=== PATIENT | female | born 1980 | race Caucasian/White ===

== ENCOUNTER 2021-08-11 19:48 | Emergency (ER) | payer BC, SELFPAY ==
--- NOTE | 2021-08-11 19:54 | ED.HA ---
HPI - Headache General Chief Complaint: Headache Stated Complaint: migrane Time Seen by Provider: 08/11/21 19:54 Source: patient and RN notes reviewed Mode of arrival: ambulatory Limitations: no limitations History of Present Illness HPI Narrative: 41-year-old female presents to the [facility] with complaints of a migraine. Patient reports a history of migraines. Has tried taking her sumatriptan and states it was not working. Was prescribed Fioricet as held up at the pharmacy. Denies any nausea or vomiting. Walks with a normal gait. States it feels like a normal migraine however she has slight pressure behind both ears. No numbness or tingling in extremities. No change in vision or blurry vision. No chest pain. No abdominal pain. Denies fevers MD elicited complaint: migraine Related Data Home Medications Medication Instructions Recorded Confirmed bupropion HCl 150 mg PO QAM 08/11/21 08/11/21 levothyroxine [Synthroid] 175 mcg PO DAILY 08/11/21 08/11/21 methylprednisolone 4 mg PO DAILY 08/11/21 08/11/21 ondansetron [Zofran ODT] 4 mg PO PRN PRN 08/11/21 08/11/21 plecanatide [Trulance] 3 mg PO DAILY 08/11/21 08/11/21 sumatriptan succinate 6 mg SUBCUT PRN PRN 08/11/21 08/11/21 Allergies Allergy/AdvReac Type Severity Reaction Status Date / Time morphine AdvReac Mild Hives Verified 08/11/21 20:05 Review of Systems Review of Systems: All systems reviewed & are unremarkable except as noted in HPI and below Constitutional: Constitutional: Reports no additional constitutional complaints, Denies chills and Denies fever(s) Eyes: Eyes: Reports no additional eye complaints ENT: Reports as per HPI Comments: Bilateral ear pressure Cardiovascular: Cardiovascular: Reports no additional cardiovascular complaints Respiratory: Respiratory: Reports no additional respiratory complaints Gastrointestinal: Gastrointestinal: Reports no additional gastrointestinal complaints Genitourinary: Genitourinary: Reports no additional female genitourinary complaints Musculoskeletal: Musculoskeletal: Reports no additional musculoskeletal complaints Integumentary/Breasts: Skin/Breast: Reports system reviewed and no additional complaints, except as docu Neurologic: Reports as per HPI and Reports headache(s) Psychiatric: Psychiatric: Reports no additional psychiatric complaints Allergic/Immunologic: Allergic/Immunologic: Reports no additional allergic/immunologic complaints PMFSH Past Medical History Medical History (Updated 08/11/21 @ 20:15 by Martita Hebert) Anxiety and depression Migraines Surgical History Surgical History (Updated 08/11/21 @ 20:11 by Martita Hebert) History of laparoscopic cholecystectomy Social History Social History (Updated 08/11/21 @ 20:11 by Martita Hebert) Living arrangements: with family Gender identity (if verbalized by the patient): Female Comments At the time of my signature, I reviewed and agree with the nursing past medical, surgical, social, and family history. There is no relevant family history pertinent to the patient complaint. Exam Const: General: healthy appearing, no acute distress and alert Nutritional Appearance: well nourished Orientation/consciousness: patient oriented x3 Limitations: no limitations HENMT: Head: normal to inspection Ears: external ears normal, EAC's normal and TM abnormal bulging bilateral, wth effusion and with fluid behind the TM bilateral; not bullous, not dull, not erythematous and with no loss of landmarks General nose exam: Normal external nose present Face and sinus: normal facial exam Throat: posterior oropharynx normal, tonsils normal and uvula midline Eyes: Conjunctivae: conjunctivae normal Pupils: Equal, round and reactive pupils present Neck: Neck: normal visual inspection, no lymphadenopathy and no meningeal signs Chest: Chest palpation & inspection: normal inspection of the chest Resp: Effort & Inspection: normal respiratory effor
[2021-08-11 20:02] VITALS: BP 118/84; PULSE 93; RESP 18; TEMP 37.2; O2SAT 98
[2021-08-11] MEDS: KETOROLAC (*BKC) 60 MG/2 ML VIAL IM (20:09)
[2021-08-11 20:14] VITALS: BP 118/84; PULSE 93; RESP 18; TEMP 37.2; O2SAT 98
== END 2021-08-11 20:26 | disposition home or self-care (01) ==
PROVIDERS: Emergency Provider Nurse Practitioner
DX: G43.909 Migraine, unspecified, not intractable, without status migrainosus (principal); H65.03 Acute serous otitis media, bilateral; F41.9 Anxiety disorder, unspecified; F32.A Depression, unspecified
CPT/HCPCS: 96372; 99203; G0463; J1885

== ENCOUNTER 2021-08-13 07:44 | Emergency (ER) | payer BC, SELFPAY ==
--- NOTE | ~2021-08-13 | XR_ITS ---
EXAMINATION: XR lumbar spine min 4V DATE: 08/13/2021 08:43 INDICATION: Nontraumatic low back pain TECHNIQUE: 5 views of the lumbar spine including anteroposterior, lateral, bilateral oblique and cone d-down lateral lumbosacral views were obtained. COMPARISON: None. FINDINGS: Alignment is normal. Vertebral body heights are normal. No pars intra-articular is defects or fractur es identified. Mild right-sided predominant disc height loss at L4-L5. Remaining disc heights are nor mal. Sacral arches are intact. Mild bilateral sacroiliac osteoarthritis. IUD in expected position in the central pelvis. Cholecystectomy clips in right upper quadrant. IMPRESSION: 1. Mild right-sided predominant disc height loss at L4-L5. 2. IUD in expected position. Reviewed, dictated and finalized at location A. CALLER
[2021-08-13 07:46] VITALS: BP 110/85; PULSE 87; RESP 18; O2SAT 97
[2021-08-13 08:39] LABS: Add Urine Microscopic? YES; Appearance Urine Cloudy (Clear); Bilirubin Urine Negative (Negative); Blood Urine 2+ (Negative); Color Urine Yellow (Yellow); Glucose Urine UA Negative (Negative); Ketones Urine Negative (Negative); Leukocyte Esterase Ur Negative LEU/UL (Negative); Mucus Urine Rare /lpf; Nitrate Urine Negative (Negative); Protein Urine Negative (Negative); Specific Grav Ur 1.016 (1.001-1.035); Squamous Epithelial Cell Urine Few /hpf (Few); Urobilinogen Urine Negative mg/dL (<2.0); WBC Urine 0-3 /hpf
[2021-08-13] MEDS: KETOROLAC 30 MG/ML VIAL (*BKC) IV PUSH (09:01)
[2021-08-13] MEDS: ONDANSETRON INJ 4 MG/2 ML VIAL IV PUSH (09:01)
[2021-08-13] MEDS: HYDROmorphone HCL INJ (*CRX) 1 MG/ML SYR IV PUSH (10:13)
--- NOTE | 2021-08-13 10:54 | ED.BACK ---
HPI - Back Pain/Injury General Chief Complaint: Back Pain/Injury Stated Complaint: back pain Time Seen by Provider: 08/13/21 07:46 Source: patient Mode of arrival: ambulatory Limitations: no limitations History of Present Illness HPI Narrative: 41-year-old with history of hypothyroidism here with complaints of left lower back pain radiating into her left upper part of the thigh. Patient states that she has been having this pain for quite some time. She has been seeing chiropractor she denies any trauma. No history of bladder or bowel incontinence. Denies any fever or chills. She states that she is presently taking Medrol Dosepak. MD elicited complaint: back pain Pertinent past history: prior back pain Onset (ago): week(s) Timing: constant Severity: severe Pain scale (0-10): 8 Similar Symptoms Previously: Yes Quality: aching Location: lumbar spine Radiation: left upper leg Exacerbating factors: movement and sitting upright Relieving factors: walking Associated symptoms: denies other symptoms Related Data Allergies Allergy/AdvReac Type Severity Reaction Status Date / Time morphine Allergy Unknown Verified 01/10/18 09:04 Review of Systems Review of Systems: All systems reviewed & are unremarkable except as noted in HPI and below Constitutional: Constitutional: Reports no additional constitutional complaints Eyes: Eyes: Reports no additional eye complaints ENT: Reports system reviewed and no additional complaints, except as documented Cardiovascular: Cardiovascular: Reports no additional cardiovascular complaints Respiratory: Respiratory: Reports no additional respiratory complaints Gastrointestinal: Gastrointestinal: Reports no additional gastrointestinal complaints Genitourinary: Genitourinary: Reports no additional female genitourinary complaints Musculoskeletal: Musculoskeletal: Reports as per HPI Integumentary/Breasts: Skin/Breast: Reports system reviewed and no additional complaints, except as docu Neurologic: Reports system reviewed and no additional complaints, except as documented PMFSH Social History Social History (Updated 08/13/21 @ 11:11 by Mynor Maier MD) Smoking status: Never smoker Substance use: never Living arrangements: with family Exam Narrative: GENERAL: Well-appearing, well-nourished, and in no acute distress. HEAD: Normocephalic, atraumatic. EYES: PERRLA and EOMI. NECK: Supple. CHEST: Clear to auscultation. No respiratory distress. HEART: Regular rate and rhythm. No murmur heard. Normal peripheral pulses. ABDOMEN: Soft, nontender, nondistended, normal active bowel sounds. EXTREMITIES: Normal range of motion. No edema. Back pain in the L4-L5 area. SLR negative SKIN: Warm, dry, no rash. NEURO: No focal deficits. Alert and oriented x3. PSYCH: Normal mood and affect. Course Course Emergency Course: Patient had minimal relief with the Decadron and Toradol. I have given 1 mg of Dilaudid did obtain x-ray of the lumbar spine which shows L4-L5 narrowing. Her pain is much improved with IV Dilaudid Vital Signs Vital signs: Vital Signs Pulse Rate 87 08/13/21 07:46 Respiratory Rate 18 08/13/21 07:46 Blood Pressure 110/85 08/13/21 07:46 Pulse Oximetry 97 08/13/21 07:46 Pulse Rate 87 08/13/21 07:46 Respiratory Rate 18 08/13/21 07:46 Blood Pressure 110/85 08/13/21 07:46 Pulse Oximetry 97 08/13/21 07:46 MDM - Back Pain/Injury Differential Diagnosis Differential diagnosis: Likely lumbar radiculopathy, sciatica and discitis Lab Data Labs: Lab Results 08/13/21 Range/Units 08:26 Urine Color Yellow (Yellow) Urine Appearance Cloudy H (Clear) Urine pH 6.0 (5.0-9.0) Ur Specific Rufe 1.016 (1.001-1.035) Urine Protein Negative (Negative) mg/dL Urine Glucose (UA) Negative (Negative) mg/dL Urine Ketones Negative (Negative) mg/dL Ur Blood (Man) 2+ H (Negative) Urine Nitrate Negative (Negative) Urine Eduardo
== END 2021-08-13 11:26 | disposition home or self-care (01) ==
PROVIDERS: Emergency Provider Family Medicine
DX: M54.16 Radiculopathy, lumbar region (principal); Z97.5 Presence of (intrauterine) contraceptive device
CPT/HCPCS: 72110; 81001; 81025; 96374; 96375; 99284; J1100; J1170; J1885; J2405

== ENCOUNTER 2023-08-17 22:14 | Emergency (ER) | payer SELFPAY ==
--- NOTE | 2023-08-17 22:23 | PC.NURSE ---
patient states she was not going to wait and was going to a different hospital
== END 2023-08-17 22:22 | disposition left against medical advice (07) ==
DX: Z53.21 Procedure and treatment not carried out due to patient leaving prior to being seen by health care provider (principal)
CPT/HCPCS: 99199

== ENCOUNTER 2024-06-04 17:44 | Emergency (ER) | payer OTHER, SELFPAY ==
--- NOTE | ~2024-06-04 | CT_ITS ---
EXAMINATION: CT abdomen pelvis w con DATE: 06/04/2024 21:32 INDICATION: Right flank pain. TECHNIQUE: Computed tomography (CT) of the abdomen and pelvis was performed with 100 mL Omnipaque 350 intravenous contrast. Automated exposure control and iterative reconstruction technique were employe d. The dose-length product was 366.62 mGy-cm. COMPARISON: None. FINDINGS: The visualized portions of the lung bases demonstrate mild atelectasis. No pleural effusion . The heart size is normal. No pericardial effusion. There is a 7 mm cyst in the liver. There are shauna nges of cholecystectomy. The spleen, pancreas, adrenal glands, and kidneys are normal. There is an in trauterine device in expected position. There are no dilated loops of bowel. The appendix is normal. There are no pathologically enlarged lymph nodes. There is no free intraperitoneal fluid. There is a 2.5 cm dominant follicle in right ovary. There is a 2.4 cm dominant follicle in left ovary. There is mild lumbar spondylosis. IMPRESSION: 1. No specific etiology for the patient's symptoms. Reviewed, dictated and finalized at location A.
[2024-06-04 17:59] VITALS: BP 130/99; PULSE 96; RESP 18; TEMP 36.6; O2SAT 100
--- NOTE | 2024-06-04 20:11 | ED.GENADULT ---
HPI - General Adult General Chief complaint: Unspecified Stated complaint: sick for 10 days/rib pain Time Seen by Provider: 06/04/24 19:17 Source: patient Mode of arrival: ambulatory Limitations: no limitations History of Present Illness HPI narrative: Is a 44-year-old female who presents to the ED for chief complaint of feeling ill for the past 10 days. States she started with cough congestion, body aches and fevers. States she was tested for strep a week ago but was negative, however they started Augmentin anyway. She is finishing up this prescription now. States over the last several days she has started to developed urinary frequency and dysuria. She states that she has a pain in her right side towards her right flank. States that she is no longer coughing. Denies fevers, chills, nausea, vomiting, diarrhea, chest pain, shortness of breath. Related Data Home Medications Medication Instructions Recorded Confirmed bupropion HCl 150 mg 24 hr tablet, 150 mg PO QAM 08/11/21 08/11/21 extended release levothyroxine 175 mcg tablet 175 mcg PO DAILY 08/11/21 08/11/21 (Synthroid) methylprednisolone 4 mg tablets in 4 mg PO DAILY 08/11/21 08/11/21 a dose pack ondansetron 4 mg disintegrating 4 mg PO PRN PRN Migraine Headache 08/11/21 08/11/21 tablet plecanatide 3 mg tablet (Trulance) 3 mg PO DAILY 08/11/21 08/11/21 sumatriptan succinate 6 mg/0.5 mL 6 mg subcut PRN PRN Migraine 08/11/21 08/11/21 subcutaneous pen injector Headache Allergies Allergy/AdvReac Type Severity Reaction Status Date / Time morphine Allergy Unknown Vomiting Verified 08/17/23 22:14 Review of Systems Review of Systems: All systems as dictated in [facility] Past Medical History Medical History (Updated 06/05/24 @ 00:00 by Chavez Lindo) Anxiety and depression Migraines Surgical History Surgical History (Updated 08/17/21 @ 09:21 by Lilia Bloom) History of laparoscopic cholecystectomy Social History Social History (System 08/17/21 @ 09:21 by Lilia Bloom) Smoking status: Never smoker Substance use: never Living arrangements: with family Gender identity (if verbalized by the patient): Female Exam Narrative: GENERAL: Well-appearing, well-nourished, and in no acute distress. HEAD: Normocephalic, atraumatic. EYES: PERRLA and EOMI. ENT: Nares clear, no rhinorrhea or epistaxis. Mucous membranes moist. Oropharynx without tonsillar hypertrophy exudate or other lesions. NECK: Supple. No adenopathy or masses. CHEST: No respiratory distress. Clear to auscultation. No wheezes rales or rhonchi HEART: Regular rate and rhythm. No murmur heard. Normal peripheral pulses. ABDOMEN: Right flank tenderness present. Soft, otherwise nontender, nondistended, normal active bowel sounds. MSK: Normal range of motion. No edema. SKIN: Warm, dry, no rash. NEURO: Alert and oriented x4. No focal deficits. PSYCH: Normal mood and affect. Course Vital Signs Vital signs: Vital Signs Temperature 97.9 F 06/04/24 17:59 Pulse Rate 96 06/04/24 17:59 Respiratory Rate 18 06/04/24 17:59 Blood Pressure 130/99 H 06/04/24 17:59 Pulse Oximetry 100 06/04/24 17:59 Oxygen Delivery Room Air 06/04/24 17:59 Temperature 98.4 F 06/04/24 22:19 Pulse Rate 92 06/04/24 22:19 Respiratory Rate 17 06/04/24 22:19 Blood Pressure 122/81 06/04/24 22:19 Pulse Oximetry 100 06/04/24 22:19 Oxygen Delivery Room Air 06/04/24 17:59 Medical Decision Making [facility] Narrative Medical decision making narrative: this is a 4-year-old female who presents to the ED with chief complaint of fatigue and right-sided abdominal pain. Vitals are normal. Exam does show some right flank tenderness present. Lab work is overall unremarkable. Urinalysis questionable for UTI with trace leuks and blood. CT abdomen is negative for any acute findings. Will treat for possible UTI with ciprofloxacin. Encourage
[2024-06-04] MEDS: ONDANSETRON INJ 4 MG/2 ML VIAL IV PUSH (20:16)
[2024-06-04] MEDS: KETOROLAC 30 MG/ML VIAL (*BKC) IV PUSH (20:16)
[2024-06-04] MEDS: SODIUM CHLORIDE 0.9% IV 1,000 ML 999 ML IV CONT (20:16)
[2024-06-04 20:26] LABS: Basophils Percent Auto 0.5 % (0.2-1.2); Eosinophils Absolute Auto 0.1 K/mm3 (0-0.3); Eosinophils Percent Auto 0.8 % (0-4.4); Hematocrit 41.1 % (37.0-47.0); Hemoglobin 13.9 g/dL (12.0-15.0); Immature Granulocyte Absolute 0.02 K/mm3 (0.00-0.031); Immature Granulocyte Percent A 0.2 % (0-0.5); Lymphocytes Absolute Auto 3.45 K/mm3 (0.9-3.2); Lymphocytes Percent Auto 39.6 % (18.3-44.2); Mean Corpuscular HGB Conc 33.8 g/dl (32-36); Mean Corpuscular Hemoglobin 29.6 pg (26-34); Mean Corpuscular Volume 87.4 fl (80-100); Mean Platelet Volume 9.4 fl (7.4-10.4); Monocytes Absolute Auto 0.9 K/mm3 (0.1-0.6); Monocytes Percent Auto 9.7 % (2.6-8.5); Neutrophils Absolute Auto 4.3 K/mm3 (1.3-6.7); Neutrophils Percent Auto 49.2 % (45.5-73.1); Platelet Count Result 321 k/mm3 (150-375); Red Cell Distribution Width 13.2 % (11.5-14.5); White Blood Count 8.7 K/mm3 (4.5-10.0)
[2024-06-04 20:30] LABS: Add Urine Microscopic? YES; Appearance Urine Clear (Clear); Bacteria Urine None Seen /hpf; Bilirubin Urine Negative (Negative); Blood Urine 2+ (Negative); Color Urine Yellow (Yellow); Glucose Urine UA Negative (Negative); Ketones Urine Negative (Negative); Leukocyte Esterase Ur Trace LEU/UL (Negative); Nitrate Urine Negative (Negative); Non Pathogenic Casts 0-2; Protein Urine Negative (Negative); RBC Urine 21-50 /hpf (0-2); Specific Grav Ur 1.022 (1.001-1.035); Squamous Epithelial Cell Urine Occasional /hpf (Few); WBC Urine 0-5 /hpf (0-3); pH Urine 6.5 (5.0-9.0)
[2024-06-04 20:47] LABS: Alanine Aminotransferase 32 U/L (6-35); Albumin Level 4.2 g/dL (3.5-5.1); Alkaline Phosphatase 35 U/L (38-126); Anion Gap 9 mmol/L (4-12); Aspartate Amino Transferase 35 U/L (14-36); Bilirubin,Total 1.7 mg/dL (0.2-1.3); Blood Urea Nitrogen 12 mg/dL (7-17); Calcium 9.1 mg/dL (8.4-10.2); Carbon Dioxide 24 mmol/L (22-30); Chloride 104 mmol/L (98-107); Estimated CRCL calculation 82 ml/min; Estimated Glomerular Filt Rate > 60; Glucose 87 mg/dL (65-110); Lipase 64 U/L (23-300); Potassium 4.3 mmol/L (3.4-5.0); Sodium 137 mmol/L (137-145)
[2024-06-04 21:17] LABS: BEDSIDEPREGUCG Negative
[2024-06-04 22:18] VITALS: RESP 16; O2SAT 99
[2024-06-04 22:19] VITALS: BP 122/81; PULSE 92; RESP 17; TEMP 36.9; O2SAT 100
== END 2024-06-04 22:23 | disposition home or self-care (01) ==
PROVIDERS: Emergency Provider Physician Assistant; PCP Family Medicine
DX: N39.0 Urinary tract infection, site not specified (principal); F41.9 Anxiety disorder, unspecified; F32.A Depression, unspecified; Z90.49 Acquired absence of other specified parts of digestive tract; Z79.899 Other long term (current) drug therapy
CPT/HCPCS: 36415; 74177; 80053; 81001; 81025; 83690; 85025; 96361; 96374; 96375; 99284; J1885; J2405; J7030; Q9967

== ENCOUNTER 2024-08-29 14:52 | Emergency (ER) | payer OTHER, SELFPAY ==
[2024-08-29 14:55] VITALS: BP 123/93; PULSE 90; RESP 18; TEMP 36.2; O2SAT 100
--- NOTE | 2024-08-29 15:48 | ED.GENADULT ---
HPI - General Adult General Chief complaint: Unspecified Stated complaint: puppy has giardia Time Seen by Provider: 08/29/24 15:41 Source: patient Mode of arrival: ambulatory Limitations: no limitations History of Present Illness HPI narrative: 44 years old white female came to the ED by private car complaining of diarrhea, abdominal bloating for the last 4 days up to 5 times a day. Associated with some nausea She denies any abdominal pain, fever, chills, or, vomiting. Patient is telling me that her dog tested positive for Giardia few days ago. Patient is telling me that she have no trouble of drinking fluid Related Data Home Medications Medication Instructions Recorded Confirmed bupropion HCl 150 mg 24 hr tablet, 150 mg PO QAM 08/11/21 08/11/21 extended release levothyroxine 175 mcg tablet 175 mcg PO DAILY 08/11/21 08/11/21 (Synthroid) methylprednisolone 4 mg tablets in 4 mg PO DAILY 08/11/21 08/11/21 a dose pack ondansetron 4 mg disintegrating 4 mg PO PRN PRN Migraine Headache 08/11/21 08/11/21 tablet plecanatide 3 mg tablet (Trulance) 3 mg PO DAILY 08/11/21 08/11/21 sumatriptan succinate 6 mg/0.5 mL 6 mg subcut PRN PRN Migraine 08/11/21 08/11/21 subcutaneous pen injector Headache Allergies Allergy/AdvReac Type Severity Reaction Status Date / Time morphine Allergy Unknown Vomiting Verified 08/29/24 14:59 meloxicam Allergy Swelling Verified 08/29/24 15:00 diclofenac AdvReac Unknown Verified 08/29/24 15:00 methotrexate AdvReac Unknown Verified 08/29/24 15:00 nitrofurantoin AdvReac Unknown Verified 08/29/24 15:00 Review of Systems Review of Systems: All systems reviewed & are unremarkable except as noted in HPI and below PMFSH Past Medical History Medical History Anxiety and depression Migraines Surgical History Surgical History History of laparoscopic cholecystectomy Social History Social History Smoking status: Never smoker Substance use: never Living arrangements: with family Gender identity (if verbalized by the patient): Female Exam Narrative: General appearance: Well-developed, well-nourished Skin: Normal color Chest and respiratory: Airway patent, no respiratory distress, no accessory muscle use Heart: Regular rate/rhythm Abdomen: Soft, nontender, no organomegaly, hyperactive bowel sounds Neurologic: Alert and oriented ?3, Course Vital Signs Vital signs: Vital Signs Temperature 36.2 C L 08/29/24 14:55 Pulse Rate 90 08/29/24 14:55 Respiratory Rate 18 08/29/24 14:55 Blood Pressure 123/93 H 08/29/24 14:55 Pulse Oximetry 100 08/29/24 14:55 Oxygen Delivery Room Air 08/29/24 14:55 Temperature 36.2 C L 08/29/24 14:55 Pulse Rate 90 08/29/24 14:55 Respiratory Rate 18 08/29/24 14:55 Blood Pressure 123/93 H 08/29/24 14:55 Pulse Oximetry 100 08/29/24 14:55 Oxygen Delivery Room Air 08/29/24 14:55 Medical Decision Making [facility] Narrative Medical decision making narrative: Patient presents with diarrhea and abdominal bloating, status post get RDS exposure Vital signs are stable Physical examination showed slightly distended abdomen, hyperactive bowel sounds, no localized tenderness Differential diagnosis include Giardiasis, nonspecific diarrhea, dehydration, electrolyte imbalance Blood workup today includes CBC and CMP showed no acute abnormality Stool test for giardia is send out Diagnosis unspecified diarrhea Discharged on metronidazole 250 t.i.d. 5 days for possible giardiasis Differential Diagnosis Differential Diagnosis: As above Vital Signs Vital Signs: Vital Signs Temperature 36.2 C L 08/29/24 14:55 Pulse Rate 90 08/29/24 14:55 Respiratory Rate 18 08/29/24 14:55 Blood Pressure 123/93 H 08/29/24 14:55 Pulse Oximetry 100 08/29/24 14:55 Oxygen Delivery Room Air 08/29/24 14:55 Temperature 36.2 C L 08/29/24 14:55 Pulse Rate 90 08/29/24 14:55 Respiratory Rate 18 08/29/24 14:55 Blood Pressure 123/93 H 08/29/24 14:55 Pulse Oximetry 100 08/29/24 14:55 Oxygen Delivery Room Air 08/29/24 14:55 Lab Data 08/29/24 16:07 08/29/24 16:07 Labs: Lab Results 08/29/24 Range/Units 16:07 WBC 9.9 (4.5-10.0) K/mm3 RBC 5.10 (4.2-5.4) M/mm3 Hgb 14.9 (12.0-15.0) g/dL Hct 43.9 (37.0-47.0) % MCV 86.1 (80-100) fl MCH 29.2 (26-34) pg MCHC 33.9 (32-36) g/dl RDW 12.6 (11.5-14.5) % Plt Count 338 (150-375) k/mm3 MPV 9.5 (7.4-10.4) fl Immature Gran % (Auto) 0.3 (0-0.5) % Neut % (Auto) 50.6 (45.5-73.1) % Lymph % (Auto) 41.1 (18.3-44.2) % [place] % (Auto) 6.6 (2.6-8.5) % Eos % (Auto) 0.8 (0-4.4) % Baso % (Auto) 0.6 (0.2-1.2) % Lymph # (Auto) 4.06 H (0.9-3.2) K/mm3 [place] # (Auto) 0.7 H (0.1-0.6) K/mm3 Eos # (Auto) 0.1 (0-0.3) K/mm3 Baso # (Auto) 0.1 (0.0-0.1) K/mm3 Abs Immat Gran (auto) 0.03 (0.00-0.031) K/mm3 Absolute Neuts (auto) 5.0 (1.3-6.7) K/mm3 Absolute Nucleated RBC 0.000 (0.0-0.012) K/mm3 Nucleated RBC % 0.0 (0.0-0.2) % Sodium 137 (137-145) mmol/L Potassium 3.9 (3.4-5.0) mmol/L Chloride 104 (98-107) mmol/L Carbon Dioxide 29 (22-30) mmol/L Anion Gap 4 (4-12) mmol/L BUN 9 (7-17) mg/dL Creatinine 0.80 (0.7-1.0) mg/dL Estim Creat Clear Calc 70 ml/min Estimated GFR > 60 (59 - ) Glucose 71 (65-110) mg/dL Calcium 9.0 (8.4-10.2) mg/dL Total Bilirubin 1.2 (0.2-1.3) mg/dL AST 31 (14-36) U/L ALT 24 (6-35) U/L Alkaline Phosphatase 39 (38-126) U/L Total Protein 8.0 (6.3-8.2) g/dL Albumin 4.5 (3.5-5.1) g/dL Critical Care Time Critical Care Time Critical Care Time: No Discharge Plan Discharge Clinical Impression: Diarrhea Patient Disposition: Home, Self-Care Condition: Stable Instructions: Antibiotic Form, Acute Diarrhea (ED) Additional Instructions: Return if symptoms are worsening , call your family physician for appointment, take Tylenol as as needed for aches and pain, continue home medications. Encourage fluid intake Prescriptions: New metronidazole 250 mg tablet 250 mg PO Q8H Qty: 15 0RF No Action levothyroxine [Synthroid] 175 mcg Tablet 175 mcg PO DAILY methylprednisolone 4 mg tablets,dose pack 4 mg PO DAILY ondansetron [Zofran ODT] 4 mg Tablet,Disintegrating 4 mg PO PRN PRN (Reason: Migraine Headache) sumatriptan succinate 6 mg/0.5 mL pen injector 6 mg SUBCUT PRN PRN (Reason: Migraine Headache) bupropion HCl 150 mg Tablet Extended Release 24 Hr 150 mg PO QAM Trulance 3 mg tablet 3 mg PO DAILY cyclobenzaprine 5 mg tablet 5 mg PO TID PRN (Reason: muscle spasm) Qty: 20 0RF gabapentin 100 mg capsule 100 mg PO TID Qty: 90 0RF hydrocodone-acetaminophen 5-325 mg tablet 1 tablet PO Q6H Qty: 20 0RF ciprofloxacin HCl [Cipro] 500 mg tablet 500 mg PO Q12H Qty: 10 0RF Follow-up/Referrals: Rene,Derrick Johnson MD [Primary Care Provider] -
[2024-08-29 16:17] LABS: Basophils Absolute Auto 0.1 K/mm3 (0.0-0.1); Basophils Percent Auto 0.6 % (0.2-1.2); Eosinophils Absolute Auto 0.1 K/mm3 (0-0.3); Eosinophils Percent Auto 0.8 % (0-4.4); Hematocrit 43.9 % (37.0-47.0); Hemoglobin 14.9 g/dL (12.0-15.0); Immature Granulocyte Absolute 0.03 K/mm3 (0.00-0.031); Immature Granulocyte Percent A 0.3 % (0-0.5); Lymphocytes Absolute Auto 4.06 K/mm3 (0.9-3.2); Lymphocytes Percent Auto 41.1 % (18.3-44.2); Mean Corpuscular HGB Conc 33.9 g/dl (32-36); Mean Corpuscular Hemoglobin 29.2 pg (26-34); Mean Corpuscular Volume 86.1 fl (80-100); Mean Platelet Volume 9.5 fl (7.4-10.4); Monocytes Absolute Auto 0.7 K/mm3 (0.1-0.6); Monocytes Percent Auto 6.6 % (2.6-8.5); Neutrophils Percent Auto 50.6 % (45.5-73.1); Platelet Count Result 338 k/mm3 (150-375); Red Cell Distribution Width 12.6 % (11.5-14.5); White Blood Count 9.9 K/mm3 (4.5-10.0)
[2024-08-29 16:29] LABS: Alanine Aminotransferase 24 U/L (6-35); Albumin Level 4.5 g/dL (3.5-5.1); Alkaline Phosphatase 39 U/L (38-126); Anion Gap 4 mmol/L (4-12); Aspartate Amino Transferase 31 U/L (14-36); Bilirubin,Total 1.2 mg/dL (0.2-1.3); Blood Urea Nitrogen 9 mg/dL (7-17); Carbon Dioxide 29 mmol/L (22-30); Chloride 104 mmol/L (98-107); Estimated CRCL calculation 70 ml/min; Estimated Glomerular Filt Rate > 60; Glucose 71 mg/dL (65-110); Potassium 3.9 mmol/L (3.4-5.0); Sodium 137 mmol/L (137-145)
[2024-08-29 18:28] VITALS: BP 123/61; PULSE 89; RESP 15; TEMP 36.2; O2SAT 99
== END 2024-08-29 18:29 | disposition home or self-care (01) ==
PROVIDERS: Emergency Provider Emergency Medicine; PCP Family Medicine
DX: R19.7 Diarrhea, unspecified (principal); F41.9 Anxiety disorder, unspecified; F32.A Depression, unspecified; Z90.49 Acquired absence of other specified parts of digestive tract; Z79.899 Other long term (current) drug therapy
CPT/HCPCS: 36415; 80053; 85025; 87269; 87272; 99283

== ENCOUNTER 2025-01-09 05:28 | Emergency (ER) | payer OTHER, SELFPAY ==
--- NOTE | ~2025-01-09 | XR_ITS ---
EXAMINATION: XR chest 2V DATE: 01/09/2025 07:48 INDICATION: Right-sided chest pain TECHNIQUE: PA and lateral views of the chest were obtained. COMPARISON: Chest radiograph dated 06/21/2015 FINDINGS: The lungs remain clear with no focal airspace opacities, pulmonary edema, pleural effusion or pneumot horax. The cardiomediastinal silhouette is normal. Visualized bones and soft tissues are unremarkable . Cholecystectomy clips in the right upper quadrant. IMPRESSION: 1. No acute cardiopulmonary disease. Reviewed, dictated and finalized at location A.
[2025-01-09 05:29] VITALS: BP 124/73; PULSE 110; RESP 18; TEMP 36.1; O2SAT 100
--- OUTSIDE RECORDS SUMMARY | 2025-01-09 05:30 | XMS_ITS | Data Portability ---
Author Organization [place] [facility] [employer], Main Office Address [address] [place] [address] Care Team Providers Care Radiology Teacher Name Role Phone MIKI FAIR Primary Care Provider Assessment No assessment recorded. Plan of Treatment Reminders Order Date Submit Date Provider Last Modified By Organization Details Last Modified Time Details Appointments None recorded. Lab vitamin D, 25-hydroxy, total, serum 2022 023 [facility] ([facility]) Registration/ Lab, [address] [place], [address], 3 15:01:09 T3, free, serum or plasma 2022 023 [email or web address] [facility] ([facility]) Registration/ Lab, [address] [place], [address], 3 18:20:26 TSH + free T4, serum 2022 023 [facility] ([facility] Registration/ Lab, [address] [place], [address], 3 18:20:26 CMP, serum or plasma 2022 023 [facility]ESS [facility] ([facility]) Registration/ Lab, [address] [place], [address], 3 15:12:40 Referral neurologist referral - has multiple MS symptoms may need LP for confirmatio n or further workup 2022 023 [email or web address] [id number] Mandy Lozano MD, [address], [address], [place], [address], 3 18:23:41 Procedures None recorded. Surgeries None recorded. Imaging None recorded. Medication Orders Vitamin D3 50 mcg (2,000 unit) capsule 2022 023 [facility] [id number] [facility], [address], [place], [address], 3 20:22:17 Tirosint 100 mcg capsule 2022 023 [facility], [address], [place], [address], 3 17:26:01 Patient TargetsNo targets recorded. Patient InstructionsNo instructions recorded. Reason for Referral Neurologist Referral for Sen jo-ann neuropathy has multiple MS symptoms may need LP for confirmation or further workup Referring Physician: Sissy Madrid, Endocrinology, Encounter Date: 12/19/2022 Results Created Date Observation Date Name Description Value Unit Range Abnormal Flag Note LastModifiedBy Organization Detail LastModifiedTime 12/04/1912/11/2021 HERED .HEMO CHROM ATOSI S, DNA hereditary hemochromato sis commen t NO MUTAT ION IDENT IFIED . Inter preta tion: This patie nt's sampl e was madison zed for the hered itary hemoc hroma tosis (HH) mutat ions C282Y , H63D, S65C. No mutat ion was ident ified . The mutat ions madison zed by [facility] are most commo n in the [place] popul ation , and up to 90% of affec [facility]li [facility] will have a posit prasanna test resul t. Becau se this panel does not ident lauren rare HH mutat ions or HH mutat ions found in other ethni c group s, there are a small numbe r of peopl e who may have a negat prasanna test but may actua lly be affec kimberli. The diagn osis of HH shoul d inclu de clini irving findi ngs and other test resul ts such as trans frandy n-iro n satur ation and/o r serum frandy tin studi es and/o r liver biops y. If this patie nt has a histo ry of HH, in many cases a speci fic alison er risk can be deter mined based on this negat prasanna resul t. Metho dolog y: DNA Madison sis of the HFE gene was perfo rmed by PCR ampli ficat ion follo wed by restr ictio n enzym e diges tion madison ses. . Refer ence: Cleo walker JS and Rocky robert AP. (2000 ). Sienna Test 4:97- 101. Cogsw maude TIWARI et al. (1999 ). AM J Prev Med 16:13 4-140 . Bomrubén Agudelo (2002 ). Juan Alberto t 360(9 199): 1673- 81. Latonia Skye n et al. (2002 ). Blood Cells , Molec ules. and Disea ses. 29(3) :418- 432. [facility] handy Olson et al. (2003 ). Sienna Med. 5(1): 1-8. Cogsw maude TIWARI et al. (2003 ). Sienna Med. 5(4): 304-1 0. . This test was devel oped and its perfo rmanc e jennie cteri stics deter mined by [facility]. It has not been clear ed or appro riki by the Food and Drug Admin istra tion. . Sienna ic couns elash are avail able for [facility] provi ders to discu ss resul ts at [phone]. . Fito hendricks, PhD, FACMG Lori jamil, PhD, FACMG Bradford platt PhD, FACMG Yoan moeller PhD, FACMG W. Gorge Beard, PhD, FACMG Noah mendez, PhD, FACMG Perfo rmed at: [facility] - [facility] RTP [address] [facility] , [place] [address] Lab Direc tor: Gustabo Donovan Formerly [facility] , Phone : [phone] Not Available [facility] ([facility]) [address] [place], [address], 12/11/2021 13:09:15 12/04/19 22 12/06/2021 FLOR/A NTINU CLEAR ANTIB ODIES ,IFA antinuclear antibodies, ifa negati ve Negat prasanna <1:80 Borde rline 1:80 Posit prasanna >1:80 ICAP nomen clatu re: AC-0 For more infor arcelia n about Hep-2 cell patte rns use ANApa ttern s.org , the offic ial websi te for the Inter natio nal Conse nsus on Antin uclea r Antib delvis (FLOR) Patte rns ([facility] ). Perfo rmed at: [facility] [address] [place] [address] Lab Direc tor: Roderick de leon PhD, Phone : [phone] Not Available [facility] (Lab) [address] [place], [address], 12/06/2021 21:07:28 12/04/19 22 12/06/2021 MITOC HONDR IAL (M2) ANTIB DELVIS mitochondria l (M2) antibody <20.0 units 0.0-20 .0 Negat prasanna 0.0 - 20.0 Equiv ocal 20.1 - 24.9 Posit prasanna >24.9 . Mitoc hondr ial (M2) Antib odies are found in 90-96 % of patie nts with prima ry bilia ry cirrh osis. Perfo rmed at: [facility] [address] [place] [address] Lab Direc tor: Roderick de leon PhD, Phone : [phone] Not Available [facility] (Lab) [address] [place], [address], 12/06/2021 15:11:16 12/04/19 22 12/04/2021 HEPAT ITIS ACUTE PANEL S/C 0.08 0.00-1 .10 Not Available [facility] (Lab) [address] [place], [address], 12/04/2021 19:52:22 12/04/19 22 12/04/2021 HEPAT ITIS ACUTE PANEL hepatitis A IgM antibody non-re active non-re active For sampl es repor kimberli as Borde rline React prasanna for HAV IgM, it is recom aquilino d a new speci men be obtai bradley in 2 weeks and retes kimberli. Not Available [facility] (Lab) [address] [place], [address], 12/04/2021 19:52:22 12/04/19 22 12/04/2021 HEPAT ITIS ACUTE PANEL S/C 0.03 0.00-0 .79 Not Available [facility] (Lab) [address] [place], [address], 12/04/2021 19:52:22 12/04/19 22 12/04/2021 HEPAT ITIS ACUTE PANEL hepatitis B core IgM antibody non-re active non-re active Not Available [facility] (Lab) [address] [place], [address], 12/04/2021 19:52:22 12/04/19 22 12/04/2021 HEPAT ITIS ACUTE PANEL hepatitis B surface antigen non-re active non-re active Not Available [facility] (Lab) [address] [place], [address], 12/04/2021 19:52:22 12/04/19 22 12/04/2021 HEPAT ITIS ACUTE PANEL S/C 0.19 0.00-0 .99 Not Available [facility] (Lab) [address] [place], [address], 12/04/2021 19:52:22 12/04/19 22 12/04/2021 HEPAT ITIS ACUTE PANEL hepatitis C antibody non-re active non-re active Not Available [facility] (Lab) [address] [place], [address], 12/04/2021 19:52:22 12/04/19 22 12/04/2021 HEPAT ITIS ACUTE PANEL S/C 0.00 0.00-0 .99 Not Available [facility] (Lab) [address] [place], [address], 12/04/2021 19:52:22 12/04/19 22 12/04/2021 T4 FREE free T4 1.49 NG/dL 0.78-2 .19 Not Available [facility] (Lab) [address] [place], [address], 12/04/2021 19:39:50 12/04/19 22 12/04/2021 T3 FREE free T3 4.2 pg/mL 2.77-5 .27 Not Available [facility] (Lab) [address] [place], [address], 12/04/2021 19:39:49 12/04/19 22 12/04/2021 IRON/ TIBC PANEL iron 80 mcg/d L 42-175 Not Available [facility] (Lab) [address] [place], [address], 12/04/2021 19:39:44 12/04/19 22 12/04/2021 IRON/ TIBC PANEL total iron binding capacity 341 mcg/d L 265-47 5 Not Available [facility] (Lab) [address] [place], [address], 12/04/2021 19:39:44 12/04/19 22 12/04/2021 IRON/ TIBC PANEL % transferrin saturation 23 % 20-55 Not Available [facility] (Lab) [address] [place], [address], 12/04/2021 19:39:44 12/04/19 22 12/04/2021 IRON/ TIBC PANEL unsaturated iron bind capacity 261 mcg/d L 126-38 2 Not Available [facility] (Lab) [address] [place], [address], 12/04/2021 19:39:44 12/04/19 22 12/04/2021 FRANDY TIN ferritin 62 NG/mL 6.24-1 37 Not Available [facility] (Lab) [address] [place], [address], 12/04/2021 19:39:30 12/04/19 22 12/04/2021 TSH thyroid-stim ulating hormone 1.300 uIU/m L 0.465- 4.680 Not Available [facility] (Lab) [address] [facility], [place], [address], 12/04/2021 19:36:31 12/04/19 22 12/04/2021 COMPR EHENS PRASANNA METAB OLIC PANEL GFR >60 Refer ence Range : Madison ge GFR Healt hy Adult : >60 mL/mi n/1.7 3 m2 Chron ic Kidne y Disea se: 15-60 mL/mi n/1.7 3 m2 Kidne y Failu re: <15/m L/min /1.73 m2 www.n iddk. nih.g ov The MDRD study equat ion has not been valid ated in child yaima <18 years of age; pregn ant women ; the elder ly >85 years of age; or in some racia l or ethni c subgr oups, such as [facility] nics. Outsi de the valid ated renée eters , estim ated GFR is less accur ate, requi ring clini irving judgm ent on a case- by-ca se basis . Clini irving inter preta tion for other races and ages must be made by the clini iona. The MDRD study equat ion has not been valid ated for the evalu ation of serum creat inine relat ed to nutri carlos l statu s or medic ation usage . For perso ns <18 years of age, a pedia tric GFR calcu lator is avail able on the F websi te: https ://em w.michael morales.o rg/pr ofess ional s/kdo qi/gf r_cal culat or Not Available [facility] (Lab) [address] [place], [address], 12/04/2021 19:26:28 12/04/19 22 12/04/2021 COMPR EHENS PRASANNA METAB OLIC PANEL sodium 136 mmol/ L 137-14 5 low Not Available [facility] (Lab) [address] [facility] [place], [address], 12/04/2021 19:26:28 12/04/19 22 12/04/2021 COMPR EHENS PRASANNA METAB OLIC PANEL potassium 4.3 mmol/ L 3.5-5. 1 Not Available [facility] (Lab) [address] [place], [address], 12/04/2021 19:26:28 12/04/19 22 12/04/2021 COMPR EHENS PRASANNA METAB OLIC PANEL chloride 103 mmol/ L 98-107 Not Available [facility] (Lab) [address] [place], [address], 12/04/2021 19:26:28 12/04/19 22 12/04/2021 COMPR EHENS PRASANNA METAB OLIC PANEL carbon dioxide 32 mmol/ L 22-30 high Not Available [facility] (Lab) [address] [place], [address], 12/04/2021 19:26:28 12/04/19 22 12/04/2021 COMPR EHENS PRASANNA METAB OLIC PANEL agap 5.3 mmol/ L 14-22 low Not Available [facility] (Lab) [address] [place], [address], 12/04/2021 19:26:28 12/04/19 22 12/04/2021 COMPR EHENS PRASANNA METAB OLIC PANEL glucose 96 mg/dL 70-99 Not Available [facility] (Lab) [address] [place], [address], 12/04/2021 19:26:28 02/28/20 22 12/04/2021 COMPR EHENS PRASANNA METAB OLIC PANEL BUN 14 mg/dL 8-19 Not Available [facility] (Lab) [address] [place], [address], 12/04/2021 19:26:28 12/04/19 22 12/04/2021 COMPR EHENS PRASANNA METAB OLIC PANEL creatinine 0.93 mg/dL 0.66-1 .25 Not Available [facility] (Lab) [address] [place], [address], 12/04/2021 19:26:28 12/04/19 22 12/04/2021 COMPR EHENS PRASANNA METAB OLIC PANEL alkaline phosphatase 41 U/L 38-126 Not Available [facility] (Lab) [address] [facility] [place], [address], 12/04/2021 19:26:28 12/04/19 22 12/04/2021 COMPR EHENS PRASANNA METAB OLIC PANEL alanine aminotransfe rase 21 U/L 0-35 Not Available [facility] (Lab) [address] [place], [address], 12/04/2021 19:26:28 12/04/19 22 12/04/2021 COMPR EHENS PRASANNA METAB OLIC PANEL aspartate aminotransfe rase 27 U/L 15-37 Not Available [facility] (Lab) [address] [place], [address], 12/04/2021 19:26:28 12/04/19 22 12/04/2021 COMPR EHENS PRASANNA METAB OLIC PANEL bilirubin, total 0.80 mg/dL 0.20-1 .30 Not Available [facility] (Lab) [address] [place], [address], 12/04/2021 19:26:28 12/04/19 22 12/04/2021 COMPR EHENS PRASANNA METAB OLIC PANEL calcium 9.4 mg/dL 8.4-10 .2 Not Available [facility] (Lab) [address] [place], [address], 12/04/2021 19:26:28 12/04/19 22 12/04/2021 COMPR EHENS PRASANNA METAB OLIC PANEL total protein 7.2 g/dL 6.3-8. 2 Not Available [facility] (Lab) [address] [place], [address], 12/04/2021 19:26:28 12/04/19 22 12/04/2021 COMPR EHENS PRASANNA METAB OLIC PANEL albumin 4.4 g/dL 3.4-5. 0 Not Available [facility] (Lab) [address] [place], [address], 12/04/2021 19:26:28 12/04/19 22 12/04/2021 COMPR EHENS PRASANNA METAB OLIC PANEL globulin 2.8 g/dL 2.6-4. 2 Not Available [facility] (Lab) [address] [place], [address], 12/04/2021 19:26:28 12/04/19 22 12/04/2021 COMPR EHENS PRASANNA METAB OLIC PANEL A/G ratio 1.6 ratio 1.0-2. 0 Not Available [facility] (Lab) [address] [place], [address], 12/04/2021 19:26:28 12/04/19 22 12/04/2021 VITAM IN D 25-HY DROXY [id number] 46.8 NG/mL 30-100 Vitam in D Statu s: Defic ient: <20 ng/mL Insuf ficie nt: 20-29 ng/mL Suffi cient : 30-10 0 ng/mL Not Available [facility] (Lab) [address] [place], [address], 12/04/2021 19:26:07 08/14/20 21 08/14/2021 US, thyro id No observ ation record ed. [id number] [facility] [address], [place], [address], 12/05/2022 23:32:24 08/14/20 21 US, head + neck, soft tissu e [facility] [address] [facility] [address], [place] [address] Patien t Name: KILEY STANFORD Access ion #: [id number] Sex: F : 1979 4 Locati on: RA2 Attend ing Physic stacie: SISSY MADRID Orderi ng Physic stacie: SISSY MADRID Exam Date: 1:21 PM Exam Name: US NECK/H EAD SOFT TISSUE Admitt ing Diagno sis(es ): RADIOL OGY REPORT - FINAL EXAM: US NECK/H EAD SOFT TISSUE HISTOR Y: nontox ic goiter COMPAR JOSE: None. TECHNI QUE: Ultras ound evalua tion of the thyroi d gland was perfor med. FINDIN GS: Right thyroi d lobe: The right lobe of the thyroi d gland measur es 3.1 x 0.9 x 0.8 cm. The thyroi d parenc hyma is homoge neous withou t solid nodule s or cystic lesion s. No abnorm al color Dopple r blood flow or suspic ious calcif icatio ns. Left thyroi d lobe: The left lobe of the thyroi d gland measur es 2.7 x 0.9 x 0.7 cm. The thyroi d parenc hyma is homoge neous withou t solid nodule s or cystic Page 1 of 2 [facility] Pati t Name: KILEY STANFORD Access ion #: [id number] Sex: F : 1979 4 Exam Date: 021 1:21 PM Exam Name: US NECK/H EAD SOFT TISSUE Admitt ing Diagno sis(es ): lesion s. No abnorm al color Dopple r blood flow or suspic ious calcif icatio ns. Isthmu s: The thyroi d isthmu s measur es 0.21 mm in width. The thyroi d parenc hyma is homoge neous withou t solid nodule s or cystic lesion s. No abnorm al color Dopple r blood flow or suspic ious calcif icatio ns. IMPRES DAMARIS: Unrema rkable examin ation. No recomm endati ons for follow up. Create d and electr onical ly signed by: Yousif odom MD Signed Date: 2:18 PM (CT) Dictat ed by: Yousif odom MD DD: 2:18 PM (CT) DT: 2:18 PM (CT) Page 2 of 2 [id number] [facility] (Imaging) [address] [place], [address], 12/05/2022 23:32:24 12/12/19 22 US, abdom en, limit ed [facility] [address] [place] [address] Patien t Name: KILEY STANFORD [address] Access ion #: [id number] Sex: F : 1979 8 Locati on: RA2 Attend ing Physic stacie: SISSY MADRID Orderi Physic stacie: SISSY MADRID Exam Date: 12/12/19 8:33 AM Exam Name: US ABD/LT D/ORG/ UQ/GB Admitt ing Diagno sis(es ): RADIOL OGY REPORT - FINAL EXAM: US ABD/LT D/ORG/ UQ/GB HISTOR Y: elevat ed liver enzyme s 41-yea r-old female with elevat ed LFTs. COMPAR JOSE: None availa ble. TECHNI QUE: Right upper quadra nt ultras ound was perfor med. FINDIN GS: The gallbl adder is surgic ally absent . No intrah epatic biliar y ductal dilata tion or liver mass. There is hepato petal portal venous color Dopple r flow. The common duct measur es 3.5 mm in diamet er. The partia lly visual ized pancre as is unrema rkable . The intrah epatic portio n of the IVC is patent . No upper abdomi nal aortic ectasi a. The right kidney measur es 9.0 cm in length and is normal in appear ance. Page 1 of 2 [facility] Patien t Name: KILEY TSANFORD Access ion #: [id number] Sex: F : 1979 8 Exam Date: 12/12/19 8:33 AM Exam Name: US ABD/LT D/ORG/ UQ/GB Admitt ing Diagno sis(es ): IMPRES DAMARIS: 1. Postop erativ e change s of cholec ystect mario. 2. Otherw ise unrema rkable right upper quadra nt ultras ound. Create d and electr onical ly signed by: Zen santacruz MD Signed Date: 12/12/19 11:44 AM (CT) Dictat ed by: Zen santacruz MD (CT) (CT) Page 2 of 2 [id number] [facility] (Imaging) [address] [place], [address], 12/05/2022 23:32:24 12/12/19 22 12/11/2021 US, liver No observ ation record ed. [id number] [facility] [address] [place], [address], 12/05/2022 23:32:24 12/29/19 23 08/14/2021 US, thyro id No observ ation record ed. [email or web address] Not Available 2022 12:41:56 12/29/19 US, thyro id No observ ation record ed. [email or web address] Not Available 2022 12:41:56 Result Notes None recorded. Problems Name Problem SNOMED Code Status Onset Date Resolution Date Notes Provider Name and Address Organization Details Recorded Time Vitamin D deficiency 55414655 Active 2021 Not Available [facility] 3 23:30:35 Hypothyroidis m 74453852 Active 2021 Not Available [facility] 3 23:30:35 Liver enzymes level above reference range 269921836 Active 2021 Not Available [facility] 3 23:30:35 Weight gain 7591513 Active 2021 Not Available [facility] 3 23:30:35 Sensory neuropathy 90749551 Active 2022 Sissy Madrid MD [address], [address] , [facility] [employer] 3 18:12:41 Problem Notes None recorded. Procedures Surgical History Date Name Laterality Status Provider Name and Address Organization Details Recorded Time Gallbladder Surgery completed Not Available [facility] 12/05/2022 23:29:04 Imaging Results Imaging Date Name Status LastModified by Organiz ation Details LastModified Time 08/14/2021 US, thyroid completed [id number] [facility] [address] [place], [address], 12/05/2022 23:32:24 08/14/2021 US, head + neck, soft tissue completed [id number] [facility] (Imaging) [address] [place], [address], 12/05/2022 23:32:24 12/11/2021 US, abdomen, limited completed [id number] [facility] (Imaging) [address] [place], [address], 12/05/2022 23:32:24 12/11/2021 US, liver completed [id number] [facility] [address] [place], [address], 12/05/2022 23:32:24 08/14/2021 US, thyroid completed [email or web address] Information n ot available 12/28/2022 12:41:56 12/28/2022 US, thyroid completed [email or web address] Information n ot available 12/28/2022 12:41:56 Procedure Notes None recorded. Medical Equipment None Reported. Allergies Allergen ID Allergen Name Allergen Category Reaction Reaction Severity Criticality Documentation Date Start Date Code Code System Note Provider Name and Address Organization Details Recorded Time 99242 morphine medicatio n Not available Not available Not available 12/05/2022 7052 RxNorm Not Available [facility] 23:32:08 Medications Name Sig Start Date Stop Date Status Note LastModified by Organization Details LastModified Time Prescriptio n - Prior Authorizati on Request active Not Available Not Available N ot Available ciprofloxac in 750 mg tablet active Not Available Not Available Not Available azithromyci n 250 mg tablet 12/19 completed Not Available Not Available Not Available ibuprofen 800 mg tablet TAKE 1 TABLET BY MOUTH EVERY 8 HOURS NEEDED FOR MODERATE TO SEVERE PAIN active Not Available Not Available No t Available fluconazole 150 mg tablet 12/19 completed Not Available Not Available Not Available hydrocodone 5 mg-acetamin ophen 325 mg tablet TAKE 1 TABLET BY MOUTH EVERY 6 HOURS NEEDED FOR MODERATE TO SEVERE PAIN 12/19 completed Not Available Not Available Not Available meloxicam 15 mg tablet TAKE 1 TABLET BY MOUTH DAILY active Not Available Not Available No t Available sucralfate 1 gram tablet 12/19 completed Not Available Not Available Not Available ondansetron HCl 4 mg tablet TAKE 1 TABLET BY MOUTH EVERY 8 HOURS NEEDED FOR NAUSEA active Not Available Not Available No t Available prednisone 20 mg tablet TAKE 1 TABLET BY MOUTH TWICE DAILY FOR 5 DAYS 12/19 completed Not Available Not Available Not Available phentermine 15 mg capsule TAKE 1 CAPSULE BY MOUTH EVERY DAY IN THE MORNING 12/19 completed Not Available Not Available Not Available meclizine 12.5 mg tablet TAKE 1 TABLET BY MOUTH EVERY 8 HOURS NEEDED FOR DIZZINESS 12/19 completed Not Available Not Available Not Available metronidazo le 500 mg tablet active Not Available Not Available Not Available phentermine 37.5 mg tablet active Not Available Not Available Not Available omeprazole 40 mg capsule,del ayed release TAKE 1 CAPSULE BY MOUTH EVERY DAY active Not Available Not Available No t Available tramadol 50 mg tablet TAKE 1 TABLET WITH TYLENOL BY MOUTH THREE TIMES DAILY FOR PAIN CONTROL active Not Available Not Available No t Available amoxicillin 500 mg tablet TAKE 1 TABLET BY MOUTH TWICE DAILY FOR 10 DAYS 07/10 completed Not Available Not Available Not Available ketorolac 10 mg tablet TAKE 1 TABLET BY MOUTH EVERY 6 HOURS NEEDED FOR MODERATE TO SEVERE PAIN 12/19 completed Not Available Not Available Not Available bupropion HCl 100 mg tablet TAKE 1 TABLET BY MOUTH TWICE DAILY active Not Available Not Available No t Available levothyroxi ne 88 mcg tablet TAKE 1 TABLET BY MOUTH DAILY 12/04 completed Not Available Not Available Not Available alprazolam 0.5 mg tablet TAKE 1 TABLET BY MOUTH 30-45MINS BEFORE MRI active Not Available Not Available No t Available amitriptyli ne 25 mg tablet TAKE 1 TABLET BY MOUTH EVERY NIGHT 12/19 completed Not Available Not Available Not Available methocarbam ol 750 mg tablet TAKE 1 TABLET BY MOUTH THREE TIMES DAILY NEEDED FOR MUSCLE SPASMS active Not Available Not Available No t Available methotrexat e sodium 2.5 mg tablet TAKE 15MG (6 TABLETS) BY MOUTH ONE DAY WEEKLY active Not Available Not Available No t Available meclizine 25 mg tablet TAKE 1 TABLET BY MOUTH THREE TIMES DAILY NEEDED FOR DIZZINESS active Not Available Not Available No t Available benzonatate 100 mg capsule TAKE 1 CAPSULE BY MOUTH THREE TIMES DAILY FOR UP TO 10 DAYS NEEDED FOR COUGH 12/19 completed Not Available Not Available Not Available butalbital 50 mg-acetamin ophen 325 mg-caffeine 40 mg-codeine 30 mg cap TAKE 1 CAPSULE BY MOUTH EVERY 4 HOURS NEEDED FOR PAIN active Not Available Not Available No t Available divalproex 125 mg tablet,gen yed release TAKE 1 TABLET BY MOUTH EVERY NIGHT 12/19 completed Not Available Not Available Not Available diclofenac sodium 75 mg tablet,gen yed release TAKE 1 TABLET BY MOUTH TWICE A DAY active Not Available Not Available No t Available folic acid 1 mg tablet TAKE 1 TABLET BY MOUTH EVERY DAY active Not Available Not Available No t Available codeine 10 mg-guaifene sin 100 mg/5 mL oral liquid TAKE 10ML BY MOUTH EVERY 6 HOURS NEEDED FOR COUGH 12/04 completed Not Available Not Available Not Available gabapentin 100 mg capsule TAKE ONE CAPSULE BY MOUTH THREE TIMES DAILY 12/19 completed Not Available Not Available Not Available methylpredn isolone 4 mg tablets in a dose pack FOLLOW PACKAGE DIRECTION S active Not Available Not Available No t Available albuterol sulfate HFA 90 mcg/actuati on aerosol inhaler INHALE 2 PUFFS BY MOUTH EVERY 4 HOURS NEEDED FOR WHEEZING active Not Available Not Available No t Available hydroxyzine HCl 10 mg tablet TAKE 2 AND 1/2 TABLETS BY MOUTH DAILY NEEDED FOR MIGRAINES 12/19 completed Not Available Not Available Not Available fluticasone propionate 50 mcg/actuati on nasal spray,suspe nsion SHAKE LIQUID AND USE 1 TO 2 SPRAYS IN EACH NOSTRIL DAILY DIRECTED 12/19 completed Not Available Not Available Not Available naproxen 500 mg tablet TAKE 1 TABLET BY MOUTH DAILY NEEDED FOR HEADACHE 12/19 completed Not Available Not Available Not Available sumatriptan 6 mg/0.5 mL subcutaneou s pen injector 12/19 completed Not Available Not Available Not Available cyclobenzap rine 5 mg tablet TAKE 1 TABLET BY MOUTH THREE TIMES DAILY 12/19 completed Not Available Not Available Not Available FeroSul 325 mg (65 mg iron) tablet TAKE 1 TABLET BY MOUTH EVERY DAY IN THE MORNING 12/04 completed Not Available Not Available Not Available cholecalcif gabby (vitamin D3) 50 mcg (2,000 unit) capsule TAKE 2 CAPSULES EVERY DAY BY ORAL ROUTE IN THE MORNING FOR 90 DAYS. active Not Available Not Available No t Available Tirosint 100 mcg capsule TAKE ONE Capsule BY MOUTH EVERY MORNING active Not Available Not Available No t Available Tirosint 88 mcg capsule TAKE 1 CAPSULE BY MOUTH EVERY DAY IN THE MORNING 12/19 completed Not Available Not Available Not Available Linzess 72 mcg capsule TAKE 1 CAPSULE BY MOUTH EVERY MORNING BEFORE BREAKFAST active Not Available Not Available No t Available Trulance 3 mg tablet TAKE 1 TABLET BY MOUTH DAILY active Not Available Not Available No t Available Emgality Pen 120 mg/mL subcutaneou s pen injector ADMINISTE R 1 ML UNDER THE SKIN 1 TIME FOR 1 DOSE 12/19 completed Not Available Not Available Not Available Ubrelvy 100 mg tablet TK 1 T PO AT ONSET OF HEADACHE. MAY REPEAT DOSE ONCE IN 2 HOURS IF STILL HAVING HEADACHE. MAX OF 2 TS IN 24 HOURS 12/04 completed Not Available Not Available Not Available Qulipta 60 mg tablet TAKE 1 TABLET BY MOUTH DAILY active Not Available Not Available No t Available Qulipta 30 mg tablet TAKE 1 TABLET BY MOUTH DAILY 12/19 completed Not Available Not Available Not Available Vitals Date Recorded Body mass index (BMI) Body height Oxygen saturation Oxygen saturation in Arterial blood by Pulse oximetry Heart rate Respiratory rate Body temperature Body weight Systolic blood pressure Diastolic blood pressure Provider Name and Address Organization Details Last Updated DateTime 1 28.2 kg/m2 157.48 cm 98 % 98 % 77 /min 16 /min 98.3 [degF] 99838.2 2 g 110 mm[Hg] 72 mm[Hg] Not Available [facility] 3 23:29:44 Date Recorded Body mass index (BMI) Body height Oxygen saturation Oxygen saturation in Arterial blood by Pulse oximetry Heart rate Body temperature Body weight Systolic blood pressure Diastolic blood pressure Provider Name and Address Organization Details Last Updated DateTime 2 28 kg/m2 157.48 cm 98 % 98 % 83 /min 97.8 [degF] 72033.6 3 g 105 mm[Hg] 65 mm[Hg] Not Available [facility] 3 23:29:44 Date Recorded Body mass index (BMI) Body height Body weight Provider Name and Address Organization Details Last Updated DateTime 06/04/2022 26.3 kg/m2 157.48 cm 70427.3 g Not Available [facility] 12/05/2022 23:29:44 Date Recorded Body height Body mass index (BMI) Body weight Body temperature Heart rate Systolic blood pressure Diastolic blood pressure Provider Name and Address Organization Details Last Updated DateTime 3 157.48 cm 26.7 kg/m2 83087.4 9 g 97.6 [degF] 104 /min 110 mm[Hg] 80 mm[Hg] Carmel Joseph C[facility] [place] [facility] [place] [facility] 3 17:53:02 Social History Question Answer Notes LastModified by Organizat ion Details LastModified Time Tobacco Smoking Status Never Smoker Not Available [facility] 12/05/2022 23:28:33 What Is Your Level Of Alcohol Consumption? Occasional [id number] Information not available 12/05/2022 What Is Your Level Of Caffeine Consumption? Moderate [id number] Information not available 12/05/2022 In The 14 Days Before Symptom Onset, Have You Had Close Contact With A Laboratory-confir med COVID-19 While That Case Was Ill? No [id number] Information not available 12/05/2022 In The 14 Days Before Symptom Onset, Have You Had Close Contact With A Person Who Is Under Investigation For COVID-19 While That Person Was Ill? No [id number] Information not available 12/05/2022 What Type Of Diet Are You Following? REGULAR [id number] Information not available 12/05/2022 What Is The Highest Grade Or Level Of School You Have Completed Or The Highest Degree You Have Received? 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 [id number] Information not available 12/05/2022 Do You Use Any Illicit Or Recreational Drugs? No [id number] Information not available 12/05/2022 Have You Recently Traveled Abroad? No [id number] Information not available 12/05/2022 Sex: Female Functional Status None recorded. Mental Status None recorded. Family History Relationship Description Onset Age of this Age Resolved Age Notes LastModified by Organization Details LastModified Time Father Rheumatoid arthritis [id number] Not available 12/05/2022 23:29:06 Father Hypercholest erolemia [id number] [id number] Not available 12/05/2022 23:29:06 Father Disorder of eye [id number].[id number] Not available 12/05/2022 23:29:06 Sister Rheumatoid arthritis [id number] Not available 12/05/2022 23:29:06 Brother Diabetes mellitus [id number] [id number] Not available 12/05/2022 23:29:06 Brother Disorder of eye [id number].873 [id number] Not available 12/05/2022 23:29:06 Paternal Grandmother Diabetes mellitus [id number] Not available 12/05/2022 23:29:06 Maternal Grandmother Glaucoma [id number].995 [id number] Not available 12/05/2022 23:29:06 Medical History Condition Response EYE PROBLEMS HYPOTHYROIDISM Y HAVE YOU BEEN HOSPITALIZED OR SEEN IN [facility] ER IN THE PAST YEAR ? Y HEADACHES/MIGRAINES Y GERD/NAUSEA Y Gynecological HistoryNo gynecological history recorded. Obstetrics History GPAL:G 0 P 0 0 0 0 Past Encounters Encounter ID Performer Location Encounter Start Date Encounter Closed Date Diagnosis/Indication Diagnosis SNOMED-CT Code Diagnosis ICD10 Code Diagnosis Note [id number] [facility] [address] [place] [address] 07/10/2021 00:00:00 07/10/2021 10:09:30 [id number] [facility] [address] [place] [address] 12/04/2021 00:00:00 12/04/2021 15:19:53 [id number] [facility] [address] [place] [address] 06/04/2022 00:00:00 06/04/2022 17:10:37 [id number] Sissy Madrid MD [facility] [address] [place] [address] 12/19/2022 17:33:38 12/19/2022 18:23:41 Hypothyroidism 87289052 E03.9 TSH and FT4 in range- continue tirosint 100 mcg daily. She was reminded to take her tirosint on empty stomach with glass of water and wait one hour to eat or have her coffee in morning and up to 4 hours if ever taking any heartburn or reflux medication s to help optimize absorption . Discussed paleo like diet with restrictio n of GMOs to help with energy and to optimize absorption of vitamins and minerals and reduce inflammati on. Sensory neuropathy 47454 005 G62.9 Refer to MS specialist to screen for multiple sclerosis as this does run in her family. She has temperatur e changes and shooting pains down her leg and face in addition to visual changes/in termittent loss. She might need lumbar puncture for protein quantifica tion and high sensitivit y. Vitamin D deficiency 347 57523 E55.9 Continue on vitamin D 3 4000 IU daily for bone and immune health.Spe nt up to 26 minutes preparing to see the patient (eg, review of tests), obtaining and/or reviewing separately obtained history, performing a medically appropriat e examinatio n and evaluation , counseling and educating the patient, ordering medication s, tests, along with documentin g clinical informatio n in the electronic health record, independen tly interpreti ng results and communicat ing results to the patient. RTC in 6 months. Patient was provided a handwritte n lab order which contains our fax number. If she chooses to go outside of the [facility] system to obtain labwork she was advised to provide our fax number and my informatio n to the lab she will be obtaining labwork from in order to have her labs properly forwarded over for me to review so there is no loss of follow up due to use of outside network. She was also advised to contact our clinic informing us that she has completed her labwork so we are aware we will need to reach out to the appropriat e laboratory to request her results be forwarded to us so I might have the ability to review and make further medical decision making in her case. She voiced understand ing. Health Concerns Section Related Observation LastModified by Organization Detai ls LastModified Time None Recorded Concern Status LastModified by Organization Details LastModified Time None Recorded Advance Directives Directive None Recorded Payers Encounter Date Sequence Insurance Name Policy Number Policy [employer] Covered Member ID Eubanks Member ID Guarantor Name 12/19/2022 1 [employer] (EPO) [id number] Sunni Dill [id number] Sunni Dill Notes Date Note Type Note Provider Name and Address Organization Details Recorded Time 12/19/2022 text/html 42 yo female com es in for follow up in management of hypothyroidism, vit D def. Concern for potential RA and sensory changes . last seen in May at that time we continued tirosint 100 mcg daily.. Thyroid levels in ideal range. She is going for an MRI to [facility]- her neurologist thinks she may have rheumatoid arthritis- she was found to have inflammation, MPV and plts She is planning to go to change release manager for potential of RA. Her labs were not supporting the dx of RA. She struggles with pain in her hands/fingers and struggles to write as she is right handed. She had a scare of MS- they are repeating imaging soon. She is has bone spurs on C6 to C7 on her spine from radiologist. Her primary feels something is off. She has a very strong family hx of RA. She started having occipital neuralgia in September-she has had more sporadic pain in her lower legs. Her mother had a lot happen before this winter. She has a spot in the back of her head that if she twists her heads - the room will start spinning. She is noticing more shooting pain down her jaw line. She ended up getting steroid injections x 2 that led to improvement. She ended up having to stop the tirosint- she needs to get back on the tirosint. labs from 11/19/22:glucose 96 mg/dLCr normalLFT normalTPO 16 IU/mlFT3 of 4.2 pg/ml Sissy Madrid MD [address] [facility], [facility] [address], [place], [address], [facility] [facility] 12/19/2022 20:28:09 OBGyn Episode No OBEpisode recorded.
--- OUTSIDE RECORDS SUMMARY | 2025-01-09 05:30 | XMS_ITS | Encounter Summary ---
Author Organization [facility] Address [address] [facility] [place] [address] Phone Care Team Providers Care Salesperson Used Cars Name Role Phone Derrick López MD Primary Care Provider [phone] Bernice Andres MD Unavailable Lilia Baxter APRN, [facility] Unavailable [phone] Kamron Guillory MD Unavailable Josephine Mansfield MD Unavailable Jaylon Villeda MD Unavailable Reason for Visit * Reason Onset Date Comments Medication Refill 01/02/2022 Encounter Details Date Type Department Care Team (Late st Contact Info) Description 01/02/2022 Refill [facility] - [facility] [address] [place] [address] Derrick López MD [address] [address] Medication Refill Social History Tobacco Use Types Packs/Day Years Used Date Smoking Tobacco: Never Smokeless Tobacco: Never Alcohol Use Standard Drinks/Week Comments Yes 0 (1 standard drink = 0.6 oz pur e alcohol) occasional PHQ-2 Answer Date Recorded Total Score - Questions 1-9 0 07/07 Education Answer Date Recorded What is the highest level of school you have completed or the highest degree you have received? Bachelor's degree (e.g., BA, AB, BS) 06/21/2021 Sexually Active Control Partners Comments Yes Comments No Sex and Gender Information Value Date Recorded Sex Assigned at Female 05/21/2023 10:06 AM CDT Legal Sex Female 11:30 PM CDT Gender Identity Female 05/21/2023 10:06 AM CDT Sexual Orientation Not on file COVID-19 Exposure Response Date Recorded In the last 10 days, have yo u been in contact with someone who was confirmed or suspected to have Coronavirus/COVID-19? No / Unsure 12/29/2021 1:06 PM CDT documented as of this encounter Miscellaneous Notes * Telephone Encounter - Gabriela Amezcua RN - 01/03/2022 10:21 AM CDT Medication failed the protocol, provider to review and approve the medication order if appropriate. Requested Prescriptions Pending Prescriptions Disp Refills ondansetron (ZOFRAN) 4 MG Tablet 15 Tablet 1 Sig: Take 1 Tablet by mouth every 8 hours as needed for Nausea - 1st line. Not Delegated - 5-HT3 Antagonists Protocol Failed - 01/02/2022 1:48 PM Failed - This refill cannot be delegated Passed - Visit with relevant provider in past 12 months or upcoming 90 days Recent Visits Date Type Provider Dept 10/27/21 Telemedicine Lazarus Bowden APRN, [facility] 08/16/21 Office Visit Lazarus Bowden APRN, [facility] 06/21/21 Office Visit Lazarus Bowden APRN, [facility] 05/23/21 Office Visit Lazarus Bowden APRN, [facility] Showing recent visits within past 365 days and meeting all other requirements Future Appointments No visits were found meeting these conditions. Showing future appointments within next 90 days and meeting all other requirements * Telephone Encounter - Kaycee Hernandez - 01/02/2022 1:47 PM CDT Received a faxed Rx request from pharmacy. Reordered refill medication(s) requested and pended for nurse and physician/JO-ANN review. Refill encounter routed to nurse [employer] for processing. documented in this encounter Plan of Treatment Upcoming Encounters Date Type Department Care Team (Late st Contact Info) Description 02/17/2025 4:00 PM CDT Telemedicine [facility] - Family Medicine - [place] [address] [place] [address] Derrick López MD #[address] [address] 05/24/2025 12:30 PM CDT Telemedicine [facility] - Neurology - [place] [address] [place] [address] Lilia Baxter APRN, PROFESSOR OF GEOLOGY [address] [place] [address] documented as of this encounter Visit Diagnoses Not on filedocumented in this encounter Additional Health Concerns Infection Onset Date Last Indicated Resolved Time COVID - 19 04/25/2022 04/26/2022 05/05/2022 12:1 6 AM CDT COVID - 19 11/22/2023 11/22/2023 11/25/2023 9:26 AM HARDWOOD FINISHER COVID - 19 11/27/2023 11/27/2023 11/27/2023 5:02 PM HARDWOOD FINISHER Respiratory Rule-Out 11/27/2023 11/27/202311/27/2 024 5:01 PM HARDWOOD FINISHER COVID - 19 02/02/2024 02/02/2024 02/02/2024 3:51 PM CDT COVID - 19 05/26/2024 05/26/2024 05/26/2024 4:26 PM CDT COVID - 19 05/28/2024 05/28/2024 05/28/2024 1:37 PM CDT COVID - 19 06/04/2024 06/04/2024 06/04/2024 11:3 2 AM CDT Respiratory Rule-Out 09/15/2024 09/15/2024 024 1:59 PM HARDWOOD FINISHER Respiratory Rule-Out 11/16/2024 11/16/2024 025 4:04 PM HARDWOOD FINISHER COVID - 19 11/16/2024 11/16/2024 11/16/2024 4:02 PM HARDWOOD FINISHER Assessment Noted Time PHQ-9 Depression Total Score: 0 07/20/20 20 3:35 PM CDT documented as of this encounter Care Teams Salesperson Used Cars Relationship Specialty Start Date End Date Derrick López MD [address] [facility] [address] [place] [address] PCP - General Family Medicine 03/24/18 Bernice Andres MD [address] [address] Consulting Physician Obstetrics & Gynecology 03/24/18 Lilia Baxter APRN, PROFESSOR OF GEOLOGY [address] [place] [address] Nurse Practitioner Advanced Practice Nurse 12/29/21 Kamron Guillory MD [address]2 [facility] [address] [place] [address] Consulting Physician Colon and Rectal Surgery 01/29/23 Josephine Mansfield MD [address] [address] [address] Consulting Physician Endocrinology 07/05/23 Jaylon Villeda MD [address] [place] [address] Consulting Physician Neurology 12/07/22 documented as of this encounter
--- OUTSIDE RECORDS SUMMARY | 2025-01-09 05:30 | XMS_ITS | Encounter Summary ---
Author Organization [facility] Address [address] [facility] [place] [address] Phone Care Team Providers Care Allergist/Pediatric Pulmonologist Name Role Phone Derrick López MD Primary Care Provider [phone] Bernice Andres MD Unavailable Lilia Baxter APRN, RAIL SIGNAL MECHANIC Unavailable [phone] Kamron Guillory MD Unavailable Josephine Mansfield MD Unavailable Jaylon Villeda MD Unavailable [phone] Reason for Visit * Reason Comments Medication Refill Encounter Details Date Type Department Care Team (Late st Contact Info) Description 10/12/2021 Refill [facility] - Neurology [facility] [address] [place] [id number] Lilia Baxter APRN, RAIL SIGNAL MECHANIC [address] [place] [address] Medication Refill Social History Tobacco Use Types [...] Exposure Response Date Recorded In the last month, have you been in contact with someone who was confirmed or suspected to have Coronavirus / COVID-19? No / Unsure 10/05/2021 10:57 AM POWDER WORKER documented as of this encounter Plan of Treatment Upcoming Encounters Date Type Department Care Team (Late st Contact Info) Description 02/17/2025 4:00 PM CDT Telemedicine [facility] - Family Medicine [facility] [address] [place] [address] Derrick López MD #[address] [address] 05/24/2025 12:30 PM CDT Telemedicine [facility] - Neurology [facility] [address] [place] [address] Lilia Baxter APRN, RAIL SIGNAL MECHANIC [address] [place] [address] documented as of this encounter Visit Diagnoses Diagnosis Intractable chronic migraine without aura and with status migrainosus Chronic migraine without aura, with intractable migraine, so stated, with status migrainosus documented in this encounter Additional Health Concerns Infection Onset Date Last Indicated Resolved Time COVID - 19 10/24/2021 10/27/2021 11/16/2021 12:1 6 AM POWDER WORKER COVID - 19 Confirmed 10/27/2021 10/27/2021 022 12:16 AM POWDER WORKER COVID - 19 04/25/2022 04/26/2022 05/05/2022 12:1 6 AM CDT COVID - 19 11/22/2023 11/22/2023 11/25/2023 9:26 AM POWDER WORKER COVID - 19 11/27/2023 11/27/2023 11/27/2023 5:02 PM POWDER WORKER Respiratory Rule-Out 11/27/2023 11/27/2023 024 5:01 PM POWDER WORKER COVID - 19 02/02/2024 02/02/2024 02/02/2024 3:51 PM CDT COVID - 19 05/26/2024 05/26/2024 05/26/2024 4:26 PM CDT COVID - 19 05/28/2024 05/28/2024 05/28/2024 1:37 PM CDT COVID - 19 06/04/2024 06/04/2024 06/04/2024 11:3 2 AM CDT Respiratory Rule-Out 09/15/2024 09/15/2024 024 1:59 PM POWDER WORKER Respiratory Rule-Out 11/16/2024 11/16/2024 025 4:04 PM POWDER WORKER COVID - 19 11/16/2024 11/16/2024 11/16/2024 4:02 PM POWDER WORKER Assessment Noted Time PHQ-9 Depression Total Score: 0 07/20/20 3:35 PM CDT documented as of this encounter Care Teams Allergist/Pediatric Pulmonologist Relationship Specialty Start Date End Date Derrick López MD #[address] [address] PCP - General Family Medicine 03/24/18 Bernice Andres MD [address] [address] Consulting Physician Obstetrics & Gynecology 03/24/18 Lilia Baxter APRN, RAIL SIGNAL MECHANIC [address] [place] [address] Nurse Practitioner Advanced Practice Nurse 12/29/21 Kamron Guillory MD #[address] [address] Consulting Physician Colon and Rectal Surgery 01/29/23 Josephine Mansfield MD #[address] [address] Consulting Physician Endocrinology 07/05/23 Jaylon Villeda MD #2 [place] [address] Consulting Physician Neurology 12/07/22 documented as of this encounter
--- OUTSIDE RECORDS SUMMARY | 2025-01-09 05:30 | XMS_ITS | Encounter Summary ---
Author Organization [facility] Address [address] [facility] [place] [address] Phone Care Team Providers Care Neurological Surgeon Name Role Phone Derrick López MD Primary Care Provider [phone] Bernice Andres MD Unavailable Lilia Baxter APRN, DIRECTOR MOTION PICTURE Unavailable [phone] Kamron Guillory MD Unavailable Josephine Mansfield MD Unavailable Jaylon Villeda MD Unavailable [phone] Reason for Visit * Reason Comments Medication Refill Encounter Details Date Type Department Care Team (Late st Contact Info) Description 07/15/2022 Refill [facility] [address]2 [place] [address] Derrick López MD #[address] [address] Medication Refill Social History Tobacco Use Types Packs/Day Years Used Date Smoking Tobacco: Never Smokeless Tobacco: Never Alcohol Use Standard Drinks/Week Comments Yes 0 (1 standard drink = 0.6 oz pur e alcohol) occasional PHQ-2 Answer Date Recorded Total Score - Questions 1-9 0 05/08 Education Answer Date Recorded What is the [...] AM CDT Sexual Orientation Not on file documented as of this encounter Miscellaneous Notes * Telephone Encounter - Gabriela Amezcua RN - 07/16/2022 1:18 PM CDT Medication failed the protocol, provider to review and approve the medication order if appropriate. Requested Prescriptions Pending Prescriptions Disp Refills ondansetron (ZOFRAN) 4 MG Tablet [Pharmacy Med Name: ONDANSETRON 4MG TABLETS] 15 Tablet 1 Sig: TAKE 1 TABLET BY MOUTH EVERY 8 HOURS NEEDED FOR NAUSEA Not Delegated - 5-HT3 Antagonists Protocol Failed - 07/15/2022 11:20 AM Failed - This refill cannot be delegated Passed - Visit with relevant provider in past 12 months or upcoming 90 days Recent Visits Date Type Provider Dept 06/01/22 Office Visit Neena Rose PAC [facility] [place] 04/25/22 Telemedicine Derrick López MD [facility] [place] 10/27/21 Telemedicine Lazarus Bowden APRN, CNP [facility] [place] 08/16/21 Office Visit Lazarus Bowden APRN, ADE [facility] [place] Showing recent visits within past 365 days and meeting all other requirements Future Appointments No visits were found meeting these conditions. Showing future appointments within next 90 days and meeting all other requirements documented in this encounter Plan of Treatment Upcoming Encounters Date Type Department Care Team (Late st Contact Info) Description 02/17/2025 4:00 PM CDT Telemedicine [facility] - Family Medicine - [place] [address] [place] [address] Derrick López MD #[address] [address] 05/24/2025 12:30 PM CDT [facility] [place] [address]2 [place] [id number] Lilia Baxter APRN, DIRECTOR MOTION PICTURE [address]2 [place] [address] documented as of this encounter Visit Diagnoses Not on filedocumented in this encounter Additional Health Concerns Infection Onset Date Last Indicated Resolved Time COVID - 19 11/22/2023 11/22/2023 11/25/2023 9:26 AM GLUE JOINTER FEEDER COVID - 19 11/27/2023 11/27/2023 11/27/2023 5:02 PM GLUE JOINTER FEEDER Respiratory Rule-Out 11/27/2023 11/27/2023 024 5:01 PM GLUE JOINTER FEEDER COVID - 19 02/02/2024 02/02/2024 02/02/2024 3:51 PM CDT COVID - 19 05/26/2024 05/26/2024 05/26/2024 4:26 PM CDT COVID - 19 05/28/2024 05/28/2024 05/28/2024 1:37 PM CDT COVID - 19 06/04/2024 06/04/2024 06/04/2024 11:3 2 AM CDT Respiratory Rule-Out 09/15/2024 09/15/2024 024 1:59 PM GLUE JOINTER FEEDER Respiratory Rule-Out 11/16/2024 11/16/2024 025 4:04 PM GLUE JOINTER FEEDER COVID - 19 11/16/2024 11/16/2024 11/16/2024 4:02 PM GLUE JOINTER FEEDER Assessment Noted Time PHQ-9 Depression Total Score: 0 07/20/20 20 3:35 PM CDT documented as of this encounter Care Teams Neurological Surgeon Relationship Specialty Start Date End Date Derrick López MD #[address] [facility] [address] [place] [address] PCP - General Family Medicine 03/24/18 Bernice Andres MD [address] [facility] [address] [place] [address] Consulting Physician Obstetrics & Gynecology 03/24/18 Lilia Baxter APRN, [facility] #2 [place] [address] Nurse Practitioner Advanced Practice Nurse 12/29/21 Kamron Guillory MD #[address] [facility] [address] [place] [address] Consulting Physician Colon and Rectal Surgery 01/29/23 Josephine Mansfield MD #[address] [facility] [address] [place] [address] Consulting Physician Endocrinology 07/05/23 Jaylon Villeda MD #2 [place] [address] Consulting Physician Neurology 12/07/22 documented as of this encounter
--- OUTSIDE RECORDS SUMMARY | 2025-01-09 05:30 | XMS_ITS | Encounter Summary ---
Author Organization [facility] Address [address] [facility] [place] [address] Phone Care Team Providers Care Driver Recruiter Name Role Phone Derrick López MD Primary Care Provider [phone] Bernice Andres MD Unavailable Lilia Baxter APRN, MATTE CUTTER Unavailable [phone] Kamron Guillory MD Unavailable Josephine Mansfield MD Unavailable Jaylon Villeda MD Unavailable Reason for Visit * Reason Comments Medication Refill Encounter Details Date Type Department Care Team (Late st Contact Info) Description 07/15/2020 Refill [facility] #2 [place] [address] Derrick López MD #[address] [address] Medication Refill Social History Tobacco Use Types Packs/Day Years Used Date Smoking Tobacco: Never Smokeless Tobacco: Never Alcohol Use Standard Drinks/Week Comments Yes 0 (1 standard drink = 0.6 oz pur e alcohol) occasional PHQ-2 Answer Date Recorded PHQ-2 Score 0 06/10/2019 Comments No Sex and Gender Information Value [...] have Coronavirus / COVID-19? No / Unsure 07/16/2020 9:01 AM CDT documented as of this encounter Miscellaneous Notes * Telephone Encounter - Mandy Whatley RN - 07/16/2020 12:51 PM CDT Requested Prescriptions Pending Prescriptions Disp Refills tvdbxxbcow-fcjtpthawdyhb-sfzvldyv-codeine (FIORICET WITH CODEINE) [id number] MG Capsule [PharmacyMed Name: BUTAL/ACETA/CAFF/COD 00-877-67-30MG] 30 Cap Sig: TAKE ONE CAPSULE BY MOUTH EVERY 4 HOURS NEEDED FOR PAIN Not Delegated - Analgesics: Opioid Agonist Combinations Failed - 07/15/2020 10:17 AM Failed - Valid encounter within last 6 months Past Office Visits Recent Outpatient Visits 1 year ago Vitamin D insufficiency [facility] - Family [facility] - Derrick Lujan MD 1 year ago Pharyngitis, unspecified etiology [facility] - Derrick Lujan MD 1 year ago Sore throat [facility] - Lazarus Cui APN, RAILROAD FIRER 1 year ago Strain of neck muscle, initial encounter [facility] - Derrick Lujan MD 2 years ago Muscle contraction headache [facility] - Romina Torres PAC Upcoming Appointments TOSSER - Recent and Past Visits Recent Visits Date Type Provider Dept 06/12/19 Office Visit Derrick López MD [facility] [place] 05/21/19 Office Visit [facility] 05/18/19 Office Visit Lazarus Bowden APN, RAILROAD FIRER [facility] Showing recent visits within past 460 days with a meds authorizing provider and meeting all other requirements Future Appointments No visits were found meeting these conditions. Showing future appointments within next 90 days with a meds authorizing provider and meeting all other requirements Failed - This refill cannot be delegated documented in this encounter Plan of Treatment Upcoming Encounters Date Type Department Care Team (Late st Contact Info) Description 02/17/2025 4:00 PM CDT Telemedicine [facility] - Family Medicine - [place] [address] [place] [address] Derrick López MD #[address] [address] 05/24/2025 12:30 PM CDT Telemedicine [facility] - Neurology - [facility] [address] [place] [address] Lilia Baxter APRN, MATTE CUTTER [address]2 [place] [address] documented as of this encounter Visit Diagnoses Not on filedocumented in this encounter Additional Health Concerns Infection Onset Date Last Indicated Resolved Time COVID - 19 08/02/2021 08/02/2021 08/22/2021 12:1 6 AM COUNTER HAND COVID - 19 10/24/2021 10/27/2021 11/16/2021 12:1 6 AM COUNTER HAND COVID - 19 Confirmed 10/27/2021 10/27/2021 022 12:16 AM COUNTER HAND COVID - 19 04/25/2022 04/26/2022 05/05/2022 12:1 6 AM CDT COVID - 19 11/22/2023 11/22/2023 11/25/2023 9:26 AM COUNTER HAND COVID - 19 11/27/2023 11/27/2023 11/27/2023 5:02 PM COUNTER HAND Respiratory Rule-Out 11/27/2023 11/27/2023 024 5:01 PM COUNTER HAND COVID - 19 02/02/2024 02/02/2024 02/02/2024 3:51 PM CDT COVID - 19 05/26/2024 05/26/2024 05/26/2024 4:26 PM CDT COVID - 19 05/28/2024 05/28/2024 05/28/2024 1:37 PM CDT COVID - 19 06/04/2024 06/04/2024 06/04/2024 11:3 2 AM CDT Respiratory Rule-Out 09/15/2024 09/15/2024 024 1:59 PM COUNTER HAND Respiratory Rule-Out 11/16/2024 11/16/2024 025 4:04 PM COUNTER HAND COVID - 19 11/16/2024 11/16/2024 11/16/2024 4:02 PM COUNTER HAND Assessment Noted Time PHQ-9 Depression Total Score: 0 06/12/20 19 10:00 AM CDT documented as of this encounter Care Teams Driver Recruiter Relationship Specialty Start Date End Date Derrick López MD #[address] [address] PCP - General Family Medicine 03/24/18 Bernice Andres MD [address] [facility] [address] [place] [address] Consulting Physician Obstetrics & Gynecology 03/24/18 Lilia Baxter APRN, MATTE CUTTER #2 [place] [address] Nurse Practitioner Advanced Practice Nurse 12/29/21 Kamron Guillory MD #[address] [address] Consulting Physician Colon and Rectal Surgery 01/29/23 Josephine Mansfield MD #[address] [address] Consulting Physician Endocrinology 07/05/23 Jaylon Villeda MD #2 [place] [address] Consulting Physician Neurology 12/07/22 documented as of this encounter
--- OUTSIDE RECORDS SUMMARY | 2025-01-09 05:30 | XMS_ITS | Encounter Summary ---
Author Organization [facility] Address [address] [facility] [place] [address] Phone Care Team Providers Care Correctional Officer Chief Name Role Phone Derrick López MD Primary Care Provider [phone] Bernice Andres MD Unavailable [phone] Lilia Baxter APRN, [facility] Unavailable [phone] Kamron Guillory MD Unavailable Josephine Mansfield MD Unavailable Jaylon Villeda MD Unavailable [phone] Reason for Visit * Reason Comments Medication Refill Encounter Details Date Type Department Care Team (Late st Contact Info) Description 08/11/2021 Refill [facility] - Family Medicine [facility] #2 [place] [address] Lazarus Bowden, J2EE SOFTWARE ENGINEER, ART HISTORY PROFESSOR #[address] [address] Medication Refill Social History Tobacco Use Types [...] or suspected to have Coronavirus / COVID-19? Yes 08/02/2021 12:48 PM CDT documented as of this encounter Plan of Treatment Upcoming Encounters Date Type Department Care Team (Late st Contact Info) Description 02/17/2025 4:00 PM CDT Telemedicine [facility] - Family Medicine [facility] #2 [place] [address] Derrick López MD #[address] [address] 05/24/2025 12:30 PM CDT Telemedicine [facility] - Neurology [facility] #2 [place] [address] Lilia Baxter APRN, PHOTO MASK INSPECTOR #2 [place] [address] documented as of this encounter Visit Diagnoses Diagnosis Intractable chronic migraine without aura and with status migrainosus Chronic migraine without aura, with intractable migraine, so stated, with status migrainosus documented in this encounter Additional Health Concerns Infection Onset Date Last Indicated Resolved Time COVID - 19 08/02/2021 08/02/2021 08/22/2021 12:1 6 AM CASTING TESTER COVID - 19 10/24/2021 10/27/2021 11/16/2021 12:1 6 AM CASTING TESTER COVID - 19 Confirmed 10/27/2021 10/27/2021 022 12:16 AM CASTING TESTER COVID - 19 04/25/2022 04/26/2022 05/05/2022 12:1 6 AM CDT COVID - 19 11/22/2023 11/22/2023 11/25/2023 9:26 AM CASTING TESTER COVID - 19 11/27/2023 11/27/2023 11/27/2023 5:02 PM CASTING TESTER Respiratory Rule-Out 11/27/2023 11/27/2023 024 5:01 PM CASTING TESTER COVID - 19 02/02/2024 02/02/2024 02/02/2024 3:51 PM CDT COVID - 19 05/26/2024 05/26/2024 05/26/2024 4:2 6 PM CDT COVID - 19 05/28/2024 05/28/2024 05/28/2024 1:37 PM CDT COVID - 19 06/04/2024 06/04/2024 06/04/2024 11:3 2 AM CDT Respiratory Rule-Out 09/15/2024 09/15/2024 024 1:59 PM CASTING TESTER Respiratory Rule-Out 11/16/2024 11/16/2024 025 4:04 PM CASTING TESTER COVID - 19 11/16/2024 11/16/2024 11/16/2024 4:02 PM CASTING TESTER Assessment Noted Time PHQ-9 Depression Total Score: 0 07/20/20 20 3:35 PM CDT documented as of this encounter Care Teams Correctional Officer Chief Relationship Specialty Start Date End Date Derrick López MD #[address] [address] PCP - General Family Medicine 03/24/18 Bernice Andres MD [address] [facility] [address] [place] [address] Consulting Physician Obstetrics & Gynecology 03/24/18 Lilia Baxter APRN, PHOTO MASK INSPECTOR #2 [place] [address] Nurse Practitioner Advanced Practice Nurse 12/29/21 Kamron Guillory MD #[address] [address] Consulting Physician Colon and Rectal Surgery 01/29/23 Josephine Mansfield MD #[address] [address] Consulting Physician Endocrinology 07/05/23 Jaylon Villeda MD #2 [place] [address] Consulting Physician Neurology 12/07/22 documented as of this encounter
--- OUTSIDE RECORDS SUMMARY | 2025-01-09 05:30 | XMS_ITS | Encounter Summary ---
Author Organization [facility] Address [address] [facility] [place] [address] Phone Care Team Providers Care Fairing Man Name Role Phone Derrick López MD Primary Care Provider [phone] Bernice Andres MD Unavailable [phone] Lilia Baxter APRN, SHOE SALESPERSON Unavailable [phone] Kamron Guillory MD Unavailable Josephine Mansfield MD Unavailable Jaylon Villeda MD Unavailable [phone] Reason for Visit * Reason Comments Medication Refill Encounter Details Date Type Department Care Team (Late st Contact Info) Description 10/01/2020 Refill [facility] #2 [place] [address] Derrick López MD #[address] [address] Medication Refill Social History Tobacco Use Types Packs/Day Years Used Date Smoking Tobacco: Never Smokeless Tobacco: Never Alcohol Use Standard Drinks/Week Comments Yes 0 (1 standard drink = 0.6 oz pur e alcohol) occasional PHQ-2 Answer Date Recorded Total Score - Questions 1-9 0 07/07 Comments No Sex and Gender Information Value [...] have Coronavirus / COVID-19? No / Unsure 09/22/2020 12:52 PM FIELD AIDE documented as of this encounter Miscellaneous Notes * Telephone Encounter - Gabriela Amezcua RN - 10/03/2020 11:11 AM CST Medication failed the protocol, provider to review and approve the medication order if appropriate. Requested Prescriptions Pending Prescriptions Disp Refills levothyroxine (SYNTHROID) 88 MCG Tablet [Pharmacy Med Name: LEVOTHYROXINE 0.088MG (88MCG) TAB] 90 Tab 1 Sig: TAKE 1 TABLET BY MOUTH DAILY Endocrinology: Hypothyroid Agents Failed - 10/01/2020 3:00 PM Failed - TSH in normal range and within 360 days TSH Date Value Ref Range Status 01/06/2019 1.440 0.270 - 4.200 mIU/L Final Passed - Valid encounter within last 12 months Past Office Visits Recent Outpatient Visits 2 months ago Intractable chronic migraine without aura and with status migrainosus [facility] - Lazarus Cui APN, MAGNET VALVE ASSEMBLER 1 year ago Vitamin D insufficiency [facility] - Derrick Lujan MD 1 year ago Pharyngitis, unspecified etiology [facility] - Derrick Lujan MD 1 year ago Sore throat [facility] - Lazarus Cui APN, MAGNET VALVE ASSEMBLER 1 year ago Strain of neck muscle, initial [facility] [place] Derrick López MD Upcoming Appointments Future Appointments In 11 months Lilia Baxter APN, SHOE SALESPERSON [facility], [facility] CABLE SPOOLER - Recent and Past Visits Recent Visits Date Type Provider Dept 07/20/20 Office Visit Lazarus Bowden APN, MAGNET VALVE ASSEMBLER [facility] Showing recent visits within past 460 days with a meds authorizing provider and meeting all other requirements Future Appointments No visits were found meeting these conditions. Showing future appointments within next 90 days with a meds authorizing provider and meeting all other requirements D AIDE documented in this encounter Plan of Treatment Upcoming Encounters Date Type Department Care Team (Late st Contact Info) Description 02/17/2025 4:00 PM CDT Telemedicine [facility] #2 [place] [address] Derrick López MD #[address] [address] 05/24/2025 12:30 PM CDT Telemedicine [facility] #2 [place] [address] Lilia Baxter APRN, SHOE SALESPERSON #2 [place] [address] documented as of this encounter Visit Diagnoses Not on filedocumented in this encounter Additional Health Concerns Infection Onset Date Last Indicated Resolved Time COVID - 19 08/02/2021 08/02/2021 08/22/2021 12:1 6 AM FIELD AIDE COVID - 19 10/24/2021 10/27/2021 11/16/2021 12:1 6 AM FIELD AIDE COVID - 19 Confirmed 10/27/2021 10/27/2021 022 12:16 AM FIELD AIDE COVID - 19 04/25/2022 04/26/2022 05/05/2022 12:1 6 AM CDT COVID - 19 11/22/2023 11/22/2023 11/25/2023 9:26 AM FIELD AIDE COVID - 19 11/27/2023 11/27/2023 11/27/2023 5:02 PM FIELD AIDE Respiratory Rule-Out 11/27/2023 11/27/2023 024 5:01 PM FIELD AIDE COVID - 19 02/02/2024 02/02/2024 02/02/2024 3:51 PM CDT COVID - 19 05/26/2024 05/26/2024 05/26/2024 4:26 PM CDT COVID - 19 05/28/2024 05/28/2024 05/28/2024 1:37 PM CDT COVID - 19 06/04/2024 06/04/2024 06/04/2024 11:3 2 AM CDT Respiratory Rule-Out 09/15/2024 09/15/2024 024 1:59 PM FIELD AIDE Respiratory Rule-Out 11/16/2024 11/16/2024 025 4:04 PM FIELD AIDE COVID - 19 11/16/2024 11/16/2024 11/16/2024 4:02 PM FIELD AIDE Assessment Noted Time PHQ-9 Depression Total Score: 0 07/20/20 3:35 PM CDT documented as of this encounter Care Teams Fairing Man Relationship Specialty Start Date End Date Derrick López MD #[address] [address] PCP - General Family Medicine 03/24/18 Bernice Andres MD [address] [facility] [address] [place] [address] Consulting Physician Obstetrics & Gynecology 03/24/18 Lilia Baxter APRN, SHOE SALESPERSON #2 [place] [address] Nurse Practitioner Advanced Practice Nurse 3/25/22 Kamron Guillory MD #[address] [address] Consulting Physician Colon and Rectal Surgery 01/29/23 Josephine Mansfield MD #[address] [address] Consulting Physician Endocrinology 07/05/23 Jaylon Villeda MD #2 [place] [address] Consulting Physician Neurology 12/07/22 documented as of this encounter
--- OUTSIDE RECORDS SUMMARY | 2025-01-09 05:30 | XMS_ITS | Patient Health Record ---
Author Organization [facility] Address [address] [place] [address] Care Team Providers Care Insole Coverer Name Role Phone Harjit Tammie Primary Care Provider Abbey Pugh Unavailable [phone] Migration, Provider Unavailable Unavailable Reason For Referral No Information Medications Medication SIG (Take, Route, Frequency, Duration) Notes Start Date End Date Status Meclizine HCl 12.5 MG 1 tab(s) orally 3 times a day 02/03/2024 Active Trulance 3 MG 1 tab(s) orally once a day 02/03/2024 Active buPROPion HCl 100 MG 1 tab(s) orally 2 times a day for 30 day(s) 02/03/2024 Active LORazepam 0.5 MG 1 tab(s) orally every 8 hours 02/03/2024 Active sulfaSALAzine 500 MG TAKE 2 TABLETS BY MOUTH TWICE A DAY for 30 Days Unknown INDOMETHACIN SR 75 MG 1 CAP(S) ORALLY ONCE A DAY *Please review for potential replacement for e-prescription and drug interaction check* 02/03/2024 Active Qulipta 60 MG 1 tab(s) orally once a day 02/03/2024 Active Phentermine HCl 30 MG 1 cap(s) orally once a day (in the morning) for 90 days 07/09/2024 Active traMADol HCl 50 MG 1 tab(s) orally every 6 hours 02/03/2024 Active Ondansetron HCl 4 MG 1 tab(s) orally every 8 hours 02/03/2024 Not-Taking Phentermine HCl 30 MG 1 cap(s) orally once a day (in the morning) for 90 days 04/03/2024 Active Liothyronine Sodium 5 MCG 1 tab(s) orally once a day for 30 day(s) 02/03/2024 Unknown Synthroid 88 MCG 1 tab(s) orally once a day for 90 days 04/03/2024 Active ACETAMINOPHEN/BUTALB ITAL/CAFFEINE/CODEIN E 325 MG-50 MG-40 MG-30 MG TAKE 1 CAPSULE BY MOUTH EVERY 4 HOURS NEEDED FOR PAIN for 2 DAYS *Please review for potential replacement for e-prescription and drug interaction check* Active Problems Problem Type SNOMED Code ICD Code Onset Dates Problem Status W/U Status Risk Notes Problem Vitamin D deficiency (95523336) Vitamin D deficiency, unspecified (E55.9) Active confirmed Problem Hypothyroidism (27846400) Hypothyroidism, unspecified (E03.9) Active confirmed Problem Rheumatoid arthritis (09924834) Rheumatoid arthritis, unspecified (M06.9) Active confirmed Vital Signs Heart Rate 82 /min 04/03/2024 Blood pressure diastolic 80 mm Hg 04/03/2024 Height 62 in 07/09/2024 Blood pressure systolic 132 mm Hg 04/03/2024 Weight 155 lbs 07/09/2024 BMI 28.35 kg/m2 07/09/2024 Encounters Encounter Location Date Provider Diagnosis [facility] - Tammieloulou Lombardi [address] [place] [address] 04/03/2024 Tammie Lombardi Hypothyroidism, unspecified E03.9 ; Vitamin D deficiency, unspecified E55.9 ; Other fatigue R53.83 and Overweight E66.[address] [address] 08/22/2024 Provider Migration [facility] - Tammieloulou Lombardi [address] [place] [address] 02/03/2024 Tammie Lombardi Hypothyroidism, unspecified E03.9 ; Dysphonia R49.0 ; Other fatigue R53.83 and Abnormal weight gain R63.5 [facility] Tammieloulou Lombardi [address] [place] [address] 07/03/2024 aTmmie [facility] - Tammieloulou Lombardi [address] [place] [address] 07/09/2024 Tammie Lombardi [employer] [employer] [facility] [address] [place] [address] 07/09/2024 Tammie Lombardi [employer] [employer] [address] [place] [address] 07/22/2024 Tammie Lombardi [facility] - Tammie Lombardi [address] [place] [address] 07/09/2024 Abbey Pugh Hypothyroidism, unspecified E03.9 ; Overweight E66.3 and Rheumatoid arthritis, unspecified M06.9 Assessments Encounter Date Diagnosis (ICD Code) Assessment Notes Treatment Notes Treatment Clinical Notes Section Notes 04/03/2024 Vitamin D deficiency, unspecified (ICD-10 - E55.9) Continue on vitamin D3 5000 IU daily for bone and immune health. 04/03/2024 Hypothyroidism, unspecified (ICD-10 - E03.9) TSH and FT4 in range-continue synthroid 88 mcg daily - refill sent. She is aware to take with water only and wait one hour to have food, meds etc. 02/03/2024 Hypothyroidism, unspecified (ICD-10 - E03.9) Provided samples of 88 mcg of synthroid to increase her dosing by 10%-she has continued weight gain, fatigue and trouble focusing. She was educated on half life of liothyronine and aware she can take around noon to help with afternoon lulls. Send for repeat thyroid panel as she is due for labwork to assess her control. 02/03/2024 Dysphonia (ICD-10 - R49.0) This may be secondary to her known RA- spoke with her team / Dr. Magda JIMENES in regards to new changes in her status since last visit on 01/22- she has had increased voice loss and vocal swelling diagnosed as spasmodic dysphonia- has been on steroid therapy and has minimal improvement - will send for thyroid u/s to assure there is no evidence of thyroid swelling or nodular development-she is aware she may need to see ENT. 07/09/2024 Hypothyroidism, unspecified (ICD-10 - E03.9) -Pt to complete labs next week as she has not had labs since increasing her levothyroxine 88mcg. -She is not taking liothyronine at this time. She wasn't sure if she was to discontinue after her last visit with MD Lombardi. -Pt to f/u in 3.5wks w/ Dr. Lombardi to determine if 88mcg is appropriate dosing for her. 07/09/2024 Overweight (ICD-10 - E66.3) -Will refill 30mg phentermine capsules for pt to her pharmacy on file. -Discussed with pt that she can come into the office for compounded tirzepatide which may help with BG control while she is on steroids and help with the weight loss goal she has before her wedding in a month. 04/03/2024 Other fatigue (ICD-10 - R53.83) Recommended orthoimmune as this has the ideal vitamin D content so she is aware she can take this supplement over vitamin D alone along with quercetin and NAC as she has struggled with RA and concerns for autoimmune hepatitis. She was given AIP diet as well to eliminate foods that can increase inflammatory markers. 02/03/2024 Other fatigue (ICD-10 - R53.83) Send for full vitamin/hormone and CBC/CMP. 07/09/2024 Rheumatoid arthritis, unspecified (ICD-10 - M06.9) -Provided information on MD [facility] in [facility] if pt is seeking new Microbiological Lab Technician. 04/03/2024 Overweight (ICD-10 - E66.3) discussed dietary measures in regards to weight loss- importance to restrict calories to 1200 per day if sedentary vs 0075-7044 calories depending on caloric expenditure. She was provided information on [email or web address] as this program manages metabolic syndrome and products include insulin sensitizers along with thyroid support/supplemen tation to help tailor weight loss in individuals who struggle with underlying autoimmune thyroid conditions and hyperglycemia (fasting glucose of 97 mg/dL). Spent up to 20 minutes discussing alternative weight loss options along with addition of phentermine 30 mg daily-patient aware of palpitations, anxiety, hypertension and dry mouth which can be common in stimulant therapy. She is aware to contact clinic if any concerns and aware she can discontinue if any concerns upon starting therapy. 02/03/2024 Abnormal weight gain (ICD-10 - R63.5) Trial on phentermine 30 mg daily as she had previous success on mid dose management- she has no history of hypertension or palpitations. She is aware this medication can cause hypertension, palpitations and dry mouth and to reach out with concerns. She was encouraged to restrict her caloric intake to 1400 calories per day and try to participate in up to 150 minutes of moderate level activity/exercise weekly to maintain. 02/03/2024 Other Spent 45 minute s preparing to see the patient (ex review of tests/chart), obtaining and / or reviewing separately obtained history, performing a medically appropriate examination and/or evaluation, counseling and educating the patient/family/ca regiver, ordering medications, tests, or procedures, referring and communicating with other health manager medicare marketing, documenting clinical information in the electronic or other health record, independently interpreting results and communicating results to the patient/family/ca regiver and care coordinating patient plan. Patient alert and oriented x 4 and aware of discussion noted above and in agreeance to plan in management of hypothyroidism, dysphonia, fatigue and weight management. 04/03/2024 Other Spent 25 minute s preparing to see the patient (ex review of tests/chart), obtaining and / or reviewing separately obtained history, performing a medically appropriate examination and/or evaluation, counseling and educating the patient/family/ca regiver, ordering medications, tests, or procedures, referring and communicating with other health manager medicare marketing, documenting clinical information in the electronic or other health record, independently interpreting results and communicating results to the patient/family/ca regiver and care coordinating patient plan. Patient alert and oriented x 4 and aware of discussion noted above and in agreeance to plan in management of hypothyroidism, fatigue, and weight management. 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
--- OUTSIDE RECORDS SUMMARY | 2025-01-09 05:30 | XMS_ITS | Encounter Summary ---
Author Organization [facility] Address [address] [facility] [place] [address] Phone Care Team Providers Care Tourist Camp Attendant Name Role Phone Derrick López MD Primary Care Provider [phone] Bernice Andres MD Unavailable Lilia Baxter APRN, BOX INSPECTOR Unavailable [phone] Kamron Guillory MD Unavailable Josephine Mansfield MD Unavailable Jaylon Villeda MD Unavailable [phone] Reason for Visit * Reason Comments Medication Refill Encounter Details Date Type Department Care Team (Late st Contact Info) Description 04/25/2022 Refill [facility] - Neurology [facility] [address] [place] [id number] Lilia Baxter APRN, BOX INSPECTOR [address] [place] [address] Medication Refill Social History Tobacco Use Types [...] on file documented as of this encounter Plan of Treatment Upcoming Encounters Date Type Department Care Team (Late st Contact Info) Description 02/17/2025 4:00 PM CDT Telemedicine [facility] - Family Medicine - [place] [address] [place] [address] Derrick López MD #[address] [address] 05/24/2025 12:30 PM CDT Telemedicine [facility] - Neurology [facility] [address] [place] [address] Lilia Baxter APRN, BOX INSPECTOR [address] [place] [address] documented as of this encounter Visit Diagnoses Diagnosis Chronic migraine w/o aura 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, not intractable Chronic migraine without aura, without mention of intractable migraine without mention of status migrainosus documented in this encounter Additional Health Concerns Infection Onset Date Last Indicated Resolved Time COVID - 19 04/25/2022 04/26/2022 05/05/2022 12:1 6 AM CDT COVID - 19 11/22/2023 11/22/202311/2511/25/2023 9:26 AM DIRECTOR OF MARKETING AND PROMOTIONS COVID - 19 11/27/2023 11/27/2023 11/27/2023 5:02 PM DIRECTOR OF MARKETING AND PROMOTIONS Respiratory Rule-Out 11/27/2023 11/27/2023 024 5:01 PM DIRECTOR OF MARKETING AND PROMOTIONS COVID - 19 02/02/2024 02/02/2024 02/02/2024 3:51 PM CDT COVID - 19 05/26/2024 05/26/2024 05/26/2024 4:26 PM CDT COVID - 19 05/28/2024 05/28/2024 05/28/2024 1:37 PM CDT COVID - 19 06/04/2024 06/04/2024 06/04/2024 11:3 2 AM CDT Respiratory Rule-Out 09/15/2024 09/15/2024 024 1:59 PM DIRECTOR OF MARKETING AND PROMOTIONS Respiratory Rule-Out 11/16/2024 11/16/2024 025 4:04 PM DIRECTOR OF MARKETING AND PROMOTIONS COVID - 19 11/16/2024 11/16/2024 11/16/2024 4:02 PM DIRECTOR OF MARKETING AND PROMOTIONS Assessment Noted Time PHQ-9 Depression Total Score: 0 07/20/20 3:35 PM CDT documented as of this encounter Care Teams Tourist Camp Attendant Relationship Specialty Start Date End Date Derrick Lóepz MD #[address] [address] PCP - General Family Medicine 03/24/18 Bernice Andres MD [address] [facility] [address] [place] [address] Consulting Physician Obstetrics & Gynecology 03/24/18 Lilia Baxter APRN, BOX INSPECTOR [address] [place] [address] Nurse Practitioner Advanced Practice Nurse 12/29/21 Kamron Guillory MD #[address] [address] Consulting Physician Colon and Rectal Surgery 01/29/23 Josephine Mansfield MD #[address] [address] Consulting Physician Endocrinology 07/05/23 Jaylon Villeda MD #2 [place] [address] Consulting Physician Neurology 12/07/22 documented as of this encounter
--- OUTSIDE RECORDS SUMMARY | 2025-01-09 05:30 | XMS_ITS | Encounter Summary ---
Author Organization [facility] Address [address] [facility] [place] [address] Phone Care Team Providers Care Auctioneer Art Name Role Phone Derrick López MD Primary Care Provider [phone] Bernice Andres MD Unavailable Lilia Baxter APRN, DRILL PRESS TENDER Unavailable [phone] Kamron Guillory MD Unavailable Josephine Mansfield MD Unavailable Jaylon Villeda MD Unavailable Reason for Visit * Reason Comments Medication Refill Encounter Details Date Type Department Care Team (Late st Contact Info) Description 02/22/2020 Refill [facility] - Family [facility] #2 [place] [address] Derrick López MD #[address] [address] Medication Refill Social History Tobacco Use Types [...] encounter Miscellaneous Notes * Telephone Encounter - Sofie Meredith RN - 02/22/2020 11:50 AM CDT Requested Prescriptions Pending Prescriptions Disp Refills wkooczeajh-ymgjfprooyyac-zfjjonaj-codeine (FIORICET WITH CODEINE) [id number] MG Capsule [PharmacyMed Name: BUTAL/ACETA/CAFF/COD [id number]] 30 Cap 0 Sig: TAKE 1 CAPSULE BY MOUTH EVERY 4 HOURS NEEDED FOR PAIN Not Delegated - Analgesics: Opioid Agonist Combinations Failed - 02/22/2020 11:43 AM Failed - Valid encounter within last 6 months Past Office Visits Recent Outpatient Visits 8 months ago Vitamin D insufficiency [facility] Derrick López MD 9 months ago Pharyngitis, unspecified etiology [facility] Derrick López MD 9 months ago Sore throat [facility] Lazarus Bowden APN, LABORER [employer] 1 year ago Strain of neck muscle, initial encounter [facility] Derrick López MD 1 year ago Muscle contraction headache syndrome [facility] - Rom[facility] Torres [facility] Upcoming Appointments Failed - This refill cannot be delegated documented in this encounter Plan of Treatment Upcoming Encounters Date Type Department Care Team (Late st Contact Info) Description 02/17/2025 4:00 PM CDT Telemedicine [facility] - Family [facility] - [place] #[address] [place] [address] Derrick López MD [address] [address] 05/24/2025 12:30 PM CDT [facility] [place] #2 [facility] [place] [address] Lilia Baxter, SUPERVISOR METAL PLACING, DRILL PRESS TENDER [address] [place] [address] documented as of this encounter Visit Diagnoses Not on filedocumented in this encounter Additional Health Concerns Infection Onset Date Last Indicated Resolved Time COVID - 19 08/02/2021 08/02/2021 08/22/2021 12:1 6 AM HUMAN DEVELOPMENT PROFESSOR COVID - 19 10/24/2021 10/27/2021 11/16/2021 12:1 6 AM HUMAN DEVELOPMENT PROFESSOR COVID - 19 Confirmed 10/27/2021 10/27/2021 022 12:16 AM HUMAN DEVELOPMENT PROFESSOR COVID - 19 04/25/2022 04/26/2022 05/05/2022 12:1 6 AM CDT COVID - 19 11/22/2023 11/22/2023 11/25/2023 9:26 AM HUMAN DEVELOPMENT PROFESSOR COVID - 19 11/27/2023 11/27/2023 11/27/2023 5:02 PM HUMAN DEVELOPMENT PROFESSOR Respiratory Rule-Out 11/27/2023 11/27/2023 024 5:01 PM HUMAN DEVELOPMENT PROFESSOR COVID - 19 02/02/2024 02/02/2024 02/02/2024 3:51 PM CDT COVID - 19 05/26/2024 05/26/2024 05/26/2024 4:26 PM CDT COVID - 19 05/28/2024 05/28/2024 05/28/2024 1:37 PM CDT COVID - 19 06/04/2024 06/04/2024 06/04/2024 11:3 2 AM CDT Respiratory Rule-Out 09/15/2024 09/15/2024 024 1:59 PM HUMAN DEVELOPMENT PROFESSOR Respiratory Rule-Out 11/16/2024 11/16/2024 025 4:04 PM HUMAN DEVELOPMENT PROFESSOR COVID - 19 11/16/2024 11/16/2024 11/16/2024 4:02 PM HUMAN DEVELOPMENT PROFESSOR Assessment Noted Time PHQ-9 Depression Total Score: 0 06/12/20 19 10:00 AM CDT documented as of this encounter Care Teams Auctioneer Art Relationship Specialty Start Date End Date Derrick López MD #2 [facility] [address] [place] [address] PCP - General Family Medicine 03/24/18 Bernice Andres MD [address] [facility] [address] [place] [address] Consulting Physician Obstetrics & Gynecology 03/24/18 Lilia Baxter, SUPERVISOR METAL PLACING, DRILL PRESS TENDER [address]2 [place] [address] Nurse Practitioner Advanced Practice Nurse 12/29/21 Kamron Guillory MD #2 [facility] [address] [place] [address] Consulting Physician Colon and Rectal Surgery 01/29/23 Josephine Mansfield MD #[address] [id number] Consulting Physician Endocrinology 07/05/23 Jaylon Villeda MD #2 [place] [address] Consulting Physician Neurology 12/07/22 documented as of this encounter
--- OUTSIDE RECORDS SUMMARY | 2025-01-09 05:30 | XMS_ITS | Encounter Summary ---
Author Organization [facility] Address [address] [place] [address] Phone Care Team Providers Care Residential Advisor Name Role Phone Derrick López MD Primary Care Provider [phone] Bernice Andres MD Unavailable Lilia Baxter APRN, FAMILY COUNSELOR Unavailable [phone] Kamron Guillory MD Unavailable Josephine Mansfield MD Unavailable Jaylon Villeda MD Unavailable Reason for Visit * Reason Comments Medication Refill Encounter Details Date Type Department Care Team (Late st Contact Info) Description 08/11/2021 Refill [facility] [address] [place] [address] Derrick López MD #[address] [address] Medication Refill Social History Tobacco Use Types [...] encounter Miscellaneous Notes * Telephone Encounter - Latonia Zimmerman RN - 08/11/2021 8:17 AM CDT Medication failed the protocol, provider to review and approve the medication order if appropriate. Requested Prescriptions Pending Prescriptions Disp Refills SUMAtriptan (IMITREX) 6 MG/0.5ML Solution Auto-injector [Pharmacy Med Name: SUMATRIPTAN 6MG/0.5ML PF INJ2X0.5ML] 3 mL Sig: INJECT 0.5 ML UNDER THE SKIN SOON AFTER ONSET OF MIGRAINE HEADACHE; MAY REPEAT DOSE AT LEAST 1HOUR LATER IF HEADACHE PERSISTS Not Delegated - Serotonin Agonists (Injectable) Protocol Failed - 08/11/2021 7:28 AM Failed - This refill cannot be delegated; check utilization no more than 9 doses per month Passed - Visit with relevant provider in past 24 months or upcoming 90 days Recent Visits Date Type Provider Dept 06/21/21 Office Visit Lazarus Bowden APRN, ADE [facility] 05/23/21 Office Visit Lazarus Bowden APRN, [facility] 12/15/20 Office Visit Lazarus Bowden APRN, ADE [facility] 07/20/20 Office Visit Lazarus Bowden APRN, ADE [facility] Showing recent visits within past 730 days and meeting all other requirements Future Appointments No visits were found meeting these conditions. Showing future appointments within next 90 days and meeting all other requirements Passed - No documented Systolic BP > 200 within past 3 months Passed - Number of active Serotonergic medications less than 3 documented in this encounter Plan of Treatment Upcoming Encounters Date Type Department Care Team (Late st Contact Info) Description 02/17/2025 4:00 PM CDT Telemedicine [facility] - Family Medicine - [place] #2 [place] [address] Derrick López MD #[address] [address] 05/24/2025 12:30 PM CDT Telemedicine [facility] - Neurology - [place] #2 [place] [address] Lilia Baxter APRN, FAMILY COUNSELOR #2 [place] [address] documented as of this encounter Visit Diagnoses Diagnosis Intractable chronic migraine without aura and with status migrainosus Chronic migraine without aura, with intractable migraine, so stated, with status migrainosus documented in this encounter Additional Health Concerns Infection Onset Date Last Indicated Resolved Time COVID - 19 08/02/2021 08/02/2021 08/22/2021 12:1 6 AM REEL CUTTER COVID - 19 10/24/2021 10/27/2021 11/16/2021 12:1 6 AM REEL CUTTER COVID - 19 Confirmed 10/27/2021 10/27/2021 022 12:16 AM REEL CUTTER COVID - 19 04/25/2022 04/26/2022 05/05/2022 12:1 6 AM CDT COVID - 19 11/22/2023 11/22/2023 11/25/2023 9:26 AM REEL CUTTER COVID - 19 11/27/2023 11/27/2023 11/27/2023 5:02 PM REEL CUTTER Respiratory Rule-Out 11/27/2023 11/27/2023 024 5:01 PM REEL CUTTER COVID - 19 02/02/2024 02/02/2024 02/02/2024 3:51 PM CDT COVID - 19 05/26/2024 05/26/2024 05/26/2024 4:26 PM CDT COVID - 19 05/28/2024 05/28/2024 05/28/2024 1:37 PM CDT COVID - 19 06/04/2024 06/04/2024 06/04/2024 11:3 2 AM CDT Respiratory Rule-Out 09/15/2024 09/15/2024 024 1:59 PM REEL CUTTER Respiratory Rule-Out 11/16/2024 11/16/2024 025 4:04 PM REEL CUTTER COVID - 19 11/16/2024 11/16/2024 11/16/2024 4:02 PM REEL CUTTER Assessment Noted Time PHQ-9 Depression Total Score: 0 07/20/20 3:35 PM CDT documented as of this encounter Care Teams Residential Advisor Relationship Specialty Start Date End Date Derrick López MD #[address] [address] PCP - General Family Medicine 03/24/18 Bernice Andres MD [address] [address] Consulting Physician Obstetrics & Gynecology 03/24/18 Lilia Baxter, SPREADER, FAMILY COUNSELOR #[address] [place] [address] Nurse Practitioner Advanced Practice Nurse 12/29/21 Kamron Guillory MD [address] [address] Consulting Physician Colon and Rectal Surgery 01/29/23 [facility] MD [facility] [address] [address] Consulting Physician Endocrinology 07/05/23 Jaylon Villeda MD #2 [place] [address] Consulting Physician Neurology 12/07/22 documented as of this encounter
--- OUTSIDE RECORDS SUMMARY | 2025-01-09 05:30 | XMS_ITS | Encounter Summary ---
Author Organization [facility] Address [address] [facility] [place] [address] Phone Care Team Providers Care Battery Wrecker Operator Name Role Phone Derrick López MD Primary Care Provider [phone] Bernice Andres MD Unavailable Lilia Baxter APRN, ANESTHESIOLOGISTS' ASSISTANT Unavailable [phone] Kamron Guillory MD Unavailable Josephine Mansfield MD Unavailable Jaylon Villeda MD Unavailable Reason for Visit * Reason Comments Medication Refill Encounter Details Date Type Department Care Team (Late st Contact Info) Description 10/05/2021 Refill [facility]2 [place] [id number] Lilia Baxter APRN, ANESTHESIOLOGISTS' ASSISTANT #2 [place] [address] Medication Refill Social History Tobacco Use Types [...] COVID-19? No / Unsure 10/05/2021 10:57 AM TREE DEADENER documented as of this encounter Miscellaneous Notes * Telephone Encounter - Debbie Ramirez RN - 10/05/2021 12:52 PM CST Medication failed the protocol, provider to review and approve the medication order if appropriate. Requested Prescriptions Pending Prescriptions Disp Refills divalproex (DEPAKOTE) 125 MG Tablet Delayed Response [Pharmacy Med Name: DIVALPROEX DELAYED [id number]] 90 Tablet Sig: TAKE 1 TABLET BY MOUTH EVERY NIGHT Not Delegated - Anticonvulsants Excluding Benzodiazepines Protocol Failed - 10/05/2021 12:25 PM Failed - This refill cannot be delegated Passed - Visit with relevant provider in past 12 months or upcoming 90 days Recent Visits Date Type Provider Dept 08/16/21 Office Visit Lazarus Bowden APRN, [facility] [place] 06/21/21 Office Visit Lazarus Bowden APRN, [facility] [place] 05/23/21 Office Visit Lazarus Bowden APRN, [facility] [place] 12/15/20 Office Visit Lazarus Bowden APRN, [facility] [place] Showing recent visits within past 365 days and meeting all other requirements Today's Visits Date Type Provider Dept 10/05/21 Appointment Nurse, [place] [facility] 10/05/21 Office Visit Lilia Baxter APRN, ANESTHESIOLOGISTS' ASSISTANT [facility] Showing today's visits and meeting all other requirements Future Appointments No visits were found meeting these conditions. Showing future appointments within next 90 days and meeting all other requirements DEADENER documented in this encounter Plan of Treatment Upcoming Encounters Date Type Department Care Team (Late st Contact Info) Description 02/17/2025 4:00 PM CDT Telemedicine [facility] - Family Medicine - [place] #2 [place] [address] Derrick López MD #[address] [address] 05/24/2025 12:30 PM CDT Telemedicine [facility] - Neurology - [place] #2 [place] [address] Lilia Baxter APRN, ANESTHESIOLOGISTS' ASSISTANT #2 [place] [address] documented as of this encounter Visit Diagnoses Diagnosis Intractable chronic migraine without aura and with status migrainosus Chronic migraine without aura, with intractable migraine, so stated, with status migrainosus documented in this encounter Additional Health Concerns Infection Onset Date Last Indicated Resolved Time COVID - 19 10/24/2021 10/27/2021 11/16/2021 12:1 6 AM TREE DEADENER COVID - 19 Confirmed 10/27/2021 10/27/2021 022 12:16 AM TREE DEADENER COVID - 19 04/25/2022 04/26/2022 05/05/2022 12:1 6 AM CDT COVID - 19 11/22/2023 11/22/2023 11/25/2023 9:26 AM TREE DEADENER COVID - 19 11/27/2023 11/27/2023 11/27/2023 5:02 PM TREE DEADENER Respiratory Rule-Out 11/27/2023 11/27/2023 024 5:01 PM TREE DEADENER COVID - 19 02/02/2024 02/02/2024 02/02/2024 3:51 PM CDT COVID - 19 05/26/2024 05/26/2024 05/26/2024 4:26 PM CDT COVID - 19 05/28/2024 05/28/2024 05/28/2024 1:37 PM CDT COVID - 19 06/04/2024 06/04/2024 06/04/2024 11:3 2 AM CDT Respiratory Rule-Out 09/15/2024 09/15/2024 024 1:59 PM TREE DEADENER Respiratory Rule-Out 11/16/2024 11/16/2024 025 4:04 PM TREE DEADENER COVID - 19 11/16/2024 11/16/2024 11/16/2024 4:02 PM TREE DEADENER Assessment Noted Time PHQ-9 Depression Total Score: 0 07/20/20 3:35 PM CDT documented as of this encounter Care Teams Battery Wrecker Operator Relationship Specialty Start Date End Date Derrick López MD #2 [facility] [address] [place] [address] PCP - General Family Medicine 03/24/18 Bernice Andres MD [address] [facility] [address] [place] [address] Consulting Physician Obstetrics & Gynecology 03/24/18 Lilia Baxter, UNDERWRITING ANALYST, ANESTHESIOLOGISTS' ASSISTANT #2 [place] [address] Nurse Practitioner Advanced Practice Nurse 12/29/21 Kamron Guillory MD #[address] [facility] [address] [address] [address] Consulting Physician Colon and Rectal Surgery 01/29/23 Josephine Mansfield MD #[address] [address] Consulting Physician Endocrinology 07/05/23 Jaylon Villeda MD #2 [place] [address] Consulting Physician Neurology 12/07/22 documented as of this encounter
--- OUTSIDE RECORDS SUMMARY | 2025-01-09 05:30 | XMS_ITS | Encounter Summary ---
Author Organization [facility] Address [address] [facility] [place] [address] Phone Care Team Providers Care Agency Sales Development Associate Name Role Phone Derrick López MD Primary Care Provider [phone] Bernice Andres MD Unavailable [phone] Lilia Baxter APRN, DIRECTOR COUNSELING BUREAU Unavailable [phone] Kamron Guillory MD Unavailable Josephine Mansfield MD Unavailable Jalyon Villeda MD Unavailable [phone] Reason for Visit * Reason Comments Medication Refill Encounter Details Date Type Department Care Team (Late st Contact Info) Description 03/13/2022 Refill [facility] - [facility] #2 [place] [address] Derrick López MD #[address] [address] Medication Refill Social History Tobacco Use Types [...] Telephone Encounter - Gabriela Amezcua RN - 03/14/2022 11:26 AM CDT Medication failed the protocol, provider to review and approve the medication order if appropriate. Requested Prescriptions Pending Prescriptions Disp Refills ondansetron (ZOFRAN) 4 MG Tablet [Pharmacy Med Name: ONDANSETRON 4MG TABLETS] 15 Tablet 1 Sig: TAKE 1 TABLET BY MOUTH EVERY 8 HOURS NEEDED FOR NAUSEA Not Delegated - 5-HT3 Antagonists Protocol Failed - 03/13/2022 10:15 PM Failed - This refill cannot be delegated Passed - Visit with relevant provider in past 12 months or upcoming 90 days Recent Visits Date Type Provider Dept 10/27/21 Telemedicine Lazarus Bowden APRN, CNP [facility] [place] 08/16/21 Office Visit Lazarus Bowden APRN, CNP [facility] [place] 06/21/21 Office Visit Lazarus Bowden APRN, CNP [facility] [place] 05/23/21 Office Visit Lazarus Bowden APRN, ADE [...] Info) Description 02/17/2025 4:00 PM CDT Telemedicine [facility] Medical [facility] - Family Medicine - [place] #2 [place] [address] Derrick López MD #[address] [address] 05/24/2025 12:30 PM CDT Telemedicine [facility] - Neurology - [place] #2 [place] [phone] Lilia Baxter APRN, DIRECTOR COUNSELING BUREAU #2 [place] [address] documented as of this encounter Visit Diagnoses Not on filedocumented in this encounter Additional Health Concerns Infection Onset Date Last Indicated Resolved Time COVID - 19 04/25/2022 04/26/2022 05/05/2022 12:1 6 AM CDT COVID - 19 11/22/2023 11/22/2023 11/25/2023 9:26 AM HOG HANDLER COVID - 19 11/27/2023 11/27/2023 11/27/2023 5:02 PM HOG HANDLER Respiratory Rule-Out 11/27/2023 11/27/2023 024 5:01 PM HOG HANDLER COVID - 19 02/02/2024 02/02/2024 02/02/2024 3:51 PM CDT COVID - 19 05/26/2024 05/26/2024 05/26/2024 4:26 PM CDT COVID - 19 05/28/2024 05/28/2024 05/28/2024 1:37 PM CDT COVID - 19 06/04/2024 06/04/2024 06/04/2024 11:3 2 AM CDT Respiratory Rule-Out 09/15/2024 09/15/2024 024 1:59 PM HOG HANDLER Respiratory Rule-Out 11/16/2024 11/16/2024 025 4:04 PM HOG HANDLER COVID - 19 11/16/2024 11/16/2024 11/16/2024 4:02 PM HOG HANDLER Assessment Noted Time PHQ-9 Depression Total Score: 0 07/20/20 20 3:35 PM CDT documented as of this encounter Care Teams Agency Sales Development Associate Relationship Specialty Start Date End Date Derrick López MD #2 [facility] [address] [place] [address] PCP - General Family Medicine 03/24/18 Bernice Andres MD [address] [facility] [address] [place] [address] Consulting Physician Obstetrics & Gynecology 03/24/18 Lilia Baxter IMAGING SCIENCE PROFESSOR, [facility] #2 [place] [address] Nurse Practitioner Advanced Practice Nurse 12/29/21 Kamron Guillory MD #[address] [address] Consulting Physician Colon and Rectal Surgery 01/29/23 Josephine Mansfield MD #[address] [phone] Consulting Physician Endocrinology 07/05/23 Jaylon Villeda MD #2 [place] [address] Consulting Physician Neurology 12/07/22 documented as of this encounter
--- OUTSIDE RECORDS SUMMARY | 2025-01-09 05:31 | XMS_ITS | Clinical Summary ---
Author Organization [facility] Address [address] [place] [address] Care Team Providers Care Inspector And Hand Packager Name Role Phone Unavailable Primary Care Provider Unavailabl e Social History Tobacco Use Types Packs/Day Years Used Date Smoking Tobacco: Never Assessed Comments Unknown Sex and Gender Information Value Date Recorded Sex Assigned at Not on file Legal Sex Female 9:[address] Gender Identity Not on file Sexual Orientation Not on file Plan of Treatment Health Maintenance Due Date Last Done Comments Cervical Cancer Screening Pa p Smear (Age 30 to 64) Every 3 Years 1980 Annual Physical 1983 Hepatitis C 1998 DTaP, Tdap and Td Vaccines ( 1 - Tdap) 1999 Hepatitis B Vaccines (1 of 3 - 19+ 3-dose series) 1999 Cervical Cancer Screening Pa p with HPV Testing (Age 30 to 64) Every 5 Years 2010 Cervical Cancer Screening with HPV 2010 Mammogram Screening 2020 COVID-19 Vaccine ( - 2023-2 5 season) 2024 HPV Vaccines Aged Out No longer eligi ble based on patient's age to complete this topic Meningococcal B Vaccine Aged Out No l onger eligible based on patient's age to complete this topic Meningococcal Vaccine Aged Out No grace neema eligible based on patient's age to complete this topic Pneumococcal Vaccine: Pediat rics (0 to 5 Years) and At-Risk Patients (6 to 64 Years) Aged Out No longer eligible b ased on patient's age to complete this topic RSV Immunizations Under 20 Months Aged Out No longer eligible based on patient's age to complete this topic
--- OUTSIDE RECORDS SUMMARY | 2025-01-09 05:31 | XMS_ITS | Encounter Summary ---
Author Organization [facility] Address [address] [facility] [place] [address] Phone Care Team Providers Care Sales Account Director Name Role Phone Derrick López MD Primary Care Provider [phone] Bernice Andres MD Unavailable Lilia Baxter APRN, AWARD CLERK Unavailable [phone] Kamron Guillory MD Unavailable Josephine Mansfield MD Unavailable Jaylon Villeda MD Unavailable Reason for Visit * Reason Comments Medication Refill Encounter Details Date Type Department Care Team (Late st Contact Info) Description 04/26/2023 Refill [facility] - Neurology [facility] #2 [place] [phone] Lilia Baxter APRN, AWARD CLERK #[address] [place] [address] Medication Refill Social History Tobacco Use Types [...] encounter Miscellaneous Notes * Telephone Encounter - Suzie Robbins RN - 04/29/2023 9:23 AM CDT Medication failed the protocol, provider to review and approve the medication order if appropriate. Requested Prescriptions Pending Prescriptions Disp Refills uqwvlgxegl-jnlorvqjzzuep-hnwasysj-codeine (FIORICET WITH CODEINE) [id number] MG Capsule [PharmacyMed Name: BUT/ACETA/CAFF/COD CAP [id number]] 15 Capsule Sig: TAKE 1 CAPSULE BY MOUTH EVERY 4 HOURS NEEDED FOR PAIN Not Delegated - Butalbital Protocol Failed - 04/26/2023 9:21 PM Failed - This refill cannot be delegated; check utilization Passed - Visit with relevant provider in past 24 months or upcoming 90 days Recent Visits Date Type Provider Dept 02/22/23 Telemedicine Lilia Baxter APRN, AWARD CLERK [facility] 01/29/23 Office Visit Derrick López MD [facility] [place] 01/01/23 Telemedicine Derrick López MD [facility] 12/28/22 Telemedicine Lilia Baxter APRN, AWARD CLERK [facility] 12/13/22 Office Visit Derrick López MD [facility] 12/07/22 Office Visit Jaylon Villeda MD [facility] 10/31/22 Telemedicine Lilia Baxter APRN, RAINE [facility] 07/20/22 Office Visit Lilia Baxter APRN, RAINE [facility] 06/08/22 Office Visit Lilia Baxter APRN, RAINE [facility] 06/01/22 Office Visit Neena Rose, [facility] Showing recent visits within past 730 days and meeting all other requirements Future Appointments Date Type Provider Dept 05/07/23 Appointment Derrick L[facility]pez MD [facility] 05/31/23 Appointment Lilia Baxter APRN, RAINE [facility] Showing future appointments within next 90 days and meeting all other requirements Passed - No documented Systolic BP > 200 within past 3 months Passed - Number of active Serotonergic medications less than 3 Not Delegated - Opioid Combinations Protocol Failed - 04/26/2023 9:21 PM Failed - This refill cannot be delegated Passed - Visit with relevant provider in past 12 months or upcoming 90 days Recent Visits Date Type Provider Dept 02/22/23 Telemedicine Lilia Baxter APRN, RAINE [facility] 01/29/23 Office Visit Derrick López MD [facility] [place] 01/01/23 Telemedicine Derrick López MD [facility] [place] 12/28/22 Telemedicine Lilia Baxter APRN, RAINE [facility] 12/13/22 Office Visit Derrick López MD [facility] 12/07/22 Office Visit Jaylon Villeda MD [facility] 10/31/22 Telemedicine Lilia Baxter APRN, RAINE [facility] 07/20/22 Office Visit Lilia Baxter APRN, [facility] Neurology [facility] 06/08/22 Office Visit Lilia Baxter APRN, [facility] 06/01/22 Office Visit Neena Rose [facility] Showing recent visits within past 365 days and meeting all other requirements Future Appointments Date Type Provider Dept 05/07/23 Appointment Derrick López MD [facility] 05/31/23 Appointment Lilia Baxter APRN, [facility] Neurology [facility] Showing future appointments within next 90 days and meeting all other requirements documented in this encounter Plan of Treatment Upcoming Encounters Date Type Department Care Team (Late st Contact Info) Description 02/17/2025 4:00 PM CDT Telemedicine [facility] Family Medicine [facility] #2 [place] [address] Derrick López MD #[address] [address] 05/24/2025 12:30 PM CDT Telemedicine [facility] Neurology 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 COVID - 19 11/27/2023 11/27/2023 11/27/2023 5:02 PM MARINE ENGINEERING PROFESSOR Respiratory Rule-Out 11/27/2023 11/27/2023 024 5:01 PM MARINE ENGINEERING PROFESSOR COVID - 19 02/02/2024 02/02/2024 02/02/2024 3:51 PM CDT COVID - 19 05/26/2024 05/26/2024 05/26/2024 4:26 PM CDT COVID - 19 05/28/2024 05/28/2024 05/28/2024 1:37 PM CDT COVID - 19 06/04/2024 06/04/2024 06/04/2024 11:3 2 AM CDT Respiratory Rule-Out 09/15/2024 09/15/2024 024 1:59 PM MARINE ENGINEERING PROFESSOR Respiratory Rule-Out 11/16/2024 11/16/2024 025 4:04 PM MARINE ENGINEERING PROFESSOR COVID - 19 11/16/2024 11/16/2024 11/16/2024 4:02 PM MARINE ENGINEERING PROFESSOR Assessment Noted Time PHQ-9 Depression Total Score: 0 07/20/20 3:35 PM CDT documented as of this encounter Care Teams Sales Account Director Relationship Specialty Start Date End Date Derrick López MD #2 [facility] [address] [place] [address] PCP - General Family Medicine 03/24/18 Bernice Andres MD 9450 [facility] [address] [place] [address] Consulting Physician Obstetrics & Gynecology 03/24/18 Lilia Baxter, CLERICAL MANAGER, AWARD CLERK #2 [place] [address] Nurse Practitioner Advanced Practice Nurse 12/29/21 Kamron Guillory MD #2 [facility] [address] [place] [address] Consulting Physician Colon and Rectal Surgery 01/29/23 Josephine Mansfield MD #[address] [address] Consulting Physician Endocrinology 07/05/23 Jaylon Villeda MD #2 [place] [address] Consulting Physician Neurology 12/07/22 documented as of this encounter
--- OUTSIDE RECORDS SUMMARY | 2025-01-09 05:31 | XMS_ITS | Encounter Summary ---
Author Organization [facility] Address [address] [facility] [place] [address] Phone Care Team Providers Care Mold Checker Name Role Phone Derrick López MD Primary Care Provider [phone] Bernice Andres MD Unavailable Lilia Baxter APRN, [facility] Unavailable [phone] Kamron Guillory MD Unavailable Josephine Mansfield MD Unavailable Jaylon Villeda MD Unavailable [phone] Reason for Visit * Reason Comments Medication Refill Encounter Details Date Type Department Care Team (Late st Contact Info) Description 04/26/2023 Refill [facility] - Family Medicine [facility] #2 [place] [address] Lazarus Bowden, ANALYTICAL STRATEGIST, EDUCATION AND TRAINING MANAGER #[address] [address] Medication Refill Social History Tobacco Use Types [...] Telephone Encounter - Gabriela Amezcua RN - 04/29/2023 8:07 AM CDT Says historical provider but was last prescribed by Lazarus. Per nursing clinical judgement, provider to review and approve the medication(s) order(s) if appropriate. Requested Prescriptions Pending Prescriptions Disp Refills buPROPion (WELLBUTRIN) 100 MG Tablet [Pharmacy Med Name: BUPROPION 100MG TABLETS] 60 Tablet 1 Sig: TAKE 1 TABLET BY MOUTH TWICE DAILY Bupropion (6 Month Refill Only) Protocol Passed - 04/26/2023 9:18 PM Passed - No test in the past 12 months or most recent test was negative Passed - No active on record Passed - Visit with relevant provider in past 6 months or upcoming 90 days Recent Visits Date Type Provider Dept 01/29/23 Office Visit Derrick López MD [facility] 01/01/23 Telemedicine Derrick López MD [facility] 12/13/22 Office Visit Derrick López MD [facility] Showing recent visits within past 182 days and meeting all other requirements Future Appointments Date Type Provider Dept 05/07/23 Appointment Derrick López MD [facility] Showing future appointments within next 90 days and meeting all other requirements Passed - Has an encounter in the past 6 months with a depression or anxiety visit diagnosis Passed - Patient has established therapy with Bupropion for at least 6 months documented in this encounter Plan of Treatment Upcoming Encounters Date Type Department Care Team (Late st Contact Info) Description 02/17/2025 4:00 PM CDT Telemedicine [facility] - Family Medicine - [place] #2 [place] [address] Derrick López MD #[address] [address] 05/24/2025 12:30 PM CDT Telemedicine [facility] - Neurology - [place] #2 [place] [address] Lilia Baxter APRN, TOWER HOIST OPERATOR #2 [place] [address] documented as of this encounter Visit Diagnoses Not on filedocumented in this encounter Additional Health Concerns Infection Onset Date Last Indicated Resolved Time COVID - 19 11/22/2023 11/22/2023 11/25/2023 9:26 AM 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 COVID - 19 11/27/2023 11/27/2023 11/27/2023 5:02 PM 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 Respiratory Rule-Out 11/27/2023 11/27/2023 024 5:01 PM 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 COVID - 19 02/02/2024 02/02/2024 02/02/2024 3:51 PM CDT COVID - 19 05/26/2024 05/26/2024 05/26/2024 4:26 PM CDT COVID - 19 05/28/2024 05/28/2024 05/28/2024 1:37 PM CDT COVID - 19 06/04/2024 06/04/2024 06/04/2024 11:3 2 AM CDT Respiratory Rule-Out 09/15/2024 09/15/2024 024 1:59 PM 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 Respiratory Rule-Out 11/16/2024 11/16/2024 025 4:04 PM 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 COVID - 19 11/16/2024 11/16/2024 11/16/2024 4:02 PM 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 Assessment Noted Time PHQ-9 Depression Total Score: 0 07/20/20 20 3:35 PM CDT documented as of this encounter Care Teams Mold Checker Relationship Specialty Start Date End Date Derrick López MD #2 [facility] [address] [place] [address] PCP - General Family Medicine 03/24/18 Bernice Andres MD 9450 [facility] [address] [place] [address] Consulting Physician Obstetrics & Gynecology 03/24/18 Lilia Baxter, ANALYTICAL STRATEGIST, TOWER HOIST OPERATOR #2 [place] [address] Nurse Practitioner Advanced Practice Nurse 12/29/21 Kamron Guillory MD #[address] [address] Consulting Physician Colon and Rectal Surgery 01/29/23 Josephine Mansfield MD #[address] [phone] Consulting Physician Endocrinology 07/05/23 Jaylon Villeda MD #2 [place] [address] Consulting Physician Neurology 12/07/22 documented as of this encounter
--- OUTSIDE RECORDS SUMMARY | 2025-01-09 05:31 | XMS_ITS ---
Author Organization [facility] Address [address] [place] [address] Care Team Providers Care Primary School Principal Name Role Phone Tammie Lombardi Primary Care Provider REASON FOR VISIT Thyroid Lab F/u HM Encounters Encounter Location Date Provider Diagnosis [facility], [facility] - Tammie Lombradi [address] [place] [address] 07/30/2024 Tammie Lombardi Plan Of Treatment No Information Progress Notes * Kevin DILLOB:1979 (44 yo F)Acc No.[id number]:07/30/2024 Progress Notes Patient: Sunni WANG Provider: Ricardo Lombardi MD :1980 A ge:44 Y S ex:Female Date:07/30/2024 Address:[address] [place], [place] [id number] Subjective: * Chief Complaints: * 1 . Thyroid Lab F/u HM. * HPI: I nterval Hx: 44 yo female calls in today to initiate telehealth visit to discuss progress and management of hypothyroidism Verbal consent provided by patient to proceed with this visit. This visit was performed in office via provider and patient located in primary care office with real time audio with video. no labs to review. * Medical History: Objective: * Vitals: Assessment: Plan: * Treatment: * Billing Information: * Visit Code: * Procedure Codes: * Electronic signature of Juarez Lombardi MD on 01/09/2025 at 05:31 AM CDT Sign off status: Pending * Provider: Ricardo Lombardi MD Date: Generated for Tres griggs/Bairon/Jillianitting on: 0 01/09/2025 05:31 AM CDT History and Physical Notes * HPI (History of Present Illness) Category Sub-Category Detail Notes Category Not es Interval Hx 44 yo female calls in today to initiate telehealth visit to discuss progress and management of hypothyroidism Verbal consent provided by patient to proceed with this visit. This visit was performed in office via provider and patient located in primary care office with real time audio with video. no labs to review
--- OUTSIDE RECORDS SUMMARY | 2025-01-09 05:31 | XMS_ITS | Clinical Summary ---
Author Organization [facility] Address [address] [place] [address] Care Team Providers Care Talent Buyer Name Role Phone Gregorio Mckeon DO Primary Care Provider [phone] Allergies Active Allergy Reactions Criticality Noted Date Comments Celecoxib Muscle pain Medium 11/06/2023 Diclofenac Other (See comments) Low 11/06/2023 Pain, swelling Meloxicam Swelling Medium 01/29/2023 Methotrexate Other (See comments) Low 11/06/2023 High liver enzymes Morphine Rash Medium Nitrofurantoin Other (See comments) Medium 08/21/2023 Elevated liver enzymes Drug induced liver injury Medications cholecalciferol (VITAMIN D-3) 5,000 unit capsule Take by mouth daily Active buPROPion (WELLBUTRIN) 100 mg tablet Take 1 tablet (100 mg total) by mouth 2 (two) times a day 1 Active ondansetron (ZOFRAN) 4 mg tablet Take by mouth every 8 (eight) hours as needed 1 Active Trulance 3 mg tablet Take 1 tablet (3 mg total) by mouth daily 1 Active albuterol HFA (PROVENTIL HFA,VENTOLIN HFA,PROAIR HFA) 90 mcg/actuation inhaler albuterol sulfate HFA 90 mcg/actuation aerosol inhaler INHALE 2 PUFFS BY MOUTH EVERY 4 HOURS NEEDED FOR WHEEZING Active atogepant (Qulipta) 60 mg tablet Take 1 tablet by mouth daily 2 Active butalbital-aceta minophen-caffein e-codeine (FIORICET WITH CODEINE) 56-401-43-30 mg per capsule TAKE 1 CAPSULE BY MOUTH EVERY 4 HOURS NEEDED FOR PAIN 2 Active meclizine (ANTIVERT) 12.5 mg tablet Take 1 tablet (12.5 mg total) by mouth every 8 (eight) hours as needed 2 Active phentermine (ADIPEX-P) 37.5 mg tablet daily Active sucralfate (CARAFATE) 1 gram tablet sucralfate 1 gram tablet Active meloxicam (MOBIC) 15 mg tablet Take 1 tablet (15 mg total) by mouth daily 3 Active ALPRAZolam (XANAX) 0.5 mg tablet TAKE 1 TABLET BY MOUTH 30 TO 45 MINUTES PRIOR TO MRI 3 Active ciprofloxacin (CIPRO) 750 mg tablet 3 Active folic acid (FOLVITE) 1 mg tablet Take 1 tablet (1 mg total) by mouth daily 3 Active omeprazole (PriLOSEC) 40 mg capsule Take 1 capsule (40 mg total) by mouth daily Active traMADoL (ULTRAM) 50 mg tablet Take 1 tablet (50 mg total) by mouth every 6 (six) hours as needed 3 Active predniSONE (DELTASONE) 5 mg tablet Take 1 tablet (5 mg) by mouth 2 (two) times a day 3 Active tenapanor 50 mg tabletIndication s:Irritable bowel syndrome with constipation Take 50 mg by mouth 2 (two) times a day 60 tablet 2 3 Active Additional Information Patient not taking.Reported on 11/06/2023 triamcinolone (KENALOG) 0.1 % ointment APPLY THIN COAT TO AFFECTED AREA TWICE A DAY 3 Active liothyronine (CYTOMEL) 5 mcg tablet Take 0.5 tablets (2.5 mcg total) by mouth 2 (two) times a day Active adalimumab (HUMIRA, CF, SYRINGE) 40 mg/0.4 mL syringe kitIndications:P soriatic Arthritis Inject 0.4 mL (40 mg total) under the skin every 14 (fourteen) days 2 each 5 4 Active Active Problems Problem Noted Date Diagnosed Date Encounter for IUD insertion 01/08/2023 Left ovarian cyst 01/07/2023 Anxiety 01/02/2023 Arthralgia of both hands 12/20/2022 Thrombocytosis 12/13/2022 Bone marrow disease 12/13/2022 Abnormal MRI, neck 12/13/2022 Occipital neuralgia 11/12/2022 Generalized abdominal pain 04/13/[address] 11/24/2018 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 Intractable cluster headache syndrome 06/24/2018 Vitamin D deficiency 04/09/2018 Fatigue 03/24/2018 Congenital hypothyroidism without goiter 018 Hair loss 08/09/2017 Irritable bowel syndrome 11/12/2014 Overview (01/11/2017): IBS Hypothyroidism 12/30/2013 Overview (10/29/2022): Hypothyroidism Resolved Problems Problem Noted Date Diagnosed Date Resolved Date Weight gain 06/04/2022 01/09/2023 LLQ pain 09/04/2021 01/09/2023 History of ovarian cyst 09/04/2021 04/0 02/2023 Microscopic hematuria 01/05/20192022 Elevated liver enzymes 03/24/201801/09 Overweight (BMI 25.0-29.9) 03/24/2018 0 01/09/2023 Pharyngitis 06/05/2017 01/09/2023 Immunizations Immunization Administration Dates Next Due Influenza, Quadrivalent, Spl it, Preservative Free, Intramuscular 06/24/2018,08/26/2016 Influenza, Split 08/14/2013 Influenza, Trivalent, IM (MDV) 10/31/2017,2013,10/07/2011 Influenza, Trivalent, Preser vative Free, Intramuscular 08/14/2013 Influenza, Unspecified 10/31/2017,08/13/2014,10/2011 Pfizer SARS-CoV-2 Monovalent Vaccination (12+ Yrs) PURPLE 12/28/2020,12/08/2020 Tetanus Toxoid, Unspecified 10/07/1997 Surgical History Surgery Date Site/Laterality Comments OTHER SURGICAL HISTORY Hypothyroidism, primary: Drug therapy OTHER SURGICAL HISTORY Cholelithiasis: Cholecystectomy OTHER SURGICAL HISTORY 2009 : spontaneous OTHER SURGICAL HISTORY 2010 : spontaneous OTHER SURGICAL HISTORY 2013 : OTHER SURGICAL HISTORY 2007 : OTHER SURGICAL HISTORY Endometriosis: laparoscopy-diagnostic Medical History Medical History Date Comments Hx Other Medical Hypothyroidism, primary Cholelithiasis 2004 Cholelithiasis Hx Other Medical 2009 ; Outc ome: Unknown sex Hx Other Medical 2010 ; Outc ome: Unknown sex Hx Other Medical 2013 ; Outc ome: Female Hx Other Medical 2007 ; Outc ome: Male Endometritis Endometriosis Bloating Hypothyroidism Anxiety Depression Occipital neuralgia Family History Medical History Relation Name Comments Diabetes Maternal Grandfather Diabete s mellitus; Multiple sclerosis Maternal Grandfather M ultiple sclerosis; Rheum arthritis Sister Rheumatoid a rthritis; Relation Name Status Comments Maternal Grandfather Sister Social History Tobacco Use Types Packs/Day Years Used Date Smoking Tobacco: Never Tobacco Cessation:Counseling Given: Not Answered Alcohol Use Standard Drinks/Week Comments Yes 0 (1 standard drink = 0.6 oz pur e alcohol) Comments No Sex and Gender Information Value Date Recorded Sex Assigned at Not on file Legal Sex Female 1:33 AM SUSTAIN ENGINEER Gender Identity Not on file Sexual Orientation Not on file 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 Not on file Not on file Not on file Obstetrics History Para Term AB IAB SAB Ectopic Multiple Livin g Live Births 4 2 2 2 Date Outcome GA Total Labor Labor/2nd/3rd Weight Sex Type Anes PTL Madeline A1 A5 Name Clin 008 CS-Uns pec 010 SAB 011 SAB 014 CS-Uns pec Last Filed Vital Signs Vital Sign Reading Time Taken Comments Blood Pressure 117/79 11/06/2023 8:14 AM SUSTAIN ENGINEER Pulse 80 11/06/2023 8:14 AM SUSTAIN ENGINEER Temperature 36.7 C (98.1 F) 11/06/2023 8:14 AM SUSTAIN ENGINEER Respiratory Rate - - Oxygen Saturation 96% 04/10/2023 10:25 AM CDT Inhaled Oxygen Concentration - - Weight 70.3 kg (155 lb) 11/06/2023 8:14 AM SUSTAIN ENGINEER Height 157.5 cm (5' 2 ) 11/06/2023 8:14 AM SUSTAIN ENGINEER Body Mass Index 28.35 11/06/2023 8:14 AM SUSTAIN ENGINEER Plan of Treatment Health Maintenance Due Date Last Done Comments Depression Screening 1980 DTaP/Tdap/Td Vaccine (1 - Tdap) 1991 Varicella Vaccines (1 of 2 - 13+ 2-dose series) 1993 Cervical Cancer Screening 10/29/20232022, 08/22/2021, 11/11/2014 Regular Well Visit/Exam 18-64 10/29/2023 10/29/2022, 08/22/2021, 12/24/2018 Breast Cancer Screening-Mammogram 03/07/2024 03/07/2023, 03/09/2016 Covid-19 Vaccine ( season) 2024 12/28/2020, 12/28/2020, 12/08/2020, Additional history exists Influenza Vaccine (Season Ended) 2025 06/24/2018, 10/31/2017, 10/31/2017, Additional history exists Hepatitis B Screening Completed 11/06/2023 Hepatitis C Screening Completed 11/06/2023 HPV Vaccines Aged Out No longer eligi ble based on patient's age to complete this topic Pneumococcal vaccine <65 Aged Out No longer eligible based on patient's age to complete this topic Procedures Procedure Name Priority Date/Time Associated Diagnosis Comments HEPATITIS C ANTIBODY Routine 11/06/2023 9:27 AM SUSTAIN ENGINEER Chronic joint pain PAP AND HIGH RISK HPV, REFLEX TO GENOTYPING Routine 10/29/2022 2:21 PM SUSTAIN ENGINEER Well woman exam with routine gynecological exam SCREENING MAMMOGRAM 2D BILATERAL Routine 03/09/2016 12:00 AM CDT from Last 3 Months or Most Recently Relevant to Health Maintenance Results * Hepatitis C antibody Blood (11/06/2023 9:27 AM SUSTAIN ENGINEER) Hep C Ab Nonreactive Nonreactive [facility] Comment:Antibodies to HCV no t detected. Does NOT exclude the possibility of recent exposure to HCV. Current interpretive data was last revised on 22 Blood 11/06/2023 9:27 AM SUSTAIN ENGINEER 11/06/2023 11:39 AM SUSTAIN ENGINEER us Sasha Russo MD LAB MICROBIOLOGY - GENERAL O RDERABLES Final Result [facility] [place] [address] * Pap and High Risk HPV, reflex to Genotyping (10/29/2022 2:21 PM SUSTAIN ENGINEER) Thin prep (Pap test) 10/29/2022 2:21 PM SUSTAIN ENGINEER 11/02/2022 10:31 AM SUSTAIN ENGINEER Narrative PATHOLOGY [facility] - 11/05/2022 4:37 PM SUSTAIN ENGINEER EPIC results best viewed via link to PDF [address] [address] Tele: Jeimy De Dios MD - Records Administrator CYTOLOGY REPORT Note to Patients: This report may contain a detailed description of human tissue sent by a health care provider to the laboratory for pathologic evaluation. The content of this report is essential for diagnosis and may provide important critical findings. This information may be unfamiliar to patients to review without a medical professional present. It is advised that the patient review this report in the presence of a health care provider who can answer questions and explain the details. Patient Name: SUNNI DILL Address: [address] [place] [address] Gender: F : 1980 (Age: 42) Service: Location: [facility] : [id number] [facility] #: [id number] Patient Type: [facility] SPECIMEN Taken: 10/29/2022 Reported: 11/05/2022 Physician(s): LETHA Alvarado FINAL DIAGNOSIS: Specimen Type: - ThinPrep Pap and HPV w/ reflex Genotyping Statement of Specimen Adequacy: Source: Cervical/Endocervical - Satisfactory for interpretation - Endocervical/Transformation zone component absent or insufficient - Case screened using computer assisted imaging technology General Categorization: - Negative for intraepithelial lesion or malignancy Interpretation: - Fungal organisms morphologically consistent with Darline species - Specimen sent for HPV testing per physician order. xbb/11/05/2022 16:37CAL Mccord (ASCP) Report Reviewed and Electronically Signed By CAL Mccord (ASCP)Clerical Data Follow A; G0145 ADDENDA: Addendum Comment Ancillary Testing: HPV High Risk Group (16, 18, 31, 33, 35, 39, 45, 51, 52, 56, 58, 59, 66 and 68) - Not Detected Reference Range: Not Detected This test was performed using the CASE 4800 CAL Lou (ASCP) Date Ordered: 11/05/2022 Status: Signed Out Date Complete: 11/08/2022 By: CAL Lou (ASCP) Date Reported: 11/08/2022 CLINICAL DIAGNOSIS AND HISTORY Last Menstrual Period: 10/02/22 Menstrual History: Regular Cycles Contraceptive History: No REPORT IMAGES AND/OR SCANNED DOCUMENTS ONLY VIEWABLE IN PDF FORMAT The Pap test is a screening test used to aid in the detection of cervical cancer and its precursors. It should not be the sole means by which malignant and premalignant lesions are diagnosed. Both false negative and false positive results may occur. It also has poor sensitivity for the detection of endometrial lesions and should not be used to evaluate suspected endometrial abnormalities. For these reasons it is most important to obtain Pap tests at regular intervals, as recommended by your physician or nurse practitioner. Michelle Trinh NP LAB CYTOLOGY ORDERABLES [facility] al Result PATHOLOGY [facility] Laboratory Receiving [address] [place] [address] * Screening Mammogram 2D Bilateral (03/09/2016 12:00 AM CDT) Anatomical Region Laterality Modality Breast Bilateral Mammography 03/09/2016 10:5 4 AM CDT Narrative 03/20/2016 10:27 AM CDT - MAMMOGRAPHY, SCREENING RH BILATERAL FIRST EVER DIGITAL SCREENING MAMMOGRAM WITH CAD: 03/09/2016 CLINICAL: Baseline examination. No prior exams were available for comparison. The tissue of both breasts is heterogeneously dense. This may lower the sensitivity of mammography. Current study was also evaluated with a Computer Aided Detection (CAD) system. No significant masses, calcifications, or other findings are seen in either breast. IMPRESSION: NEGATIVE There is no mammographic evidence of malignancy. A 2 year screening mammogram is recommended. The patient will be contacted by letter. Donnie Duke M.D. gsh/penrad:03/19/2016 07:32:38 letter sent: Normal Exam Mammogram BI-RADS: 1 Negative Radiologist: DONNIE DUKE MD Attending: TORO ESTES M.D. Requesting: TORO ESTES M.D. Requesting Requesting ID: [id number] Attending Attending ID: [id number] Completed Time: 03/09/2016 10:54 AM Dictated Time: N/A Transcribed Time: 03/20/2016 10:27 AM Signed by: DONNIE DUKE MD on 03/20/2016 10:27 AM Report To 1 ID: Report To 1 Name: , Report To 1 FAX: Report To 2 ID: Report To 2 Name: , Report To 2 FAX: Report To 3 ID: Report To 3 Name: , Report To 3 FAX: NextGen Order #: Procedure Note Provider, MD Clarisa - 01/30/2017 - MAMMOGRAPHY, SCREENING RH BILATERAL FIRST EVER DIGITAL SCREENING MAMMOGRAM WITH CAD: 03/09/2016 CLINICAL: Baseline examination. No prior exams were available for comparison. The tissue of both breasts is heterogeneously dense. This may lower the sensitivity of mammography. Current study was also evaluated with a Computer Aided Detection (CAD) system. No significant masses, calcifications, or other findings are seen in either breast. IMPRESSION: NEGATIVE There is no mammographic evidence of malignancy. A 2 year screening mammogram is recommended. The patient will be contacted by letter. Donnie Duke M.D. gsh/penrad:03/19/2016 07:32:38 letter sent: Normal Exam Mammogram BI-RADS: 1 Negative Radiologist: DONNIE DUKE MD Attending: TORO ESTES M.D. Requesting: TORO ESTES M.D. Requesting Requesting ID: [id number] Attending Attending ID: [id number] Completed Time: 03/09/2016 10:54 AM Dictated Time: N/A Transcribed Time: 03/20/2016 10:27 AM Signed by: DONNIE DUKE MD on 03/20/2016 10:27 AM Report To 1 ID: Report To 1 Name: , Report To 1 FAX: Report To 2 ID: Report To 2 Name: , Report To 2 FAX: Report To 3 ID: Report To 3 Name: , Report To 3 FAX: NextGen Order #: Historical Provider MD REECE MAMMO PROCEDURES Sandra l Result from Last 3 Months or Most Recently Relevant to Health Maintenance [place] [address] [facility] CLAIMS [facility] CLAIMS [employer] Care Teams Talent Buyer Relationship Specialty Start Date End Date Gregorio Mckeon DO [address] [address] PCP - General 01/04/17
--- OUTSIDE RECORDS SUMMARY | 2025-01-09 05:31 | XMS_ITS | Encounter Summary ---
Author Organization [facility] Address [address] [facility] [place] [address] Phone Care Team Providers Care Applications Engineer Manufacturing Name Role Phone Derrick López MD Primary Care Provider [phone] Bernice Andres MD Unavailable Lilia Baxter APRN, VIRTUAL ASSISTANT FOR ADVERTISERS Unavailable [phone] Kamron Guillory MD Unavailable Josephine Mansfield MD Unavailable Jaylon Villeda MD Unavailable Reason for Visit * Reason Comments Medication Refill Encounter Details Date Type Department Care Team (Late st Contact Info) Description 12/27/2023 Refill [facility] [address] [place] [address] Derrick López MD [address] [address] Medication Refill Social History Tobacco Use Types Packs/Day Years Used Date Smoking Tobacco: Never Smokeless Tobacco: Never Alcohol Use Standard Drinks/Week Comments Yes 0 (1 standard drink = 0.6 oz pur e alcohol) Occasionally PHQ-2 Answer Date Recorded Total Score - Questions 1-9 0 05/07 Education Answer Date Recorded What is the highest level of school you have completed or the highest degree you have received? Bachelor's degree (e.g., BA, AB, BS) 06/21/2021 Sexually Active Control [employer] Comments Yes I.U.D. Comments No Sex and Gender Information Value Date Recorded Sex Assigned at Female 05/21/2023 10:06 AM CDT Legal Sex Female 11:30 PM CDT Gender Identity Female 05/21/2023 10:06 AM CDT Sexual Orientation Not on file documented as of this encounter Miscellaneous Notes * Telephone Encounter - Gabriela Amezcua RN - 12/30/2023 7:37 AM CDT According to PDMP, medication has not been filled in the last 4 months. * Telephone Encounter - Derrick López MD - 12/28/2023 1:58 PM CDT Let her know I don't normally prescribe this medication due to possible cardiac side effects. Why is she wanting a refill on this? * Telephone Encounter - Gabriela Amezcua RN - 12/27/2023 12:24 PM CDT PDMP 08/31/23 Medication failed the protocol, provider to review and approve the medication order if appropriate. Requested Prescriptions Pending Prescriptions Disp Refills Phentermine HCl 37.5 MG Tablet [Pharmacy Med Name: PHENTERMINE 37.5 MG TABLET] 30 Tablet 0 Sig: TAKE 1 TABLET BY MOUTH EVERY DAY BEFORE BREAKFAST Not Delegated - Anorexiants Non-amphetamine Protocol Failed - 12/27/2023 10:26 AM Failed - This refill cannot be delegated Passed - Visit with relevant provider in past 12 months or upcoming 90 days Recent Visits Date Type Provider Dept 10/22/23 Telemedicine Derrick López MD [facility] 08/27/23 Telemedicine Derrick López MD [facility] 08/14/23 Office Visit Derrick López MD [facility] 08/12/23 Telemedicine Derrick López MD [facility] 06/25/23 Telemedicine Derrick López MD [facility] 06/07/23 Telemedicine Derrick López MD [facility] 05/22/23 Office Visit Derrick López MD [facility] 05/14/23 Telemedicine Derrick López MD [facility] 01/29/23 Office Visit Derrick López MD [facility] 01/01/23 Telemedicine Derrick López MD [facility] Showing recent visits within past 365 days and meeting all other requirements Future Appointments No visits were found meeting these conditions. Showing future appointments within next 90 days and meeting all other requirements documented in this encounter Plan of Treatment Upcoming Encounters Date Type Department Care Team (Late st Contact Info) Description 02/17/2025 4:00 PM CDT Telemedicine [facility] - Family Medicine - [place] [address] [place] [address] Derrick López MD [address] [address] 05/24/2025 12:30 PM CDT Telemedicine [facility] - Neurology - [place] [address] [place] [address] Lilia Baxter APRN, VIRTUAL ASSISTANT FOR [employer]VERTISERS [address] [place] [address] documented as of this encounter Visit Diagnoses Not on filedocumented in this encounter Additional Health Concerns Infection Onset Date Last Indicated Resolved Time COVID - 19 02/02/2024 02/02/2024 02/02/2024 3:5 1 PM CDT COVID - 19 05/26/2024 05/26/2024 05/26/2024 4:26 PM CDT COVID - 19 05/28/2024 05/28/2024 05/28/2024 1:37 PM CDT COVID - 19 06/04/2024 06/04/2024 06/04/2024 11:3 2 AM CDT Respiratory Rule-Out 09/15/2024 09/15/2024 024 1:59 PM SAP DATA ARCHITECT Respiratory Rule-Out 11/16/2024 11/16/2024 025 4:04 PM SAP DATA ARCHITECT COVID - 19 11/16/2024 11/16/2024 11/16/2024 4:02 PM SAP DATA ARCHITECT Assessment Noted Time PHQ-9 Depression Total Score: 0 05/22/20 23 11:18 AM CDT documented as of this encounter Care Teams Applications Engineer Manufacturing Relationship Specialty Start Date End Date Derrick López MD #[address] [facility] [address] [place] [address] PCP - General Family Medicine 03/24/18 Bernice Andres MD [address] [facility] [address] [place] [address] Consulting Physician Obstetrics & Gynecology 03/24/18 Lilia Baxter APRN, VIRTUAL ASSISTANT FOR [employer] [address] [place] [address] Nurse Practitioner Advanced Practice Nurse 12/29/21 Kamron Guillory MD #[address] [address] Consulting Physician Colon and Rectal Surgery 01/29/23 Josephine Mansfield MD #[address] [id number] Consulting Physician Endocrinology 07/05/23 Jaylon Villeda MD [address] [place] [address] Consulting Physician Neurology 12/07/22 documented as of this encounter
--- OUTSIDE RECORDS SUMMARY | 2025-01-09 05:31 | XMS_ITS | Encounter Summary ---
Author Organization [facility] Address [address] [facility] [place] [address] Phone Care Team Providers Care Heel Layer Name Role Phone Derrick López MD Primary Care Provider [phone] Bernice Andres MD Unavailable Lilia Baxter APRN, TUNNEL MINER Unavailable [phone] Kamron Guillory MD Unavailable Josephine Mansfield MD Unavailable Jaylon Villeda MD Unavailable Reason for Visit * Reason Comments Medication Refill Encounter Details Date Type Department Care Team (Late st Contact Info) Description 05/20/2022 Refill [facility] - Neurology [facility] #2 [place] [phone] Lilia Baxter APRN, TUNNEL MINER [address]2 [place] [address] Medication Refill Social History Tobacco Use Types [...] suspected to have Coronavirus/COVID-19? No / Unsure 05/21/2022 1:50 PM CDT documented as of this encounter Miscellaneous Notes * Telephone Encounter - Suzie Robbins RN - 05/21/2022 8:22 AM CDT . documented in this encounter Plan of Treatment Upcoming Encounters Date Type Department Care Team (Late st Contact Info) Description 02/17/2025 4:00 PM CDT Telemedicine [facility] Medical [facility] - Family Medicine [facility] #2 [place] [address] Derrick López MD #[address] [address] 05/24/2025 12:30 PM CDT Telemedicine [facility] - Neurology [facility] #2 [place] [phone] Lilia Baxter APRN, TUNNEL MINER [address]2 [place] [address] documented as of this encounter Visit Diagnoses Diagnosis Chronic migraine w/o aura 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, not intractable Chronic migraine without aura, without mention of intractable migraine without mention of status migrainosus documented in this encounter Additional Health Concerns Infection Onset Date Last Indicated Resolved Time COVID - 19 11/22/2023 11/22/2023 11/25/2023 9:26 AM MACHINE SLAT BASKET MAKER COVID - 19 11/27/2023 11/27/2023 11/27/2023 5:02 PM MACHINE SLAT BASKET MAKER Respiratory Rule-Out 11/27/2023 11/27/2023 024 5:01 PM MACHINE SLAT BASKET MAKER COVID - 19 02/02/2024 02/02/2024 02/02/2024 3:51 PM CDT COVID - 19 05/26/2024 05/26/2024 05/26/2024 4:26 PM CDT COVID - 19 05/28/2024 05/28/2024 05/28/2024 1:37 PM CDT COVID - 19 06/04/2024 06/04/2024 06/04/2024 11:3 2 AM CDT Respiratory Rule-Out 09/15/2024 09/15/2024 024 1:59 PM MACHINE SLAT BASKET MAKER Respiratory Rule-Out 11/16/2024 11/16/2024 025 4:04 PM MACHINE SLAT BASKET MAKER COVID - 19 11/16/2024 11/16/2024 11/16/2024 4:02 PM MACHINE SLAT BASKET MAKER Assessment Noted Time PHQ-9 Depression Total Score: 0 07/20/20 20 3:35 PM CDT documented as of this encounter Care Teams Heel Layer Relationship Specialty Start Date End Date Derrick López MD [address] [address] PCP - General Family Medicine 03/24/18 Bernice Andres MD [address] [address] Consulting Physician Obstetrics & Gynecology 03/24/18 Lilia Baxter APRN, TUNNEL MINER [address]2 [place] [address] Nurse Practitioner Advanced Practice Nurse 12/29/21 Kamron Guillory MD #[address] [address] Consulting Physician Colon and Rectal Surgery 01/29/23 Josephine Mansfield MD #[address] [address] Consulting Physician Endocrinology 07/05/23 Jaylon Villeda MD #2 [place] [address] Consulting Physician Neurology 12/07/22 documented as of this encounter
--- OUTSIDE RECORDS SUMMARY | 2025-01-09 05:31 | XMS_ITS | Referral Summary ---
Author Organization [facility] Address [address] [place] [address] Care Team Providers Care Fabrication Manager Name Role Phone Gregorio Mckeon DO Primary Care Provider [phone] Allergies Active Allergy Reactions Criticality Noted Date [...] Active butalbital-aceta minophen-caffein e-codeine (FIORICET WITH CODEINE) 29-694-38-30 mg per capsule TAKE 1 CAPSULE BY [...] Yrs) PURPLE 12/28/2020,12/08/2020 Tetanus Toxoid, Unspecified 10/07/1997 Social History Tobacco Use Types Packs/Day Years Used Date Smoking Tobacco: Never Tobacco Cessation:Counseling Given: Not Answered Alcohol Use Standard Drinks/Week Comments Yes 0 (1 standard drink = 0.6 oz pur e alcohol) Comments No Sex and Gender Information Value Date Recorded Sex Assigned at Not on file Legal Sex Female 1:33 AM ACADEMIC SERVICES COORDINATOR Gender Identity Not on file Sexual Orientation Not on file 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 Not on file Not on file Not on file Last Filed Vital Signs Vital Sign Reading Time Taken Comments Blood Pressure 117/79 11/06/2023 8:14 AM ACADEMIC SERVICES COORDINATOR Pulse 80 11/06/2023 8:14 AM ACADEMIC SERVICES COORDINATOR Temperature 36.7 C (98.1 F) 11/06/2023 8:14 AM ACADEMIC SERVICES COORDINATOR Respiratory Rate - - Oxygen Saturation 96% 04/10/2023 10:25 AM CDT Inhaled Oxygen Concentration - - Weight 70.3 kg (155 lb) 11/06/2023 8:14 AM ACADEMIC SERVICES COORDINATOR Height 157.5 cm (5' 2 ) 11/06/2023 8:14 AM ACADEMIC SERVICES COORDINATOR Body Mass Index 28.35 11/06/2023 8:14 AM ACADEMIC SERVICES COORDINATOR Plan of Treatment Not on file Procedures Procedure Name Priority Date/Time Associated Diagnosis Comments HEPATITIS C ANTIBODY Routine 11/06/2023 9:27 AM ACADEMIC SERVICES COORDINATOR Chronic joint pain PAP AND HIGH RISK HPV, REFLEX TO GENOTYPING Routine 10/29/2022 2:21 PM ACADEMIC SERVICES COORDINATOR Well woman exam with routine gynecological exam SCREENING MAMMOGRAM 2D BILATERAL Routine 03/09/2016 12:00 AM CDT from Last 3 Months or Most Recently Relevant to Health Maintenance Results * Hepatitis C antibody Blood (11/06/2023 9:27 AM ACADEMIC SERVICES COORDINATOR) Hep C Ab Nonreactive Nonreactive [facility] Comment:Antibodies to HCV no t detected. Does NOT exclude the possibility of recent exposure to HCV. Current interpretive data was last revised on 22 Blood 11/06/2023 9:27 AM ACADEMIC SERVICES COORDINATOR 11/06/2023 11:39 AM ACADEMIC SERVICES COORDINATOR us Sasha Russo MD LAB MICROBIOLOGY - GENERAL O RDERABLES Final Result [facility] Department [place] [address] * Pap and High Risk HPV, reflex to Genotyping (10/29/2022 2:21 PM ACADEMIC SERVICES COORDINATOR) Thin prep (Pap test) 10/29/2022 2:21 PM ACADEMIC SERVICES COORDINATOR 11/02/2022 10:31 AM ACADEMIC SERVICES COORDINATOR Narrative PATHOLOGY [facility] - 11/05/2022 4:37 PM ACADEMIC SERVICES COORDINATOR EPIC results best viewed via link to PDF [address] [address] Tele: Jeimy De Dios MD - Specimen Collector CYTOLOGY REPORT Note to Patients: This report [...] the details. Patient Name: SUNNI DILL Address: [address] [place] [address] Gender: F : 1980 (Age: 42) Service: Location: [facility] #: [id number] Patient Type: [facility] SPECIMEN Taken: 10/29/2022 Reported: 11/05/2022 Physician(s): LETHA [...] Report Reviewed and Electronically Signed By CAL MccordASCP)Clerical Data Follow A; [id number] ADDENDA: Addendum Comment [...] practitioner. Michelle Trinh NP LAB CYTOLOGY ORDERABLES [facility] al Result PATHOLOGY [facility] Laboratory Receiving [address] [place] [address] * Screening Mammogram 2D Bilateral (03/09/2016 12:00 [...] be contacted by letter. Donnie Duke M.D. [facility]:03/19/2016 07:32:38 letter sent: Normal Exam Mammogram BI-RADS: 1 Negative Radiologist: DONNIE DUKE MD Attending: TORO ESTES M.D. Requesting: TORO ESTES M.D. Requesting Requesting ID: [id number] Attending Attending ID: [id number] Completed Time: 03/09/2016 10:54 AM Dictated Time: [...] be contacted by letter. Donnie Duke M.D. [facility]:03/19/2016 07:32:38 letter sent: Normal Exam Mammogram BI-RADS: 1 Negative Radiologist: DONNIE DUKE MD Attending: TORO ESTES M.D. Requesting: TORO ESTES M.D. Requesting Requesting ID: [id number] Attending Attending ID: [id number] Completed Time: 03/09/2016 10:54 AM Dictated Time: [...] Report To 3 FAX: NextGen Order #: us Historical Provider MD REECE MAMMO PROCEDURES Sandra l Result from Last 3 Months or Most Recently Relevant to Health Maintenance Insurance [facility] CLAIMS [facility] CLAIMS [employer] Care Teams Fabrication Manager Relationship Specialty Start Date End Date Gregorio Mckoen DO [facility] [address] [address] PCP - General 01/04/17
--- OUTSIDE RECORDS SUMMARY | 2025-01-09 05:31 | XMS_ITS | Encounter Summary ---
Author Organization [facility] Address [address] [facility] [address] Phone Care Team Providers Care Investigative Research Specialist Name Role Phone Derrick López MD Primary Care Provider [phone] Bernice Andres MD Unavailable Lilia Baxter APRN, EQUITY SALES ASSISTANT Unavailable [phone] Kamron Guillory MD Unavailable Josephine Mansfield MD Unavailable Jaylon Villeda MD Unavailable [phone] Reason for Visit * Reason Comments Medication Refill Encounter Details Date Type Department Care Team (Late st Contact Info) Description 08/30/2023 Refill [facility] - Family [facility] [address] [place] [address] Derrick López MD #[address] [address] Medication Refill Social History Tobacco Use Types [...] suspected to have Coronavirus/COVID-19? No / Unsure 08/14/2023 1:55 PM BOLT LOADER documented as of this encounter Miscellaneous Notes * Telephone Encounter - Sharon Morataya RN - 08/30/2023 1:17 PM BOLT LOADER PDMP 07/04 for 30 days. Medication failed the protocol, provider to review and approve the medication order if appropriate. Requested Prescriptions Pending Prescriptions Disp Refills Phentermine HCl 37.5 MG Tablet [Pharmacy Med Name: PHENTERMINE 37.5 MG TABLET] 30 Tablet 0 Sig: Take 1 Tablet by mouth every morning (before breakfast). Not Delegated - Anorexiants Non-amphetamine Protocol Failed - 08/30/2023 10:35 AM Failed - This refill cannot be delegated Passed - Visit with relevant provider in past 12 months or upcoming 90 days Recent Visits Date Type Provider Dept 08/27/23 Telemedicine Derrick López MD [facility] 08/14/23 Office Visit Derrick López MD [facility] 08/12/23 Telemedicine Derrick López MD [facility] 06/25/23 Telemedicine Derrick López MD [facility] 06/07/23 Telemedicine Derrick López MD [facility] 05/22/23 Office Visit Derrick López MD [facility] 05/14/23 Telemedicine Derrick López MD [facility] 01/29/23 Office Visit Derrick López MD [facility] 01/01/23 Telemedicine Derrick López MD [facility] 12/13/22 Office Visit Derrick López MD [facility] Showing recent visits within past 365 days and meeting all other requirements Future Appointments No visits were found meeting these conditions. Showing future appointments within next 90 days and meeting all other requirements LOADER documented in this encounter Plan of Treatment Upcoming Encounters Date Type Department Care Team (Late st Contact Info) Description 02/17/2025 4:00 PM CDT Telemedicine [facility] - Family Medicine - [place] #2 [place] [address] Derrick López MD #[address] [address] 05/24/2025 12:30 PM CDT Telemedicine [facility] - Neurology - [place] #2 [place] [address] Lilia Batxer APRN, EQUITY SALES ASSISTANT #2 [place] [address] documented as of this encounter Visit Diagnoses Diagnosis Fatigue, unspecified type documented in this encounter Additional Health Concerns Infection Onset Date Last Indicated Resolved Time COVID - 19 11/22/2023 11/22/2023 11/25/2023 9:26 AM BOLT LOADER COVID - 19 11/27/2023 11/27/2023 11/27/2023 5:02 PM BOLT LOADER Respiratory Rule-Out 11/27/2023 11/27/2023 024 5:01 PM BOLT LOADER COVID - 19 02/02/2024 02/02/2024 02/02/2024 3:51 PM CDT COVID - 19 05/26/2024 05/26/2024 05/26/2024 4:26 PM CDT COVID - 19 05/28/2024 05/28/2024 05/28/2024 1:37 PM CDT COVID - 19 06/04/2024 06/04/2024 06/04/2024 11:3 2 AM CDT Respiratory Rule-Out 09/15/2024 09/15/2024 024 1:59 PM BOLT LOADER Respiratory Rule-Out 11/16/2024 11/16/2024 025 4:04 PM BOLT LOADER COVID - 19 11/16/2024 11/16/2024 11/16/2024 4:02 PM BOLT LOADER Assessment Noted Time PHQ-9 Depression Total Score: 0 05/22/20 11:18 AM CDT documented as of this encounter Care Teams Investigative Research Specialist Relationship Specialty Start Date End Date Derrick López MD #2 [facility] [address] [place] [address] PCP - General Family Medicine 03/24/18 Bernice Andres MD [address] [facility] [address] [place] [address] Consulting Physician Obstetrics & Gynecology 03/24/18 Lilia Baxter APRN, EQUITY SALES ASSISTANT #2 [place] [address] Nurse Practitioner Advanced Practice Nurse 12/29/21 Kamron Guillory MD #2 [facility] [address] [place] [address] Consulting Physician Colon and Rectal Surgery 01/29/23 Josephine Mansfield MD #[address] [address] Consulting Physician Endocrinology 07/05/23 Jaylon Villeda MD #2 [place] [address] Consulting Physician Neurology 12/07/22 documented as of this encounter
--- OUTSIDE RECORDS SUMMARY | 2025-01-09 05:31 | XMS_ITS | Encounter Summary ---
Author Organization [facility] Address [address] [place] [address] Phone Care Team Providers Care Fire Services Plumber Name Role Phone Derrick López MD Primary Care Provider [phone] Bernice Andres MD Unavailable [phone] Lilia Baxter APRN, REINFORCING ROD LAYER Unavailable [phone] Kamron Guillory MD Unavailable Josephine Mansfield MD Unavailable Jaylon Villeda MD Unavailable Reason for Visit * Reason Onset Date Comments Medication Management 12/04/2022 Encounter Details Date Type Department Care Team (Late st Contact Info) Description 12/04/2022 Telephone [facility] #2 [place] [address] Derrick López MD #[address] [address] Medication Management Social History Tobacco Use Types Packs/Day Years [...] suspected to have Coronavirus/COVID-19? No / Unsure 12/07/2022 3:02 PM IMPROVEMENT ANALYST documented as of this encounter Miscellaneous Notes * Telephone Encounter - Kerri Caraballo RMA - 12/06/2022 2:58 PM IMPROVEMENT ANALYST LVM to grain picker OVEMENT ANALYST * Telephone Encounter - Derrick López MD - 12/05/2022 11:04 PM IMPROVEMENT ANALYST Let her know I have called in a Xanax before her MRI. Thanks! OVEMENT ANALYST * Telephone Encounter - Julia Gabriel - 12/04/2022 9:44 AM CST Patient called in stating she is scheduled for an MRI on 12/11/2022 and is needing some type of anxiety medication called into [facility] in [place]. OVEMENT ANALYST documented in this encounter Plan of Treatment Upcoming Encounters Date Type Department Care Team (Late st Contact Info) Description 02/17/2025 4:00 PM CDT Telemedicine [facility] Medical [facility] - Family Medicine - [place] #2 [facility] [place] [address] Derrick López MD #[address] [address] 05/24/2025 12:30 PM CDT [facility] [place] #2 [facility] [place] [address] Lilia Baxter APRN, REINFORCING ROD LAYER #2 [place] [address] documented as of this encounter Visit Diagnoses Diagnosis Anxiety- Primary Anxiety state, unspecified documented in this encounter Additional Health Concerns Infection Onset Date Last Indicated Resolved Time COVID - 19 11/22/2023 11/22/2023 11/25/2023 9:26 AM IMPROVEMENT ANALYST COVID - 19 11/27/2023 11/27/2023 11/27/2023 5:02 PM IMPROVEMENT ANALYST Respiratory Rule-Out 11/27/2023 11/27/2023 024 5:01 PM IMPROVEMENT ANALYST COVID - 19 02/02/2024 02/02/2024 02/02/2024 3:51 PM CDT COVID - 19 05/26/2024 05/26/2024 05/26/2024 4:26 PM CDT COVID - 19 05/28/2024 05/28/2024 05/28/2024 1:37 PM CDT COVID - 19 06/04/2024 06/04/2024 06/04/2024 11:3 2 AM CDT Respiratory Rule-Out 09/15/2024 09/15/2024 024 1:59 PM IMPROVEMENT ANALYST Respiratory Rule-Out 11/16/2024 11/16/2024 025 4:04 PM IMPROVEMENT ANALYST COVID - 19 11/16/2024 11/16/2024 11/16/2024 4:02 PM IMPROVEMENT ANALYST Assessment Noted Time PHQ-9 Depression Total Score: 0 07/20/20 20 3:35 PM CDT documented as of this encounter Care Teams Fire Services Plumber Relationship Specialty Start Date End Date Derrick López MD #2 [facility] [address] [place] [address] PCP - General Family Medicine 03/24/18 Bernice Andres MD [address] [facility] [address] [place] [address] Consulting Physician Obstetrics & Gynecology 03/24/18 Lilia Baxter APRN, [facility] #2 [place] [address] Nurse Practitioner Advanced Practice Nurse 12/29/21 Kamron Guillory MD #2 [facility] [address] [place] [address] Consulting Physician Colon and Rectal Surgery 01/29/23 Josephine Mansfield MD #2 [facility] [address] [place] [address] Consulting Physician Endocrinology 07/05/23 Jaylon Villeda MD #2 [place] [address] Consulting Physician Neurology 12/07/22 documented as of this encounter
--- OUTSIDE RECORDS SUMMARY | 2025-01-09 05:31 | XMS_ITS | Encounter Summary ---
Author Organization [facility] Address [address] [facility] [place] [address] Phone Care Team Providers Care Milk And Cream Grader Name Role Phone Derrick López MD Primary Care Provider [phone] Bernice Andres MD Unavailable Lilia Baxter APRN, [facility] Unavailable [phone] Kamron Guillory MD Unavailable Josephine Mansfield MD Unavailable Jaylon Villeda MD Unavailable Reason for Visit * Reason Onset Date Comments Medication Refill 01/24/2021 Encounter Details Date Type Department Care Team (Late st Contact Info) Description 01/24/2021 Refill [facility] - Family [facility] #2 [place] [address] Derrick López MD #[address] [address] Medication Refill Social History Tobacco Use Types [...] encounter Miscellaneous Notes * Telephone Encounter - Kelly Rios RN - 01/25/2021 11:33 AM CDT [place] last fill date 11/22/20 Medication failed the protocol, provider to review and approve the medication order if appropriate. Requested Prescriptions Pending Prescriptions Disp Refills tqoftfrppl-mhvvfzwuvynqf-iexxrqfv-codeine (FIORICET WITH CODEINE) [id number] MG Capsule 30 Capsule Sig: TAKE ONE CAPSULE BY MOUTH EVERY 4 HOURS NEEDED FOR PAIN [facility] Not Delegated - Analgesics: Opioid Agonist Combinations Failed - 01/25/2021 11:33 AM Failed - This refill cannot be delegated Passed - Valid encounter within last 6 months Past Office Visits Recent Outpatient Visits 1 month ago [facility] - Lazarus Cui APN, ADE 6 months ago Intractable chronic migraine without aura and with status migrainosus [facility] - Lazarus Cui APN, PRODUCTION CONTROL SUPERVISOR 1 year ago Vitamin D insufficiency [facility] - Derrick Lujan MD 1 year ago Pharyngitis, unspecified etiology [facility] - Derrick Lujan MD 1 year ago Sore throat [facility] - Lazarus Cui APN, PRODUCTION CONTROL SUPERVISOR Upcoming Appointments Future Appointments In 8 months Lilia Baxter APN, STATISTICAL CONSULTANT [facility] KARATE TEACHER - Recent and Past Visits Recent Visits Date Type Provider Dept 12/15/20 Office Visit Lazarus Bowden APN, ADE [facility] 07/20/20 [facility] Visit [facility] Showing recent visits within past 460 days with a meds authorizing provider and meeting all other requirements Future Appointments No visits were found meeting these conditions. Showing future appointments within next 90 days with a meds authorizing provider and meeting all other requirements * Telephone Encounter - Kaycee Hernandez - 01/24/2021 3:05 PM CDT Received a faxed Rx request from pharmacy. Reordered refill medication(s) requested and pended for nurse and physician/JO-ANN review. Refill encounter routed to nurse [facility] for processing. documented in this encounter Plan of Treatment Upcoming Encounters Date Type Department Care Team (Late st Contact Info) Description 02/17/2025 4:[address] [facility] - Family Medicine - [place] #2 [place] [address] Derrick López MD #[address] [address] 05/24/2025 12:30 PM CDT Telemedicine [facility] - Neurology - [place] #2 [place] [address] Lilia Baxter APRN, STATISTICAL CONSULTANT #2 [place] [address] documented as of this encounter Visit Diagnoses Diagnosis Migraine with aura and with status migrainosus, not intractable Migraine with aura, with intractable migraine, so stated, with status migrainosus Intractable cluster headache syndrome, unspecified chronicity pattern documented in this encounter Additional Health Concerns Infection Onset Date Last Indicated Resolved Time COVID - 19 08/02/2021 08/02/2021 08/22/2021 12:1 6 AM GRAPE CRUSHER COVID - 19 10/24/2021 10/27/2021 11/16/2021 12:1 6 AM GRAPE CRUSHER COVID - 19 Confirmed 10/27/2021 10/27/2021 022 12:16 AM GRAPE CRUSHER COVID - 19 04/25/2022 04/26/2022 05/05/2022 12:1 6 AM CDT COVID - 19 11/22/2023 11/22/2023 11/25/2023 9:26 AM GRAPE CRUSHER COVID - 19 11/27/2023 11/27/2023 11/27/2023 5:02 PM GRAPE CRUSHER Respiratory Rule-Out 11/27/2023 11/27/2023 024 5:01 PM GRAPE CRUSHER COVID - 19 02/02/2024 02/02/2024 02/02/2024 3:51 PM CDT COVID - 19 05/26/2024 05/26/2024 05/26/2024 4:26 PM CDT COVID - 19 05/28/2024 05/28/2024 05/28/2024 1:37 PM CDT COVID - 19 06/04/2024 06/04/2024 06/04/2024 11:3 2 AM CDT Respiratory Rule-Out 09/15/2024 09/15/2024 024 1:59 PM GRAPE CRUSHER Respiratory Rule-Out 11/16/2024 11/16/2024 025 4:04 PM GRAPE CRUSHER COVID - 19 11/16/2024 11/16/2024 11/16/2024 4:02 PM GRAPE CRUSHER Assessment Noted Time PHQ-9 Depression Total Score: 0 07/20/20 20 3:35 PM CDT documented as of this encounter Care Teams Milk And Cream Grader Relationship Specialty Start Date End Date Derrick López MD #[address] [address] PCP - General Family Medicine 03/24/18 Bernice Andres MD [address] [facility] [address] [place] [address] Consulting Physician Obstetrics & Gynecology 03/24/18 Lilia Baxter APRN, STATISTICAL CONSULTANT #2 [place] [address] Nurse Practitioner Advanced Practice Nurse 12/29/21 Kamron Guillory MD #[address] [address] Consulting Physician Colon and Rectal Surgery 01/29/23 Josephine Mansfield MD #[address] [address] Consulting Physician Endocrinology 07/05/23 Jaylon Villeda MD #2 [place] [address] Consulting Physician Neurology 12/07/22 documented as of this encounter
--- OUTSIDE RECORDS SUMMARY | 2025-01-09 05:31 | XMS_ITS | Clinical Summary ---
Author Organization [facility] Address [address] [facility] [place] [address] Care Team Providers Care Milk Receiver Name Role Phone Derrick López MD Primary Care Provider [phone] Source Comments [facility] Affiliates and Associated Physician Practices is amultiple site organization consisting of ambulatory clinics and hospital sitesin [place], [place], [place] and [place]. This disclosure is being madepursuant to the Care Everywhere program and may not contain all information available regarding this patient. Last updated 18.[facility] Allergies Active Allergy Reactions Criticality Noted Date Comments Celecoxib Myalgias,Palpitations High 08/14/2023 Pain, blurred vision, nausea, dizziness Diclofenac Epolamine Other Low 11/06/2023 Pain, swelling Meloxicam Other,Swelling Medium 01/29/2023 Methotrexate Other Low 11/06/2023 High liver enzymes Morphine 05/30/2017 Nitrofurantoin Other Medium 08/21/2023 Drug induced liver injury Medications * Be aware that medications may not be up to date on this document. Alwaysverify current medications with the patient. Medication Sig Dispensed Refills Start Date End Date Status BUPROPION HBR ER PO Take 100 mg by mouth once daily Active Atogepant (Qulipta) 60 MG TABS Take 1 (one) tablet by mouth once daily 07/20/2022 Active orym-axvv-lbchfaoa al-codeine (Fioricet With Codeine) 81-032-17-30 MG capsule TAKE 1 CAPSULE BY MOUTH EVERY 4 HOURS NEEDED FOR PAIN 07/29/2022 Active levothyroxine (Synthroid) 75 MCG tablet Take 1 (one) tablet by mouth once daily 08/01/2023 Active traMADol (Ultram) 50 MG tablet Take 1 (one) tablet by mouth every 6 hours as needed 12 tablet 08/21/2023 Active liothyronine (Cytomel) 5 MCG tablet 11/08/2023 Active meclizine (Antivert) 25 MG tablet Take 1 (one) tablet by mouth 3 times daily as needed For dizziness. 10/31/2022 Active ondansetron (Zofran) 4 MG tablet TAKE 1 TABLET BY MOUTH EVERY 8 HOURS NEEDED FOR NAUSEA FIRST LINE 10/29/2023 Active levonorgestrel (Mirena) 20 MCG/DAY IUD 1 (one) device by Intrauterine route as directed Active naproxen (Naprosyn) 500 MG tablet Take 1 (one) tablet by mouth 2 times daily 10/29/2023 Active plecanatide (Trulance) 3 MG tablet Take 1 (one) tablet by mouth once daily Active triamcinolone acetonide (Kenalog) 0.1 % ointment APPLY THIN COAT TO AFFECTED AREA TWICE A DAY 01/31/2024 Active LORazepam (Ativan) 0.5 MG tablet TAKE 1 TABLET BY MOUTH EVERY 8 HOURS FOR UP TO 7 DAYS NEEDED FOR ANXIETY 02/03/2024 Active phentermine (Adipex-P) 37.5 MG capsule Take 1 (one) capsule by mouth daily before breakfast Active tiZANidine (Zanaflex) 2 MG tablet Take 1 (one) tablet by mouth every 8 hours as needed for Muscle Spasms 20 tablet 3 02/26/2024 Active Other Insert 1 suppository into the vagina every 12 hours as needed Valium/Baclofen 5/4 mg; place one suppository in the vagina as needed for pain, up to every 12 hours 5 Each 10/28/2024 Active nystatin-triamcino lone (Mycolog) 142520-0.1 UNIT/GM-% creamIndications:V ulvovaginitis due to yeast Apply to affected area 2 times daily as needed 30 g 11/27/2024 Active Active Problems Problem Noted Date Diagnosed Date Elevated liver function tests 08/16/2023 Overview (12/12/2023): 12/09/23 Fibroscan CAP 222, LSM 4.4 kPa Abnormal mammogram 08/14/2023 11/20/2023 Myalgia 08/12/2023 11/20/2023 Chronic pain disorder 01/29/2023 11/20/2023 Colitis 01/07/2023 11/20/2023 Cyst of left ovary 01/07/2023 11/20/2023 Anxiety 01/02/2023 11/20/2023 Nausea 01/02/2023 11/20/2023 Arthralgia of both hands 12/20/2022 024 Rheumatoid arthritis 09/06/2022 11/20/2023 Occipital neuralgia 10/20/2021 11/20/2023 Lower abdominal pain 04/13/2021 11/20/2023 Microscopic hematuria 01/05/2019 11/20/2023 Migraine with aura and with status migrainosus, not intractable 11/05/2018 11/20/2023 Congenital hypothyroidism without goiter 018 11/20/2023 Hypothyroidism 05/30/2017 Irritable bowel syndrome with constipation 10/2011/20/2023 Overview (11/20/2023): IBS Resolved Problems Problem Noted Date Diagnosed Date Resolved Date Abdominal pain, epigastric 08/18/2023 0 11/20/2023 Transaminitis 08/18/2023 11/20/2023 Encounters Date Type Department Care Team Description 11/27/2024 2:20 PM CARPET YARN WINDER OPERATOR Office Visit [facility] - CRATE REPAIRER [address] [place] [address] Sherlyn Villalobos MD Vulvovaginitis due to yeast (Primary Dx); Asymptomatic microscopic hematuria 11/27/2024 Travel 11/26/2024 Telephone [facility] - [facility]ATE REPAIRER [address] [place] [address] Rishi Tanner MD Question 10/28/2024 1:30 PM CARPET YARN WINDER OPERATOR Office Visit [facility] - CRATE REPAIRER [address] [facility] [address] [place] [address] Ema Sevilla MD Spastic pelvic floor syndrome (Primary Dx); Chronic pelvic pain in female; Adenomyosis 10/28/2024 Travel from Last 3 Months Family History Medical History Relation Name Comments Diabetes; unknown type Brother High Cholesterol Father Cancer - Breast Paternal Aunt CAD (Coronary Artery Disease) Paternal Grandfather Diabetes; unknown type Paternal Grandmother Cancer - Prostate Paternal Uncle Other - Hepatic/Liver Sister Relation Name Status Comments Brother Father Paternal Aunt Alive Paternal Grandfather Paternal Grandmother Paternal Uncle Alive Sister Social History Tobacco Use Types Packs/Day Years Used Date Smoking Tobacco: Never Smokeless Tobacco: Never Tobacco Cessation:Counseling Given: Not Answered Alcohol Use Standard Drinks/Week Comments Yes 1 (1 standard drink = 0.6 oz pur e alcohol) 2-3 glasses wine per week PHQ-2 Answer Date Recorded Patient Health Questionnaire-2 Score 0 11/27/2024 Sex and Gender Information Value Date Recorded Sex Assigned at Not on file Gender Identity Not on file Sexual Orientation Not on file Last Filed Vital Signs Vital Sign Reading Time Taken Comments Blood Pressure 120/76 11/27/2024 2:46 PM CARPET YARN WINDER OPERATOR Pulse 94 02/04/2024 10:43 AM CDT Temperature 36.8 C (98.2 F) 02/04/2024 10:43 AM CDT Respiratory Rate 16 02/05/2024 10:51 AM CDT Oxygen Saturation 100% 02/05/2024 10:51 AM CDT Inhaled Oxygen Concentration - - Weight 69.9 kg (154 lb) 11/27/2024 2:46 PM CARPET YARN WINDER OPERATOR Height 157.5 cm (5' 2 ) 11/27/2024 2:46 PM CARPET YARN WINDER OPERATOR Body Mass Index 28.17 11/27/2024 2:46 PM CARPET YARN WINDER OPERATOR Plan of Treatment Health Maintenance Due Date Last Done Comments LIPID TESTING 1980 HIV SCREENING 1995 DTAP/TDAP/TD VACCINES (1 - Tdap) 1999 HEPATITIS B VACCINE (1 of 3 - 19+ 3-dose series) 1999 COVID-19 VACCINE ( - season) 2024 10/14/2021, 12/28/2020, 12/08/2020 MAMMOGRAM 03/07/2025 03/07/2023, 06/0 10/2022, 03/09/2016 SCREENING FOR DIABETES 01/31/2027 , 08/21/2023, 08/20/2023, Additional history exists PAP with HPV 11/20/2028 11/20/2023 ZOSTER VACCINE (1 of 2) 2030 HEPATITIS C SCREENING Completed 11/06/2023 , 11/06/2023, 08/18/2023, Additional history exists INFLUENZA VACCINE Completed 07/27/2024, , 06/24/2018, Additional history exists DEPRESSION SCREENING Completed 10/28/2024, 11/20/19 HIB VACCINE Aged Out No longer eligi ble based on patient's age to complete this topic HPV VACCINE Aged Out No longer eligi ble based on patient's age to complete this topic MENINGOCOCCAL (Group B) VACCINE SHARED DECISION-MAKING Aged Out No longer eligible based on patient's age to complete this topic MENINGOCOCCAL GROUPS A/C/Y/W VACCINE Aged Out No longer eligible based on patient's age to complete this topic PNEUMOCOCCAL VACCINE Aged Out No long er eligible based on patient's age to complete this topic Goals Goal Patient Goal Type Associated Problems Recent Progress Patient-Stated? Author Medication Management General On track( 024 10:43 AM CDT) Alka Mae RN Note: Expected end date: ongoing Interventions: Take all medications as prescribed Let your doctor know right away about any changes in your medications Make sure to request a refill of your medication at least one week prior to your last dose Procedures Procedure Name Priority Date/Time Associated Diagnosis Comments CULTURE URINE Routine 11/27/2024 2:54 PM CARPET YARN WINDER OPERATOR Asymptomatic microscopic hematuria COMPREHENSIVE METABOLIC PANEL STAT 02/01/2024 5:00 PM CDT HPV DETECTION HIGH RISK NURIA Routine 11/20/2023 12:08 PM CARPET YARN WINDER OPERATOR Well woman exam with routine gynecological exam HEPATITIS SCREEN ACUTE STAT 08/18/2023 6:42 AM CARPET YARN WINDER OPERATOR from Last 3 Months or Most Recently Relevant to Health Maintenance Results * CULTURE URINE (11/27/2024 2:54 PM CARPET YARN WINDER OPERATOR) [facility] Comment: CULTURE, URINE, ROUTINE Micro Number: [id number] Test Status: Final Specimen Source: Urine, clean catch Specimen Quality: Adequate Result: No Growth Test Performed at: [facility] [address] MALINDA PENALOZA MD Urine URINE SPECIMEN OBTAINED BY CLEAN CATCH PROCEDURE / Unknown 11/27/2024 2:54 PM CARPET YARN WINDER OPERATOR 11/28/2024 2:20 AM CARPET YARN WINDER OPERATOR Sherlyn Villalobos MD LAB - MICROBIOLOGY O [facility] [address] [address] * (ABNORMAL) COMPREHENSIVE METABOLIC PANEL (02/01/2024 5:00 PM CDT) [facility] BUN 15 7 - 26 mg/dL 02/01/2024 6:24 PM [facility] Creatinine 0.90 0.56 - 0.96 mg/dL 02/01/2024 6:24 PM [facility] Sodium 143 136 - 145 mmol/L 02/01/2024 6:24 PM [facility] Potassium 3.7 3.5 - 4.5 mmol/L 02/01/2024 6:24 PM [facility] Chloride 110(H) 98 - 107 mmol/L 02/01/2024 6:24 PM [facility] CO2 22 22 - 29 mmol/L 02/01/2024 6:24 PM [facility] Glucose 95 70 - 115 mg/dL 02/01/2024 6:24 PM [facility] Calcium 9.3 8.4 - 10.2 mg/dL 02/01/2024 6:24 PM [facility] Protein Total 7.5 6.0 - 8.3 g/dL 02/01/2024 6:24 PM CDT [facility] Albumin 4.2 3.4 - 5.0 g/dL 02/01/2024 6:24 PM [facility] Bilirubin Total 0.9 0.2 - 1.2 mg/dL 02/01/2024 6:24 PM [facility] Alkaline Phosphatase 51 40 - 150 U/L 02/01/2024 6:24 PM [facility] ALT 25 5 - 55 U/L 02/01/2024 6:24 PM [facility] AST 23 5 - 34 U/L 02/01/2024 6:24 PM [facility] Anion Gap 11 6 - 16 02/01/2024 6:24 PM [facility] BUN/Creatinine Ratio 17 7 - 23 02/01/2024 6:24 PM [facility] Osmolality Calculated 297(H) 275 - 295 mOsm/kg 02/01/2024 6:24 PM [facility] Albumin/Globulin Ratio 1.3 1.1 - 2.3 02/01/2024 6:24 PM [facility] eGFR by CKD-EPI 81(L) >=90 mL/min/1.7 3 m2 02/01/2024 6:24 PM [facility] Blood BLOOD SPECIMEN / Unknown Venipuncture / Unknown 02/01/2024 5:00 PM CDT 02/01/2024 5:42 PM CDT Eric Rojas MD LAB - CHEMISTRY LUDIVINA MONTELONGO [facility] Organization Address City/State/[facility] Co de Phone Number [facility] [address] [place] [phone], [facility] [phone] * HPV DETECTION HIGH RISK NURIA (11/20/2023 12:08 PM CARPET YARN WINDER OPERATOR) High Risk Human Papilloma Result Not detected Not detected 11/25/2023 11:05 AM CARPET YARN WINDER OPERATOR [facility] High Risk Human Papilloma Interp 11/25/2023 11:05 AM CARPET YARN WINDER OPERATOR [facility] Comment:High Risk Human Hasmukh lloma Virus was Not Detected. Pathology/Cytolo gy MISCELLANEOUS SAMPLES / Unknown 11/20/2023 12:08 PM CARPET YARN WINDER OPERATOR 11/21/2023 1:28 PM CARPET YARN WINDER OPERATOR Narrative [facility] - 11/25/2023 11:05 AM CARPET YARN WINDER OPERATOR Nucleic acid isolated from the specimen was analyzed with a nucleic acid amplification test (FDA approved Gen-Probe HPV Assay) to detect high risk human papilloma virus (Types: 16, 18, 31, 33, 35, 39, 45, 51, 52, 56, 58, 59, 66, and 68). The reference range is Not Detected . Comment: These test results should not be used as the sole basis for clinical assessment and treatment of patients. These results should always be correlated with other available data (cytology, histology, and clinical information). Rishi Tanner MD LAB - MICROBIOLOGY O MIKAEL Performing Organization Address City/[facility]/ZIP Co de Phone Number [facility] [address] [phone] * HEPATITIS SCREEN ACUTE (08/18/2023 6:42 AM CARPET YARN WINDER OPERATOR) Hepatitis A Virus Antibody IgM Non-react brandy Non-reac tive 08/18/2023 8:44 AM CARPET YARN WINDER OPERATOR [facility] Hepatitis B Virus Surface Antigen Non-react brandy Non-reac tive 08/18/2023 8:44 AM CARPET YARN WINDER OPERATOR [facility] Hepatitis B Core Virus Antibody IgM Non-react brandy Non-reac tive 08/18/2023 8:44 AM CARPET YARN WINDER OPERATOR [facility] Hepatitis C Antibody Non-react brandy Non-reac tive 08/18/2023 8:44 AM [facility] Comment:Hepatitis C Antibody screen indicates no serologic evidence of past or current infection with Hepatitis C Virus. Patients with unexplained liver disease who are immunocompromised or suspected of having acute Hepatitis C infection may benefit from Nucleic Acid Test (KEVIN) for Hepatitis C Viral RNA to confirm Hepatitis C status. Blood BLOOD SPECIMEN / Unknown Venipuncture / Unknown 08/18/2023 6:42 AM CARPET YARN WINDER OPERATOR 08/18/2023 7:00 AM CARPET YARN WINDER OPERATOR Gasper Frances MD LAB - CHEMISTRY LUDIVINA MONTELONGO Performing Organization Address City/[facility]/ZIP Co de Phone Number [facility] [address] [place] [address] [phone] from Last 3 Months or Most Recently Relevant to Health Maintenance Advance Directives * Full Code (Latest Code Status on File) Date Activated Date Inactivated Comments 08/18/2023 8:54 AM 08/21/2023 5:02 PM Care Teams Milk Receiver Relationship Specialty Start Date End Date Derrick López MD [address] [place] [address] PCP - General Family Medicine 08/18/23
--- OUTSIDE RECORDS SUMMARY | 2025-01-09 05:31 | XMS_ITS | Encounter Summary ---
Author Organization [facility] Address [address] [facility] [place] [address] Phone Care Team Providers Care State Pilot Name Role Phone Derrick López MD Primary Care Provider [phone] Bernice Andres MD Unavailable Lilia Baxter APRN, LAMP SHADE SEWER Unavailable [phone] Kamron Guilloyr MD Unavailable Josephine Mansfield MD Unavailable Jaylon Villeda MD Unavailable Reason for Visit * Reason Comments Medication Refill Encounter Details Date Type Department Care Team (Late st Contact Info) Description 05/15/2022 Refill [facility] [address] [place] [address] Derrick López MD [address] [address] Medication Refill Social History Tobacco Use Types [...] suspected to have Coronavirus/COVID-19? No / Unsure 05/14/2022 3:16 PM CDT documented as of this encounter Miscellaneous Notes * Telephone Encounter - Gabriela Amezcua RN - 05/16/2022 8:46 AM CDT Medication failed the protocol, provider to review and approve the medication order if appropriate. Requested Prescriptions Pending Prescriptions Disp Refills ondansetron (ZOFRAN) 4 MG Tablet [Pharmacy Med Name: ONDANSETRON 4MG TABLETS] 15 Tablet 1 Sig: TAKE 1 TABLET BY MOUTH EVERY 8 HOURS NEEDED FOR NAUSEA Not Delegated - 5-HT3 Antagonists Protocol Failed - 05/15/2022 8:13 AM Failed - This refill cannot be delegated Passed - Visit with relevant provider in past 12 months or upcoming 90 days Recent Visits Date Type Provider Dept 04/25/22 Telemedicine Derrick López MD [facility] [place] 10/27/21 Telemedicine Lazarus Bowden APRN, ADE [facility] [place] 08/16/21 Office Visit Lazarus Bowden APRN, ADE [place] 06/21/21 Office Visit Lazarus Bowden APRN, LAST REMODELER REPAIRER [facility] 05/23/21 Office Visit Lazarus Bowden, PUNCH MACHINE OPERATOR, LAST REMODELER REPAIRER [facility] Showing recent visits within past 365 days [...] [facility] - [place] [address] [place] [address] Derrick López MD [address] [address] 05/24/2025 12:30 PM CDT Telemedicine [facility] Neurology - [place] [address] [place] [address] Lilia Baxter APRN, LAMP SHADE SEWER [address] [place] [address] documented as of this encounter Visit Diagnoses Not on filedocumented in this encounter Additional Health Concerns Infection Onset Date Last Indicated Resolved Time COVID - 19 11/22/2023 11/22/2023 11/25/2023 9:26 AM ICEBOX WORKER COVID - 19 11/27/2023 11/27/2023 11/27/2023 5:02 PM ICEBOX WORKER Respiratory Rule-Out 11/27/2023 11/27/2023 024 5:01 PM ICEBOX WORKER COVID - 19 02/02/2024 02/02/2024 02/02/2024 3:51 PM CDT COVID - 19 05/26/2024 05/26/2024 05/26/2024 4:26 PM CDT COVID - 19 05/28/2024 05/28/2024 05/28/2024 1:37 PM CDT COVID - 19 06/04/2024 06/04/202406/0406/04/2024 11:3 2 AM CDT Respiratory Rule-Out 09/15/2024 09/15/2024 024 1:59 PM ICEBOX WORKER Respiratory Rule-Out 11/16/2024 11/16/2024 025 4:04 PM ICEBOX WORKER COVID - 19 11/16/2024 11/16/2024 11/16/2024 4:02 PM ICEBOX WORKER Assessment Noted Time PHQ-9 Depression Total Score: 0 07/20/20 20 3:35 PM CDT documented as of this encounter Care Teams State Pilot Relationship Specialty Start Date End Date Derrick López MD [address] [facility] [address] [place] [address] PCP - General Family Medicine 03/24/18 Bernice Andres MD [address] [facility] [address] [place] [address] Consulting Physician Obstetrics & Gynecology 03/24/18 Lilia Baxter, PUNCH MACHINE OPERATOR, LAMP SHADE SEWER [address] [place] [address] Nurse Practitioner Advanced Practice Nurse 12/29/21 Kamron Guillory MD [address] [address] Consulting Physician Colon and Rectal Surgery 01/29/23 Josephine Mansfield MD #[address] [id number] Consulting Physician Endocrinology 07/05/23 Jaylon Villeda MD [address] [place] [address] Consulting Physician Neurology 12/07/22 documented as of this encounter
--- OUTSIDE RECORDS SUMMARY | 2025-01-09 05:31 | XMS_ITS | Encounter Summary ---
Author Organization [facility] Address [address] [facility] [address] Phone Care Team Providers Care Chilling Hood Operator Name Role Phone Derrick López MD Primary Care Provider [phone] Bernice Andres MD Unavailable [phone] Lilia Baxter APRN, [facility] Unavailable [phone] Kamron Guillory MD Unavailable Josephine Mansfield MD Unavailable Jaylon Villeda MD Unavailable Reason for Visit * Reason Comments Medication Refill Encounter Details Date Type Department Care Team (Late st Contact Info) Description 10/12/2021 Refill [facility] #2 [place] [address] Lazarus Bowden, DATA SECURITY COORDINATOR, CERAMICS MACHINE OPERATOR #[address] [address] Medication Refill Social History Tobacco Use Types [...] COVID-19? No / Unsure 10/05/2021 10:57 AM PIPE FITTER FIRE SPRINKLER SYSTEMS documented as of this encounter Miscellaneous Notes * Telephone Encounter - Lazarus Bowden APRN, CNP - 10/13/2021 9:38 AM CST OK, I will refuse then. Thanks [employer]TER [employer] * Telephone Encounter - Suzie Robbins RN - 10/13/2021 9:26 AM CST I believe our RMA pended it to Dr Villeda yesterday [employer] * Telephone Encounter - Lazarus Bowden APRN, CNP - 10/13/2021 8:41 AM CST Last time I talked to her she was wanting Dr. Villeda to see if he would take over this Rx. Can wecheck and see if he is in the office today and willing to fill before I send it? [employer] * Telephone Encounter - Gabriela Amezcua RN - 10/13/2021 8:41 AM CST PDMP 10/02/21 - 5 days supply Medication failed the protocol, provider to review and approve the medication order if appropriate. Requested Prescriptions Pending Prescriptions Disp Refills uutfeptgpl-lrykighzkylvb-grbqntnk-codeine (FIORICET WITH CODEINE) 46-584-77-30 MG Capsule [PharmacyMed Name: BUTAL/ACETA/CAFF/COD 15-398-52-30MG] 30 Capsule 0 Sig: TAKE 1 CAPSULE BY MOUTH EVERY 4 HOURS NEEDED FOR PAIN Not Delegated - Butalbital Protocol Failed - 10/13/2021 8:40 AM Failed - This refill cannot be delegated; check utilization Passed - Visit with relevant provider in past 24 months or upcoming 90 days Recent Visits Date Type Provider Dept 08/16/21 Office Visit Lazarus Bowden APRN, [facility] [place] 06/21/21 Office Visit Lazarus Bowden APRN, [facility] [place] 05/23/21 Office Visit Lazarus Bowden APRN, [facility] [place] 12/15/20 Office Visit Lazarus Bowden APRN, [facility] [place] 07/20/20 Office Visit Lazarus Bowden APRN, [facility] [place] Showing recent visits within past 730 days and meeting all other requirements Future Appointments No visits were found meeting these conditions. Showing future appointments within next 90 days and meeting all other requirements Passed - No documented Systolic BP > 200 within past 3 months Passed - Number of active Serotonergic medications less than 3 Not Delegated - Opioid Combinations Protocol Failed - 10/13/2021 8:40 AM Failed - This refill cannot be delegated Passed - Visit with relevant provider in past 12 months or upcoming 90 days Recent Visits Date Type Provider Dept 08/16/21 Office Visit Lazarus Bowden APRN, [facility] 06/21/21 Office Visit Lazarus Bowden APRN, [facility] [place] 05/23/21 Office Visit [facility]azar[facility] Bowden APRN, [facility] 12/15/20 Office Visit Lazarus Bowden APRN, ADE [facility] Showing recent visits within past 365 days and meeting all other requirements Future Appointments No visits were found meeting these conditions. Showing future appointments within next 90 days and meeting all other requirements [employer] documented in this encounter Plan of Treatment Upcoming Encounters Date Type Department Care Team (Late st Contact Info) Description 02/17/2025 4:00 PM CDT Telemedicine [facility] Family Medicine - [place] #2 [place] [address] Derrick López MD #[address] [address] 05/24/2025 12:[address] [facility] Neurology - [place] #2 [facility] [address] Lilia Baxter APRN, CRM COORDINATOR #2 [place] [address] documented as of this encounter Visit Diagnoses Diagnosis Intractable episodic cluster headache Episodic cluster headache documented in this encounter Additional Health Concerns Infection Onset Date Last Indicated Resolved Time COVID - 19 10/24/2021 10/27/2021 11/16/2021 12:1 6 AM PIPE [employer]TER [employer] COVID - 19 Confirmed 10/27/2021 10/27/2021 022 12:16 AM PIPE [employer] COVID - 19 04/25/2022 04/26/2022 05/05/2022 12:1 6 AM CDT COVID - 19 11/22/2023 11/22/2023 11/25/2023 9:26 AM PIPE [employer]TER [employer] COVID - 19 11/27/2023 11/27/2023 11/27/2023 5:02 PM PIPE [employer]TER [employer] Respiratory Rule-Out 11/27/2023 11/27/2023 024 5:01 PM PIPE [employer]TER [employer] COVID - 19 02/02/2024 02/02/2024 02/02/2024 3:51 PM CDT COVID - 19 05/26/2024 05/26/2024 05/26/2024 4:26 PM CDT COVID - 19 05/28/2024 05/28/2024 05/28/2024 1:37 PM CDT COVID - 19 06/04/2024 06/04/2024 06/04/2024 11:3 2 AM CDT Respiratory Rule-Out 09/15/2024 09/15/2024 024 1:59 PM PIPE [employer] Respiratory Rule-Out 11/16/2024 11/16/2024 025 4:04 PM PIPE [employer]TER [employer] COVID - 19 11/16/2024 11/16/2024 11/16/2024 4:02 PM PIPE [employer] Assessment Noted Time PHQ-9 Depression Total Score: 0 07/20/20 3:35 PM CDT documented as of this encounter Care Teams Chilling Hood Operator Relationship Specialty Start Date End Date Derrick López MD #2 [facility] [address] [place] [address] PCP - General Family Medicine 03/24/18 Bernice Andres MD [address] [address] Consulting Physician Obstetrics & Gynecology 03/24/18 Lilia Baxter APRN, CRM COORDINATOR #2 [place] [address] Nurse Practitioner Advanced Practice Nurse 12/29/21 Kamron Guillory MD #[address] [address] Consulting Physician Colon and Rectal Surgery 01/29/23 Josephine Mansfield MD #[address] [place] [address] Consulting Physician Endocrinology 07/05/23 Jaylon Villeda MD #[address] [place] [address] Consulting Physician Neurology 12/07/22 documented as of this encounter
--- OUTSIDE RECORDS SUMMARY | 2025-01-09 05:31 | XMS_ITS | Encounter Summary ---
Author Organization [facility] Address [address] [facility] [place] [address] Phone Care Team Providers Care Ornamental Machine Operator Name Role Phone Derrick López MD Primary Care Provider [phone] Bernice Andres MD Unavailable Lilia Baxter APRN, SOCIAL DIRECTOR Unavailable [phone] Kamron Guillory MD Unavailable Josephine Mansfield MD Unavailable Jaylon Villeda MD Unavailable [phone] Reason for Visit * Reason Comments Medication Refill Encounter Details Date Type Department Care Team (Late st Contact Info) Description 11/12/2021 Refill [facility] - Neurology [facility] #2 [place] [address] Jaylon Villeda MD #2 [place] [address] Medication Refill Social History Tobacco Use Types [...] suspected to have Coronavirus / COVID-19? Yes 10/27/2021 9:43 AM FLEET MAINTENANCE MANAGER documented as of this encounter Plan of Treatment Upcoming Encounters Date Type Department Care Team (Late st Contact Info) Description 02/17/2025 4:00 PM CDT Telemedicine [facility] - Family Medicine [facility] #2 [place] [address] Derrick López MD #[address] [address] 05/24/2025 12:30 PM CDT Telemedicine [facility] - Neurology [facility] #2 [place] [address] Lilia Baxter APRN, SOCIAL DIRECTOR #2 [place] [address] documented as of this encounter Visit Diagnoses Diagnosis Migraine with aura and with status migrainosus, not intractable Migraine with aura, with intractable migraine, so stated, with status migrainosus documented in this encounter Additional Health Concerns Infection Onset Date Last Indicated Resolved Time COVID - 19 10/24/2021 10/27/2021 11/16/2021 12:1 6 AM FLEET MAINTENANCE MANAGER COVID - 19 Confirmed 10/27/2021 10/27/2021 022 12:16 AM FLEET MAINTENANCE MANAGER COVID - 19 04/25/2022 04/26/2022 05/05/2022 12:1 6 AM CDT COVID - 19 11/22/2023 11/22/2023 11/25/2023 9:26 AM FLEET MAINTENANCE MANAGER COVID - 19 11/27/2023 11/27/2023 11/27/2023 5:02 PM FLEET MAINTENANCE MANAGER Respiratory Rule-Out 11/27/2023 11/27/2023 024 5:01 PM FLEET MAINTENANCE MANAGER COVID - 19 02/02/2024 02/02/2024 02/02/2024 3:51 PM CDT COVID - 19 05/26/2024 05/26/2024 05/26/2024 4:26 PM CDT COVID - 19 05/28/2024 05/28/2024 05/28/2024 1:37 PM CDT COVID - 19 06/04/2024 06/04/2024 06/04/2024 11:3 2 AM CDT Respiratory Rule-Out 09/15/2024 09/15/2024 024 1:59 PM FLEET MAINTENANCE MANAGER Respiratory Rule-Out 11/16/2024 11/16/2024 025 4:04 PM FLEET MAINTENANCE MANAGER COVID - 19 11/16/2024 11/16/2024 11/16/2024 4:02 PM FLEET MAINTENANCE MANAGER Assessment Noted Time PHQ-9 Depression Total Score: 0 07/20/20 20 3:35 PM CDT documented as of this encounter Care Teams Ornamental Machine Operator Relationship Specialty Start Date End Date Derrick López MD #2 [place] [id number] PCP - General Family Medicine 03/24/18 Bernice Andres MD [address] [address] Consulting Physician Obstetrics & Gynecology 03/24/18 Lilia Baxter APRN, SOCIAL DIRECTOR #2 [place] [address] Nurse Practitioner Advanced Practice Nurse 12/29/21 Kamron Guillory MD #[address] [address] Consulting Physician Colon and Rectal Surgery 01/29/23 Josephine Mansfield MD #[address] [address] Consulting Physician Endocrinology 07/05/23 Jaylon Villeda MD #2 [place] [address] Consulting Physician Neurology 12/07/22 documented as of this encounter
--- OUTSIDE RECORDS SUMMARY | 2025-01-09 05:31 | XMS_ITS ---
Author Organization [facility] Address [address] [address] Care Team Providers Care Lab Head Name Role Phone Harjit Tammie Primary Care Provider [phone] Migration, Provider Unavailable Unavailable REASON FOR VISIT [facility] Conversion Encounter Medications Medication SIG (Take, Route, Frequency, Duration) Notes Start Date End Date Status Meclizine HCl 12.5 MG 1 tab(s) orally 3 times a day 02/03/2024 Active Trulance 3 MG 1 tab(s) orally once a day 02/03/2024 Active buPROPion HCl 100 MG 1 tab(s) orally 2 times a day for 30 day(s) 02/03/2024 Active Synthroid 88 MCG 1 tab(s) orally once a day for 90 days 04/03/2024 Active ACETAMINOPHEN/BUTALB ITAL/CAFFEINE/CODEIN E 325 MG-50 MG-40 MG-30 MG TAKE 1 CAPSULE BY MOUTH EVERY 4 HOURS NEEDED FOR PAIN for 2 DAYS *Please review for potential replacement for e-prescription and drug interaction check* Active LORazepam 0.5 MG 1 tab(s) orally every 8 hours 02/03/2024 Active sulfaSALAzine 500 MG TAKE 2 TABLETS BY MOUTH TWICE A DAY for 30 Days Unknown INDOMETHACIN SR 75 MG 1 CAP(S) ORALLY ONCE A DAY *Please review for potential replacement for e-prescription and drug interaction check* 02/03/2024 Active Qulipta 60 MG 1 tab(s) orally once a day 02/03/2024 Active traMADol HCl 50 MG 1 tab(s) orally every 6 hours 02/03/2024 Active Phentermine HCl 30 MG 1 cap(s) orally once a day (in the morning) for 90 days 07/09/2024 Active Ondansetron HCl 4 MG 1 tab(s) orally every 8 hours 02/03/2024 Not-Taking Phentermine HCl 30 MG 1 cap(s) orally once a day (in the morning) for 90 days 04/03/2024 Active Liothyronine Sodium 5 MCG 1 tab(s) orally once a day for 30 day(s) 02/03/2024 Unknown Encounters Encounter Location Date Provider Diagnosis [facility] [address] 08/22/2024 Provider Migration Plan Of Treatment Medication Medication Name Sig Start Date Stop Date Notes Phentermine HCl 30 MG 1 cap(s) orally on ce a day (in the morning) for 90 days 07/09/2024 Progress Notes * Kevin DILLOB:1979 (44 yo F)Acc No.[id number]:08/22/2024 Patient: Sunni WANG Provider: Barb norris Migration :1980 A ge:44 Y S ex:Female Date:08/22/2024 Address:[address] [place] [address] Pcp:Tammie Lombardi Subjective: * Chief Complaints: * 1 . Multum To [facility] Conversion Encounter. * Medical History: * Medications: T aking traMADol HCl 50 MG Tablet 1 tab(s) orally every 6 hours , Taking Qulipta(Atogepant) 60 MG Tablet 1 tab(s) orally once a day , Taking INDOMETHACIN SR 75 MG CAPSULE, EXTENDED RELEASE 1 CAP(S) ORALLY ONCE A DAY , Notes to Pharmacist: *Please review for potential replacement for e-prescription and drug interaction check*, Taking LORazepam 0.5 MG Tablet 1 tab(s) orally every 8 hours , Taking buPROPion HCl 100 MG Tablet 1 tab(s) orally 2 times a day , Taking Trulance(Plecanatide) 3 MG Tablet 1 tab(s) orally once a day , Taking Meclizine HCl 12.5 MG Tablet 1 tab(s) orally 3 times a day , Taking ACETAMINOPHEN/BUTALBITAL/CAFFEINE/CODEINE 325 MG-50 MG-40 MG-30 MG CAPSULE TAKE 1 CAPSULE BY MOUTH EVERY 4 HOURS NEEDED FOR PAIN , Notes to Pharmacist: *Please review for potential replacement for e-prescription and drug interaction check*, Taking Synthroid(Levothyroxine Sodium) 88 MCG Tablet 1 tab(s) orally once a day , Taking Phentermine HCl 30 MG Capsule 1 cap(s) orally once a day (in the morning) , Not-Taking/PRN Ondansetron HCl 4 MG Tablet 1 tab(s) orally every 8 hours , Unknown Liothyronine Sodium 5 MCG Tablet 1 tab(s) orally once a day , Unknown sulfaSALAzine 500 MG Tablet Delayed Release TAKE 2 TABLETS BY MOUTH TWICE A DAY Objective: * Vitals: Assessment: Plan: * Treatment: * Billing Information: * Visit Code: * Procedure Codes: * Electronic signature of Connor bonilla Migration on 01/09/2025 at 05:31 AM CDT Sign off status: Pending * Provider: Barb norris Migration Date: 10/22/2023 Generated for Tres griggs/Bairon/Elver on: 01/09/2025 05:31 AM CDT
--- OUTSIDE RECORDS SUMMARY | 2025-01-09 05:31 | XMS_ITS | Encounter Summary ---
Author Organization [facility] Address [address] [facility] [place] [address] Phone Care Team Providers Care Hostess Name Role Phone Derrick López MD Primary Care Provider [phone] Bernice Andres MD Unavailable [phone] Lilia Baxter APRN, PEDIATRIC PSYCHOLOGIST Unavailable [phone] Kamron Guillory MD Unavailable Josephine Mansfield MD Unavailable Jaylon Villeda MD Unavailable [phone] Reason for Visit * Reason Comments Medication Refill Encounter Details Date Type Department Care Team (Late st Contact Info) Description 10/29/2023 Refill [facility] - Family [facility] #2 [place] [address] Derrick López MD #[address] [address] Medication Refill Social History Tobacco Use Types [...] Telephone Encounter - Gabriela Amezcua RN - 10/29/2023 9:00 AM CST Name from pharmacy: PHENTERMINE 37.5 MG TABLET Will file in chart as: Phentermine HCl 37.5 MG Tablet The original prescription was discontinued on 10/23/2023 by Derrick López MD for the followingreason: Therapy completed. [employer]ER [employer] documented in this encounter Plan of Treatment Upcoming Encounters Date Type Department Care Team (Late st Contact Info) Description 02/17/2025 4:00 PM CDT Telemedicine [facility] Medical [facility] - Family Medicine - [place] #2 [place] [address] Derrick López MD #[address] [address] 05/24/2025 12:30 PM CDT [facility] - Neurology - [place] #2 [place] [address] Lilia Baxter APRN, PEDIATRIC PSYCHOLOGIST #2 [place] [address] documented as of this encounter Visit Diagnoses Diagnosis Fatigue, unspecified type documented in this encounter Additional Health Concerns Infection Onset Date Last Indicated Resolved Time COVID - 19 11/22/2023 11/22/2023 11/25/2023 9:26 AM MANAGER NEWS COVID - 19 11/27/2023 11/27/2023 11/27/2023 5:02 PM MANAGER NEWS Respiratory Rule-Out 11/27/2023 11/27/2023 024 5:01 PM MANAGER NEWS COVID - 19 02/02/2024 02/02/2024 02/02/2024 3:51 PM CDT COVID - 19 05/26/2024 05/26/2024 05/26/2024 4:26 PM CDT COVID - 19 05/28/2024 05/28/2024 05/28/2024 1:37 PM CDT COVID - 19 06/04/2024 06/04/2024 06/04/2024 11:3 2 AM CDT Respiratory Rule-Out 09/15/2024 09/15/2024 024 1:59 PM MANAGER NEWS Respiratory Rule-Out 11/16/2024 11/16/2024 025 4:04 PM MANAGER NEWS COVID - 19 11/16/2024 11/16/2024 11/16/2024 4:02 PM MANAGER NEWS Assessment Noted Time PHQ-9 Depression Total Score: 0 05/22/20 23 11:18 AM CDT documented as of this encounter Care Teams Hostess Relationship Specialty Start Date End Date Derrick López MD #[address] [address] PCP - General Family Medicine 03/24/18 Bernice Andres MD [address] [facility] [address] [place] [address] Consulting Physician Obstetrics & Gynecology 03/24/18 Lilia Baxter APRN, PEDIATRIC PSYCHOLOGIST #2 [place] [address] Nurse Practitioner Advanced Practice Nurse 12/29/21 Kamron Guillory MD #[address] [address] Consulting Physician Colon and Rectal Surgery 01/29/23 Josephine Mansfield MD #[address] [address] Consulting Physician Endocrinology 07/05/23 Jaylon Villeda MD #2 [place] [address] Consulting Physician Neurology 12/07/22 documented as of this encounter
--- OUTSIDE RECORDS SUMMARY | 2025-01-09 05:31 | XMS_ITS | Encounter Summary ---
Author Organization [facility] Address [address] [facility] [place] [address] Phone Care Team Providers Care Melter Caster Name Role Phone Derrick López MD Primary Care Provider [phone] Bernice Andres MD Unavailable Lilia Baxter APRN, SENIOR TECHNICAL PROGRAM MANAGER Unavailable [phone] Kamron Guillory MD Unavailable Josephine Mansfield MD Unavailable Jaylon Villeda MD Unavailable [phone] Reason for Visit * Reason Comments Medication Refill Encounter Details Date Type Department Care Team (Late st Contact Info) Description 07/24/2023 Refill [facility] Family [facility] #2 [place] [address] Derrick López MD #[address] [address] Medication Refill Social History Tobacco Use Types [...] Telephone Encounter - Gabriela Amezcua RN - 07/24/2023 9:28 AM CDT Medication failed the protocol, provider to review and approve the medication order if appropriate. Requested Prescriptions Pending Prescriptions Disp Refills buPROPion (WELLBUTRIN) 100 MG Tablet [Pharmacy Med Name: BUPROPION 100MG TABLETS] 60 Tablet 1 Sig: TAKE 1 TABLET BY MOUTH TWICE DAILY Bupropion (6 Month Refill Only) Protocol Failed - 07/24/2023 8:55 AM Failed - Has an encounter in the past 6 months with a depression or anxiety visit diagnosis Passed - No test in the past 12 months or most recent test was negative Passed - No active on record Passed - Visit with relevant provider in past 6 months or upcoming 90 days Recent Visits Date Type Provider Dept 06/25/23 Telemedicine Derrick López MD [facility] 06/07/23 Telemedicine Derrick López MD [facility] 05/22/23 Office Visit Derrick López MD [facility] 05/14/23 Telemedicine Derrick López MD [facility] 01/29/23 Office Visit Derrick López MD [facility] Showing recent visits within past 182 days and meeting all other requirements Future Appointments Date Type Provider Dept 08/27/23 Appointment Derrick López MD [facility] Showing future appointments within next 90 days and meeting all other requirements Passed - Patient has established therapy with Bupropion for at least 6 months documented in this encounter Plan of Treatment Upcoming Encounters Date Type Department Care Team (Late st Contact Info) Description 02/17/2025 4:00 PM CDT Telemedicine [facility] Family Medicine - [place] #2 [place] [address] Derrick López MD #[address] [place] [address] 05/24/2025 12:30 PM CDT Telemedicine [facility] Neurology - [place] #2 [place] [address] Lilia Baxter APRN, SENIOR TECHNICAL PROGRAM MANAGER #2 [place] [address] documented as of this encounter Visit Diagnoses Not on filedocumented in this encounter Additional Health Concerns Infection Onset Date Last Indicated Resolved Time COVID - 19 11/22/2023 11/22/2023 11/25/2023 9:26 AM FOURDRINIER WIRE WEAVER COVID - 19 11/27/2023 11/27/2023 11/27/2023 5:02 PM FOURDRINIER WIRE WEAVER Respiratory Rule-Out 11/27/2023 11/27/2023 024 5:01 PM FOURDRINIER WIRE WEAVER COVID - 19 02/02/2024 02/02/2024 02/02/2024 3:51 PM CDT COVID - 19 05/26/2024 05/26/2024 05/26/2024 4:26 PM CDT COVID - 19 05/28/2024 05/28/2024 05/28/2024 1:37 PM CDT COVID - 19 06/04/2024 06/04/2024 06/04/2024 11:3 2 AM CDT Respiratory Rule-Out 09/15/2024 09/15/2024 024 1:59 PM FOURDRINIER WIRE WEAVER Respiratory Rule-Out 11/16/2024 11/16/2024 025 4:04 PM FOURDRINIER WIRE WEAVER COVID - 19 11/16/2024 11/16/2024 11/16/2024 4:02 PM FOURDRINIER WIRE WEAVER Assessment Noted Time PHQ-9 Depression Total Score: 0 05/22/20 11:18 AM CDT documented as of this encounter Care Teams Melter Caster Relationship Specialty Start Date End Date Derrick López MD #[address] [address] PCP - General Family Medicine 03/24/18 Bernice Andres MD [address] [address] Consulting Physician Obstetrics & Gynecology 03/24/18 Lilia Baxter APRN, SENIOR TECHNICAL PROGRAM MANAGER #2 [place] [address] Nurse Practitioner Advanced Practice Nurse 12/29/21 Kamron Guillory MD #[address] [address] Consulting Physician Colon and Rectal Surgery 01/29/23 Josephine Mansfield MD #[address] [phone] Consulting Physician Endocrinology 07/05/23 Jaylon Villeda MD #2 [place] [address] Consulting Physician Neurology 12/07/22 documented as of this encounter
--- OUTSIDE RECORDS SUMMARY | 2025-01-09 05:31 | XMS_ITS | Encounter Summary ---
Author Organization [facility] Address [address] [place] [address] Phone Care Team Providers Care Professional Development Director Name Role Phone Derrick López MD Primary Care Provider [phone] Bernice Andres MD Unavailable Lilia Baxter APRN, [facility] Unavailable [phone] Kamron Guillory MD Unavailable Josephine Mansfield MD Unavailable Jaylon Villeda MD Unavailable [phone] Reason for Visit * Reason Onset Date Comments Prior Authorization 08/20/2023 SITE DENIED, NEEDS PEER TO PEER . Encounter Details Date Type Department Care Team (Late Contact Info) Description 08/20/2023 Telephone [facility] Outpatient [address] [place] [address] Derrick López MD #[address] [address] Prior Authorization (SITE DENIED, NEEDS PEER TO PEER . ) Social History Tobacco Use Types Packs/Day Years [...] Coronavirus/COVID-19? No / Unsure 08/14/2023 1:55 PM BREWER HELPER documented as of this encounter Miscellaneous Notes * Telephone Encounter - Derrick López MD - 08/26/2023 2:05 PM BREWER HELPER Thanks for the update. In that case, please cancel it out. Thanks! ER HELPER * Telephone Encounter - Davina Irwin RN - 08/26/2023 1:07 PM CST I called clarisa to try to set up peer to peer. They said that this does not need to be done. We can just cancel the one we ordered. The one she had done already was done at another facility because she was inpatient and was ordered by another doctor while inpatient. ER HELPER * Telephone Encounter - Hannah Hoyt RN - 08/26/2023 12:19 PM BREWER HELPER Received call from Wilberto with [facility] regarding this situation. She states the test was done STAT and now requires a peer to peer to cover the cost. Spoke to PCP and [facility] and he states he will do a peer to peer. [facility] given that information. PCP instructs to have nurse schedule. Routing for that purpose. ER HELPER * Telephone Encounter - Jeimy Hollis - 08/23/2023 10:50 AM CST Just checking to see if my notes are being seen, I have not had any response on this test needing aPeer to Peer done by Dr López. Test was already complete, it was ordered STAT. It may even require an appeal, since Peer to Peer has not been scheduled or completed. Please respond. ER HELPER * Telephone Encounter - Jeimy Hollis - 08/22/2023 9:31 AM CST Will a Peer to Peer be done for this? ER HELPER * Telephone Encounter - Jeimy Hollis - 08/20/2023 2:06 PM CST Patient already had this test done on 08/18/2023 as it was ordered STAT. It needs a Peer to Peer done by Dr López to try to get insurance to cover it. ER HELPER * Telephone Encounter - Derrick López MD - 08/20/2023 1:19 PM BREWER HELPER Please cancel this test for now. Thanks! ER HELPER * Telephone Encounter - Jeimy Hollis - 08/20/2023 12:19 PM CST Auth Denied-P2P offered Ordering Provider: Internal Appointment Info: No associated appointments Payor + Plan: DEANN - DEANN CPT/Test: 35387 CT ABDOMEN PELVIS W/ CONTRAST Authorization denied through: Rosalind Estimated Amount [Full Charges]: $6219.00 Reason for denial: We are unable to approve the requested service(s) to be received at [facility]. We have made your health care provider aware of other facilities which would be approved and where the procedure(s) may be covered and performed. Call your health care provider to request a new orrevised authorization with an approved facility. What???s Approved: After reviewing the information we received, as well as your health plan, we determined we will cover the following, if provided in a less-intensive setting under a new or revised authorization: 61473 Computed Tomography (CT), a special kind of picture of your abdomen (stomach area) and pelviswith contrast (dye) The request for the approved service(s) to be provided at [facility] is denied. Please see the ???What???s Not Approved?? section of this letter above. Important: In order to be covered, you must be enrolled in the plan and eligible for benefits on the date you receive the service(s). Why: We reviewed information from Dr. Derrick López, your benefit plan, and any policies and guidelines needed to reach this decision. We found that receiving these services at [facility] is not medically necessary in your case: Based on [facility] Radiology Coverage Policy, we cannot approve this request. Your records show that you have a known or suspected problem for which imaging may be needed. The requested facility would have been approved if it were needed for one of the following reasons: -It is related to a transplant at an approved transplant site. -Your doctor needs to use contrast dye for your study, and you have a known problem with contrast dye. -Imaging done at the site prior to a planned surgery or procedure is a vital part of the service. -You need to be sedated for the imaging, and there is no freestanding site available. -The requested site is the only one that has the size of machine you need. -Your doctor needs to observe you while . -The study will be done around the time of childbirth. -You need to have a detailed picture study (magnetic resonance imaging or MRI) in an open MRI machine that is not available at a freestanding site. -You have a chronic systemic (throughout your body) disease and this study needs to be performed ashwini site where your prior studies were done. -You are being treated at a Center of Excellence for the condition you have. -You need to have the study done immediately and there is no freestanding site available. Add'l Steps Taken (Pt Notified, Reached out to Provider, etc.): Sending TE to providers office Peer to Peer review offered by Payer: Yes Peer to Peer review expires: 09/03/2023 Case #: [id number] Phone #: [phone] Physician: Derrick López MD Phys. Notified? Yes Notification Made to Patient: No If no, provide reason: Test already complete ER HELPER documented in this encounter Plan of Treatment Upcoming Encounters Date Type Department Care Team (Late st Contact Info) Description 02/17/2025 4:00 PM CDT Telemedicine [facility] Medical [facility] - Family Medicine [facility] #2 [place] [address] Derrick López MD [address] [address] 05/24/2025 12:30 PM CDT Telemedicine [facility] - Neurology - [place] #2 [place] [phone] Lilia Baxter APRN, MODEL AND MOLD MAKER [address]2 [place] [address] documented as of this encounter Visit Diagnoses Not on filedocumented in this encounter Additional Health Concerns Infection Onset Date Last Indicated Resolved Time COVID - 19 11/22/2023 11/22/2023 11/25/2023 9:26 AM BREWER HELPER COVID - 19 11/27/2023 11/27/2023 11/27/2023 5:02 PM BREWER HELPER Respiratory Rule-Out 11/27/2023 11/27/2023 024 5:01 PM BREWER HELPER COVID - 19 02/02/2024 02/02/2024 02/02/2024 3:51 PM CDT COVID - 19 05/26/2024 05/26/2024 05/26/2024 4:26 PM CDT COVID - 19 05/28/2024 05/28/2024 05/28/2024 1:37 PM CDT COVID - 19 06/04/2024 06/04/2024 06/04/2024 11:3 2 AM CDT Respiratory Rule-Out 09/15/2024 09/15/2024 024 1:59 PM BREWER HELPER Respiratory Rule-Out 11/16/2024 11/16/2024 025 4:04 PM BREWER HELPER COVID - 19 11/16/2024 11/16/2024 11/16/2024 4:02 PM BREWER HELPER Assessment Noted Time PHQ-9 Depression Total Score: 0 05/22/20 11:18 AM CDT documented as of this encounter Care Teams Professional Development Director Relationship Specialty Start Date End Date Derrick López MD #[address] [address] PCP - General Family Medicine 03/24/18 Bernice Andres MD [address] [address] Consulting Physician Obstetrics & Gynecology 03/24/18 Lilia Baxter, LICENSED PHYSICAL THERAPIST, MODEL AND MOLD MAKER [address] [place] [address] Nurse Practitioner Advanced Practice Nurse 12/29/21 Kamron Guillory MD #[address] [address] Consulting Physician Colon and Rectal Surgery 01/29/23 Josephine Mansfield MD #[address] [phone] Consulting Physician Endocrinology 07/05/23 Jaylon Villeda MD [address]2 [place] [address] Consulting Physician Neurology 12/07/22 documented as of this encounter
--- OUTSIDE RECORDS SUMMARY | 2025-01-09 05:31 | XMS_ITS | Encounter Summary ---
Author Organization [facility] Address [address] [facility] [place] [address] Phone Care Team Providers Care Automobile Service Station Manager Name Role Phone Derrick López MD Primary Care Provider [phone] Bernice Andres MD Unavailable [phone] Lilia Baxter APRN, INSTALLATION TECHNICIAN Unavailable [phone] Kamron Guillory MD Unavailable Josephine Mansfield MD Unavailable Jaylon Villeda MD Unavailable Reason for Visit * Reason Comments Medication Refill Encounter Details Date Type Department Care Team (Late st Contact Info) Description 12/08/2022 Refill [facility] - Family [facility] #2 [place] [address] Derrick López MD #[address] [address] Medication Refill Social History Tobacco Use Types [...] suspected to have Coronavirus/COVID-19? No / Unsure 12/10/2022 11:35 PM SENIOR DATA SCIENTIST documented as of this encounter Miscellaneous Notes * Telephone Encounter - Erma Ocampo RN - 12/10/2022 9:23 AM SENIOR DATA SCIENTIST Medication failed the protocol, provider to review and approve the medication order if appropriate. Requested Prescriptions Pending Prescriptions Disp Refills ondansetron (ZOFRAN) 4 MG Tablet [Pharmacy Med Name: ONDANSETRON 4MG TABLETS] 15 Tablet 1 Sig: TAKE 1 TABLET BY MOUTH EVERY 8 HOURS NEEDED FOR NAUSEA Not Delegated - 5-HT3 Antagonists Protocol Failed - 12/08/2022 1:34 PM Failed - This refill cannot be delegated Passed - Visit with relevant provider in past 12 months or upcoming 90 days Recent Visits Date Type Provider Dept 06/01/22 Office Visit Neena Rose PAC [facility] 04/25/22 Telemedicine Derrick López MD [facility] Showing recent visits within past 365 days and meeting all other requirements Future Appointments Date Type Provider Dept 12/13/22 Appointment Derrick López MD [facility] Showing future appointments within next 90 days and meeting all other requirements OR DATA SCIENTIST documented in this encounter Plan of Treatment Upcoming Encounters Date Type Department Care Team (Late st Contact Info) Description 02/17/2025 4:00 PM CDT Telemedicine [facility] Family Medicine - [place] #[address] [place] [address] Derrick López MD #[address] [address] 05/24/2025 12:30 PM CDT Telemedicine [facility] Neurology [facility] #2 [place] [address] Lilia Baxter APRN, INSTALLATION TECHNICIAN #2 [place] [address] documented as of this encounter Visit Diagnoses Not on filedocumented in this encounter Additional Health Concerns Infection Onset Date Last Indicated Resolved Time COVID - 19 11/22/2023 11/22/2023 11/25/2023 9:26 AM SENIOR DATA SCIENTIST COVID - 19 11/27/2023 11/27/2023 11/27/2023 5:02 PM SENIOR DATA SCIENTIST Respiratory Rule-Out 11/27/2023 11/27/2023 024 5:01 PM SENIOR DATA SCIENTIST COVID - 19 02/02/2024 02/02/2024 02/02/2024 3:51 PM CDT COVID - 19 05/26/2024 05/26/2024 05/26/2024 4:26 PM CDT COVID - 19 05/28/2024 05/28/2024 05/28/2024 1:37 PM CDT COVID - 19 06/04/2024 06/04/2024 06/04/2024 11:3 2 AM CDT Respiratory Rule-Out 09/15/2024 09/15/2024 024 1:59 PM SENIOR DATA SCIENTIST Respiratory Rule-Out 11/16/2024 11/16/2024 025 4:04 PM SENIOR DATA SCIENTIST COVID - 19 11/16/2024 11/16/2024 11/16/2024 4:02 PM SENIOR DATA SCIENTIST Assessment Noted Time PHQ-9 Depression Total Score: 0 07/20/20 20 3:35 PM CDT documented as of this encounter Care Teams Automobile Service Station Manager Relationship Specialty Start Date End Date Derrick López MD #2 [facility] [facility] [address] [place] [address] PCP - General Family Medicine 03/24/18 Bernice Andres MD [address] [address] Consulting Physician Obstetrics & Gynecology 03/24/18 Lilia Baxter CRYPTANALYST, [facility] #2 [place] [address] Nurse Practitioner Advanced Practice Nurse 12/29/21 Kamron Guillory MD #[address] [address] Consulting Physician Colon and Rectal Surgery 01/29/23 Josephine Mansfield MD #[address] [phone] Consulting Physician Endocrinology 07/05/23 Jaylon Villeda MD [address]2 [place] [phone] Consulting Physician Neurology 12/07/22 documented as of this encounter
--- OUTSIDE RECORDS SUMMARY | 2025-01-09 05:31 | XMS_ITS | Encounter Summary ---
Author Organization [facility] Address [address] [facility] [address] Care Team Providers Care Heel Molder Name Role Phone Derrick López MD Primary Care Provider [phone] Reason for Visit * Reason Onset Date Comments Question 11/26/2024 Encounter Details Date Type Department Care Team (Late st Contact Info) Description 11/26/2024 Telephone [facility] - DATA SOFTWARE ENGINEER [address] [place] [address] Rishi Tanner MD [address] [place] [address] Question Social History Tobacco Use Types Packs/Day Years Used Date Smoking Tobacco: Never Smokeless Tobacco: Never Alcohol Use Standard Drinks/Week Comments Yes 1 (1 standard drink = 0.6 oz pur e alcohol) 2-3 glasses wine per week PHQ-2 Answer Date Recorded Patient Health Questionnaire-2 Score 0 11/27/2024 Sex and Gender Information Value Date Recorded Sex Assigned at Not on file Gender Identity Not on file Sexual Orientation Not on file documented as of this encounter Functional Status Functional Status Response Date of Assess ment Is person deaf or have serious hearing difficult y? No 08/21/2023 Is person blind or have serious difficulty seein g? No 08/21/2023 Does person have serious dif ficulty walking/climbing stairs? No 08/21/2023 Does person have difficulty dressing/bathing? No 08/21/2023 Does person have difficulty doing errands alone? No 08/21/2023 Cognitive Status Response Date of Assessm ent Does person have difficulty concentrating/remembering/making decisions? No 08/21/2023 documented as of this encounter Miscellaneous Notes * Telephone Encounter - Kailey Hall RN - 11/26/2024 2:18 PM MEDICAL ASSISTANT FLOAT RN attempted to return pt call, LVM w/ CB#. RN to send Sigmascreening message. CAL ASSISTANT FLOAT * Telephone Encounter - Nuria Mariee - 11/26/2024 12:57 PM CST Patient calling with questions of what her next steps would be.. she has been taking an antibiotic,for cold symptoms., she is now suffering a yeast infection , and wants to know what to do next.. Please contact CB# [phone] CAL ASSISTANT FLOAT documented in this encounter Plan of Treatment Not on file documented as of this encounter Goals Goal Patient Goal Type Associated Problems [...] one week prior to your last dose documented as of this encounter Visit Diagnoses Not on filedocumented in this encounter Care Teams Heel Molder Relationship Specialty Start Date End Date Derrick López MD [address] [address] PCP - General Family Medicine 08/18/23 documented as of this encounter
--- OUTSIDE RECORDS SUMMARY | 2025-01-09 05:32 | XMS_ITS | Encounter Summary ---
Author Organization [facility] Address [address] [facility] [place] [address] Phone Care Team Providers Care Turbine Room Attendant Name Role Phone Derrick López MD Primary Care Provider Bernice Andres MD Unavailable Lilia Baxter APRN, FUEL DISTRIBUTION SYSTEM OPERATOR Unavailable [phone] Kamron Guillory MD Unavailable Josephine Mansfield MD Unavailable Jaylon Villeda MD Unavailable Reason for Visit * Reason Comments Medication Refill Encounter Details Date Type Department Care Team (Late st Contact Info) Description 02/29/2024 Refill [facility] - Endocrinology - [place] #[address] [place] [address] Josephine Mansfield MD #[address] [address] Medication Refill Social History Tobacco Use Types [...] Telephone Encounter - Suzie Robbins RN - 03/03/2024 4:15 PM CDT Medication(s) [facility] and [facility] Chronic Medication Refill Standing Order for Pediatricand Adult Patients. Requested Prescriptions Pending Prescriptions Disp Refills liothyronine (CYTOMEL) 5 MCG Tablet [Pharmacy Med Name: LIOTHYRONINE 5MCG TABLETS] 45 Tablet 0 Sig: TAKE 1/2 TABLET BY MOUTH TWICE DAILY Thyroid Hormones Protocol Passed - 02/29/2024 8:06 AM Passed - No test in the past 12 months or most recent test was negative Passed - Visit with relevant provider in past 12 months or upcoming 90 days Recent Visits Date Type Provider Dept 02/04/24 Telemedicine Derrick López MD [facility] 10/22/23 Telemedicine Derrick López MD [facility] 08/27/23 Telemedicine Derrick López MD [facility] 08/14/23 Office Visit Derrick López MD [facility] 08/12/23 Telemedicine Derrick López MD [facility] 08/01/23 Office Visit Josephine Mansfiedl MD [facility] [place] 06/25/23 Telemedicine Derrick López MD [facility] 06/07/23 Telemedicine Derrick López MD [facility] 05/22/23 Office Visit Derrick López MD [facility] 05/14/23 Telemedicine Derrick López MD [facility] Showing recent visits within past 365 days and meeting all other requirements Future Appointments Date Type Provider Dept 05/27/24 Appointment Derrick López MD [facility] Showing future appointments within next 90 days and meeting all other requirements Passed - No active on record Passed - Normal TSH in past 12 months TSH Date Value Ref Range Status 10/25/2023 2.835 0.300 - 5.000 mIU/L Final documented in this encounter Plan of Treatment Upcoming Encounters Date Type Department Care Team (Late st Contact Info) Description 02/17/2025 4:00 PM CDT Telemedicine [facility] Family Medicine - [place] #[address] [place] [address] Derrick López MD #[address] [address] 05/24/2025 12:30 PM CDT Telemedicine [facility] - Neurology - [place] #[address] [place] [address] Lilia Baxter APRN, FUEL DISTRIBUTION SYSTEM OPERATOR #[address] [place] [address] documented as of this encounter Visit Diagnoses Not on filedocumented in this encounter Additional Health Concerns Infection Onset Date Last Indicated Resolved Time COVID - 19 05/26/2024 05/26/2024 05/26/2024 4:26 PM CDT COVID - 19 05/28/2024 05/28/2024 05/28/2024 1:37 PM CDT COVID - 19 06/04/2024 06/04/2024 06/04/2024 11:3 2 AM CDT Respiratory Rule-Out 09/15/2024 09/15/2024 024 1:59 PM DISPATCHER CHIEF COAL SLURRY Respiratory Rule-Out 11/16/2024 11/16/2024 025 4:04 PM DISPATCHER CHIEF COAL SLURRY COVID - 19 11/16/2024 11/16/2024 11/16/2024 4:02 PM DISPATCHER CHIEF COAL SLURRY Assessment Noted Time PHQ-9 Depression Total Score: 0 05/22/20 11:18 AM CDT documented as of this encounter Care Teams Turbine Room Attendant Relationship Specialty Start Date End Date Derrick López MD #[address] [address] PCP - General Family Medicine 03/24/18 Bernice Andres MD [address] [address] Consulting Physician Obstetrics & Gynecology 03/24/18 Lilia Baxter, PHOTOGRAPHY SALES ASSOCIATE, [facility] #2 [place] [address] Nurse Practitioner Advanced Practice Nurse 12/29/21 Kamron Guillory MD #[address] [address] Consulting Physician Colon and Rectal Surgery 01/29/23 Josephine Mansfield MD #[address] [phone] Consulting Physician Endocrinology 07/05/23 Jaylon Villeda MD #2 [place] [phone] Consulting Physician Neurology 12/07/22 documented as of this encounter
--- OUTSIDE RECORDS SUMMARY | 2025-01-09 05:32 | XMS_ITS ---
Author Organization [facility] Address [address] [facility] [place] [address] Care Team Providers Care General Store Manager Name Role Phone Tammie Lombardi Primary Care Provider [phone] REASON FOR VISIT Updated Insurance Information Encounters Encounter Location Date Provider Diagnosis [employer] [address] [place] [address] 07/22/2024 Tammie Lombardi Plan Of Treatment No Information Progress Notes * Kevin DILLOB:1979 (44 yo F)Acc No.[id number]:07/22/2024 Patient: Kevin WANGlyn :1980 A ge:44 Y S ex:Female Address:[address] [place] [address] * true * Date: Generated for Printi ng/Faxing/eTransmitting on: 0 01/09/2025 05:31 AM CDT
--- OUTSIDE RECORDS SUMMARY | 2025-01-09 05:32 | XMS_ITS | Encounter Summary ---
Author Organization [facility] Address [address] [place] [address] Phone Care Team Providers Care Etl Developer Name Role Phone Derrick López MD Primary Care Provider [phone] Bernice Andres MD Unavailable Lilia Baxter APRN, [employer]IV[employer] Unavailable [phone] Kamron Guillory MD Unavailable Josephine Mansfield MD Unavailable Jaylon Villeda MD Unavailable Reason for Visit * Reason Comments Medication Refill Encounter Details Date Type Department Care Team (Late st Contact Info) Description 05/21/2023 Refill [facility] - Neurology [facility] [address] [place] [phone] Lilia Baxter APRN, [employer] [address] [place] [address] Medication Refill Social History Tobacco Use Types [...] suspected to have Coronavirus/COVID-19? No / Unsure 05/22/2023 11:02 AM CDT documented as of this encounter Functional Status * Question Answer Date of Assessment Author Little interest or pleasure in doing things Not at all 05/22/2023 11:18 AM LOLIST Jo-Ann Burden MA Feeling down, depressed, or hopeless Not at all 05/22/2023 11:18 AM CDT Lia Burden MA * Over the past 2 weeks, how often have you been bothered by any of the following problems? Question Answer Date of Assessment Author Patient Health Questionnaire-2 Score 0 05/22/2023 11:18 AM CDT Roland Burden MA documented as of this encounter Plan of Treatment Upcoming Encounters Date Type Department Care Team (Late st Contact Info) Description 02/17/2025 4:00 PM CDT Telemedicine [facility] - Family Medicine [facility] [address] [place] [address] Derrick López MD [address] [address] 05/24/2025 12:30 PM CDT Telemedicine [facility] - Neurology - [place] [address] [place] [address] Lilia Baxter APRN, [employer] [address] [place] [address] documented as of this encounter Visit Diagnoses Diagnosis Chronic migraine w/o aura 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, not intractable Chronic migraine without aura, without mention of intractable migraine without mention of status migrainosus documented in this encounter Additional Health Concerns Infection Onset Date Last Indicated Resolved Time COVID - 19 11/22/2023 11/22/2023 11/25/2023 9:26 AM SLAT PICKLER COVID - 19 11/27/2023 11/27/2023 11/27/2023 5:02 PM SLAT PICKLER Respiratory Rule-Out 11/27/2023 11/27/2023 024 5:01 PM SLAT PICKLER COVID - 19 02/02/2024 02/02/2024 02/02/2024 3:51 PM CDT COVID - 19 05/26/2024 05/26/2024 05/26/2024 4:26 PM CDT COVID - 19 05/28/2024 05/28/2024 05/28/2024 1:37 PM CDT COVID - 19 06/04/2024 06/04/2024 06/04/2024 11:3 2 AM CDT Respiratory Rule-Out 09/15/2024 09/15/2024 024 1:59 PM SLAT PICKLER Respiratory Rule-Out 11/16/2024 11/16/2024 025 4:04 PM SLAT PICKLER COVID - 19 11/16/2024 11/16/2024 11/16/2024 4:02 PM SLAT PICKLER Assessment Noted Time PHQ-9 Depression Total Score: 0 07/20/20 20 3:35 PM CDT documented as of this encounter Care Teams Etl Developer Relationship Specialty Start Date End Date Derrick López MD [address] [address] PCP - General Family Medicine 03/24/18 Bernice Andres MD [address] [address] Consulting Physician Obstetrics & Gynecology 03/24/18 Lilia Baxter APRN, [facility] [address] [place] [address] Nurse Practitioner Advanced Practice Nurse 12/29/21 Kamron Guillory MD #[address] [address] Consulting Physician Colon and Rectal Surgery 01/29/23 Josephine Mansfield MD #[address] [address] Consulting Physician Endocrinology 07/05/23 Jaylon Villeda MD [address] [place] [address] Consulting Physician Neurology 12/07/22 documented as of this encounter
--- OUTSIDE RECORDS SUMMARY | 2025-01-09 05:32 | XMS_ITS | Encounter Summary ---
Author Organization [facility] Address [address] [facility] [place] [address] Phone Care Team Providers Care Ground Operations Crew Member Name Role Phone Derrick López MD Primary Care Provider [phone] Bernice Andres MD Unavailable [phone] Lilia Baxter APRN, YOUTH AGENT Unavailable [phone] Kamron Guillory MD Unavailable Josephine Mansfield MD Unavailable Jaylon Villeda MD Unavailable Encounter Details Date Type Department Care Team (Late st Contact Info) Description 12/20/2022 Telephone [facility] [address] [place] [address] Derrick López MD #[address] [address] Social History Tobacco Use Types Packs/Day Years [...] suspected to have Coronavirus/COVID-19? No / Unsure 12/19/2022 11:22 AM CDT documented as of this encounter Miscellaneous Notes * Telephone Encounter - Power Patterson - 12/20/2022 3:52 PM CDT SITUATION: Patient requesting provider review Rheumatology Referral. BACKGROUND: Referral unable to be processed. ASSESSMENT: Request for provider review due to the following reason(s): Duplicate RECOMMENDATION: Based on the above information the provider has the following option(s): Cancel existing referral. Power Patterson [facility] On[facility] - Centralized Referral Management 12/20/2022, 3:53 PM CDT documented in this encounter Plan of Treatment Upcoming Encounters Date Type Department Care Team (Late st Contact Info) Description 02/17/2025 4:00 PM CDT Telemedicine [facility] - Family Medicine - [place] [address] [place] [address] Derrick López MD #[address] [address] 05/24/2025 12:30 PM CDT Telemedicine [facility] - Neurology [facility] [address] [place] [phone] Lilia Baxter, PARTS COUNTER SALES PERSON, YOUTH AGENT [address] [facility] [place] [address] documented as of this encounter Visit Diagnoses Not on filedocumented in this encounter Additional Health Concerns Infection Onset Date Last Indicated Resolved Time COVID - 19 11/22/2023 11/22/2023 11/25/2023 9:26 AM ANIMAL BIOLOGIST COVID - 19 11/27/2023 11/27/2023 11/27/2023 5:02 PM ANIMAL BIOLOGIST Respiratory Rule-Out 11/27/2023 11/27/2023 024 5:01 PM ANIMAL BIOLOGIST COVID - 19 02/02/2024 02/02/2024 02/02/2024 3:51 PM CDT COVID - 19 05/26/2024 05/26/2024 05/26/2024 4:26 PM CDT COVID - 19 05/28/2024 05/28/2024 05/28/2024 1:37 PM CDT COVID - 19 06/04/2024 06/04/2024 06/04/2024 11:3 2 AM CDT Respiratory Rule-Out 09/15/2024 09/15/2024 024 1:59 PM ANIMAL BIOLOGIST Respiratory Rule-Out 11/16/2024 11/16/2024 025 4:04 PM ANIMAL BIOLOGIST COVID - 19 11/16/2024 11/16/2024 11/16/2024 4:02 PM ANIMAL BIOLOGIST Assessment Noted Time PHQ-9 Depression Total Score: 0 07/20/20 20 3:35 PM CDT documented as of this encounter Care Teams Ground Operations Crew Member Relationship Specialty Start Date End Date Derrick López MD [address] [address] PCP - General Family Medicine 03/24/18 Bernice Andres MD [address] [address] Consulting Physician Obstetrics & Gynecology 03/24/18 Lilia Baxter APRN, YOU[employer] AGENT #[address] [place] [address] Nurse Practitioner Advanced Practice Nurse 12/29/21 Kamron Guillory MD #[address] [address] Consulting Physician Colon and Rectal Surgery 01/29/23 Josephine Mansfield MD #[address] [phone] Consulting Physician Endocrinology 07/05/23 Jaylon Villeda MD [address] [place] [phone] Consulting Physician Neurology 12/07/22 documented as of this encounter
--- OUTSIDE RECORDS SUMMARY | 2025-01-09 05:32 | XMS_ITS | Encounter Summary ---
Author Organization [facility] Address [address] [facility] [place] [address] Phone Care Team Providers Care Lay Out Helper Name Role Phone Derrick López MD Primary Care Provider [phone] Bernice Andres MD Unavailable Lilia Baxter APRN, EARTH SCIENCE PROFESSOR Unavailable [phone] Kamron Guillory MD Unavailable Josephine Mansfield MD Unavailable Jaylon Villeda MD Unavailable [phone] Reason for Visit * Reason Comments Medication Refill Encounter Details Date Type Department Care Team (Late st Contact Info) Description 10/10/2022 Refill [facility] - Family [facility] [address] [place] [address] Derrick López MD #[address] [address] Medication Refill Social History Tobacco Use Types [...] encounter Miscellaneous Notes * Telephone Encounter - Martita Sesay RN - 10/10/2022 1:02 PM CST Medication failed the protocol, provider to review and approve the medication order if appropriate. Requested Prescriptions Pending Prescriptions Disp Refills ondansetron (ZOFRAN) 4 MG Tablet [Pharmacy Med Name: ONDANSETRON 4MG TABLETS] 15 Tablet 1 Sig: TAKE 1 TABLET BY MOUTH EVERY 8 HOURS NEEDED FOR NAUSEA Not Delegated - 5-HT3 Antagonists Protocol Failed - 10/10/2022 8:31 AM Failed - This refill cannot be delegated Passed - Visit with relevant provider in past 12 months or upcoming 90 days Recent Visits Date Type Provider Dept 06/01/22 Office Visit Neena Rose PAC [facility] [place] 04/25/22 Telemedicine Derrick López MD [facility] 10/27/21 Telemedicine Lazarus Bowden APRN, BRAIDED RUG MAKER [facility] Showing recent visits within past 365 days and meeting all other requirements Future Appointments No visits were found meeting these conditions. Showing future appointments within next 90 days and meeting all other requirements TRACTOR OPERATOR documented in this encounter Plan of Treatment Upcoming Encounters Date Type Department Care Team (Late st Contact Info) Description 02/17/2025 4:00 PM CDT [facility]icine [facility] - Family Medicine - [place] [address] [place] [address] Derrick López MD #[address] [address] 05/24/2025 12:30 PM CDT [facility] [place] #2 [facility] [place] [address] Lilia Baxter APRN, EARTH SCIENCE PROFESSOR #[address] [place] [address] documented as of this encounter Visit Diagnoses Not on filedocumented in this encounter Additional Health Concerns Infection Onset Date Last Indicated Resolved Time COVID - 19 11/22/2023 11/22/2023 11/25/2023 9:26 AM FARM TRACTOR OPERATOR COVID - 19 11/27/2023 11/27/2023 11/27/2023 5:02 PM FARM TRACTOR OPERATOR Respiratory Rule-Out 11/27/2023 11/27/2023 024 5:01 PM FARM TRACTOR OPERATOR COVID - 19 02/02/2024 02/02/2024 02/02/2024 3:51 PM CDT COVID - 19 05/26/2024 05/26/2024 05/26/2024 4:26 PM CDT COVID - 19 05/28/2024 05/28/2024 05/28/2024 1:37 PM CDT COVID - 19 06/04/2024 06/04/2024 06/04/2024 11:3 2 AM CDT Respiratory Rule-Out 09/15/2024 09/15/2024 024 1:59 PM FARM TRACTOR OPERATOR Respiratory Rule-Out 11/16/2024 11/16/2024 025 4:04 PM FARM TRACTOR OPERATOR COVID - 19 11/16/2024 11/16/2024 11/16/2024 4:02 PM FARM TRACTOR OPERATOR Assessment Noted Time PHQ-9 Depression Total Score: 0 07/20/20 20 3:35 PM CDT documented as of this encounter Care Teams Lay Out Helper Relationship Specialty Start Date End Date Derrick López MD #2 [facility] [address] [place] [address] PCP - General Family Medicine 03/24/18 Bernice Andres MD [address] [facility] [address] [place] [address] Consulting Physician Obstetrics & Gynecology 03/24/18 Lilia Baxter APRN, [facility] #[address] [place] [address] Nurse Practitioner Advanced Practice Nurse 12/29/21 Kamron Guillory MD #[address] [address] Consulting Physician Colon and Rectal Surgery 01/29/23 Josephine Mansfield MD #[address] [phone] Consulting Physician Endocrinology 07/05/23 Jaylon Villeda MD #[address] [place] [phone] Consulting Physician Neurology 12/07/22 documented as of this encounter
--- OUTSIDE RECORDS SUMMARY | 2025-01-09 05:32 | XMS_ITS | Clinical Summary ---
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 Name Role Phone Derrick López MD Primary Care Provider [phone] Bernice Andres MD Unavailable [phone] Lilia Baxter APRN, PCB DESIGN ENGINEER Unavailable [phone] Kamron Guillory MD Unavailable Josephine Mansfield MD Unavailable Jaylon Villeda MD Unavailable Allergies Active Allergy Reactions Criticality Noted Date Comments Celecoxib Other (see Comments) High 08/14/2023 Pain, blurred vision, nausea, dizziness Nitrofurantoin Other (see Comments) 08/27/2023 Elevated liver enzymes Meloxicam Swelling 01/29/2023 Methotrexate Other (see Comments) Low 11/06/2023 High liver enzymes High liver enzymes Morphine Other (see Comments) 08/14/2016 Pt states burning pain and itch Medications Cholecalcifero l (Vitamin D3) 125 MCG (5000 UT) Capsule Take by mouth daily. Active traMADol (ULTRAM) 50 MG Tablet Take 50 mg by mouth. 01/29/20 23 Active levothyroxine (SYNTHROID) 75 MCG Tablet Take 1 Tablet by mouth daily. 90 Tablet 1 08/01/20 23 Active benzonatate (TESSALON) 100 MG Capsule 11/23/19 24 Active Cholecalcifero l (Vitamin D3) 2000 UNIT Capsule 04/22/20 23 Active levonorgestrel (MIRENA) 20 MCG/DAY IUD 1 Device by Intrauterine route. Active meclizine (ANTIVERT) 25 MG Tablet Take 25 mg by mouth. 10/31/19 23 Active naproxen (NAPROSYN) 500 MG Tablet Take 500 mg by mouth 2 times daily. 10/29/19 24 Active Plecanatide (Trulance) 3 MG Tablet Take 1 Tablet by mouth. 08/02/20 21 Active Phentermine HCl 37.5 MG Tablet Take 1 Tablet by mouth every morning (before breakfast). 07/04/20 23 Active omeprazole (PriLOSEC) 40 MG CAPSULE DELAYED RELEASE Take 40 mg by mouth daily. 10/29/19 24 Active triamcinolone (KENALOG) 0.1 % Ointment 09/26/20 23 Active liothyronine (CYTOMEL) 5 MCG Tablet TAKE 1/2 TABLET BY MOUTH TWICE DAILY 45 Tablet 03/03/20 24 Active buPROPion (WELLBUTRIN) 100 MG Tablet Take 1 Tablet by mouth 2 times daily. 60 Tablet 2 03/23/20 24 Active celecoxib (CeleBREX) 100 MG Capsule Take 100 mg by mouth 2 times daily. Active AZATHIOPRINE PO Take by mouth. Activ e ondansetron (ZOFRAN) 4 MG Tablet TAKE 1 TABLET BY MOUTH EVERY 8 HOURS NEEDED FOR NAUSEA FIRST LINE 9 Tablet 3 11/07/19 25 Active hydroxychloroq uine (PLAQUENIL) 200 MG Tablet Take 200 mg by mouth 2 times daily. Active methylPREDNISo lone (MEDROL DOSPACK) 4 MG Tablet Therapy PackIndication s:URI, acute Follow directions on package. 21 Tablet 11/19/19 25 Active albuterol 108 (90 Base) MCG/ACT Aerosol Solution take 1 Puff by inhalation every 4 hours as needed for Cough. 18 g 11/19/19 25 Active butalbital-nikos taminophen-caf feine-codeine (FIORICET WITH CODEINE) 37-329-08-30 MG CapsuleIndicat ions:Chronic migraine w/o aura 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, not intractable TAKE 1 CAPSULE BY MOUTH EVERY 4 HOURS NEEDED FOR PAIN 15 Capsule 2 12/25/19 25 Active mupirocin (BACTROBAN) 2 % Ointment Application Site: apply to affected areas twice a day for 7 days. 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 Cyst of left ovary 08/27/2023 Elevated LFTs 08/16/2023 Abdominal pain 08/14/2023 Abnormal mammogram 08/14/2023 Myalgia 08/12/2023 Leukocytosis 08/12/2023 COVID-19 06/25/2023 Toe deformity, right 06/07/2023 Bacteriuria 05/15/2023 Hypokalemia 05/15/2023 RUQ abdominal pain 05/15/2023 Chronic pain syndrome 01/29/2023 Abnormal breast tissue 01/28/2023 Colitis 01/07/2023 Left ovarian cyst 01/07/2023 Chronic joint pain 01/02/2023 Chest wall pain 01/02/2023 Anxiety 01/02/2023 Diarrhea 01/02/2023 Nausea 01/02/2023 Generalized abdominal pain 01/02/2023 Arthralgia of both hands 12/20/2022 Abnormal MRI, neck 12/13/2022 Bone marrow disease 12/13/2022 Thrombocytosis 12/13/2022 Lower abdominal pain 04/13/2021 Microscopic hematuria 01/05/[address] 11/24/2018 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 Migraine with aura and with status migrainosus, not intractable 11/05/2018 Intractable cluster headache syndrome 06/24/2018 Vitamin D insufficiency 04/09/2018 Elevated liver enzymes 03/24/2018 Fatigue 03/24/2018 Hypothyroidism 03/24/2018 Overweight (BMI 25.0-29.9) 03/24/2018 Congenital hypothyroidism without goiter 018 Hair loss 08/09/2017 Pharyngitis 06/05/2017 Irritable bowel syndrome with constipation Encounters Date Type Department Care Team Description 12/24/2024 2:35 PM CDT - 12/24/2024 11:59 PM CDT [facility] [address] [place] [address] Derrick López MD Discharge Disposition: Discharged to home or Selfcare 12/24/2024 Travel 12/23/2024 [facility] [address] [place] [address] Lilia Baxter APRN, PCB DESIGN ENGINEER Medication Refill 12/08/2024 9:00 AM MUSIC COMPOSITION TEACHER - 12/08/2024 11:59 PM MUSIC COMPOSITION TEACHER [facility] [address] [place] [address] Lilia Baxter APRN, PCB DESIGN ENGINEER Discharge Disposition: Discharged to home or Selfcare 12/07/2024 Travel 11/24/2024 11:00 AM MUSIC COMPOSITION TEACHER [facility] [place] [address] [place] [address] Lilia Baxter APRN, PCB DESIGN ENGINEER Chronic migraine w/o aura 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, not intractable (Primary Dx); Bilateral occipital neuralgia 11/24/2024 Travel 11/19/2024 2:30 PM MUSIC COMPOSITION TEACHER Office Visit [facility] - Family Medicine - [place] [address] [place] [address] Derrick López MD URI, acute (Primary Dx); Overweight (BMI 25.0-29.9); Encounter for screening mammogram for breast cancer Discharge Disposition: Discharged to home or Selfcare 11/19/2024 Travel 11/16/2024 3:15 PM MUSIC COMPOSITION TEACHER Office Visit [facility] [address] [place] [address] Nighat Lopez APRN, CNP Sore throat (Primary Dx); Viral illness Discharge Disposition: Discharged to home or Selfcare 11/16/2024 Travel 11/16/20[address] [facility] [address] [place] [id number] Derrick López MD Advice Only; Sore Throat 11/05/2024 [facility] [address] [place] [address] Derrick López MD Medication Refill from Last 3 Months Immunizations Immunization Administration Dates Next Due Covid-19, Mrna, Lnp-s, Pf, 3 0 Mcg/0.3 Ml Dose ([employer]) 12/28/2020,12/08/2020 Influenza Vaccine 08/14/2013 Influenza Vaccine greater than 3 yrs 10/31/2017, 10/07/2011 Influenza Vaccine, Quadrivalent, PF 06/24/2018,1 10/26/2015 Influenza, Seasonal, Injectable, Undefined 10/31,08/13/2014,10/07/2011 Tetanus Toxoid, Unspecified Formulation 10/07/18 98 Family History Medical History Relation Name Comments Diabetes Brother Ronak Macular Degeneration Brother Ronak No Known Problems Daughter Arthritis Father Erginald High Cholesterol Father Reginald Macular Degeneration Father Reginald Rheumatoid Arthritis Father Reginald Diabetes Maternal Aunt Frannie Multiple Sclerosis Maternal Grandfather Glaucoma Maternal Grandmother Endometriosis Mother Mom Hypertension Mother Mom Thyroid Disease Mother Mom Cancer Paternal Aunt Tarah Breast cancer Heart Disease Paternal Grandfather Yousif Rheumatoid Arthritis Paternal Grandfather Yousif Stroke Paternal Grandfather Yousif Diabetes Paternal Grandmother Esha Rheumatoid Arthritis Sister 1 No Known Problems Sister 2 Diabetes Sister 3 Kim Considered pre- diabetic Thyroid Disease Sister 3 Kim Migraines Sister 4 Joselin Rheumatoid Arthritis Sister 4 Joselin Labs di d not show diagnosis for 10 years but symptoms were present Thyroid Disease Sister 4 Joselin No Known Problems Son Relation Name Status Comments Brother Ronak Alive Daughter Alive Father Reginald Alive Maternal Aunt Frannie Maternal Grandfather Maternal Grandmother Mother Mom Alive Paternal Aunt Tarah Paternal Grandfather Yousif Paternal Grandmother Esha Sister 1 Alive Sister 2 Alive Sister 3 Kim Sister 4 Joselin Son Alive Social History Tobacco Use Types Packs/Day Years Used Date Smoking Tobacco: Never Smokeless Tobacco: Never Tobacco Cessation:Counseling Given: Yes Alcohol Use Standard Drinks/Week Comments Yes 2 (1 standard drink = 0.6 oz pur e alcohol) Occasionally [facility] Utilities Answer Date Recorded In the past 12 months has e electric, gas, oil, or water company threatened to shut off services in your home? No 11/19/2024 Social Connection and Isolation Panel [NHANES] A nswer Date Recorded In a typical week, how many times do you talk on the phone with family, friends, or neighbors? Three times a week 11/19/19 How often do you get togethe r with friends or relatives? Once a week 11/19/2024 How often do you attend chur ch or gnosticist services? 1 to 4 times per year 11/19/2024 Do you belong to any clubs o r organizations such as sikh groups, unions, fraternal or athletic groups, or school groups? Yes 11/19/2024 How often do you attend meet ings of the clubs or organizations you belong to? 1 to 4 times per year 11/19/2024 Are you , , di vorced, , never , or living with a partner? 11/19/2024 AUDIT-C Answer Date Recorded Q1: How often do you have a drink containing alc ohol? 2-4 times a month 11/19/2024 Q2: How many drinks containi ng alcohol do you have on a typical day when you are drinking? 1 or 2 11/19/2024 Q3: How often do you have si x or more drinks on one occasion? Never 11/19/2024 Overall Financial Resource Strain (CARDIA) Answe r Date Recorded How hard is it for you to pa y for the very basics like food, housing, medical care, and heating? Not very hard 11/19/2024 PHQ-2 Answer Date Recorded Total Score - Questions 1-9 0 11/07 [facility] of Occupat ional [facility] - Occupational Stress Questionnaire Answer Date Recorded Do you feel stress - tense, restless, nervous, or anxious, or unable to sleep at night because your mind is troubled all the time - these days? To some extent 11/19/2024 Exercise Vital Sign Answer Date Recorde d On average, how many days pe r week do you engage in moderate to strenuous exercise (like a brisk walk)? 7 days 11/19/2024 On average, how many minutes do you engage in exercise at this level? 60 min 11/19/2024 Hunger Vital Sign Answer Date Recorded Within the past 12 months, y ou worried that your food would run out before you got the money to buy more. Never true 11/19/19 25 Within the past 12 months, t he food you bought just didn't last and you didn't have money to get more. Never true 11/19/2024 PRAPARE - Transportation Answer Date Re corded In the past 12 months, has l ack of transportation kept you from medical appointments or from getting medications? No 11/07 In the past 12 months, has l ack of transportation kept you from meetings, work, or from getting things needed for daily living? No 11/19/2024 Housing Stability Vital Sign Answer Alan e Recorded In the last 12 months, was t here a time when you were not able to pay the mortgage or rent on time? No 11/19/2024 In the past 12 months, how m any times have you moved where you were living? 0 11/19/2024 At any time in the past 12 m [facility], were you homeless or living in a [facility] (including now)? No 11/19/2024 Education Answer Date Recorded What is the highest level of school you have completed or the highest degree you have received? Bachelor's degree (e.g., BA, AB, BS) 06/21/2021 Sexually Active Control Partners Comments Yes I.U.D. Male Comments No Sex and Gender Information Value Date Recorded Sex Assigned at Female 05/21/2023 10:06 AM CDT Legal Sex Female 11:30 PM CDT Gender Identity Female 05/21/2023 10:06 AM CDT Sexual Orientation Not on file Last Filed Vital Signs Vital Sign Reading Time Taken Comments Blood Pressure 138/116 12/08/2024 2:08 PM MUSIC COMPOSITION TEACHER Pulse 94 12/08/2024 2:30 PM MUSIC COMPOSITION TEACHER Temperature 36.7 C (98 F) 12/08/2024 2:30 PM MUSIC COMPOSITION TEACHER Respiratory Rate 16 11/16/2024 3:43 PM MUSIC COMPOSITION TEACHER Oxygen Saturation 100% 12/08/2024 2:30 PM MUSIC COMPOSITION TEACHER Inhaled Oxygen Concentration - - Weight 69.4 kg (153 lb) 11/19/2024 2:49 PM MUSIC COMPOSITION TEACHER Height 157.5 cm (5' 2 ) 11/19/2024 2:49 PM MUSIC COMPOSITION TEACHER Body Mass Index 27.98 11/19/2024 2:49 PM MUSIC COMPOSITION TEACHER Plan of Treatment Upcoming Encounters Date Type Department Care Team (Late st Contact Info) Description 02/17/2025 4:00 PM CDT Telemedicine [facility] Medical [facility] - Family Medicine - [place] [address] [place] [address] Derrick López MD [address] [address] 05/24/2025 12:30 PM CDT Telemedicine [facility] - Neurology - [place] [address] [place] [address] Lilia Baxter APRN, PCB DESIGN ENGINEER [address] [place] [address] Health Maintenance Due Date Last Done Comments TdaP Immunization 1980 HPV/Cotest 2010 SARS-COV-2 Immunization ( season) 2024 10/14/2021, 12/28/2020, 12/08/2020 Hepatitis B Immunization (2 of 2 - CpG 2-dose series) 08/24/2024 07/27/2024 Mammogram 12/24/2025 12/24/2024, 06/0 10/2022, 03/09/2016 Cervical Cancer Screening (CCS) 11/20/2026 Pap Smear 11/20/2026 11/20/2023, 08/22/2021 Colonoscopy High Risk 04/04/2031 04/04/2021 Colonoscopy 04/04/2031 04/04/2021 Colorectal Cancer Screening 04/04/2031 Respiratory Syncytial Virus (RSV) Immunization (Adult) (1 - 1-dose 75+ series) 2055 Hepatitis C Virus (HCV) Screening Completed 08/18/2023, 08/18/2023, 12/04/2021, Additional history exists Influenza Immunization Completed , 08/08/2022, 06/24/2018, Additional history exists Pneumococcal Immunization Combined Aged Out 07/27/2024 No longer eligible based on patient's age to complete this topic Discussion re Starting/Frequency of Mammograms Completed 12/24/2024, 11/11/2023, 03/07/2023, Additional history exists Meningococcal Immunization (ACWY) Aged Out No longer eligible based on patient's age to complete this topic Rotavirus Immunization Aged Out No lo nger eligible based on patient's age to complete this topic Procedures Procedure Name Priority Date/Time Associated Diagnosis Comments SERGO SCREENING BILATERAL DIGITAL W CAD W SAIRA Routine 12/24/2024 2:49 PM CDT Encounter for screening mammogram for breast cancer PC PERIPHERAL BLOCK Routine 12/08/2024 2 :30 PM MUSIC COMPOSITION TEACHER Chronic migraine w/o aura 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, not intractable PC OCC BLOCK Routine 12/08/2024 2:30 PM MUSIC COMPOSITION TEACHER Chronic migraine w/o aura 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, not intractable POC GROUP A STREP BY MOLECULAR Routine 11/16/2024 4:02 PM MUSIC COMPOSITION TEACHER Sore throat POC INFLUENZA A AND B BY MOLECULAR Routine 11/16/2024 4:02 PM MUSIC COMPOSITION TEACHER Sore throat POC SARS-COV-2 BY MOLECULAR Routine 11/16/2024 4:01 PM MUSIC COMPOSITION TEACHER Sore throat RHEUMATOLOGY CONSULT 11/03/2024 12:00 AM MUSIC COMPOSITION TEACHER HEPATITIS PANEL ACUTE (AHP) STAT 08/18/2023 4:38 AM MUSIC COMPOSITION TEACHER from Last 3 Months or Most Recently Relevant to Health Maintenance Results * SERGO SCREENING BILATERAL DIGITAL W CAD W SAIRA (12/24/2024 2:49 PM CDT) Anatomical Region Laterality Modality breast Bilateral Mammography 12/24/2024 2:51 PM CDT Narrative 12/25/2024 3:30 PM CDT - SERGO SCREENING BILATERAL DIGITAL W CAD W SAIRA BILATERAL DIGITAL SCREENING MAMMOGRAM 3D/2D WITH CAD WITH MEDIOLATERAL OBLIQUE CRANIOCAUDAL: 12/24/2024 The study was acquired using digital technology and interpreted from soft copy. Current study was also evaluated with ICAD version 7.2. 2D digital mammographic views, as well as 3D digital tomosynthesis were performed in the CC and MLO projections. CLINICAL: Routine screening. Patient has no complaints. No personal history of cancer. Maternal aunt had breast cancer. COMPARISONS: Comparison is made to exams dated: 11/11/2023, 03/07/2023 [facility], and 03/09/2016 [facility]. BREAST TISSUE:The breasts are heterogeneously dense, which may obscure small masses. FINDINGS: No significant masses, calcifications, or other findings are seen in either breast. There has been no significant interval change. IMPRESSION: NEGATIVE There is no mammographic evidence of malignancy. A 1 year screening mammogram is recommended. A letter will be sent to the patient with these results. The patient will be entered into a reminder system with a target due date of 1 year for her next screening exam. Electronically signed by: Fortunato rockwell/merrill:12/24/2024 22:37:47 Stock Handler(s): RT Jeff(R)(M), [facility] letter sent: Normal Exam Reading location: [place] Mammogram BI-RADS: Category 1: Negative Procedure Note Fortunato Lambert MD - 12/25/2024 - SERGO SCREENING BILATERAL DIGITAL W CAD W SAIRA BILATERAL DIGITAL SCREENING MAMMOGRAM 3D/2D WITH CAD WITH MEDIOLATERAL OBLIQUE CRANIOCAUDAL: 12/24/2024 The study was acquired using digital technology and interpreted from soft copy. Current study was also evaluated with ICAD version 7.2. 2D digital mammographic views, as well as 3D digital tomosynthesis were performed in the CC and MLO projections. CLINICAL: Routine screening. Patient has no complaints. No personal history of cancer. Maternal aunt had breast cancer. COMPARISONS: Comparison is made to exams dated: 11/11/2023, 03/07/2023 [facility], and 03/09/2016 [facility]. BREAST TISSUE:The breasts are heterogeneously dense, which may obscure small masses. FINDINGS: No significant masses, calcifications, or other findings are seen in either breast. There has been no significant interval change. IMPRESSION: NEGATIVE There is no mammographic evidence of malignancy. A 1 year screening mammogram is recommended. A letter will be sent to the patient with these results. The patient will be entered into a reminder system with a target due date of 1 year for her next screening exam. Electronically signed by: Fortunato Lambert M.D. ll/penrad:12/24/2024 22:37:47 Stock Handler(s): RT Jeff(R)(M), [facility] letter sent: Normal Exam Reading location: [place] Mammogram BI-RADS: Category 1: Negative Derrick López MD IMG MAMMO ORDERABLES Final Result * PC PERIPHERAL BLOCK (12/08/2024 2:30 PM MUSIC COMPOSITION TEACHER) Anatomical Region Laterality Modality BODY N/A Radio Fluoroscop y 12/08/2024 3:04 PM MUSIC COMPOSITION TEACHER Impressions 12/08/2024 3:07 PM MUSIC COMPOSITION TEACHER IMPRESSION: Successful bilateral greater and lesser occipital nerve block. Narrative 12/08/2024 3:07 PM MUSIC COMPOSITION TEACHER EXAM DESCRIPTION: PC OCC BLOCK; PC PERIPHERAL BLOCK REASON FOR STUDY: increased dizziness and migraines x 1.5 weeks Chronic pain in the greater and lesser nerve distributions. COMPARISON: 08/25/2024 RADIATION DOSE: Dose: No fluoroscopy utilized TECHNIQUE/FINDINGS: Risks, benefits, alternatives of the procedure were explained to the patient and informed consent was obtained. The posterior neck was prepped and draped in the usual sterile fashion. A 23-gauge spinal needle was directed into the skin just inferior to the distribution of the greater and lesser occipital nerves in a mixture of a total of 10 mg (1 mL) of dexamethasone and 7 mL of 0.5% Marcaine were injected in a fan-shaped distribution across expected course of the greater and lesser occipital nerves. No complications occurred. THIS IS AN ELECTRONICALLY VERIFIED FINAL REPORT 12/08/2024 3:04 PM - Electronically signed by Sanjiv Chow M.D., JR: Report ID: [id number] Reading Location: [id number] Procedure Note Sanjiv Chow MD - 12/08/2024 EXAM DESCRIPTION: PC OCC BLOCK; PC PERIPHERAL BLOCK REASON FOR STUDY: increased dizziness and migraines x 1.5 weeks Chronic pain in the greater and lesser nerve distributions. COMPARISON: 08/25/2024 RADIATION DOSE: Dose: No fluoroscopy utilized TECHNIQUE/FINDINGS: Risks, benefits, alternatives of the procedure were explained to the patient and informed consent was obtained. The posterior neck was prepped and draped in the usual sterile fashion. A 23-gauge spinal needle was directed into the skin just inferior to the distribution of the greater and lesser occipital nerves in a mixture of a total of 10 mg (1 mL) of dexamethasone and 7 mL of 0.5% Marcaine were injected in a fan-shaped distribution across expected course of the greater and lesser occipital nerves. No complications occurred. THIS IS AN ELECTRONICALLY VERIFIED FINAL REPORT 12/08/2024 3:04 PM - Electronically signed by Sanjiv Chow M.D., JR: Report ID: [id number] Reading Location: [id number] IMPRESSION: Successful bilateral greater and lesser occipital nerve block. us Lilia Baxter APRN, PCB DESIGN ENGINEER IMG DIAGNOSTIC ORDER SEA Final Result * PC OCC BLOCK (12/08/2024 2:30 PM MUSIC COMPOSITION TEACHER) Anatomical Region Laterality Modality BODY N/A Radio Fluoroscop y 12/08/2024 3:04 PM MUSIC COMPOSITION TEACHER Impressions 12/08/2024 3:07 PM MUSIC COMPOSITION TEACHER IMPRESSION: Successful bilateral greater and lesser occipital nerve block. Narrative 12/08/2024 3:07 PM MUSIC COMPOSITION TEACHER EXAM DESCRIPTION: PC OCC BLOCK; PC PERIPHERAL BLOCK REASON FOR STUDY: increased dizziness and migraines x 1.5 weeks Chronic pain in the greater and lesser nerve distributions. COMPARISON: 08/25/2024 RADIATION DOSE: Dose: No fluoroscopy utilized TECHNIQUE/FINDINGS: Risks, benefits, alternatives of the procedure were explained to the patient and informed consent was obtained. The posterior neck was prepped and draped in the usual sterile fashion. A 23-gauge spinal needle was directed into the skin just inferior to the distribution of the greater and lesser occipital nerves in a mixture of a total of 10 mg (1 mL) of dexamethasone and 7 mL of 0.5% Marcaine were injected in a fan-shaped distribution across expected course of the greater and lesser occipital nerves. No complications occurred. THIS IS AN ELECTRONICALLY VERIFIED FINAL REPORT 12/08/2024 3:04 PM - Electronically signed by Sanjiv Chow M.D. JR: Report ID: [id number] Reading Location: [id number] Procedure Note Sanjiv Chow MD - 12/08/2024 EXAM DESCRIPTION: PC OCC BLOCK; PC PERIPHERAL BLOCK REASON FOR STUDY: increased dizziness and migraines x 1.5 weeks Chronic pain in the greater and lesser nerve distributions. COMPARISON: 08/25/2024 RADIATION DOSE: Dose: No fluoroscopy utilized TECHNIQUE/FINDINGS: Risks, benefits, alternatives of the procedure were explained to the patient and informed consent was obtained. The posterior neck was prepped and draped in the usual sterile fashion. A 23-gauge spinal needle was directed into the skin just inferior to the distribution of the greater and lesser occipital nerves in a mixture of a total of 10 mg (1 mL) of dexamethasone and 7 mL of 0.5% Marcaine were injected in a fan-shaped distribution across expected course of the greater and lesser occipital nerves. No complications occurred. THIS IS AN ELECTRONICALLY VERIFIED FINAL REPORT 12/08/2024 3:04 PM - Electronically signed by Sanjiv Chow M.D. JR: Report ID: [id number] Reading Location: [id number] IMPRESSION: Successful bilateral greater and lesser occipital nerve block. Lilia Baxter HAND SLITTER, PCB DESIGN ENGINEER IMG DIAGNOSTIC ORDER SEA Final Result * POC INFLUENZA A AND B BY MOLECULAR (11/16/2024 4:02 PM MUSIC COMPOSITION TEACHER) INFLUENZA A RNA Negative Negative, Invalid INFLUENZA B RNA Negative Negative, Invalid PROCEDURE CONTROL Valid 11/16/2024 4:02 PM MUSIC COMPOSITION TEACHER Nighat Lopez HAND SLITTER, AMMUNITION OFFICER POINT OF CARE TESTIN G (MANUAL) Final Result * POC GROUP A STREP BY MOLECULAR (11/16/2024 4:02 PM MUSIC COMPOSITION TEACHER) STREP A DNA Negative Negative, Invalid PROCEDURE CONTROL Valid 11/16/2024 4:02 PM MUSIC COMPOSITION TEACHER Nighat Lopez HAND SLITTER, AMMUNITION OFFICER POINT OF CARE TESTIN G (MANUAL) Final Result * POC SARS-COV-2 BY MOLECULAR (11/16/2024 4:01 PM MUSIC COMPOSITION TEACHER) SARSCOV2 Negative Negative, INVALID PROCEDURE CONTROL Valid 11/16/2024 4:01 PM MUSIC COMPOSITION TEACHER Nighat Rebecaeck HAND SLITTER, AMMUNITION OFFICER POINT OF CARE TESTIN G (MANUAL) Final Result * RHEUMATOLOGY CONSULT (11/03/2024 12:00 AM MUSIC COMPOSITION TEACHER) 11/03/2024 us Provider Scan GENERIC SCAN ORDERS CONSULT Sandra l Result SCAN * Hepatitis Panel Acute (AHP) (08/18/2023 4:38 AM MUSIC COMPOSITION TEACHER) HEPATITIS A IGM ANTIBODY NON DETECTED NON DETECTED [place] [id number] 08/18/2023 5:17 PM MUSIC COMPOSITION TEACHER [facility] Comment: IGM Antibodies to HAV not detected. Does not exclude early acute or recovered HAV infection. HEP B CORE AB (IGM) NON DETECTED NON DETECTED [place] [id number] 08/18/2023 5:17 PM MUSIC COMPOSITION TEACHER [facility] Comment:IGM anti-HBC not det ected. Does not exclude the possibility of exposure to or infection with HBV. HEPATITIS B SURFACE ANTIGEN NON DETECTED NON DETECTED [address] 08/18/2023 5:17 PM MUSIC COMPOSITION TEACHER [facility] Comment:A nonreactive test r esult does not exclude the possibility of exposure to or infection with Hepatitis B virus. A nonreactive test result in individuals with prior exposure to hepatitis B may be due to antigen levels below the detection limit of this assay or lack of antigen reactivity to the antibodies in this assay. hepatitis C antibody 0.10 <1 S/CO [address] 08/18/2023 5:17 PM MUSIC COMPOSITION TEACHER [facility] Comment: Signal/Cutoff ratio < 0.79 is Nondetected Signal/Cutoff ratio 0.80-0.99 is Grayzone Signal/Cutoff ratio > 0.99 is Detected Supplemental assays are recommended if signal/cutoff ratio is >/=1.00. Signal/cutoff ratio result >/= 5.00 is 97% predictive of positivity for recombinant immunoblot assay (RIBA) and will be reported to the [place] Department of Public Health as required. Blood Venipuncture / Unknown 08/18/2023 4:38 AM MUSIC COMPOSITION TEACHER 08/18/2023 4:43 AM MUSIC COMPOSITION TEACHER Felipe Schaefer MD HEMATOLOGY ORDERABLES Fin al Result [facility] [address] [place] [address], [place] from Last 3 Months or Most Recently Relevant to Health Maintenance Insurance [facility] CLAIMS Care Teams Jewelry Drilling Machine Operator Relationship Specialty Start Date End Date Derrick López MD #2 [facility] [address] [place] [address] PCP - General Family Medicine 03/24/18 Bernice Andres MD [address] [address] Consulting Physician Obstetrics & Gynecology 03/24/18 Lilia Baxter, HAND SLITTER, PCB DESIGN ENGINEER #2 [place] [address] Nurse Practitioner Advanced Practice Nurse 12/29/21 Kamron Guillory MD #[address] [address] Consulting Physician Colon and Rectal Surgery 01/29/23 Josephine Mansfield MD #[address] [address] Consulting Physician Endocrinology 07/05/23 Jaylon Villeda MD #[address] [place] [address] Consulting Physician Neurology 12/07/22
[2025-01-09 06:22] LABS: Basophils Percent Auto 0.7 % (0.2-1.2); Eosinophils Absolute Auto 0.1 K/mm3 (0-0.3); Eosinophils Percent Auto 1.3 % (0-4.4); Hematocrit 44.9 % (37.0-47.0); Hemoglobin 14.8 g/dL (12.0-15.0); Immature Granulocyte Absolute 0.01 K/mm3 (0.00-0.031); Immature Granulocyte Percent A 0.2 % (0-0.5); Lymphocytes Absolute Auto 3.25 K/mm3 (0.9-3.2); Lymphocytes Percent Auto 54.1 % (18.3-44.2); Mean Corpuscular Hemoglobin 28.7 pg (26-34); Mean Platelet Volume 8.9 fl (7.4-10.4); Monocytes Absolute Auto 0.5 K/mm3 (0.1-0.6); Monocytes Percent Auto 7.5 % (2.6-8.5); Neutrophils Absolute Auto 2.2 K/mm3 (1.3-6.7); Neutrophils Percent Auto 36.2 % (45.5-73.1); Platelet Count Result 348 k/mm3 (150-375); Red Blood Count 5.16 M/mm3 (4.2-5.4); Red Cell Distribution Width 12.6 % (11.5-14.5)
[2025-01-09 06:42] LABS: Alanine Aminotransferase 18 U/L (6-35); Albumin Level 4.9 g/dL (3.5-5.1); Alkaline Phosphatase 51 U/L (38-126); Anion Gap 13 mmol/L (4-12); Aspartate Amino Transferase 25 U/L (14-36); Bilirubin,Total 1.6 mg/dL (0.2-1.3); Blood Urea Nitrogen 10 mg/dL (7-17); Carbon Dioxide 22 mmol/L (22-30); Chloride 104 mmol/L (98-107); Estimated CRCL calculation 57 ml/min; Estimated Glomerular Filt Rate > 60; Glucose 106 mg/dL (65-110); Lipase 58 U/L (23-300); Potassium 4.2 mmol/L (3.4-5.0); Sodium 139 mmol/L (137-145)
[2025-01-09] MEDS: fentaNYL CITRATE INJ (*CRX) 100 MCG/2 ML VIAL 50 MCG IV PUSH (07:28)
[2025-01-09] MEDS: ONDANSETRON INJ 4 MG/2 ML VIAL IV PUSH (07:28)
[2025-01-09 07:33] LABS: BEDSIDEPREGUCG Negative (Negative)
[2025-01-09 07:36] LABS: Add Urine Microscopic? YES; Appearance Urine Cloudy (Clear); Bacteria Urine 1+ /hpf; Bilirubin Urine Negative (Negative); Blood Urine 2+ (Negative); Color Urine Dark Yellow (Yellow); Glucose Urine UA Negative (Negative); Ketones Urine Trace mg/dL (Negative); Leukocyte Esterase Ur Negative LEU/UL (Negative); Mucus Urine Present /lpf; Need Manual Microscopic Reviewed; Nitrate Urine Negative (Negative); Non Pathogenic Casts 0-2; Protein Urine 1+ mg/dL (Negative); Specific Grav Ur 1.028 (1.001-1.035); Squamous Epithelial Cell Urine Moderate /hpf (Few)
--- OUTSIDE RECORDS SUMMARY | 2025-01-09 08:10 | XMS_ITS | Encounter Summary ---
Author Organization [facility] Address [address] [place] [address] Phone Care Team Providers Care Mold Construction Supervisor Name Role Phone Derrick López MD Primary Care Provider [phone] Bernice Andres MD Unavailable [phone] Lilia aBxter APRN, [facility] Unavailable [phone] Kamron Guillory MD Unavailable Josephine Mansfield MD Unavailable Jaylon Villeda MD Unavailable [phone] Reason for Visit * Reason Comments Medication Refill Encounter Details Date Type Department Care Team (Late st Contact Info) Description 08/11/2021 Refill [facility] - Family Medicine [facility] #2 [place] [address] Lazarus Bowden, COFFEE BLENDER, CHEMIST FOOD #[address] [address] Medication Refill Social History Tobacco Use Types [...] Info) Description 02/17/2025 4:00 PM CDT Telemedicine [facility] Medical [facility] - Family Medicine [facility] #2 [place] [address] Derrick López MD #[address] [address] 05/24/2025 12:30 PM CDT Telemedicine [facility] - Neurology [facility] #2 [place] [address] Lilia Baxter APRN, IRON MINER BLASTING #2 [place] [address] documented as of this encounter Visit Diagnoses Diagnosis Intractable chronic migraine without aura and with status migrainosus Chronic migraine without aura, with intractable migraine, so stated, with status migrainosus documented in this encounter Additional Health Concerns Infection Onset Date Last Indicated Resolved Time COVID - 19 08/02/2021 08/02/2021 08/22/2021 12:1 6 AM MANAGER PLUMBING COVID - 19 10/24/2021 10/27/2021 11/16/2021 12:1 6 AM MANAGER PLUMBING COVID - 19 Confirmed 10/27/2021 10/27/2021 022 12:16 AM MANAGER PLUMBING COVID - 19 04/25/2022 04/26/2022 05/05/2022 12:1 6 AM CDT COVID - 19 11/22/2023 11/22/2023 11/25/2023 9:26 AM MANAGER PLUMBING COVID - 19 11/27/2023 11/27/2023 11/27/2023 5:02 PM MANAGER PLUMBING Respiratory Rule-Out 11/27/2023 11/27/2023 024 5:01 PM MANAGER PLUMBING COVID - 19 02/02/2024 02/02/2024 02/02/2024 3:51 PM CDT COVID - 19 05/26/2024 05/26/2024 05/26/2024 4:2 6 PM CDT COVID - 19 05/28/2024 05/28/2024 05/28/2024 1:37 PM CDT COVID - 19 06/04/2024 06/04/2024 06/04/2024 11:3 2 AM CDT Respiratory Rule-Out 09/15/2024 09/15/2024 024 1:59 PM MANAGER PLUMBING Respiratory Rule-Out 11/16/2024 11/16/2024 025 4:04 PM MANAGER PLUMBING COVID - 19 11/16/2024 11/16/2024 11/16/2024 4:02 PM MANAGER PLUMBING Assessment Noted Time PHQ-9 Depression Total Score: 0 07/20/20 20 3:35 PM CDT documented as of this encounter Care Teams Mold Construction Supervisor Relationship Specialty Start Date End Date Derrick López MD #[address] [address] PCP - General Family Medicine 03/24/18 Bernice Andres MD 9450 [facility] 206 [place] [address] Consulting Physician Obstetrics & Gynecology 03/24/18 Lilia Baxter APRN, IRON MINER BLASTING #2 [place] [address] Nurse Practitioner Advanced Practice Nurse 12/29/21 Kamron Guillory MD #[address] [address] Consulting Physician Colon and Rectal Surgery 01/29/23 Josephine Mansfield MD #[address] [address] Consulting Physician Endocrinology 07/05/23 Jaylon Villeda MD #2 [place] [address] Consulting Physician Neurology 12/07/22 documented as of this encounter
--- OUTSIDE RECORDS SUMMARY | 2025-01-09 08:10 | XMS_ITS | Encounter Summary ---
Author Organization [facility] Address [address] [place] [address] Phone Care Team Providers Care Centerless Grinder Set Up Operator Name Role Phone Derrick López MD Primary Care Provider [phone] Bernice Andres MD Unavailable Lilia Baxter APRN, APPLICATION DEVELOPER Unavailable [phone] Kamron Guillory MD Unavailable Josephine Mansfield MD Unavailable Jaylon Villeda MD Unavailable Reason for Visit * Reason Comments Medication Refill Encounter Details Date Type Department Care Team (Late st Contact Info) Description 08/11/2021 Refill [facility] [address] [place] [address] Derrick López MD #[address] [address] Medication Refill Social History Tobacco Use Types [...] 12/15/20 Office Visit Lazarus Bowden APRN, A[facility] [place] 07/20/20 Office Visit Lazarus Bowden APRN, ADE [facility] Showing recent visits within past 730 [...] Info) Description 02/17/2025 4:00 PM CDT Telemedicine [facility] - Family Medicine - [place] #2 [place] [address] Derrick López MD #[address] [address] 05/24/2025 12:30 PM CDT Telemedicine [facility] - Neurology - [place] #2 [place] [address] Lilia Baxter APRN, APPLICATION DEVELOPER #2 [place] [address] documented as of this encounter Visit Diagnoses Diagnosis Intractable chronic migraine without aura and with status migrainosus Chronic migraine without aura, with intractable migraine, so stated, with status migrainosus documented in this encounter Additional Health Concerns Infection Onset Date Last Indicated Resolved Time COVID - 19 08/02/2021 08/02/2021 08/22/2021 12:1 6 AM BLADE BALANCER COVID - 19 10/24/2021 10/27/2021 11/16/2021 12:1 6 AM BLADE BALANCER COVID - 19 Confirmed 10/27/2021 10/27/2021 022 12:16 AM BLADE BALANCER COVID - 19 04/25/2022 04/26/2022 05/05/2022 12:1 6 AM CDT COVID - 19 11/22/2023 11/22/2023 11/25/2023 9:26 AM BLADE BALANCER COVID - 19 11/27/2023 11/27/2023 11/27/2023 5:02 PM BLADE BALANCER Respiratory Rule-Out 11/27/2023 11/27/2023 024 5:01 PM BLADE BALANCER COVID - 19 02/02/2024 02/02/2024 02/02/2024 3:51 PM CDT COVID - 19 05/26/2024 05/26/2024 05/26/2024 4:26 PM CDT COVID - 19 05/28/2024 05/28/2024 05/28/2024 1:37 PM CDT COVID - 19 06/04/2024 06/04/2024 06/04/2024 11:3 2 AM CDT Respiratory Rule-Out 09/15/2024 09/15/2024 024 1:59 PM BLADE BALANCER Respiratory Rule-Out 11/16/2024 11/16/2024 025 4:04 PM BLADE BALANCER COVID - 19 11/16/2024 11/16/2024 11/16/2024 4:02 PM BLADE BALANCER Assessment Noted Time PHQ-9 Depression Total Score: 0 07/20/20 3:35 PM CDT documented as of this encounter Care Teams Centerless Grinder Set Up Operator Relationship Specialty Start Date End Date Derrick López MD #[address] [address] PCP - General Family Medicine 03/24/18 Bernice Andres MD [address] [address] Consulting Physician Obstetrics & Gynecology 03/24/18 Lilia Baxter, DATA VIRTUALIZATION CONSULTANT, APPLICATION DEVELOPER #2 [place] [address] Nurse Practitioner Advanced Practice Nurse 12/29/21 Kamron Guillory MD [address] [address] Consulting Physician Colon and Rectal Surgery 01/29/23 Josephine Mansfield MD #2 [facility] [address] [address] Consulting Physician Endocrinology 07/05/23 Jaylon Villeda MD #2 [place] [address] Consulting Physician Neurology 12/07/22 documented as of this encounter
--- OUTSIDE RECORDS SUMMARY | 2025-01-09 08:11 | XMS_ITS | Encounter Summary ---
Author Organization [facility] Address [address] [place] [address] Phone Care Team Providers Care Pathological Technician Name Role Phone Derrick López MD Primary Care Provider [phone] Bernice Andres MD Unavailable Lilia Baxter APRN, [facility] Unavailable [phone] Kamron Guillory MD Unavailable Josephine Mansfield MD Unavailable Jaylon Villeda MD Unavailable Reason for Visit * Reason Onset Date Comments Prior Authorization 08/20/2023 SITE DENIED, NEEDS PEER TO PEER . Encounter Details Date Type Department Care Team (Late Contact Info) Description 08/20/2023 Telephone [facility] Outpatient [address] [place] [address] Derrick López MD #[address] [address] Prior Authorization (SITE DENIED, NEEDS PEER TO [...] Coronavirus/COVID-19? No / Unsure 08/14/2023 1:55 PM BOARD CERTIFIED MUSIC THERAPIST documented as of this encounter Miscellaneous Notes * Telephone Encounter - Derrick López MD - 08/26/2023 2:05 PM BOARD CERTIFIED MUSIC THERAPIST Thanks for the update. In that case, please cancel it out. Thanks! D CERTIFIED MUSIC THERAPIST * Telephone Encounter - Davina Irwin RN [...] was ordered by another doctor while inpatient. D CERTIFIED MUSIC THERAPIST * Telephone Encounter - Hannah Hoyt RN - 08/26/2023 12:19 PM BOARD CERTIFIED MUSIC THERAPIST Received call from Wilberto with [facility] regarding this situation. She states the test was done STAT and now requires a peer to peer to cover the cost. Spoke to PCP and [facility] and he states he will do a peer to peer. [facility] given that information. PCP instructs to have nurse schedule. Routing for that purpose. D CERTIFIED MUSIC THERAPIST * Telephone Encounter - Jeimy Hollis - [...] not been scheduled or completed. Please respond. D CERTIFIED MUSIC THERAPIST * Telephone Encounter - Jeimy Hollis - 08/22/2023 9:31 AM CST Will a Peer to Peer be done for this? D CERTIFIED MUSIC THERAPIST * Telephone Encounter - Jeimy Hollis - 08/20/2023 2:06 PM CST Patient already had this test done on 08/18/2023 as it was ordered STAT. It needs a Peer to Peer done by Dr López to try to get insurance to cover it. D CERTIFIED MUSIC THERAPIST * Telephone Encounter - Derrick López MD - 08/20/2023 1:19 PM BOARD CERTIFIED MUSIC THERAPIST Please cancel this test for now. Thanks! D CERTIFIED MUSIC THERAPIST * Telephone Encounter - Jeimy Hollis - 08/20/2023 12:19 PM CST Auth Denied-P2P offered Ordering Provider: Internal Appointment Info: No associated appointments Payor + Plan: DEANN - DEANN CPT/Test: 06157 CT ABDOMEN PELVIS W/ CONTRAST Authorization denied through: [employer] Estimated Amount [Full Charges]: $6219.00 Reason for denial: We are unable to approve the requested service(s) to be received at [facility]. We have made your health care [...] setting under a new or revised authorization: 34211 Computed Tomography (CT), a special kind of picture of your abdomen (stomach area) and pelviswith contrast (dye) The request for the approved service(s) to be provided at [facility] is denied. Please see the ???What???s [...] We found that receiving these services at [facility] is not medically necessary in your case: Based on [facility] Radiology Coverage Policy, we cannot approve [...] to Peer review expires: 09/03/2023 Case #: [id number] Phone #: [phone] Physician: Derrick López MD Phys. Notified? Yes Notification Made to Patient: No If no, provide reason: Test already complete D CERTIFIED MUSIC THERAPIST documented in this encounter Plan of Treatment Upcoming Encounters Date Type Department Care Team (Late st Contact Info) Description 02/17/2025 4:00 PM CDT Telemedicine [facility] Medical [facility] - Family Medicine [facility] #2 [place] [address] Derrick López MD #[address] [address] 05/24/2025 12:30 PM CDT Telemedicine [facility] - Neurology - [place] #2 [place] [address] Lilia Baxter APRN, DEFENSE ATTORNEY #2 [place] [address] documented as of this encounter Visit Diagnoses Not on filedocumented in this encounter Additional Health Concerns Infection Onset Date Last Indicated Resolved Time COVID - 19 11/22/2023 11/22/2023 11/25/2023 9:26 AM BOARD CERTIFIED MUSIC THERAPIST COVID - 19 11/27/2023 11/27/2023 11/27/2023 5:02 PM BOARD CERTIFIED MUSIC THERAPIST Respiratory Rule-Out 11/27/2023 11/27/2023 024 5:01 PM BOARD CERTIFIED MUSIC THERAPIST COVID - 19 02/02/2024 02/02/2024 02/02/2024 3:51 PM CDT COVID - 19 05/26/2024 05/26/2024 05/26/2024 4:26 PM CDT COVID - 19 05/28/2024 05/28/2024 05/28/2024 1:37 PM CDT COVID - 19 06/04/2024 06/04/2024 06/04/2024 11:3 2 AM CDT Respiratory Rule-Out 09/15/2024 09/15/2024 024 1:59 PM BOARD CERTIFIED MUSIC THERAPIST Respiratory Rule-Out 11/16/2024 11/16/2024 025 4:04 PM BOARD CERTIFIED MUSIC THERAPIST COVID - 19 11/16/2024 11/16/2024 11/16/2024 4:02 PM BOARD CERTIFIED MUSIC THERAPIST Assessment Noted Time PHQ-9 Depression Total Score: 0 05/22/20 11:18 AM CDT documented as of this encounter Care Teams Pathological Technician Relationship Specialty Start Date End Date Derrick López MD #[address] [address] PCP - General Family Medicine 03/24/18 Bernice Andres MD [address] [address] Consulting Physician Obstetrics & Gynecology 03/24/18 Lilia Baxter, KAIAWHINA, DEFENSE ATTORNEY #2 [place] [address] Nurse Practitioner Advanced Practice Nurse 12/29/21 Kamron Guillory MD #[address] [address] Consulting Physician Colon and Rectal Surgery 01/29/23 Josephine Mansfield MD #[address] [address] Consulting Physician Endocrinology 07/05/23 Jaylon Villeda MD #2 [place] [address] Consulting Physician Neurology 12/07/22 documented as of this encounter
--- OUTSIDE RECORDS SUMMARY | 2025-01-09 08:11 | XMS_ITS | Encounter Summary ---
Author Organization [facility] Address [address] [facility] [place] [address] Phone Care Team Providers Care Risk Mgr Name Role Phone Derrick López MD Primary Care Provider [phone] Bernice Andres MD Unavailable Lilia Baxter APRN, SENIOR PRIVATE CLIENT ADVISOR Unavailable [phone] Kamron Guillory MD Unavailable Josephine Mansfield MD Unavailable Jaylon Villeda MD Unavailable [phone] Reason for Visit * Reason Comments Medication Refill Encounter Details Date Type Department Care Team (Late st Contact Info) Description 12/27/2023 Refill [facility] - Family [facility] #2 [place] [address] Derrick López MD #[address] [address] Medication Refill Social History Tobacco Use Types [...] Info) Description 02/17/2025 4:00 PM CDT Telemedicine [facility] - Family Medicine - [place] #2 [place] [address] Derrick López MD #[address] [address] 05/24/2025 12:30 PM CDT Telemedicine [facility] - Neurology - [place] #2 [place] [address] Lilia Baxter APRN, SENIOR PRIVATE CLIENT ADVISOR #2 [place] [address] documented as of this encounter Visit Diagnoses [...] Respiratory Rule-Out 09/15/2024 09/15/2024 024 1:59 PM PHARMACY SERVICES DIRECTOR Respiratory Rule-Out 11/16/2024 11/16/2024 025 4:04 PM PHARMACY SERVICES DIRECTOR COVID - 19 11/16/2024 11/16/2024 11/16/2024 4:02 PM PHARMACY SERVICES DIRECTOR Assessment Noted Time PHQ-9 Depression Total Score: 0 05/22/20 23 11:18 AM CDT documented as of this encounter Care Teams Risk Mgr Relationship Specialty Start Date End Date Derrick López MD #2 [facility] [address] [place] [address] PCP - General Family Medicine 03/24/18 Bernice Andres MD 9450 [facility] [address] [place] [address] Consulting Physician Obstetrics & Gynecology 03/24/18 Lilia Baxter APRN, SENIOR PRIVATE CLIENT ADVISOR #2 [place] [address] Nurse Practitioner Advanced Practice Nurse 12/29/21 Kamron Guillory MD #[address] [address] Consulting Physician Colon and Rectal Surgery 01/29/23 Josephine Mansfield MD #[address] [address] Consulting Physician Endocrinology 07/05/23 Jaylon Villeda MD #2 [place] [address] Consulting Physician Neurology 12/07/22 documented as of this encounter
--- OUTSIDE RECORDS SUMMARY | 2025-01-09 08:11 | XMS_ITS | Encounter Summary ---
Author Organization [facility] Address [address] [facility] [place] [address] Phone Care Team Providers Care Software Engineer Sales Name Role Phone Derrick López MD Primary Care Provider [phone] Bernice Andres MD Unavailable Lilia Baxter APRN, FICTION AND NONFICTION WRITER PROSE Unavailable [phone] Kamron Guillory MD Unavailable Josephine Mansfield MD Unavailable Jaylon Villeda MD Unavailable Reason for Visit * Reason Comments Medication Refill Encounter Details Date Type Department Care Team (Late st Contact Info) Description 07/15/2020 Refill [facility] - Family [facility] #2 [place] [address] Derrick López MD #[address] [address] Medication Refill Social History Tobacco Use Types [...] CDT Requested Prescriptions Pending Prescriptions Disp Refills xtjztvakim-hebuvopdjoydj-nzrfbtlm-codeine (FIORICET WITH CODEINE) 42-529-43-30 MG Capsule [PharmacyMed Name: BUTAL/ACETA/CAFF/COD [id number]] 30 Cap Sig: TAKE ONE CAPSULE BY MOUTH EVERY 4 HOURS NEEDED FOR PAIN Not Delegated - Analgesics: Opioid Agonist Combinations Failed - 07/15/2020 10:17 AM Failed - Valid encounter within last 6 months Past Office Visits Recent Outpatient Visits 1 year ago Vitamin D insufficiency [facility] - Family [facility] - Derrick Lujan MD 1 year ago Pharyngitis, unspecified etiology [facility] - Derrick Lujan MD 1 year ago Sore throat [facility] - Lazarus Cui APN, ASSOCIATE PROFESSOR OF ANTHROPOLOGY 1 year ago Strain of neck muscle, initial encounter [facility] - Derrick Lujan MD 2 years ago Muscle contraction headache syndrome [facility] - FAMILY [facility] - Romina Torres PAC Upcoming Appointments FOOD SERVICE AIDE - Recent and Past Visits Recent Visits Date Type Provider Dept 06/12/19 Office Visit Derrick López MD [facility] [place] 05/21/19 [facility] 05/18/19 Office Visit Lazarus Bowden APN, ASSOCIATE PROFESSOR OF ANTHROPOLOGY [facility] Showing recent visits within past 460 [...] CDT Telemedicine [facility] - Family Medicine - [place] #2 [place] [address] Derrick López MD #[address] [address] 05/24/2025 12:30 PM CDT Telemedicine [facility] - Neurology - [place] #2 [place] [address] Lilia Baxter APRN, FICTION AND NONFICTION WRITER PROSE #2 [place] [address] documented as of this encounter Visit Diagnoses Not on filedocumented in this encounter Additional Health Concerns Infection Onset Date Last Indicated Resolved Time COVID - 19 08/02/2021 08/02/2021 08/22/2021 12:1 6 AM HATCHERY MAN COVID - 19 10/24/2021 10/27/2021 11/16/2021 12:1 6 AM HATCHERY MAN COVID - 19 Confirmed 10/27/2021 10/27/2021 022 12:16 AM HATCHERY MAN COVID - 19 04/25/2022 04/26/2022 05/05/2022 12:1 6 AM CDT COVID - 19 11/22/2023 11/22/2023 11/25/2023 9:26 AM HATCHERY MAN COVID - 19 11/27/2023 11/27/2023 11/27/2023 5:02 PM HATCHERY MAN Respiratory Rule-Out 11/27/2023 11/27/2023 024 5:01 PM HATCHERY MAN COVID - 19 02/02/2024 02/02/2024 02/02/2024 3:51 PM CDT COVID - 19 05/26/2024 05/26/2024 05/26/2024 4:26 PM CDT COVID - 19 05/28/2024 05/28/2024 05/28/2024 1:37 PM CDT COVID - 19 06/04/2024 06/04/2024 06/04/2024 11:3 2 AM CDT Respiratory Rule-Out 09/15/2024 09/15/2024 024 1:59 PM HATCHERY MAN Respiratory Rule-Out 11/16/2024 11/16/2024 025 4:04 PM HATCHERY MAN COVID - 19 11/16/2024 11/16/2024 11/16/2024 4:02 PM HATCHERY MAN Assessment Noted Time PHQ-9 Depression Total Score: 0 06/12/20 19 10:00 AM CDT documented as of this encounter Care Teams Software Engineer Sales Relationship Specialty Start Date End Date Derrick López MD #[address] [address] PCP - General Family Medicine 03/24/18 Bernice Andres MD 9450 [facility] [address] [place] [address] Consulting Physician Obstetrics & Gynecology 03/24/18 Lilia Baxter APRN, FICTION AND NONFICTION WRITER PROSE #2 [place] [address] Nurse Practitioner Advanced Practice Nurse 12/29/21 Kamron Guillory MD #[address] [address] Consulting Physician Colon and Rectal Surgery 01/29/23 Josephine Mansfield MD #[address] [address] Consulting Physician Endocrinology 07/05/23 Jaylon Villeda MD #2 [place] [address] Consulting Physician Neurology 12/07/22 documented as of this encounter
--- OUTSIDE RECORDS SUMMARY | 2025-01-09 08:11 | XMS_ITS | Encounter Summary ---
Author Organization [facility] Address [address] [facility] [place] [address] Phone Care Team Providers Care Supervisor Curing Room Name Role Phone Derrick López MD Primary Care Provider [phone] Bernice Andres MD Unavailable [phone] Lilia Baxter APRN, LIBRARIAN HELPER Unavailable [phone] Kamron Guillory MD Unavailable Josephine Mansfield MD Unavailable Jaylon Villeda MD Unavailable [phone] Reason for Visit * Reason Comments Medication Refill Encounter Details Date Type Department Care Team (Late st Contact Info) Description 10/12/2021 Refill [facility] - Neurology [facility] #2 [place] [phone] Lilia Baxter APRN, LIBRARIAN HELPER #2 [place] [address] Medication Refill Social History Tobacco Use Types [...] COVID-19? No / Unsure 10/05/2021 10:57 AM BOOKMAKER'S CLERK documented as of this encounter Plan of Treatment Upcoming Encounters Date Type Department Care Team (Late st Contact Info) Description 02/17/2025 4:00 PM CDT Telemedicine [facility] Medical [facility] - Family Medicine [facility] #2 [place] [address] Derrick López MD #[address] [address] 05/24/2025 12:30 PM CDT Telemedicine [facility] - Neurology [facility] #2 [place] [address] Lilia Baxter APRN, LIBRARIAN HELPER #2 [place] [address] documented as of this encounter Visit Diagnoses Diagnosis Intractable chronic migraine without aura and with status migrainosus Chronic migraine without aura, with intractable migraine, so stated, with status migrainosus documented in this encounter Additional Health Concerns Infection Onset Date Last Indicated Resolved Time COVID - 19 10/24/2021 10/27/2021 11/16/2021 12:1 6 AM BOOKMAKER'S CLERK COVID - 19 Confirmed 10/27/2021 10/27/2021 022 12:16 AM BOOKMAKER'S CLERK COVID - 19 04/25/2022 04/26/2022 05/05/2022 12:1 6 AM CDT COVID - 19 11/22/2023 11/22/2023 11/25/2023 9:26 AM BOOKMAKER'S CLERK COVID - 19 11/27/2023 11/27/2023 11/27/2023 5:02 PM BOOKMAKER'S CLERK Respiratory Rule-Out 11/27/2023 11/27/2023 024 5:01 PM BOOKMAKER'S CLERK COVID - 19 02/02/2024 02/02/2024 02/02/2024 3:51 PM CDT COVID - 19 05/26/2024 05/26/2024 05/26/2024 4:26 PM CDT COVID - 19 05/28/2024 05/28/2024 05/28/2024 1:37 PM CDT COVID - 19 06/04/2024 06/04/2024 06/04/2024 11:3 2 AM CDT Respiratory Rule-Out 09/15/2024 09/15/2024 024 1:59 PM BOOKMAKER'S CLERK Respiratory Rule-Out 11/16/2024 11/16/2024 025 4:04 PM BOOKMAKER'S CLERK COVID - 19 11/16/2024 11/16/2024 11/16/2024 4:02 PM BOOKMAKER'S CLERK Assessment Noted Time PHQ-9 Depression Total Score: 0 07/20/20 3:35 PM CDT documented as of this encounter Care Teams Supervisor Curing Room Relationship Specialty Start Date End Date Derrick López MD #[address] [address] PCP - General Family Medicine 03/24/18 Bernice Andres MD [address] [address] Consulting Physician Obstetrics & Gynecology 03/24/18 Lilia Baxter APRN, LIBRARIAN HELPER #2 [place] [address] Nurse Practitioner Advanced Practice Nurse 12/29/21 Kamron Guillory MD #[address] [address] Consulting Physician Colon and Rectal Surgery 01/29/23 Josephine Mansfield MD #[address] [address] Consulting Physician Endocrinology 07/05/23 Jaylon Villeda MD #2 [place] [address] Consulting Physician Neurology 12/07/22 documented as of this encounter
--- OUTSIDE RECORDS SUMMARY | 2025-01-09 08:11 | XMS_ITS | Encounter Summary ---
Author Organization [facility] Address [address] [facility] [place] [address] Phone Care Team Providers Care Vice President Medical Affairs Name Role Phone Derrick López MD Primary Care Provider [phone] Bernice Andres MD Unavailable [phone] Lilia Baxter APRN, LIGHT CLEANER Unavailable [phone] Kamron Guillory MD Unavailable Josephine Mansfield MD Unavailable Jaylon Villeda MD Unavailable Reason for Visit * Reason Comments Medication Refill Encounter Details Date Type Department Care Team (Late st Contact Info) Description 04/25/2022 Refill [facility] - [facility]rology [facility] #[address] [place] [phone] Lilia Baxter APRN, LIGHT CLEANER [address]2 [place] [address] Medication Refill Social History Tobacco Use Types [...] [facility] - [facility] Medicine - [place] #2 [place] [address] Derrick López MD #[address] [address] 05/24/2025 12:30 PM CDT Telemedicine [facility] - Neurology [facility] [place] [address] [place] [address] Lilia Baxter APRN, LIGHT CLEANER [address]2 [place] [address] documented as of this encounter Visit Diagnoses Diagnosis Chronic migraine w/o aura 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, not intractable Chronic migraine without aura, without mention of intractable migraine without mention of status migrainosus documented in this encounter Additional Health Concerns Infection Onset Date Last Indicated Resolved Time COVID - 19 04/25/2022 04/26/2022 05/05/2022 12:1 6 AM CDT COVID - 19 11/22/2023 11/22/202311/2511/25/2023 9:26 AM SMALL PACKAGE AND BUNDLE SORTER CLERK COVID - 19 11/27/2023 11/27/2023 11/27/2023 5:02 PM SMALL PACKAGE AND BUNDLE SORTER CLERK Respiratory Rule-Out 11/27/2023 11/27/2023 024 5:01 PM SMALL PACKAGE AND BUNDLE SORTER CLERK COVID - 19 02/02/2024 02/02/2024 02/02/2024 3:51 PM CDT COVID - 19 05/26/2024 05/26/2024 05/26/2024 4:26 PM CDT COVID - 19 05/28/2024 05/28/2024 05/28/2024 1:37 PM CDT COVID - 19 06/04/2024 06/04/2024 06/04/2024 11:3 2 AM CDT Respiratory Rule-Out 09/15/2024 09/15/2024 024 1:59 PM SMALL PACKAGE AND BUNDLE SORTER CLERK Respiratory Rule-Out 11/16/2024 11/16/2024 025 4:04 PM SMALL PACKAGE AND BUNDLE SORTER CLERK COVID - 19 11/16/2024 11/16/2024 11/16/2024 4:02 PM SMALL PACKAGE AND BUNDLE SORTER CLERK Assessment Noted Time PHQ-9 Depression Total Score: 0 07/20/20 3:35 PM CDT documented as of this encounter Care Teams Vice President Medical Affairs Relationship Specialty Start Date End Date Derrick López MD #[address] [address] PCP - General Family Medicine 03/24/18 Bernice Andres MD [address] [facility] [address] [place] [address] Consulting Physician Obstetrics & Gynecology 03/24/18 Lilia Baxter APRN, LIGHT CLEANER [address]2 [place] [address] Nurse Practitioner Advanced Practice Nurse 12/29/21 Kamron Guillory MD #[address] [address] Consulting Physician Colon and Rectal Surgery 01/29/23 Josephine Mansfield MD #[address] [address] Consulting Physician Endocrinology 07/05/23 Jaylon Villeda MD #2 [place] [address] Consulting Physician Neurology 12/07/22 documented as of this encounter
--- OUTSIDE RECORDS SUMMARY | 2025-01-09 08:11 | XMS_ITS | Encounter Summary ---
Author Organization [facility] Address [address] [facility] [place] [address] Phone Care Team Providers Care Emt Paramedic Name Role Phone Derrick López MD Primary Care Provider [phone] Bernice Andres MD Unavailable Lilia Baxter APRN, LIQUOR BRIDGE OPERATOR Unavailable [phone] Kamron Guillory MD Unavailable Josephine Mansfield MD Unavailable Jaylon Villeda MD Unavailable [phone] Reason for Visit * Reason Comments Medication Refill Encounter Details Date Type Department Care Team (Late st Contact Info) Description 04/26/2023 Refill [facility] - Neurology [facility] #2 [place] [address] Lilia Baxter APRN, LIQUOR BRIDGE OPERATOR #2 [place] [address] Medication Refill Social History Tobacco Use Types [...] appropriate. Requested Prescriptions Pending Prescriptions Disp Refills emxltokzdx-tgqwrfzowrrfs-tdnbcrys-codeine (FIORICET WITH CODEINE) [id number] MG Capsule [PharmacyMed Name: BUT/ACETA/CAFF/COD CAP [id number]] 15 Capsule Sig: TAKE 1 CAPSULE BY MOUTH EVERY 4 HOURS NEEDED FOR PAIN Not Delegated - Butalbital Protocol Failed - 04/26/2023 9:21 PM Failed - This refill cannot be delegated; check utilization Passed - Visit with relevant provider in past 24 months or upcoming 90 days Recent Visits Date Type Provider Dept 02/22/23 Telemedicine Lilia Baxter APRN, LIQUOR BRIDGE OPERATOR [facility] 01/29/23 Office Visit Derrick López MD [facility] 01/01/23 Telemedicine Derrick López MD [facility] 12/28/22 Telemedicine Lilia Baxter APRN, LIQUOR BRIDGE OPERATOR [facility] 12/13/22 Office Visit Derrick López MD [facility] 12/07/22 Office Visit Jaylon Villeda MD [facility] 10/31/22 Telemedicine Lilia Baxter APRN, [facility] 07/20/22 Office Visit Lilia Baxter APRN, [facility] 06/08/22 Office Visit Lilia Baxter APRN, [facility] 06/01/22 Office Visit Neena Rose, [facility] recent visits within past 730 days and meeting all other requirements Future Appointments Date Type Provider Dept 05/07/23 Appointment Derrick [facility] MD [facility] 05/31/23 Appointment Lilia Baxter APRN, RAINE [facility] Showing future appointments within next 90 days [...] Dept 02/22/23 Telemedicine Lilia Baxter APRN, RAINE [facility] 01/29/23 Office Visit Derrick López MD [facility] [place] 01/01/23 Telemedicine Derrick López MD [facility] [place] 12/28/22 Telemedicine Lilia Baxter APRN, RA[facility] 12/13/22 Office Visit Derrick López MD [facility] 12/07/22 Office Visit Jaylon Villeda MD [facility] 10/31/22 Telemedicine Lilia Baxter APRN, RAINE [facility] 07/20/22 Office Visit Lilia Baxter APRN, [facility] Neu[facility] 06/08/22 Office Visit Lilia Baxter APRN, [facility] 06/[facility]/22 Office Visit Neena Rose [facility] Showing recent visits within past 365 days and meeting all other requirements Future Appointments Date Type Provider Dept 05/07/23 Appointment Derrick López MD [facility] 05/31/23 Appointment Lilia Baxter APRN, [facility] Neurology [facility] Showing future appointments within next 90 days and meeting all other requirements documented in this encounter Plan of Treatment Upcoming Encounters Date Type Department Care Team (Late st Contact Info) Description 02/17/2025 4:00 PM CDT Telemedicine [facility] Family Medicine [facility] #2 [place] [address] Derrick López MD #[address] [address] 05/24/2025 12:30 PM CDT Telemedicine [facility] Neurology [facility] #2 [place] [address] Lilia Baxter APRN, [facility] #2 [place] [address] documented as of this encounter Visit Diagnoses Diagnosis Chronic migraine w/o aura 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, not intractable Chronic migraine without aura, without mention of intractable migraine without mention of status migrainosus documented in this encounter Additional Health Concerns Infection Onset Date Last Indicated Resolved Time COVID - 19 11/22/2023 11/22/2023 11/25/2023 9:26 AM INBOUND SALES CONSULTANT COVID - 19 11/27/2023 11/27/2023 11/27/2023 5:02 PM INBOUND SALES CONSULTANT Respiratory Rule-Out 11/27/2023 11/27/2023 024 5:01 PM INBOUND SALES CONSULTANT COVID - 19 02/02/2024 02/02/2024 02/02/2024 3:51 PM CDT COVID - 19 05/26/2024 05/26/2024 05/26/2024 4:26 PM CDT COVID - 19 05/28/2024 05/28/2024 05/28/2024 1:37 PM CDT COVID - 19 06/04/2024 06/04/2024 06/04/2024 11:3 2 AM CDT Respiratory Rule-Out 09/15/2024 09/15/2024 024 1:59 PM INBOUND SALES CONSULTANT Respiratory Rule-Out 11/16/2024 11/16/2024 025 4:04 PM INBOUND SALES CONSULTANT COVID - 19 11/16/2024 11/16/2024 11/16/2024 4:02 PM INBOUND SALES CONSULTANT Assessment Noted Time PHQ-9 Depression Total Score: 0 07/20/20 3:35 PM CDT documented as of this encounter Care Teams Emt Paramedic Relationship Specialty Start Date End Date Derrick López MD #2 [facility] 205 [place] [address] PCP - General Family Medicine 03/24/18 Bernice Andres MD 9450 [facility] 206 [place] [address] Consulting Physician Obstetrics & Gynecology 03/24/18 Lilia Baxter, ELECTRONIC ENGINEERING TECHNICIAN, LIQUOR BRIDGE OPERATOR #2 [place] [address] Nurse Practitioner Advanced Practice Nurse 12/29/21 Kamron Guillory MD #2 [facility] [address] [place] [address] Consulting Physician Colon and Rectal Surgery 01/29/23 Josephine Mansfield MD #[address] [address] Consulting Physician Endocrinology 07/05/23 Jaylon Villeda MD #2 [place] [address] Consulting Physician Neurology 12/07/22 documented as of this encounter
--- OUTSIDE RECORDS SUMMARY | 2025-01-09 08:11 | XMS_ITS | Encounter Summary ---
Author Organization [facility] Address [address] [facility] [place] [address] Phone Care Team Providers Care Stonecutter Assistant Name Role Phone Derrick López MD Primary Care Provider [phone] Bernice Andres MD Unavailable Lilia Baxter APRN, CASTINGS TRIMMER Unavailable [phone] Kamron Guillory MD Unavailable Josephine Mansfield MD Unavailable Jaylon Villeda MD Unavailable [phone] Reason for Visit * Reason Comments Medication Refill Encounter Details Date Type Department Care Team (Late st Contact Info) Description 03/13/2022 Refill [facility] #2 [place] [address] Derrick López MD #[address] [address] Medication Refill Social History Tobacco Use Types [...] Info) Description 02/17/2025 4:00 PM CDT Telemedicine [facility] Medical [facility] - Family Medicine - [place] #2 [place] [address] Derrick López MD #[address] [address] 05/24/2025 12:30 PM CDT Telemedicine [facility] - Neurology - [place] #2 [place] [address] Lilia Baxter APRN, CASTINGS TRIMMER #2 [place] [address] documented as of this encounter Visit Diagnoses Not on filedocumented in this encounter Additional Health Concerns Infection Onset Date Last Indicated Resolved Time COVID - 19 04/25/2022 04/26/2022 05/05/2022 12:1 6 AM CDT COVID - 19 11/22/2023 11/22/2023 11/25/2023 9:26 AM DRIVER MATERIAL HANDLER COVID - 19 11/27/2023 11/27/2023 11/27/2023 5:02 PM DRIVER MATERIAL HANDLER Respiratory Rule-Out 11/27/2023 11/27/2023 024 5:01 PM DRIVER MATERIAL HANDLER COVID - 19 02/02/2024 02/02/2024 02/02/2024 3:51 PM CDT COVID - 19 05/26/2024 05/26/2024 05/26/2024 4:26 PM CDT COVID - 19 05/28/2024 05/28/2024 05/28/2024 1:37 PM CDT COVID - 19 06/04/2024 06/04/2024 06/04/2024 11:3 2 AM CDT Respiratory Rule-Out 09/15/2024 09/15/2024 024 1:59 PM DRIVER MATERIAL HANDLER Respiratory Rule-Out 11/16/2024 11/16/2024 025 4:04 PM DRIVER MATERIAL HANDLER COVID - 19 11/16/2024 11/16/2024 11/16/2024 4:02 PM DRIVER MATERIAL HANDLER Assessment Noted Time PHQ-9 Depression Total Score: 0 07/20/20 20 3:35 PM CDT documented as of this encounter Care Teams Stonecutter Assistant Relationship Specialty Start Date End Date Derrick López MD #2 [facility] [address] [place] [address] PCP - General Family Medicine 03/24/18 Bernice Andres MD 9450 [facility] [address] [place] [address] Consulting Physician Obstetrics & Gynecology 03/24/18 Lilia Baxter CORNETIST, [facility] #2 [place] [address] Nurse Practitioner Advanced Practice Nurse 12/29/21 Kamron Guillory MD #[address] [address] Consulting Physician Colon and Rectal Surgery 01/29/23 Josephine Mansfield MD #[address] [address] Consulting Physician Endocrinology 07/05/23 Jaylon Villeda MD #2 [place] [address] Consulting Physician Neurology 12/07/22 documented as of this encounter
--- OUTSIDE RECORDS SUMMARY | 2025-01-09 08:11 | XMS_ITS | Encounter Summary ---
Author Organization [facility] Address [address] [place] [address] Care Team Providers Care Photo Studio Assistant Name Role Phone Derrick López MD Primary Care Provider [phone] Reason for Visit * Reason Onset Date Comments Question 11/26/2024 Encounter Details Date Type Department Care Team (Late st Contact Info) Description 11/26/2024 Telephone [facility] - SALES ARCHITECT [address] [place] [address] Rishi Tanner MD [address] [place] [address] Question Social History Tobacco Use [...] Kailey Hall RN - 11/26/2024 2:18 PM PLATE KEEPER RN attempted to return pt call, LVM w/ CB#. RN to send [employer] message. E KEEPER * Telephone Encounter - Nuria Mariee - 11/26/2024 12:57 PM CST Patient calling with questions of what her next steps would be.. she has been taking an antibiotic,for cold symptoms., she is now suffering a yeast infection , and wants to know what to do next.. Please contact CB# [phone] E KEEPER documented in this encounter Plan of Treatment [...] on filedocumented in this encounter Care Teams Photo Studio Assistant Relationship Specialty Start Date End Date Derrick López MD [address] [address] PCP - General Family Medicine 08/18/23 documented as of this encounter
--- OUTSIDE RECORDS SUMMARY | 2025-01-09 08:11 | XMS_ITS | Encounter Summary ---
Author Organization [facility] Address [address] [facility] [place] [address] Phone Care Team Providers Care Drying Machine Operator Name Role Phone Derrick López MD Primary Care Provider [phone] Bernice Andres MD Unavailable [phone] Lilia Baxter APRN, SHOT FIREMAN Unavailable [phone] Kamron Guillory MD Unavailable Josephine Mansfield MD Unavailable Jaylon Villeda MD Unavailable Reason for Visit * Reason Comments Medication Refill Encounter Details Date Type Department Care Team (Late st Contact Info) Description 02/22/2020 Refill [facility] - Family [facility] #2 [place] [address] Derrick López MD #[address] [address] Medication Refill Social History Tobacco Use Types [...] CDT Requested Prescriptions Pending Prescriptions Disp Refills smmujrcmda-ltorktwokaujv-xggsimjb-codeine (FIORICET WITH CODEINE) [id number] MG Capsule [PharmacyMed Name: BUTAL/ACETA/CAFF/COD [id number]] 30 Cap 0 Sig: TAKE 1 CAPSULE BY MOUTH EVERY 4 HOURS NEEDED FOR PAIN Not Delegated - Analgesics: Opioid Agonist Combinations Failed - 02/22/2020 11:43 AM Failed - Valid encounter within last 6 months Past Office Visits Recent Outpatient Visits 8 months ago Vitamin D insufficiency [facility] FAMILY [facility] Derrick López MD 9 months ago Pharyngitis, unspecified etiology [facility] FAMILY MEDICINE Derrick López MD 9 months ago Sore throat [facility] FAMILY MEDIC[facility] Lazarus Bowden APN, ENGINE TESTER 1 year ago Strain of neck muscle, initial encounter [facility] FAMILY MEDICINE Derrick López MD 1 year ago Muscle contraction headache syndrome [facility] - Romina Torres PAC Upcoming Appointments Failed - This refill cannot be delegated documented in this encounter Plan of Treatment Upcoming Encounters Date Type Department Care Team (Late st Contact Info) Description 02/17/2025 4:00 PM CDT Telemedicine [facility] Family [facility] #[address] [place] [address] Derrick López MD #[address] [address] 05/24/2025 12:30 PM CDT [facility] [place] #2 [facility] [place] [address] Lilia Baxter, ROUTE CDL DRIVER, SHOT FIREMAN #[address] [place] [address] documented as of this encounter Visit Diagnoses Not on filedocumented in this encounter Additional Health Concerns Infection Onset Date Last Indicated Resolved Time COVID - 19 08/02/2021 08/02/2021 08/22/2021 12:1 6 AM GRANTS MANAGER COVID - 19 10/24/2021 10/27/2021 11/16/2021 12:1 6 AM GRANTS MANAGER COVID - 19 Confirmed 10/27/2021 10/27/2021 022 12:16 AM GRANTS MANAGER COVID - 19 04/25/2022 04/26/2022 05/05/2022 12:1 6 AM CDT COVID - 19 11/22/2023 11/22/2023 11/25/2023 9:26 AM GRANTS MANAGER COVID - 19 11/27/2023 11/27/2023 11/27/2023 5:02 PM GRANTS MANAGER Respiratory Rule-Out 11/27/2023 11/27/2023 024 5:01 PM GRANTS MANAGER COVID - 19 02/02/2024 02/02/2024 02/02/2024 3:51 PM CDT COVID - 19 05/26/2024 05/26/2024 05/26/2024 4:26 PM CDT COVID - 19 05/28/2024 05/28/2024 05/28/2024 1:37 PM CDT COVID - 19 06/04/2024 06/04/2024 06/04/2024 11:3 2 AM CDT Respiratory Rule-Out 09/15/2024 09/15/2024 024 1:59 PM GRANTS MANAGER Respiratory Rule-Out 11/16/2024 11/16/2024 025 4:04 PM GRANTS MANAGER COVID - 19 11/16/2024 11/16/2024 11/16/2024 4:02 PM GRANTS MANAGER Assessment Noted Time PHQ-9 Depression Total Score: 0 06/12/20 19 10:00 AM CDT documented as of this encounter Care Teams Drying Machine Operator Relationship Specialty Start Date End Date Derrick López MD #2 [facility] [address] [place] [address] PCP - General Family Medicine 03/24/18 Bernice Andres MD 9450 [facility] 206 [place] [address] Consulting Physician Obstetrics & Gynecology 03/24/18 Lilia Baxter, ROUTE CDL DRIVER, SHOT FIREMAN #2 [place] [address] Nurse Practitioner Advanced Practice Nurse 12/29/21 Kamron Guillory MD #2 [facility] [address] [place] [address] Consulting Physician Colon and Rectal Surgery 01/29/23 Josephine Mansfield MD #[address] [address] Consulting Physician Endocrinology 07/05/23 Jaylon Villeda MD #2 [place] [address] Consulting Physician Neurology 12/07/22 documented as of this encounter
--- OUTSIDE RECORDS SUMMARY | 2025-01-09 08:11 | XMS_ITS | Encounter Summary ---
Author Organization [facility] Address [address] [facility] [place] [address] Phone Care Team Providers Care Wool Merchant Name Role Phone Derrick López MD Primary Care Provider [phone] [phone] Bernice Andres MD Unavailable Lilia Baxter APRN, FLANGING MACHINE OPERATOR Unavailable [phone] Kamron Guillory MD Unavailable Josephine Mansfield MD Unavailable Jaylon Villeda MD Unavailable Reason for Visit * Reason Comments Medication Refill Encounter Details Date Type Department Care Team (Late st Contact Info) Description 10/01/2020 Refill [facility] #2 [place] [address] Derrick Lpóez MD #[address] [address] Medication Refill Social History Tobacco Use Types [...] COVID-19? No / Unsure 09/22/2020 12:52 PM FIREWORKS DISPLAY SPECIALIST documented as of this encounter Miscellaneous Notes [...] migraine without aura and with status migrainosus [facility] - Lazarus Cui APN, LATH TIER 1 year ago Vitamin D insufficiency [facility] - Derrick Lujan MD 1 year ago Pharyngitis, unspecified etiology [facility] - Derrick Lujan MD 1 year ago Sore throat [facility] - Lazarus Cui APN, LATH TIER 1 year ago Strain of neck muscle, [facility]rick L[facility]pez MD Upcoming Appointments Future Appointments In 11 months Lilia Baxter APN, FLANGING MACHINE OPERATOR [facility], [facility] [address] [facility] SHOP SERVICE TECHNICIAN - Recent and Past Visits Recent Visits Date Type Provider Dept 07/20/20 Office Visit Lazarus Bowden APN, LATH TIER [facility] Showing recent visits within past 460 days with a meds authorizing provider and meeting all other requirements Future Appointments No visits were found meeting these conditions. Showing future appointments within next 90 days with a meds authorizing provider and meeting all other requirements WORKS DISPLAY SPECIALIST documented in this encounter Plan of Treatment Upcoming Encounters Date Type Department Care Team (Late st Contact Info) Description 02/17/2025 4:00 PM CDT Telemedicine [facility] #2 [place] [address] Derrick López MD #[address] [address] 05/24/2025 12:30 PM CDT Telemedicine [facility] #2 [place] [address] Lilia Baxter APRN, FLANGING MACHINE OPERATOR #2 [place] [address] documented as of this encounter Visit Diagnoses Not on filedocumented in this encounter Additional Health Concerns Infection Onset Date Last Indicated Resolved Time COVID - 19 08/02/2021 08/02/2021 08/22/2021 12:1 6 AM FIREWORKS DISPLAY SPECIALIST COVID - 19 10/24/2021 10/27/2021 11/16/2021 12:1 6 AM FIREWORKS DISPLAY SPECIALIST COVID - 19 Confirmed 10/27/2021 10/27/2021 022 12:16 AM FIREWORKS DISPLAY SPECIALIST COVID - 19 04/25/2022 04/26/2022 05/05/2022 12:1 6 AM CDT COVID - 19 11/22/2023 11/22/2023 11/25/2023 9:26 AM FIREWORKS DISPLAY SPECIALIST COVID - 19 11/27/2023 11/27/2023 11/27/2023 5:02 PM FIREWORKS DISPLAY SPECIALIST Respiratory Rule-Out 11/27/2023 11/27/2023 024 5:01 PM FIREWORKS DISPLAY SPECIALIST COVID - 19 02/02/2024 02/02/2024 02/02/2024 3:51 PM CDT COVID - 19 05/26/2024 05/26/2024 05/26/2024 4:26 PM CDT COVID - 19 05/28/2024 05/28/2024 05/28/2024 1:37 PM CDT COVID - 19 06/04/2024 06/04/2024 06/04/2024 11:3 2 AM CDT Respiratory Rule-Out 09/15/2024 09/15/2024 024 1:59 PM FIREWORKS DISPLAY SPECIALIST Respiratory Rule-Out 11/16/2024 11/16/2024 025 4:04 PM FIREWORKS DISPLAY SPECIALIST COVID - 19 11/16/2024 11/16/2024 11/16/2024 4:02 PM FIREWORKS DISPLAY SPECIALIST Assessment Noted Time PHQ-9 Depression Total Score: 0 07/20/20 3:35 PM CDT documented as of this encounter Care Teams Wool Merchant Relationship Specialty Start Date End Date Derrick López MD #[address] [address] PCP - General Family Medicine 03/24/18 Bernice Andres MD [address] [facility] [address] [place] [address] Consulting Physician Obstetrics & Gynecology 03/24/18 Lilia Baxter APRN, FLANGING MACHINE OPERATOR #2 [place] [address] Nurse Practitioner Advanced Practice Nurse 3/25/22 Kamron Guillory MD #[address] [address] Consulting Physician Colon and Rectal Surgery 01/29/23 Josephine Mansfield MD #[address] [address] Consulting Physician Endocrinology 07/05/23 Jaylon Villeda MD #2 [place] [address] Consulting Physician Neurology 12/07/22 documented as of this encounter
--- OUTSIDE RECORDS SUMMARY | 2025-01-09 08:11 | XMS_ITS | Encounter Summary ---
Author Organization [facility] Address [address] [facility] [place] [address] Phone Care Team Providers Care Litigation Attorney Associate Name Role Phone Derrick López MD Primary Care Provider [phone] Bernice Andres MD Unavailable [phone] Lilia Baxter APRN, OILER BANDER Unavailable [phone] Kamron Guillory MD Unavailable Josephine Mansfield MD Unavailable Jaylon Villeda MD Unavailable Reason for Visit * Reason Comments Medication Refill Encounter Details Date Type Department Care Team (Late st Contact Info) Description 10/05/2021 Refill [facility] - Neurology [facility] #2 [place] [phone] Lilia Baxter APRN, OILER BANDER #2 [place] [address] Medication Refill Social History Tobacco Use Types [...] COVID-19? No / Unsure 10/05/2021 10:57 AM TIE TAPE MACHINE OPERATOR documented as of this encounter Miscellaneous Notes * Telephone Encounter - Debbie Ramirez RN - 10/05/2021 12:52 PM CST Medication failed the protocol, provider to review and approve the medication order if appropriate. Requested Prescriptions Pending Prescriptions Disp Refills divalproex (DEPAKOTE) 125 MG Tablet Delayed Response [Pharmacy Med Name: DIVALPROEX DELAYED [id number]] 90 Tablet Sig: TAKE 1 TABLET [...] Provider Dept 10/05/21 Appointment Nurse, [place] [facility] 10/05/21 Office Visit Lilia Baxter APRN, OILER BANDER [facility] Showing today's visits and meeting all other requirements Future Appointments No visits were found meeting these conditions. Showing future appointments within next 90 days and meeting all other requirements TAPE MACHINE OPERATOR documented in this encounter Plan of Treatment Upcoming Encounters Date Type Department Care Team (Late st Contact Info) Description 02/17/2025 4:00 PM CDT Telemedicine [facility] - Family Medicine - [place] #2 [place] [address] Derrick López MD #[address] [address] 05/24/2025 12:[address] [facility] - Neurology - [place] #2 [place] [address] Lilia Baxter APRN, OILER BANDER #2 [place] [address] documented as of this encounter Visit Diagnoses Diagnosis Intractable chronic migraine without aura and with status migrainosus Chronic migraine without aura, with intractable migraine, so stated, with status migrainosus documented in this encounter Additional Health Concerns Infection Onset Date Last Indicated Resolved Time COVID - 19 10/24/2021 10/27/2021 11/16/2021 12:1 6 AM TIE TAPE MACHINE OPERATOR COVID - 19 Confirmed 10/27/2021 10/27/2021 022 12:16 AM TIE TAPE MACHINE OPERATOR COVID - 19 04/25/2022 04/26/2022 05/05/2022 12:1 6 AM CDT COVID - 19 11/22/2023 11/22/2023 11/25/2023 9:26 AM TIE TAPE MACHINE OPERATOR COVID - 19 11/27/2023 11/27/2023 11/27/2023 5:02 PM TIE TAPE MACHINE OPERATOR Respiratory Rule-Out 11/27/2023 11/27/2023 024 5:01 PM TIE TAPE MACHINE OPERATOR COVID - 19 02/02/2024 02/02/2024 02/02/2024 3:51 PM CDT COVID - 19 05/26/2024 05/26/2024 05/26/2024 4:26 PM CDT COVID - 19 05/28/2024 05/28/2024 05/28/2024 1:37 PM CDT COVID - 19 06/04/2024 06/04/2024 06/04/2024 11:3 2 AM CDT Respiratory Rule-Out 09/15/2024 09/15/2024 024 1:59 PM TIE TAPE MACHINE OPERATOR Respiratory Rule-Out 11/16/2024 11/16/2024 025 4:04 PM TIE TAPE MACHINE OPERATOR COVID - 19 11/16/2024 11/16/2024 11/16/2024 4:02 PM TIE TAPE MACHINE OPERATOR Assessment Noted Time PHQ-9 Depression Total Score: 0 07/20/20 3:35 PM CDT documented as of this encounter Care Teams Litigation Attorney Associate Relationship Specialty Start Date End Date Derrick López MD #2 [facility] [address] [place] [address] PCP - General Family Medicine 03/24/18 Bernice Andres MD [address] [facility] [address] [place] [address] Consulting Physician Obstetrics & Gynecology 03/24/18 Lilia Baxter, PUBLIC HEALTH SPECIALIST, OILER BANDER #2 [place] [address] Nurse Practitioner Advanced Practice Nurse 12/29/21 Kamron Guillory MD #[address] [address] [address] Consulting Physician Colon and Rectal Surgery 01/29/23 Josephine Mansfield MD #[address] [address] Consulting Physician Endocrinology 07/05/23 Jaylon Villeda MD #2 [place] [address] Consulting Physician Neurology 12/07/22 documented as of this encounter
--- OUTSIDE RECORDS SUMMARY | 2025-01-09 08:11 | XMS_ITS | Encounter Summary ---
Author Organization [facility] Address [address] [facility] [place] [address] Phone Care Team Providers Care Sonogram Technician Name Role Phone Derrick López MD Primary Care Provider [phone] Bernice Andres MD Unavailable [phone] Lilia Baxter APRN, IT DESKTOP SUPPORT SPECIALIST Unavailable [phone] Kamron Guillory MD Unavailable Josephine Mansfield MD Unavailable Jaylon Villeda MD Unavailable [phone] Reason for Visit * Reason Comments Medication Refill Encounter Details Date Type Department Care Team (Late st Contact Info) Description 12/08/2022 Refill [facility] #2 [place] [address] Derrick López MD #[address] [address] Medication Refill Social History Tobacco Use Types [...] Coronavirus/COVID-19? No / Unsure 12/10/2022 11:35 PM OVERHEAD LINE WORKER documented as of this encounter Miscellaneous Notes * Telephone Encounter - Erma Ocampo RN - 12/10/2022 9:23 AM OVERHEAD LINE WORKER Medication failed the protocol, provider to review [...] 90 days and meeting all other requirements HEAD LINE WORKER documented in this encounter Plan of Treatment Upcoming Encounters Date Type Department Care Team (Late st Contact Info) Description 02/17/2025 4:00 PM CDT Telemedicine [facility] [place] #2 [place] [address] Derrick López MD #[address] [address] 05/24/2025 12:30 PM CDT Telemedicine [facility] Neurology [facility] #2 [place] [address] Lilia Baxter APRN, IT DESKTOP SUPPORT SPECIALIST #2 [place] [address] documented as of this encounter Visit Diagnoses Not on filedocumented in this encounter Additional Health Concerns Infection Onset Date Last Indicated Resolved Time COVID - 19 11/22/2023 11/22/2023 11/25/2023 9:26 AM OVERHEAD LINE WORKER COVID - 19 11/27/2023 11/27/2023 11/27/2023 5:02 PM OVERHEAD LINE WORKER Respiratory Rule-Out 11/27/2023 11/27/2023 024 5:01 PM OVERHEAD LINE WORKER COVID - 19 02/02/2024 02/02/2024 02/02/2024 3:51 PM CDT COVID - 19 05/26/2024 05/26/2024 05/26/2024 4:26 PM CDT COVID - 19 05/28/2024 05/28/2024 05/28/2024 1:37 PM CDT COVID - 19 06/04/2024 06/04/2024 06/04/2024 11:3 2 AM CDT Respiratory Rule-Out 09/15/2024 09/15/2024 024 1:59 PM OVERHEAD LINE WORKER Respiratory Rule-Out 11/16/2024 11/16/2024 025 4:04 PM OVERHEAD LINE WORKER COVID - 19 11/16/2024 11/16/2024 11/16/2024 4:02 PM OVERHEAD LINE WORKER Assessment Noted Time PHQ-9 Depression Total Score: 0 07/20/20 20 3:35 PM CDT documented as of this encounter Care Teams Sonogram Technician Relationship Specialty Start Date End Date Derrick López MD #2 [facility] [address] [place] [address] PCP - General Family Medicine 03/24/18 Bernice Andres MD [address] [address] Consulting Physician Obstetrics & Gynecology 03/24/18 Lilia Baxter RESTAURANT MANAGING PARTNER, [facility] #2 [place] [address] Nurse Practitioner Advanced Practice Nurse 12/29/21 Kamron Guillory MD #[address] [address] Consulting Physician Colon and Rectal Surgery 01/29/23 Josephine Mansfield MD #[address] [phone] Consulting Physician Endocrinology 07/05/23 Jaylon Villeda MD #2 [place] [address] Consulting Physician Neurology 12/07/22 documented as of this encounter
--- OUTSIDE RECORDS SUMMARY | 2025-01-09 08:11 | XMS_ITS | Clinical Summary ---
Author Organization [facility] Address [address] [place] [address] Care Team Providers Care Manager Architectural Name Role Phone Unavailable Primary Care Provider Unavailabl e Social History Tobacco Use Types Packs/Day Years Used Date Smoking Tobacco: Never Assessed Comments Unknown Sex and Gender Information Value Date Recorded Sex Assigned at Not on file Legal Sex Female 9:57 PM PROJECT PRODUCTION ENGINEER Gender Identity Not on file Sexual [...]
--- OUTSIDE RECORDS SUMMARY | 2025-01-09 08:11 | XMS_ITS | Encounter Summary ---
Author Organization [facility] Address [address] [place] [address] Phone Care Team Providers Care Tub Chucker Name Role Phone Derrick López MD Primary Care Provider [phone] Bernice Andres MD Unavailable [phone] Lilia Baxter APRN, EVENT OPERATIONS MANAGER Unavailable [phone] Kamron Guillory MD Unavailable Josephine Mansfield MD Unavailable Jaylon Villeda MD Unavailable Reason for Visit * Reason Comments Medication Refill Encounter Details Date Type Department Care Team (Late st Contact Info) Description 05/20/2022 Refill [facility] - Neurology [facility] #2 [place] [phone] Lilia Baxter APRN, EVENT OPERATIONS MANAGER #2 [place] [address] Medication Refill Social History Tobacco Use Types [...] 02/17/2025 4:00 PM CDT Telemedicine [facility] Medical [facility] - Family Medicine [facility] #2 [place] [address] Derrick López MD #[address] [address] 05/24/2025 12:30 PM CDT [facility] - Neurology [facility] #2 [place] [address] Lilia Baxter APRN, EVENT OPERATIONS MANAGER #2 [place] [address] documented as of this encounter Visit Diagnoses Diagnosis Chronic migraine w/o aura 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, not intractable Chronic migraine without aura, without mention of intractable migraine without mention of status migrainosus documented in this encounter Additional Health Concerns Infection Onset Date Last Indicated Resolved Time COVID - 19 11/22/2023 11/22/2023 11/25/2023 9:26 AM PLATFORM POWER TECHNICIAN COVID - 19 11/27/2023 11/27/2023 11/27/2023 5:02 PM PLATFORM POWER TECHNICIAN Respiratory Rule-Out 11/27/2023 11/27/2023 024 5:01 PM PLATFORM POWER TECHNICIAN COVID - 19 02/02/2024 02/02/2024 02/02/2024 3:51 PM CDT COVID - 19 05/26/2024 05/26/2024 05/26/2024 4:26 PM CDT COVID - 19 05/28/2024 05/28/2024 05/28/2024 1:37 PM CDT COVID - 19 06/04/2024 06/04/2024 06/04/2024 11:3 2 AM CDT Respiratory Rule-Out 09/15/2024 09/15/2024 024 1:59 PM PLATFORM POWER TECHNICIAN Respiratory Rule-Out 11/16/2024 11/16/2024 025 4:04 PM PLATFORM POWER TECHNICIAN COVID - 19 11/16/2024 11/16/2024 11/16/2024 4:02 PM PLATFORM POWER TECHNICIAN Assessment Noted Time PHQ-9 Depression Total Score: 0 07/20/20 20 3:35 PM CDT documented as of this encounter Care Teams Tub Chucker Relationship Specialty Start Date End Date Derrick López MD #[address] [address] PCP - General Family Medicine 03/24/18 Bernice Andres MD [address] [address] Consulting Physician Obstetrics & Gynecology 03/24/18 Lilia Baxter APRN, EVENT OPERATIONS MANAGER #2 [place] [address] Nurse Practitioner Advanced Practice Nurse 12/29/21 Kamron Guillory MD #[address] [address] Consulting Physician Colon and Rectal Surgery 01/29/23 Josephine Mansfield MD #[address] [address] Consulting Physician Endocrinology 07/05/23 Jaylon Villeda MD #2 [place] [address] Consulting Physician Neurology 12/07/22 documented as of this encounter
--- OUTSIDE RECORDS SUMMARY | 2025-01-09 08:11 | XMS_ITS | Encounter Summary ---
Author Organization [facility] Address [address] [facility] [place] [address] Phone Care Team Providers Care Line Welder Name Role Phone Derrick López MD Primary Care Provider [phone] Bernice Andres MD Unavailable Lilia Baxter APRN, STRAP FOLDING MACHINE OPERATOR Unavailable [phone] Kamron Guillory MD Unavailable Josephine Mansfield MD Unavailable Jaylon Villeda MD Unavailable [phone] Encounter Details Date Type Department Care Team (Late st Contact Info) Description 12/20/2022 Telephone [facility] [address] [place] [address] Derrick López MD #[address] [address] Social History Tobacco Use Types Packs/Day Years [...] following option(s): Cancel existing referral. Power Patterson [facility] OnCall - Centralized Referral Management 12/20/2022, 3:53 PM CDT documented in this encounter Plan of Treatment Upcoming Encounters Date Type Department Care Team (Late st Contact Info) Description 02/17/2025 4:00 PM CDT Telemedicine [facility] - Family Medicine - [place] #2 [place] [address] Derrick López MD #[address] [address] 05/24/2025 12:30 PM CDT Telemedicine [facility] - Neurology [facility] #2 [place] [address] Lilia Baxter, DIRECTOR OF ADMISSIONS, STRAP FOLDING MACHINE OPERATOR #[address] [facility] [place] [address] documented as of this encounter Visit Diagnoses Not on filedocumented in this encounter Additional Health Concerns Infection Onset Date Last Indicated Resolved Time COVID - 19 11/22/2023 11/22/2023 11/25/2023 9:26 AM CLIENT SUPPORT COORDINATOR COVID - 19 11/27/2023 11/27/2023 11/27/2023 5:02 PM CLIENT SUPPORT COORDINATOR Respiratory Rule-Out 11/27/2023 11/27/2023 024 5:01 PM CLIENT SUPPORT COORDINATOR COVID - 19 02/02/2024 02/02/2024 02/02/2024 3:51 PM CDT COVID - 19 05/26/2024 05/26/2024 05/26/2024 4:26 PM CDT COVID - 19 05/28/2024 05/28/2024 05/28/2024 1:37 PM CDT COVID - 19 06/04/2024 06/04/2024 06/04/2024 11:3 2 AM CDT Respiratory Rule-Out 09/15/2024 09/15/2024 024 1:59 PM CLIENT SUPPORT COORDINATOR Respiratory Rule-Out 11/16/2024 11/16/2024 025 4:04 PM CLIENT SUPPORT COORDINATOR COVID - 19 11/16/2024 11/16/2024 11/16/2024 4:02 PM CLIENT SUPPORT COORDINATOR Assessment Noted Time PHQ-9 Depression Total Score: 0 07/20/20 20 3:35 PM CDT documented as of this encounter Care Teams Line Welder Relationship Specialty Start Date End Date Derrick López MD [address] [address] PCP - General Family Medicine 03/24/18 Bernice Andres MD [address] [address] Consulting Physician Obstetrics & Gynecology 03/24/18 Lilia Baxter APRN, STRAP FOLDING MACHINE OPERATOR #2 [place] [address] Nurse Practitioner Advanced Practice Nurse 12/29/21 Kamron Guillory MD #[address] [address] Consulting Physician Colon and Rectal Surgery 01/29/23 Josephine Mansfield MD #[address] [phone] Consulting Physician Endocrinology 07/05/23 Jaylon Villeda MD #2 [place] [address] Consulting Physician Neurology 12/07/22 documented as of this encounter
--- OUTSIDE RECORDS SUMMARY | 2025-01-09 08:11 | XMS_ITS | Encounter Summary ---
Author Organization [facility] Address [address] [facility] [place] [address] Phone Care Team Providers Care Electric Organ Checker Name Role Phone Derrick López MD Primary Care Provider [phone] Bernice Andres MD Unavailable Lilia Baxter APRN, TRAVEL PTA Unavailable [phone] Kamron Guillory MD Unavailable Josephine Mansfield MD Unavailable Jaylon Villeda MD Unavailable Reason for Visit * Reason Comments Medication Refill Encounter Details Date Type Department Care Team (Late st Contact Info) Description 07/24/2023 Refill [facility] #2 [place] [address] Derrick López MD #[address] [address] Medication Refill Social History Tobacco Use Types [...] López MD [facility] 06/07/23 Telemedicine Derrick Lóepz MD [facility] 05/22/23 Office Visit Derrick López MD [facility] 05/14/23 Telemedicine Derrick López MD [facility] 01/29/23 Office Visit Derrick López MD [facility] Showing recent visits within past 182 days and meeting all other requirements Future Appointments Date Type Provider Dept 08/27/23 Appointment Derrick López MD [facility] Showing future appointments within next 90 days and meeting all other requirements Passed - Patient has established therapy with Bupropion for at least 6 months documented in this encounter Plan of Treatment Upcoming Encounters Date Type Department Care Team (Late st Contact Info) Description 02/17/2025 4:00 PM CDT Telemedicine [facility] Family Medicine - [place] #2 [place] [address] Derrick López MD #[address] [place] [address] 05/24/2025 12:30 PM CDT Telemedicine [facility] Neurology - [place] #2 [facility] [place] [address] Lilia Baxter APRN, TRAVEL PTA #2 [place] [address] documented as of this encounter Visit Diagnoses Not on filedocumented in this encounter Additional Health Concerns Infection Onset Date Last Indicated Resolved Time COVID - 19 11/22/2023 11/22/2023 11/25/2023 9:26 AM TRANSPORTATION PROGRAM DIRECTOR COVID - 19 11/27/2023 11/27/2023 11/27/2023 5:02 PM TRANSPORTATION PROGRAM DIRECTOR Respiratory Rule-Out 11/27/2023 11/27/2023 024 5:01 PM TRANSPORTATION PROGRAM DIRECTOR COVID - 19 02/02/2024 02/02/2024 02/02/2024 3:51 PM CDT COVID - 19 05/26/2024 05/26/2024 05/26/2024 4:26 PM CDT COVID - 19 05/28/2024 05/28/2024 05/28/2024 1:37 PM CDT COVID - 19 06/04/2024 06/04/2024 06/04/2024 11:3 2 AM CDT Respiratory Rule-Out 09/15/2024 09/15/2024 024 1:59 PM TRANSPORTATION PROGRAM DIRECTOR Respiratory Rule-Out 11/16/2024 11/16/2024 025 4:04 PM TRANSPORTATION PROGRAM DIRECTOR COVID - 19 11/16/2024 11/16/2024 11/16/2024 4:02 PM TRANSPORTATION PROGRAM DIRECTOR Assessment Noted Time PHQ-9 Depression Total Score: 0 05/22/20 11:18 AM CDT documented as of this encounter Care Teams Electric Organ Checker Relationship Specialty Start Date End Date Derrick López MD #[address] [address] PCP - General Family Medicine 03/24/18 Bernice Andres MD [address] [address] Consulting Physician Obstetrics & Gynecology 03/24/18 Lilia Baxter APRN, TRAVEL PTA #2 [place] [address] Nurse Practitioner Advanced Practice Nurse 12/29/21 Kamron Guillory MD #[address] [address] Consulting Physician Colon and Rectal Surgery 01/29/23 Josephine Mansfield MD #[address] [phone] Consulting Physician Endocrinology 07/05/23 Jaylon Villeda MD #2 [place] [address] Consulting Physician Neurology 12/07/22 documented as of this encounter
--- OUTSIDE RECORDS SUMMARY | 2025-01-09 08:11 | XMS_ITS | Encounter Summary ---
Author Organization [facility] Address [address] [facility] [place] [address] Phone Care Team Providers Care Cap Sewer Name Role Phone Derrick López MD Primary Care Provider [phone] Bernice Andres MD Unavailable [phone] Lilia Baxter APRN, HOSIERY LOOPER Unavailable [phone] Kamron Guillory MD Unavailable Josephine Mansfield MD Unavailable Jaylon Villeda MD Unavailable Reason for Visit * Reason Comments Medication Refill Encounter Details Date Type Department Care Team (Late st Contact Info) Description 10/10/2022 Refill [facility] #2 [place] [address] Derrick López MD #[address] [address] Medication Refill Social History Tobacco Use Types [...] Dept 06/01/22 Office Visit Neena Rose PAC [facility] [place] 04/25/22 Telemedicine Derrick López MD [facility] [place] 10/27/21 Telemedicine Lazarus Bowden APRN, JAVASCRIPT DEVELOPER [facility] [place] Showing recent visits within past 365 days and meeting all other requirements Future Appointments No visits were found meeting these conditions. Showing future appointments within next 90 days and meeting all other requirements ECTOR documented in this encounter Plan of Treatment Upcoming Encounters Date Type Department Care Team (Late st Contact Info) Description 02/17/2025 4:00 PM CDT Telemedicine [facility] - Family Medicine - [place] #2 [place] [address] Derrick López MD #[address] [address] 05/24/2025 12:30 PM CDT [facility] [place] #2 [place] [address] Lilia Baxter APRN, HOSIERY LOOPER #2 [place] [address] documented as of this encounter Visit Diagnoses Not on filedocumented in this encounter Additional Health Concerns Infection Onset Date Last Indicated Resolved Time COVID - 19 11/22/2023 11/22/2023 11/25/2023 9:26 AM INSPECTOR COVID - 19 11/27/2023 11/27/2023 11/27/2023 5:02 PM INSPECTOR Respiratory Rule-Out 11/27/2023 11/27/2023 024 5:01 PM INSPECTOR COVID - 19 02/02/2024 02/02/2024 02/02/2024 3:51 PM CDT COVID - 19 05/26/2024 05/26/2024 05/26/2024 4:26 PM CDT COVID - 19 05/28/2024 05/28/2024 05/28/2024 1:37 PM CDT COVID - 19 06/04/2024 06/04/2024 06/04/2024 11:3 2 AM CDT Respiratory Rule-Out 09/15/2024 09/15/2024 024 1:59 PM INSPECTOR Respiratory Rule-Out 11/16/2024 11/16/2024 025 4:04 PM INSPECTOR COVID - 19 11/16/2024 11/16/2024 11/16/2024 4:02 PM INSPECTOR Assessment Noted Time PHQ-9 Depression Total Score: 0 07/20/20 20 3:35 PM CDT documented as of this encounter Care Teams Cap Sewer Relationship Specialty Start Date End Date Derrick López MD #2 [facility] [address] [place] [address] PCP - General Family Medicine 03/24/18 Bernice Andres MD [address] [facility] 206 [place] [address] Consulting Physician Obstetrics & Gynecology 03/24/18 Lilia Baxter APRN, [facility] #2 [place] [address] Nurse Practitioner Advanced Practice Nurse 12/29/21 Kamron Guillory MD #[address] [address] Consulting Physician Colon and Rectal Surgery 01/29/23 Josephine Mansfield MD #[address] [address] Consulting Physician Endocrinology 07/05/23 Jaylon Villeda MD #2 [place] [address] Consulting Physician Neurology 12/07/22 documented as of this encounter
--- OUTSIDE RECORDS SUMMARY | 2025-01-09 08:11 | XMS_ITS | Encounter Summary ---
Author Organization [facility] Address [address] [place] [address] Phone Care Team Providers Care Credentialing Analyst Name Role Phone Derrick López MD Primary Care Provider [phone] Bernice Andres MD Unavailable Lilia Baxter APRN, CANCER SPEC Unavailable [phone] Kamron Guillory MD Unavailable Josephine Mansfield MD Unavailable Jaylon Villeda MD Unavailable Reason for Visit * Reason Onset Date Comments Medication Management 12/04/2022 Encounter Details Date Type Department Care Team (Late st Contact Info) Description 12/04/2022 Telephone [facility] #2 [place] [address] Derrick López MD #[address] [address] Medication Management Social History Tobacco Use Types [...] Coronavirus/COVID-19? No / Unsure 12/07/2022 3:02 PM WATER SUPERINTENDENT documented as of this encounter Miscellaneous Notes * Telephone Encounter - Kerri Caraballo RMA - 12/06/2022 2:58 PM WATER SUPERINTENDENT LVM to tile picker R SUPERINTENDENT * Telephone Encounter - Derrick López MD - 12/05/2022 11:04 PM WATER SUPERINTENDENT Let her know I have called in a Xanax before her MRI. Thanks! R SUPERINTENDENT * Telephone Encounter - Julia Gabriel - 12/04/2022 9:44 AM CST Patient called in stating she is scheduled for an MRI on 12/11/2022 and is needing some type of anxiety medication called into [facility] in [place]. R SUPERINTENDENT documented in this encounter Plan of Treatment Upcoming Encounters Date Type Department Care Team (Late st Contact Info) Description 02/17/2025 4:00 PM CDT Telemedicine [facility] Medical [facility] - Family Medicine - [place] #[address] [facility] [place] [address] Derrick López MD #[address] [address] 05/24/2025 12:30 PM CDT [facility] [place] #2 [facility] [place] [address] Lilia Baxter APRN, CANCER SPEC #2 [place] [address] documented as of this encounter Visit Diagnoses Diagnosis Anxiety- Primary Anxiety state, unspecified documented in this encounter Additional Health Concerns Infection Onset Date Last Indicated Resolved Time COVID - 19 11/22/2023 11/22/2023 11/25/2023 9:26 AM WATER SUPERINTENDENT COVID - 19 11/27/2023 11/27/2023 11/27/2023 5:02 PM WATER SUPERINTENDENT Respiratory Rule-Out 11/27/2023 11/27/2023 024 5:01 PM WATER SUPERINTENDENT COVID - 19 02/02/2024 02/02/2024 02/02/2024 3:51 PM CDT COVID - 19 05/26/2024 05/26/2024 05/26/2024 4:26 PM CDT COVID - 19 05/28/2024 05/28/2024 05/28/2024 1:37 PM CDT COVID - 19 06/04/2024 06/04/2024 06/04/2024 11:3 2 AM CDT Respiratory Rule-Out 09/15/2024 09/15/2024 024 1:59 PM WATER SUPERINTENDENT Respiratory Rule-Out 11/16/2024 11/16/2024 025 4:04 PM WATER SUPERINTENDENT COVID - 19 11/16/2024 11/16/2024 11/16/2024 4:02 PM WATER SUPERINTENDENT Assessment Noted Time PHQ-9 Depression Total Score: 0 07/20/20 20 3:35 PM CDT documented as of this encounter Care Teams Credentialing Analyst Relationship Specialty Start Date End Date Derrick López MD #2 [facility] 205 [place] [address] PCP - General Family Medicine 03/24/18 Bernice Andres MD [address] [facility] 206 [place] [address] Consulting Physician Obstetrics & Gynecology 03/24/18 Lilia Baxter APRN, [facility] #2 [place] [address] Nurse Practitioner Advanced Practice Nurse 12/29/21 Kamron Guillory MD #2 [facility] [address] [place] [address] Consulting Physician Colon and Rectal Surgery 01/29/23 Josephine Mansfield MD #2 [facility] [address] [place] [address] Consulting Physician Endocrinology 07/05/23 Jaylon Villeda MD #2 [place] [address] Consulting Physician Neurology 12/07/22 documented as of this encounter
--- OUTSIDE RECORDS SUMMARY | 2025-01-09 08:11 | XMS_ITS | Encounter Summary ---
Author Organization [facility] Address [address] [facility] [place] [address] Phone Care Team Providers Care Enterprise Software Developer Name Role Phone Derrick López MD Primary Care Provider [phone] Bernice Andres MD Unavailable Lilia Baxter APRN, [facility] Unavailable [phone] Kamron Guillory MD Unavailable Josephine Mansfield MD Unavailable Jaylon Villeda MD Unavailable Reason for Visit * Reason Comments Medication Refill Encounter Details Date Type Department Care Team (Late st Contact Info) Description 04/26/2023 Refill [facility] - [facility] Medicine [facility] #2 [place] [address] Lazarus Bowden, SUSTAINABILITY ANALYST, VOLUNTEER FIRE FIGHTER #[address] [address] Medication Refill Social History Tobacco Use Types [...] Info) Description 02/17/2025 4:00 PM CDT Telemedicine [facility] Medical [facility] - Family Medicine - [place] #2 [place] [address] Derrick López MD #[address] [address] 05/24/2025 12:30 PM CDT Telemedicine [facility] - Neurology - [place] #2 [place] [address] Lilia Baxter APRN, DISPENSING OPTICIAN APPRENTICE #2 [place] [address] documented as of this encounter Visit Diagnoses Not on filedocumented in this encounter Additional Health Concerns Infection Onset Date Last Indicated Resolved Time COVID - 19 11/22/2023 11/22/2023 11/25/2023 9:26 AM FIELD INSPECTOR COVID - 19 11/27/2023 11/27/2023 11/27/2023 5:02 PM FIELD INSPECTOR Respiratory Rule-Out 11/27/2023 11/27/2023 024 5:01 PM FIELD INSPECTOR COVID - 19 02/02/2024 02/02/2024 02/02/2024 3:51 PM CDT COVID - 19 05/26/2024 05/26/2024 05/26/2024 4:26 PM CDT COVID - 19 05/28/2024 05/28/2024 05/28/2024 1:37 PM CDT COVID - 19 06/04/2024 06/04/2024 06/04/2024 11:3 2 AM CDT Respiratory Rule-Out 09/15/2024 09/15/2024 024 1:59 PM FIELD INSPECTOR Respiratory Rule-Out 11/16/2024 11/16/2024 025 4:04 PM FIELD INSPECTOR COVID - 19 11/16/2024 11/16/2024 11/16/2024 4:02 PM FIELD INSPECTOR Assessment Noted Time PHQ-9 Depression Total Score: 0 07/20/20 20 3:35 PM CDT documented as of this encounter Care Teams Enterprise Software Developer Relationship Specialty Start Date End Date Derrick López MD #2 [facility] 205 [place] [address] PCP - General Family Medicine 03/24/18 Bernice Andres MD [address]50 [facility] 206 [place] [address] Consulting Physician Obstetrics & Gynecology 03/24/18 Lilia Baxter, SUSTAINABILITY ANALYST, DISPENSING OPTICIAN APPRENTICE #2 [place] [address] Nurse Practitioner Advanced Practice Nurse 12/29/21 Kamron Guillory MD #[address] [address] Consulting Physician Colon and Rectal Surgery 01/29/23 Josephine Mansfield MD #[address] [phone] Consulting Physician Endocrinology 07/05/23 Jaylon Villeda MD #2 [place] [address] Consulting Physician Neurology 12/07/22 documented as of this encounter
--- OUTSIDE RECORDS SUMMARY | 2025-01-09 08:11 | XMS_ITS | Encounter Summary ---
Author Organization [facility] Address [address] [facility] [place] [address] Phone Care Team Providers Care Receiving Distribution Station Operator Name Role Phone Derrick López MD Primary Care Provider [phone] Bernice Andres MD Unavailable [phone] Lilia Baxter APRN, HAND EDGE BANDER Unavailable [phone] Kamron Guillory MD Unavailable Josephine Mansfield MD Unavailable Jaylon Villeda MD Unavailable [phone] Reason for Visit * Reason Comments Medication Refill Encounter Details Date Type Department Care Team (Late st Contact Info) Description 08/30/2023 Refill [facility] #2 [place] [address] Derrick López MD #[address] [address] Medication Refill Social History Tobacco Use Types [...] Coronavirus/COVID-19? No / Unsure 08/14/2023 1:55 PM STOCKROOM INVENTORY CLERK documented as of this encounter Miscellaneous Notes * Telephone Encounter - Sharon Morataya RN - 08/30/2023 1:17 PM STOCKROOM INVENTORY CLERK PDMP 07/04 for 30 days. Medication failed [...] [place] 06/25/23 Telemedicine Derrick López MD [facility] 06/07/23 Telemedicine Derrick López MD [facility] [place] [...] 90 days and meeting all other requirements KROOM INVENTORY CLERK documented in this encounter Plan of Treatment Upcoming Encounters Date Type Department Care Team (Late st Contact Info) Description 02/17/2025 4:00 PM CDT Telemedicine [facility] - Family Medicine - [place] #2 [place] [address] Derrick López MD #[address] [address] 05/24/2025 12:30 PM CDT Telemedicine [facility] - Neurology - [place] #2 [place] [address] Lilia Baxter APRN, HAND EDGE BANDER #2 [place] [address] documented as of this encounter Visit Diagnoses Diagnosis Fatigue, unspecified type documented in this encounter Additional Health Concerns Infection Onset Date Last Indicated Resolved Time COVID - 19 11/22/2023 11/22/2023 11/25/2023 9:26 AM STOCKROOM INVENTORY CLERK COVID - 19 11/27/2023 11/27/2023 11/27/2023 5:02 PM STOCKROOM INVENTORY CLERK Respiratory Rule-Out 11/27/2023 11/27/2023 024 5:01 PM STOCKROOM INVENTORY CLERK COVID - 19 02/02/2024 02/02/2024 02/02/2024 3:51 PM CDT COVID - 19 05/26/2024 05/26/2024 05/26/2024 4:26 PM CDT COVID - 19 05/28/2024 05/28/2024 05/28/2024 1:37 PM CDT COVID - 19 06/04/2024 06/04/2024 06/04/2024 11:3 2 AM CDT Respiratory Rule-Out 09/15/2024 09/15/2024 024 1:59 PM STOCKROOM INVENTORY CLERK Respiratory Rule-Out 11/16/2024 11/16/2024 025 4:04 PM STOCKROOM INVENTORY CLERK COVID - 19 11/16/2024 11/16/2024 11/16/2024 4:02 PM STOCKROOM INVENTORY CLERK Assessment Noted Time PHQ-9 Depression Total Score: 0 05/22/20 11:18 AM CDT documented as of this encounter Care Teams Receiving Distribution Station Operator Relationship Specialty Start Date End Date Derrick López MD #[address] [facility] 205 [place] [address] PCP - General Family Medicine 03/24/18 Bernice Andres MD 9450 [facility] 206 [place] [address] Consulting Physician Obstetrics & Gynecology 03/24/18 Lilia Baxter APRN, HAND EDGE BANDER #2 [place] [address] Nurse Practitioner Advanced Practice Nurse 12/29/21 Kamron Guillory MD #[address] [facility] 305 [place] [address] Consulting Physician Colon and Rectal Surgery 01/29/23 Josephine Mansfield MD #[address] [phone] Consulting Physician Endocrinology 07/05/23 Jaylon Villeda MD #2 [place] [address] Consulting Physician Neurology 12/07/22 documented as of this encounter
--- OUTSIDE RECORDS SUMMARY | 2025-01-09 08:11 | XMS_ITS | Encounter Summary ---
Author Organization [facility] Address [address] [facility] [place] [address] Phone Care Team Providers Care Ceo Ziff Davis Name Role Phone Derrick López MD Primary Care Provider [phone] Bernice Andres MD Unavailable Lilia Baxter APRN, COMMUNITY CASE MANAGER Unavailable [phone] Kamron Guillory MD Unavailable Josephine Mansfield MD Unavailable Jaylon Villeda MD Unavailable [phone] Reason for Visit * Reason Comments Medication Refill Encounter Details Date Type Department Care Team (Late st Contact Info) Description 07/15/2022 Refill [facility] #2 [place] [address] Derrick López MD #[address] [address] Medication Refill Social History Tobacco Use Types [...] Dept 06/01/22 Office Visit Neena Rose PAC [facility] [place] 04/25/22 Telemedicine Derrick López MD [facility] [place] 10/27/21 Telemedicine Lazarus Bowden APRN, CNP [facility] [place] 08/16/21 Office Visit Lazarus Bowden APRN, ADE [facility] [place] Showing recent visits within past 365 days and meeting all other requirements Future Appointments No visits were found meeting these conditions. Showing future appointments within next 90 days and meeting all other requirements documented in this encounter Plan of Treatment Upcoming Encounters Date Type Department Care Team (Late st Contact Info) Description 02/17/2025 4:00 PM CDT Telemedicine [facility] Medical [facility] - Family Medicine - [place] #2 [place] [address] Derrick López MD #[address] [address] 05/24/2025 12:30 PM CDT [facility] [place] #2 [place] [address] Lilia Baxter APRN, COMMUNITY CASE MANAGER #2 [place] [address] documented as of this encounter Visit Diagnoses Not on filedocumented in this encounter Additional Health Concerns Infection Onset Date Last Indicated Resolved Time COVID - 19 11/22/2023 11/22/2023 11/25/2023 9:26 AM SAFETY ADMINISTRATOR COVID - 19 11/27/2023 11/27/2023 11/27/2023 5:02 PM SAFETY ADMINISTRATOR Respiratory Rule-Out 11/27/2023 11/27/2023 024 5:01 PM SAFETY ADMINISTRATOR COVID - 19 02/02/2024 02/02/2024 02/02/2024 3:51 PM CDT COVID - 19 05/26/2024 05/26/2024 05/26/2024 4:26 PM CDT COVID - 19 05/28/2024 05/28/2024 05/28/2024 1:37 PM CDT COVID - 19 06/04/2024 06/04/2024 06/04/2024 11:3 2 AM CDT Respiratory Rule-Out 09/15/2024 09/15/2024 024 1:59 PM SAFETY ADMINISTRATOR Respiratory Rule-Out 11/16/2024 11/16/2024 025 4:04 PM SAFETY ADMINISTRATOR COVID - 19 11/16/2024 11/16/2024 11/16/2024 4:02 PM SAFETY ADMINISTRATOR Assessment Noted Time PHQ-9 Depression Total Score: 0 07/20/20 20 3:35 PM CDT documented as of this encounter Care Teams Ceo Ziff Davis Relationship Specialty Start Date End Date Derrick López MD #2 [facility] 205 [place] [address] PCP - General Family Medicine 03/24/18 Bernice Andres MD 9450 [facility] 206 [place] [address] Consulting Physician Obstetrics & Gynecology 03/24/18 Lilia Baxter APRN, [facility] #2 [place] [address] Nurse Practitioner Advanced Practice Nurse 12/29/21 Kamron Guillory MD #2 [facility] 305 [place] [address] Consulting Physician Colon and Rectal Surgery 01/29/23 Josephine Mansfield MD #2 [facility] 305 [place] [address] Consulting Physician Endocrinology 07/05/23 Jaylon Villeda MD #2 [place] [address] Consulting Physician Neurology 12/07/22 documented as of this encounter
--- OUTSIDE RECORDS SUMMARY | 2025-01-09 08:11 | XMS_ITS | Encounter Summary ---
Author Organization [facility] Address [address] [facility] [place] [address] Phone Care Team Providers Care Life Assurance Representative Name Role Phone Derrick López MD Primary Care Provider [phone] Bernice Andres MD Unavailable [phone] Lilia Baxter APRN, ACT TUTOR Unavailable [phone] Kamron Guillory MD Unavailable Josephine Mansfield MD Unavailable Jaylon Villeda MD Unavailable [phone] Reason for Visit * Reason Comments Medication Refill Encounter Details Date Type Department Care Team (Late st Contact Info) Description 05/15/2022 Refill [facility] #2 [place] [address] Derrick López MD #[address] [address] Medication Refill Social History Tobacco Use Types [...] Provider Dept 04/25/22 Telemedicine [place]rick L[facility]pez MD [facility] [place] 10/27/21 Telemedicine Lazarus Bowden APRN, ADE [facility] [place] 08/16/21 Office Visit Lazarus Bowden APRN, AED [place] 06/21/21 Office Visit Lazarus Bowden APRN, DIRECTOR OF SUSTAINABLE DESIGN [facility] 05/23/21 Office Visit Lazarus Bowden, MANGANESE HEATER, DIRECTOR OF SUSTAINABLE DESIGN [facility] Showing recent visits within past 365 days and meeting all other requirements Future Appointments No visits were found meeting these conditions. Showing future appointments within next 90 days and meeting all other requirements documented in this encounter Plan of Treatment Upcoming Encounters Date Type Department Care Team (Late st Contact Info) Description 02/17/2025 4:00 PM CDT Telemedicine [facility] - Family Medicine - [place] #2 [place] [address] Derrick López MD #[address] [address] 05/24/2025 12:30 PM CDT Telemedicine [facility] Neurology - [place] #2 [place] [address] Lilia Baxter APRN, ACT TUTOR #2 [place] [address] documented as of this encounter Visit Diagnoses Not on filedocumented in this encounter Additional Health Concerns Infection Onset Date Last Indicated Resolved Time COVID - 19 11/22/2023 11/22/2023 11/25/2023 9:26 AM BUSINESS EXCELLENCE LEADER COVID - 19 11/27/2023 11/27/2023 11/27/2023 5:02 PM BUSINESS EXCELLENCE LEADER Respiratory Rule-Out 11/27/2023 11/27/2023 024 5:01 PM BUSINESS EXCELLENCE LEADER COVID - 19 02/02/2024 02/02/2024 02/02/2024 3:51 PM CDT COVID - 19 05/26/2024 05/26/2024 05/26/2024 4:26 PM CDT COVID - 19 05/28/2024 05/28/2024 05/28/2024 1:37 PM CDT COVID - 19 06/04/2024 06/04/202406/0406/04/2024 11:3 2 AM CDT Respiratory Rule-Out 09/15/2024 09/15/2024 024 1:59 PM BUSINESS EXCELLENCE LEADER Respiratory Rule-Out 11/16/2024 11/16/2024 025 4:04 PM BUSINESS EXCELLENCE LEADER COVID - 19 11/16/2024 11/16/2024 11/16/2024 4:02 PM BUSINESS EXCELLENCE LEADER Assessment Noted Time PHQ-9 Depression Total Score: 0 07/20/20 20 3:35 PM CDT documented as of this encounter Care Teams Life Assurance Representative Relationship Specialty Start Date End Date Derrick López MD #2 [facility] 205 [place] [address] PCP - General Family Medicine 03/24/18 Bernice Andres MD 9450 [facility] 206 [place] [address] Consulting Physician Obstetrics & Gynecology 03/24/18 Lilia Baxter, MANGANESE HEATER, ACT TUTOR #2 [place] [address] Nurse Practitioner Advanced Practice Nurse 12/29/21 Kamron Guillory MD #[address] [address] Consulting Physician Colon and Rectal Surgery 01/29/23 Josephine Mansfield MD #[address] [phone] Consulting Physician Endocrinology 07/05/23 Jaylon Villeda MD #2 [place] [address] Consulting Physician Neurology 12/07/22 documented as of this encounter
--- OUTSIDE RECORDS SUMMARY | 2025-01-09 08:11 | XMS_ITS | Encounter Summary ---
Author Organization [facility] Address [address] [facility] [place] [address] Phone Care Team Providers Care Telephone Lines Repairer Name Role Phone Derrick López MD Primary Care Provider [phone] Bernice Andres MD Unavailable Lilia Baxter APRN, [facility] Unavailable [phone] Kamron Guillory MD Unavailable Josephine Mansfield MD Unavailable Jaylon Villeda MD Unavailable Reason for Visit * Reason Onset Date Comments Medication Refill 01/24/2021 Encounter Details Date Type Department Care Team (Late st Contact Info) Description 01/24/2021 Refill [facility] Family [facility] #2 [place] [address] Derrick López MD #[address] [address] Medication Refill Social History Tobacco Use Types [...] appropriate. Requested Prescriptions Pending Prescriptions Disp Refills wdaihxsnxn-bgdikhmwqqpda-vrcnppzy-codeine (FIORICET WITH CODEINE) [id number] MG Capsule 30 Capsule Sig: TAKE ONE CAPSULE BY MOUTH EVERY 4 HOURS NEEDED FOR PAIN healthfinch Not Delegated - Analgesics: Opioid Agonist Combinations Failed - 01/25/2021 11:33 AM Failed - This refill cannot be delegated Passed - Valid encounter within last 6 months Past Office Visits Recent Outpatient Visits 1 month ago [facility] - Lazarus Cui APN, ADE 6 months ago Intractable chronic migraine without aura and with status migrainosus [facility] - Lazarus Cui APN, SUPERVISOR RIDE ASSEMBLY 1 year ago Vitamin D insufficiency [facility] - Derrick Lujan MD 1 year ago Pharyngitis, unspecified etiology [facility] - Derrick Lujan MD 1 year ago Sore throat [facility] - Lazarus Cui APN, SUPERVISOR RIDE ASSEMBLY Upcoming Appointments Future Appointments In 8 months Lilia Baxter APN, INFO PRINT PRESS OPERATOR [facility] - Neurology [facility] BODY DIE MAKER - Recent and Past Visits Recent Visits Date Type Provider Dept 12/15/20 Office Visit Lazarus Bowden APN, ADE [facility] 07/20/20 Office Visit [facility] Show[facility] recent visits within past 460 [...] physician/JO-ANN review. Refill encounter routed to nurse [employer] for processing. documented in this encounter Plan of Treatment Upcoming Encounters Date Type Department Care Team (Late st Contact Info) Description 02/17/2025 4:00 PM CDT Telemedicine [facility] - Family Medicine - [place] #2 [place] [address] Derrick López MD #[address] [address] 05/24/2025 12:30 PM CDT Telemedicine [facility] - Neurology - [place] #2 [place] [address] Lilia Baxter APRN, INFO PRINT PRESS OPERATOR #2 [place] [address] documented as of this encounter Visit Diagnoses Diagnosis Migraine with aura and with status migrainosus, not intractable Migraine with aura, with intractable migraine, so stated, with status migrainosus Intractable cluster headache syndrome, unspecified chronicity pattern documented in this encounter Additional Health Concerns Infection Onset Date Last Indicated Resolved Time COVID - 19 08/02/2021 08/02/2021 08/22/2021 12:1 6 AM ARCHEOLOGIST CLASSICAL COVID - 19 10/24/2021 10/27/2021 11/16/2021 12:1 6 AM ARCHEOLOGIST CLASSICAL COVID - 19 Confirmed 10/27/2021 10/27/2021 022 12:16 AM ARCHEOLOGIST CLASSICAL COVID - 19 04/25/2022 04/26/2022 05/05/2022 12:1 6 AM CDT COVID - 19 11/22/2023 11/22/2023 11/25/2023 9:26 AM ARCHEOLOGIST CLASSICAL COVID - 19 11/27/2023 11/27/2023 11/27/2023 5:02 PM ARCHEOLOGIST CLASSICAL Respiratory Rule-Out 11/27/2023 11/27/2023 024 5:01 PM ARCHEOLOGIST CLASSICAL COVID - 19 02/02/2024 02/02/2024 02/02/2024 3:51 PM CDT COVID - 19 05/26/2024 05/26/2024 05/26/2024 4:26 PM CDT COVID - 19 05/28/2024 05/28/2024 05/28/2024 1:37 PM CDT COVID - 19 06/04/2024 06/04/2024 06/04/2024 11:3 2 AM CDT Respiratory Rule-Out 09/15/2024 09/15/2024 024 1:59 PM ARCHEOLOGIST CLASSICAL Respiratory Rule-Out 11/16/2024 11/16/2024 025 4:04 PM ARCHEOLOGIST CLASSICAL COVID - 19 11/16/2024 11/16/2024 11/16/2024 4:02 PM ARCHEOLOGIST CLASSICAL Assessment Noted Time PHQ-9 Depression Total Score: 0 07/20/20 20 3:35 PM CDT documented as of this encounter Care Teams Telephone Lines Repairer Relationship Specialty Start Date End Date Derrick López MD #[address] [address] PCP - General Family Medicine 03/24/18 Bernice Andres MD [address] [facility] [address] [place] [address] Consulting Physician Obstetrics & Gynecology 03/24/18 Lilia Baxter APRN, INFO PRINT PRESS OPERATOR #2 [place] [address] Nurse Practitioner Advanced Practice Nurse 12/29/21 Kamron Guillory MD #[address] [address] Consulting Physician Colon and Rectal Surgery 01/29/23 Josephine Mansfield MD #[address] [address] Consulting Physician Endocrinology 07/05/23 Jaylon Villeda MD #2 [place] [address] Consulting Physician Neurology 12/07/22 documented as of this encounter
--- OUTSIDE RECORDS SUMMARY | 2025-01-09 08:11 | XMS_ITS | Encounter Summary ---
Author Organization [facility] Address [address] [facility] [place] [address] Phone Care Team Providers Care Welder Machine Operator Name Role Phone Derrick López MD Primary Care Provider [phone] Bernice Andres MD Unavailable [phone] Lilia Baxter APRN, [facility] Unavailable [phone] Kamron Guillory MD Unavailable Josephine Mansfield MD Unavailable Jaylon Villeda MD Unavailable [phone] Reason for Visit * Reason Comments Medication Refill Encounter Details Date Type Department Care Team (Late st Contact Info) Description 10/12/2021 Refill [facility] - Family Medicine [facility] #2 [place] [address] Lazarus Bowden, PERFORATOR, PIPE ORGAN MECHANIC APPRENTICE #[address] [address] Medication Refill Social History Tobacco Use Types [...] COVID-19? No / Unsure 10/05/2021 10:57 AM HOUSE MOVER documented as of this encounter Miscellaneous Notes * Telephone Encounter - Lazarus Bowden APRN, CNP - 10/13/2021 9:38 AM CST OK, I will refuse then. Thanks E MOVER * Telephone Encounter - Suzie Robbins RN - 10/13/2021 9:26 AM CST I believe our RMA pended it to Dr Villeda yesterday E MOVER * Telephone Encounter - Lazarus Bowden APRN, CNP - 10/13/2021 8:41 AM CST Last time I talked to her she was wanting Dr. Villeda to see if he would take over this Rx. Can wecheck and see if he is in the office today and willing to fill before I send it? E MOVER * Telephone Encounter - Gabriela Amezcua RN - 10/13/2021 8:41 AM CST PDMP 10/02/21 - 5 days supply Medication failed the protocol, provider to review and approve the medication order if appropriate. Requested Prescriptions Pending Prescriptions Disp Refills vfppxhxgnh-kixyybnsapjpl-gclykmhp-codeine (FIORICET WITH CODEINE) [id number] MG Capsule [PharmacyMed Name: BUTAL/ACETA/CAFF/COD [id number]] 30 Capsule 0 Sig: TAKE 1 CAPSULE BY MOUTH EVERY 4 HOURS NEEDED FOR PAIN Not Delegated - Butalbital Protocol Failed - 10/13/2021 8:40 AM Failed - This refill cannot be delegated; check utilization Passed - Visit with relevant provider in past 24 months or upcoming 90 days Recent Visits Date Type Provider Dept 08/16/21 Office Visit Lazarus Bowden APRN, ADE [facility] [place] 06/21/21 Office Visit Lazarus Bowden APRN, ADE [facility] 05/23/21 Office Visit Lazarus Bowden APRN, ADE [facility] 12/15/20 Office Visit Lazarus Bowden APRN, ADE [facility] [place] 07/20/20 Office Visit Lazarus Bowden APRN, ADE [facility] Showing recent visits within past 730 days [...] Office Visit Lazarus Bowden APRN, ADE [facility] 05/23/21 [facility] 12/15/20 Office Visit Lazarus Bowden APRN, ADE [facility] Showing recent visits within past 365 days and meeting all other requirements Future Appointments No visits were found meeting these conditions. Showing future appointments within next 90 days and meeting all other requirements E MOVER documented in this encounter Plan of Treatment Upcoming Encounters Date Type Department Care Team (Late st Contact Info) Description 02/17/2025 4:00 PM CDT Telemedicine [facility] Family Medicine - [place] #2 [place] [address] Derrick López MD #[address] [address] 05/24/2025 12:30 PM CDT Telemedicine [facility] Neurology - [place] #2 [facility] [place] [address] Lilia Baxter APRN, MATH TEACHER #2 [place] [address] documented as of this encounter Visit Diagnoses Diagnosis Intractable episodic cluster headache Episodic cluster headache documented in this encounter Additional Health Concerns Infection Onset Date Last Indicated Resolved Time COVID - 19 10/24/2021 10/27/2021 11/16/2021 12:1 6 AM HOUSE MOVER COVID - 19 Confirmed 10/27/2021 10/27/2021 022 12:16 AM HOUSE MOVER COVID - 19 04/25/2022 04/26/2022 05/05/2022 12:1 6 AM CDT COVID - 19 11/22/2023 11/22/2023 11/25/2023 9:26 AM HOUSE MOVER COVID - 19 11/27/2023 11/27/2023 11/27/2023 5:02 PM HOUSE MOVER Respiratory Rule-Out 11/27/2023 11/27/2023 024 5:01 PM HOUSE MOVER COVID - 19 02/02/2024 02/02/2024 02/02/2024 3:51 PM CDT COVID - 19 05/26/2024 05/26/2024 05/26/2024 4:26 PM CDT COVID - 19 05/28/2024 05/28/2024 05/28/2024 1:37 PM CDT COVID - 19 06/04/2024 06/04/2024 06/04/2024 11:3 2 AM CDT Respiratory Rule-Out 09/15/2024 09/15/2024 024 1:59 PM HOUSE MOVER Respiratory Rule-Out 11/16/2024 11/16/2024 025 4:04 PM HOUSE MOVER COVID - 19 11/16/2024 11/16/2024 11/16/2024 4:02 PM HOUSE MOVER Assessment Noted Time PHQ-9 Depression Total Score: 0 07/20/20 3:35 PM CDT documented as of this encounter Care Teams Welder Machine Operator Relationship Specialty Start Date End Date Derrick López MD #2 [facility] [place] [address] [place] [address] PCP - General Family Medicine 03/24/18 Bernice Andres MD [address] [address] Consulting Physician Obstetrics & Gynecology 03/24/18 Lilia Baxter APRN, MATH TEACHER #2 [place] [address] Nurse Practitioner Advanced Practice Nurse 12/29/21 Kamron Guillory MD #[address] [address] Consulting Physician Colon and Rectal Surgery 01/29/23 Josephine Mansfield MD [address] [place] [address] Consulting Physician Endocrinology 07/05/23 Jaylon Villeda MD #[address] [place] [address] Consulting Physician Neurology 12/07/22 documented as of this encounter
--- OUTSIDE RECORDS SUMMARY | 2025-01-09 08:11 | XMS_ITS | Encounter Summary ---
Author Organization [facility] Address [address] [facility] [place] [address] Phone Care Team Providers Care Steak Sauce Maker Name Role Phone Derrick López MD Primary Care Provider Bernice Andres MD Unavailable Lilia Baxter APRN, HIGH SCHOOL ASSISTANT FOOTBALL COACH Unavailable [phone] Kamron Guillory MD Unavailable Josephine Mansfield MD Unavailable Jaylon Villeda MD Unavailable Reason for Visit * Reason Comments Medication Refill Encounter Details Date Type Department Care Team (Late st Contact Info) Description 02/29/2024 Refill [facility] - Endocrinology - [place] #2 [place] [address] Josephine Mansfield MD #[address] [address] Medication Refill Social History Tobacco [...] PM CDT Medication(s) refilled and signed per [facility] Chronic Medication Refill Standing Order for Pediatricand [...] MD [facility] 08/01/23 Office Visit Josephine Mansfield MD [facility] [place] 06/25/23 Telemedicine Derrick López MD [facility] [...] Info) Description 02/17/2025 4:00 PM CDT Telemedicine [facility] Family Medicine - [place] #2 [place] [address] Derrick López MD #[address] [address] 05/24/2025 12:[address] [facility] - Neurology - [place] #2 [place] [address] Lilia Baxter APRN, HIGH SCHOOL ASSISTANT FOOTBALL COACH #2 [place] [address] documented as of this encounter Visit Diagnoses Not on filedocumented in this encounter Additional Health Concerns Infection Onset Date Last Indicated Resolved Time COVID - 19 05/26/2024 05/26/2024 05/26/2024 4:26 PM CDT COVID - 19 05/28/2024 05/28/2024 05/28/2024 1:37 PM CDT COVID - 19 06/04/2024 06/04/2024 06/04/2024 11:3 2 AM CDT Respiratory Rule-Out 09/15/2024 09/15/2024 024 1:59 PM CHIEF DIVERSITY OFFICER Respiratory Rule-Out 11/16/2024 11/16/2024 025 4:04 PM CHIEF DIVERSITY OFFICER COVID - 19 11/16/2024 11/16/2024 11/16/2024 4:02 PM CHIEF DIVERSITY OFFICER Assessment Noted Time PHQ-9 Depression Total Score: 0 05/22/20 11:18 AM CDT documented as of this encounter Care Teams Steak Sauce Maker Relationship Specialty Start Date End Date Derrick López MD #[address] [address] PCP - General Family Medicine 03/24/18 Bernice Andres MD [address] [address] Consulting Physician Obstetrics & Gynecology 03/24/18 Lilia Baxter, HEARING STENOGRAPHER, [facility] #2 [place] [address] Nurse Practitioner Advanced Practice Nurse 12/29/21 Kamron Guillory MD #[address] [address] Consulting Physician Colon and Rectal Surgery 01/29/23 Josephine Mansfield MD #[address] [address] Consulting Physician Endocrinology 07/05/23 Jaylon Villeda MD #2 [place] [address] Consulting Physician Neurology 12/07/22 documented as of this encounter
--- OUTSIDE RECORDS SUMMARY | 2025-01-09 08:11 | XMS_ITS | Encounter Summary ---
Author Organization [facility] Address [address] [facility] [place] [address] Phone Care Team Providers Care Clinical Biochemist Name Role Phone Derrick López MD Primary Care Provider [phone] Bernice Andres MD Unavailable Lilia Baxter APRN, HOSPICE ADMINISTRATOR Unavailable [phone] Kamron Guillory MD Unavailable Josephine Mansfield MD Unavailable Jaylon Villeda MD Unavailable Reason for Visit * Reason Comments Medication Refill Encounter Details Date Type Department Care Team (Late st Contact Info) Description 11/12/2021 Refill [facility] - Neurology [facility] #2 [place] [address] Jaylon Villeda MD #2 [place] [address] Medication Refill Social History Tobacco [...] Coronavirus / COVID-19? Yes 10/27/2021 9:43 AM RELAY OPERATOR documented as of this encounter Plan of Treatment Upcoming Encounters Date Type Department Care Team (Late st Contact Info) Description 02/17/2025 4:00 PM CDT Telemedicine [facility] Medical [facility] - Family Medicine [facility] #2 [place] [address] Derrick López MD #[address] [address] 05/24/2025 12:30 PM CDT Telemedicine [facility] Medical [facility] - Neurology [facility] #2 [place] [address] Lilia Baxter APRN, HOSPICE ADMINISTRATOR #2 [place] [address] documented as of this encounter Visit Diagnoses Diagnosis Migraine with aura and with status migrainosus, not intractable Migraine with aura, with intractable migraine, so stated, with status migrainosus documented in this encounter Additional Health Concerns Infection Onset Date Last Indicated Resolved Time COVID - 19 10/24/2021 10/27/2021 11/16/2021 12:1 6 AM RELAY OPERATOR COVID - 19 Confirmed 10/27/2021 10/27/2021 022 12:16 AM RELAY OPERATOR COVID - 19 04/25/2022 04/26/2022 05/05/2022 12:1 6 AM CDT COVID - 19 11/22/2023 11/22/2023 11/25/2023 9:26 AM RELAY OPERATOR COVID - 19 11/27/2023 11/27/2023 11/27/2023 5:02 PM RELAY OPERATOR Respiratory Rule-Out 11/27/2023 11/27/2023 024 5:01 PM RELAY OPERATOR COVID - 19 02/02/2024 02/02/2024 02/02/2024 3:51 PM CDT COVID - 19 05/26/2024 05/26/2024 05/26/2024 4:26 PM CDT COVID - 19 05/28/2024 05/28/2024 05/28/2024 1:37 PM CDT COVID - 19 06/04/2024 06/04/2024 06/04/2024 11:3 2 AM CDT Respiratory Rule-Out 09/15/2024 09/15/2024 024 1:59 PM RELAY OPERATOR Respiratory Rule-Out 11/16/2024 11/16/2024 025 4:04 PM RELAY OPERATOR COVID - 19 11/16/2024 11/16/2024 11/16/2024 4:02 PM RELAY OPERATOR Assessment Noted Time PHQ-9 Depression Total Score: 0 07/20/20 20 3:35 PM CDT documented as of this encounter Care Teams Clinical Biochemist Relationship Specialty Start Date End Date Derrick López MD #2 [place] [id number] PCP - General Family Medicine 03/24/18 Bernice Andres MD [address] [address] Consulting Physician Obstetrics & Gynecology 03/24/18 Lilia Baxter APRN, HOSPICE ADMINISTRATOR #2 [place] [address] Nurse Practitioner Advanced Practice Nurse 12/29/21 Kamron Guillory MD #[address] [address] Consulting Physician Colon and Rectal Surgery 01/29/23 Josephine Mansfield MD #[address] [address] Consulting Physician Endocrinology 07/05/23 Jaylon Villeda MD #2 [place] [address] Consulting Physician Neurology 12/07/22 documented as of this encounter
--- OUTSIDE RECORDS SUMMARY | 2025-01-09 08:11 | XMS_ITS | Encounter Summary ---
Author Organization [facility] Address [address] [facility] [place] [address] Phone Care Team Providers Care Penal Officer Name Role Phone Derrick López MD Primary Care Provider [phone] Bernice Andres MD Unavailable [phone] Lilia Baxter APRN, PAYROLL SUPERVISOR Unavailable [phone] Kamron Guillory MD Unavailable Josephine Mansfield MD Unavailable Jaylon Villeda MD Unavailable Reason for Visit * Reason Comments Medication Refill Encounter Details Date Type Department Care Team (Late st Contact Info) Description 05/21/2023 Refill [facility] - [facility] #2 [place] [id number] Lilia Baxter APRN, PAYROLL SUPERVISOR #2 [place] [address] Medication Refill Social History Tobacco Use Types [...] Telemedicine [facility] - Family Medicine [facility] #2 [place] [address] Derrick López MD #[address] [address] 05/24/2025 12:30 PM CDT Telemedicine [facility] - Neurology - [place] #2 [place] [address] Lilia Baxter APRN, PAYROLL SUPERVISOR #[address] [place] [address] documented as of this encounter Visit Diagnoses Diagnosis Chronic migraine w/o aura 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, not intractable Chronic migraine without aura, without mention of intractable migraine without mention of status migrainosus documented in this encounter Additional Health Concerns Infection Onset Date Last Indicated Resolved Time COVID - 19 11/22/2023 11/22/2023 11/25/2023 9:26 AM NEUROUROLOGIST COVID - 19 11/27/2023 11/27/2023 11/27/2023 5:02 PM NEUROUROLOGIST Respiratory Rule-Out 11/27/2023 11/27/2023 024 5:01 PM NEUROUROLOGIST COVID - 19 02/02/2024 02/02/2024 02/02/2024 3:51 PM CDT COVID - 19 05/26/2024 05/26/2024 05/26/2024 4:26 PM CDT COVID - 19 05/28/2024 05/28/2024 05/28/2024 1:37 PM CDT COVID - 19 06/04/2024 06/04/2024 06/04/2024 11:3 2 AM CDT Respiratory Rule-Out 09/15/2024 09/15/2024 024 1:59 PM NEUROUROLOGIST Respiratory Rule-Out 11/16/2024 11/16/2024 025 4:04 PM NEUROUROLOGIST COVID - 19 11/16/2024 11/16/2024 11/16/2024 4:02 PM NEUROUROLOGIST Assessment Noted Time PHQ-9 Depression Total Score: 0 07/20/20 20 3:35 PM CDT documented as of this encounter Care Teams Penal Officer Relationship Specialty Start Date End Date Derrick López MD #[address] [address] [address] PCP - General Family Medicine 03/24/18 Bernice Andres MD [address] [address] Consulting Physician Obstetrics & Gynecology 03/24/18 Lilia Baxter APRN, [facility] #2 [place] [address] Nurse Practitioner Advanced Practice Nurse 12/29/21 Kamron Guillory MD #[address] [address] Consulting Physician Colon and Rectal Surgery 01/29/23 Josephine Mansfield MD #[address] [address] Consulting Physician Endocrinology 07/05/23 Jaylon Villeda MD #2 [place] [address] Consulting Physician Neurology 12/07/22 documented as of this encounter
--- OUTSIDE RECORDS SUMMARY | 2025-01-09 08:11 | XMS_ITS | Encounter Summary ---
Author Organization [facility] Address [address] [facility] [place] [address] Phone Care Team Providers Care Environmental Technician Name Role Phone Derrick López MD Primary Care Provider [phone] Bernice Andres MD Unavailable Lilia Baxter APRN, [facility] Unavailable [phone] Kamron Guillory MD Unavailable Josephine Mansfield MD Unavailable Jaylon Villeda MD Unavailable Reason for Visit * Reason Onset Date Comments Medication Refill 01/02/2022 Encounter Details Date Type Department Care Team (Late st Contact Info) Description 01/02/2022 Refill [facility] - Family [facility] #2 [place] [address] Derrick López MD #[address] [address] Medication Refill Social History Tobacco Use Types [...] physician/JO-ANN review. Refill encounter routed to nurse [email or web address] for processing. documented in this encounter Plan of Treatment Upcoming Encounters Date Type Department Care Team (Late st Contact Info) Description 02/17/2025 4:00 PM CDT Telemedicine [facility] - Family Medicine - [place] #2 [place] [address] Derrick López MD #[address] [address] 05/24/2025 12:30 PM CDT Telemedicine [facility] - Neurology - [place] #2 [place] [address] Lilia Baxter APRN, PRESS OPERATOR AUTOMATIC #2 [place] [address] documented as of this encounter Visit Diagnoses Not on filedocumented in this encounter Additional Health Concerns Infection Onset Date Last Indicated Resolved Time COVID - 19 04/25/2022 04/26/2022 05/05/2022 12:1 6 AM CDT COVID - 19 11/22/2023 11/22/2023 11/25/2023 9:26 AM TAKE DOWN INSPECTOR COVID - 19 11/27/2023 11/27/2023 11/27/2023 5:02 PM TAKE DOWN INSPECTOR Respiratory Rule-Out 11/27/2023 11/27/202311/27/2 024 5:01 PM TAKE DOWN INSPECTOR COVID - 19 02/02/2024 02/02/2024 02/02/2024 3:51 PM CDT COVID - 19 05/26/2024 05/26/2024 05/26/2024 4:26 PM CDT COVID - 19 05/28/2024 05/28/2024 05/28/2024 1:37 PM CDT COVID - 19 06/04/2024 06/04/2024 06/04/2024 11:3 2 AM CDT Respiratory Rule-Out 09/15/2024 09/15/2024 024 1:59 PM TAKE DOWN INSPECTOR Respiratory Rule-Out 11/16/2024 11/16/2024 025 4:04 PM TAKE DOWN INSPECTOR COVID - 19 11/16/2024 11/16/2024 11/16/2024 4:02 PM TAKE DOWN INSPECTOR Assessment Noted Time PHQ-9 Depression Total Score: 0 07/20/20 20 3:35 PM CDT documented as of this encounter Care Teams Environmental Technician Relationship Specialty Start Date End Date Derrick López MD #2 [facility] [address] [place] [address] PCP - General Family Medicine 03/24/18 Bernice Andres MD [address] [address] Consulting Physician Obstetrics & Gynecology 03/24/18 Lilia Baxter APRN, PRESS OPERATOR AUTOMATIC #2 [place] [address] Nurse Practitioner Advanced Practice Nurse 12/29/21 Kamron Guillory MD #2 [facility] [address] [place] [address] Consulting Physician Colon and Rectal Surgery 01/29/23 Josephine Mansfield MD #[address] [address] [address] Consulting Physician Endocrinology 07/05/23 Jaylon Villeda MD #2 [place] [address] Consulting Physician Neurology 12/07/22 documented as of this encounter
--- OUTSIDE RECORDS SUMMARY | 2025-01-09 08:11 | XMS_ITS | Clinical Summary ---
Author Organization [facility] Address [address] [place] [address] Care Team Providers Care Environmental Maintenance Worker Name Role Phone Derrick López MD Primary Care Provider [phone] [facility],non-[facility] Affiliates and Associated Physician Practices is amultiple site organization consisting of ambulatory clinics and hospital sitesin [place], [place], [place] and [place]. This disclosure is being madepursuant to the Care Everywhere program and may not contain all information available regarding this patient. Last updated 18.[facility] Allergies Active Allergy Reactions Criticality Noted Date [...] tablet by mouth once daily 07/20/2022 Active ugaa-hiag-hijekcqn al-codeine (Fioricet With Codeine) 89-831-51-30 MG capsule TAKE 1 CAPSULE BY MOUTH [...] 5 Each 10/28/2024 Active nystatin-triamcino lone (Mycolog) 278393-6.1 UNIT/GM-% creamIndications:V ulvovaginitis due to yeast Apply [...] Department Care Team Description 11/27/2024 2:20 PM PEARL DIVER Office Visit [facility] - PROFESSOR OF RELIGIOUS STUDIES [address] [place] [address] Sherlyn Villalobos MD Vulvovaginitis due to yeast (Primary Dx); Asymptomatic microscopic hematuria 11/27/2024 Travel 11/26/2024 Telephone [facility] - PROFESSOR OF RELIGIOUS STUDIES [address], [address] [place] [address] Rishi Tanner MD Question 10/28/2024 1:30 PM PEARL DIVER Office Visit [facility] - PROFESSOR OF RELIGIOUS STUDIES [address] [facility] [address] [place] [address] Ema Sevilla MD Spastic pelvic [...] Comments Blood Pressure 120/76 11/27/2024 2:46 PM PEARL DIVER Pulse 94 02/04/2024 10:43 AM CDT Temperature 36.8 C (98.2 F) 02/04/2024 10:43 AM CDT Respiratory Rate 16 02/05/2024 10:51 AM CDT Oxygen Saturation 100% 02/05/2024 10:51 AM CDT Inhaled Oxygen Concentration - - Weight 69.9 kg (154 lb) 11/27/2024 2:46 PM PEARL DIVER Height 157.5 cm (5' 2 ) 11/27/2024 2:46 PM PEARL DIVER Body Mass Index 28.17 11/27/2024 2:46 PM PEARL DIVER Plan of Treatment Health Maintenance Due Date [...] Comments CULTURE URINE Routine 11/27/2024 2:54 PM PEARL DIVER Asymptomatic microscopic hematuria COMPREHENSIVE METABOLIC PANEL STAT 02/01/2024 5:00 PM CDT HPV DETECTION HIGH RISK NURIA Routine 11/20/2023 12:08 PM PEARL DIVER Well woman exam with routine gynecological exam HEPATITIS SCREEN ACUTE STAT 08/18/2023 6:42 AM PEARL DIVER from Last 3 Months or Most Recently Relevant to Health Maintenance Results * CULTURE URINE (11/27/2024 2:54 PM PEARL DIVER) [facility] Culture [facility] Comment: CULTURE, URINE, ROUTINE Micro Number: [id number] Test Status: Final Specimen Source: Urine, clean catch Specimen Quality: Adequate Result: No Growth Test Performed at: [facility] [address] MALINDA PENALOZA MD Urine URINE SPECIMEN OBTAINED BY CLEAN CATCH PROCEDURE / Unknown 11/27/2024 2:54 PM PEARL DIVER 11/28/2024 2:20 AM PEARL DIVER Sherlyn Villalobos MD LAB - MICROBIOLOGY O RDERABLES [address] [address] * (ABNORMAL) COMPREHENSIVE METABOLIC PANEL (02/01/2024 5:00 PM CDT) [facility] BUN 15 7 - 26 mg/dL 02/01/2024 6:24 PM [facility] Creatinine 0.90 0.56 - 0.96 mg/dL 02/01/2024 6:24 PM [facility] Sodium 143 136 - 145 mmol/L 02/01/2024 6:24 PM [facility] Potassium 3.7 3.5 - 4.5 mmol/L 02/01/2024 6:24 PM [facility] Chloride 110(H) 98 - 107 mmol/L 02/01/2024 6:24 PM [facility] CO2 22 22 - 29 mmol/L 02/01/2024 6:24 PM [facility] Glucose 95 70 - 115 mg/dL 02/01/2024 6:24 PM [facility] Calcium 9.3 8.4 - 10.2 mg/dL 02/01/2024 6:24 PM [facility] Protein Total 7.5 6.0 - 8.3 g/dL 02/01/2024 6:24 PM CDT [facility] Albumin 4.2 3.4 - 5.0 g/dL 02/01/2024 6:24 PM [facility] Bilirubin Total 0.9 0.2 - 1.2 mg/dL 02/01/2024 6:24 PM [facility] Alkaline Phosphatase 51 40 - 150 U/L 02/01/2024 6:24 PM [facility] ALT 25 5 - 55 U/L 02/01/2024 6:24 PM [facility] AST 23 5 - 34 U/L 02/01/2024 6:24 PM [facility] Anion Gap 11 6 - 16 02/01/2024 6:24 PM [facility] BUN/Creatinine Ratio 17 7 - 23 02/01/2024 6:24 PM [facility] Osmolality Calculated 297(H) 275 - 295 mOsm/kg 02/01/2024 6:24 PM [facility] Albumin/Globulin Ratio 1.3 1.1 - 2.3 02/01/2024 6:24 PM [facility] eGFR by CKD-EPI 81(L) >=90 mL/min/1.7 3 m2 02/01/2024 6:24 PM [facility] Blood BLOOD SPECIMEN / Unknown Venipuncture / Unknown 02/01/2024 5:00 PM CDT 02/01/2024 5:42 PM CDT Eric Rojas MD LAB - CHEMISTRY LUDIVINA MONTELONGO [facility] [place] Organization Address City/State/[facility] Co de Phone Number [facility] [address] [place] [phone], [facility] [phone] * HPV DETECTION HIGH RISK NURIA (11/20/2023 12:08 PM PEARL DIVER) High Risk Human Papilloma Result Not detected Not detected 11/25/2023 11:05 AM PEARL DIVER [facility] High Risk Human Papilloma Interp 11/25/2023 11:05 AM PEARL DIVER [facility] Comment:High Risk Human Hasmukh lloma Virus was Not Detected. Pathology/Cytolo gy MISCELLANEOUS SAMPLES / Unknown 11/20/2023 12:08 PM PEARL DIVER 11/21/2023 1:28 PM PEARL DIVER Narrative [facility] - 11/25/2023 11:05 AM PEARL DIVER Nucleic acid isolated from the specimen was [...] - MICROBIOLOGY O MIKAEL Performing Organization Address City/[facility]/ZIP Co de Phone Number [facility] [address] [phone] * HEPATITIS SCREEN ACUTE (08/18/2023 6:42 AM PEARL DIVER) Hepatitis A Virus Antibody IgM Non-react brandy Non-reac tive 08/18/2023 8:44 AM PEARL DIVER [facility] Hepatitis B Virus Surface Antigen Non-react brandy Non-reac tive 08/18/2023 8:44 AM PEARL DIVER [facility] Hepatitis B Core Virus Antibody IgM Non-react brandy Non-reac tive 08/18/2023 8:44 AM PEARL DIVER [facility] Hepatitis C Antibody Non-react rbandy Non-reac tive 08/18/2023 8:44 AM [facility] Comment:Hepatitis C Antibody screen indicates no serologic evidence of past or current infection with Hepatitis C Virus. Patients with unexplained liver disease who are immunocompromised or suspected of having acute Hepatitis C infection may benefit from Nucleic Acid Test (KEVIN) for Hepatitis C Viral RNA to confirm Hepatitis C status. Blood BLOOD SPECIMEN / Unknown Venipuncture / Unknown 08/18/2023 6:42 AM PEARL DIVER 08/18/2023 7:00 AM PEARL DIVER Gasper Frances MD LAB - CHEMISTRY LUDIVINA MONTELONGO Performing Organization Address City/[facility]/ZIP Co de Phone Number [facility] [address] [place] [address] [phone] from Last 3 Months or Most Recently Relevant to Health Maintenance Advance Directives * Full Code (Latest Code Status on File) Date Activated Date Inactivated Comments 08/18/2023 8:54 AM 08/21/2023 5:02 PM Care Teams Environmental Maintenance Worker Relationship Specialty Start Date End Date Derrick López MD [address] [place] [address] PCP - General Family Medicine 08/18/23
--- OUTSIDE RECORDS SUMMARY | 2025-01-09 08:11 | XMS_ITS | Encounter Summary ---
Author Organization [facility] Address [address] [facility] [place] [address] Phone Care Team Providers Care Senior Data Developer Name Role Phone Derrick López MD Primary Care Provider [phone] Bernice Andres MD Unavailable Lilia Baxter APRN, GRADER PATROL Unavailable [phone] Kamron Guillory MD Unavailable Josephine [place] MD Unavailable Jaylon Villeda MD Unavailable Reason for Visit * Reason Comments Medication Refill Encounter Details Date Type Department Care Team (Late st Contact Info) Description 10/29/2023 Refill [facility] [address] [place] [address] Derrick López MD [address] [address] Medication Refill Social History Tobacco Use Types [...] López MD for the followingreason: Therapy completed. OR GRANTS OFFICER documented in this encounter Plan of Treatment Upcoming Encounters Date Type Department Care Team (Late st Contact Info) Description 02/17/2025 4:00 PM CDT Telemedicine [facility] Medical [facility] - Family Medicine - [place] [address] [place] [address] Derrick López MD #[address] [address] 05/24/2025 12:30 PM CDT [facility] - Neurology - [place] [address] [place] [address] Lilia Baxter APRN, GRADER PATROL [address] [place] [address] documented as of this encounter Visit Diagnoses Diagnosis Fatigue, unspecified type documented in this encounter Additional Health Concerns Infection Onset Date Last Indicated Resolved Time COVID - 19 11/22/2023 11/22/2023 11/25/2023 9:26 AM SENIOR GRANTS OFFICER COVID - 19 11/27/2023 11/27/2023 11/27/2023 5:02 PM SENIOR GRANTS OFFICER Respiratory Rule-Out 11/27/2023 11/27/2023 024 5:01 PM SENIOR GRANTS OFFICER COVID - 19 02/02/2024 02/02/2024 02/02/2024 3:51 PM CDT COVID - 19 05/26/2024 05/26/2024 05/26/2024 4:26 PM CDT COVID - 19 05/28/2024 05/28/2024 05/28/2024 1:37 PM CDT COVID - 19 06/04/2024 06/04/2024 06/04/2024 11:3 2 AM CDT Respiratory Rule-Out 09/15/2024 09/15/2024 024 1:59 PM SENIOR GRANTS OFFICER Respiratory Rule-Out 11/16/2024 11/16/2024 025 4:04 PM SENIOR GRANTS OFFICER COVID - 19 11/16/2024 11/16/2024 11/16/2024 4:02 PM SENIOR GRANTS OFFICER Assessment Noted Time PHQ-9 Depression Total Score: 0 05/22/20 23 11:18 AM CDT documented as of this encounter Care Teams Senior Data Developer Relationship Specialty Start Date End Date Derrick López MD #[address] [address] PCP - General Family Medicine 03/24/18 Bernice Andres MD [address] [facility] [address] [place] [address] Consulting Physician Obstetrics & Gynecology 03/24/18 Lilia Baxter APRN, GRADER PATROL [address] [place] [address] Nurse Practitioner Advanced Practice Nurse 12/29/21 Kamron Guillory MD #[address] [address] Consulting Physician Colon and Rectal Surgery 01/29/23 Josephine Mansfield MD #[address] [phone] Consulting Physician Endocrinology 07/05/23 Jaylon Villeda MD [address]2 [place] [address] Consulting Physician Neurology 12/07/22 documented as of this encounter
--- OUTSIDE RECORDS SUMMARY | 2025-01-09 08:11 | XMS_ITS | Clinical Summary ---
Author Organization [facility] Address [address] [place] [address] Phone Care Team Providers Care Chummer Name Role Phone Derrick López MD Primary Care Provider [phone] Bernice Andres MD Unavailable [phone] Lilia Baxter APRN, POSTAL TRANSPORTATION CLERK Unavailable [phone] Kamron Guillory MD Unavailable Josephine Mansfield MD Unavailable Jaylon Villeda MD Unavailable [phone] Allergies Active Allergy Reactions Criticality Noted Date [...] Active butalbital-nikos taminophen-caf feine-codeine (FIORICET WITH CODEINE) 63-270-72-30 MG CapsuleIndicat ions:Chronic migraine w/o aura 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, not intractable TAKE 1 CAPSULE BY MOUTH EVERY 4 HOURS NEEDED FOR PAIN 15 Capsule 2 12/25/19 25 Active mupirocin (BACTROBAN) 2 % Ointment Application Site: apply to affected areas twice a day for 7 days. (Description and Location) 15 g 01/07/20 25 025 Active butalbital-nikos taminophen-caf feine-codeine (FIORICET WITH CODEINE) 36-676-66-30 MG CapsuleIndicat ions:Chronic migraine w/o aura w/o [...] - 12/24/2024 11:59 PM CDT [facility] [place] [address] Derrick López MD Discharge Disposition: Discharged to home or Selfcare 12/24/2024 Travel 12/23/20[facility] [address] [place] [address] Lilia Baxter APRN, POSTAL TRANSPORTATION CLERK Medication Refill 12/08/2024 9:00 AM WATER PURIFIER OPERATOR - 12/08/2024 11:59 PM WATER PURIFIER OPERATOR [facility] [address] [place] [address] Lilia Baxter APRN, POSTAL TRANSPORTATION CLERK Discharge Disposition: Discharged to home or Selfcare 12/07/2024 Travel 11/24/2024 11:00 AM WATER PURIFIER OPERATOR [facility] [place] [address] [place] [address] Lilia Baxter APRN, POSTAL TRANSPORTATION CLERK Chronic migraine w/o aura 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, not intractable (Primary Dx); Bilateral occipital neuralgia 11/24/2024 Travel 11/19/2024 2:30 PM WATER PURIFIER OPERATOR Office Visit [facility] - Family Medicine - [place] [address] [place] [address] Derrick López MD URI, acute (Primary Dx); Overweight (BMI 25.0-29.9); Encounter for screening mammogram for breast cancer Discharge Disposition: Discharged to home or Selfcare 11/19/2024 Travel 11/16/2024 3:15 PM WATER PURIFIER OPERATOR Office Visit [facility] [place] [address] [place] [address] Nighat Lopez APRN, CNP Sore throat (Primary Dx); Viral illness Discharge Disposition: Discharged to home or Selfcare 11/16/2024 Travel 11/16/2024 [facility] [address] [place] [phone] Derrick López MD Advice Only; Sore Throat 11/05/2024 [facility] [place] [facility] [place] [address] Derrick López MD Medication Refill from Last 3 Months Immunizations Immunization Administration Dates Next Due Covid-19, Mrna, Lnp-s, Pf, 3 0 Mcg/0.3 Ml Dose ([employer]) 12/28/2020,12/08/2020 Influenza Vaccine 08/14/2013 Influenza Vaccine greater than 3 yrs 10/31/2017, 10/07/2011 Influenza Vaccine, Quadrivalent, PF 06/24/2018,1 10/26/2015 Influenza, Seasonal, Injectable, Undefined 10/31,08/13/2014,10/07/2011 Tetanus Toxoid, Unspecified Formulation 10/07/18 98 Family History Medical History Relation Name Comments Diabetes Brother Ronak Macular Degeneration Brother Ronak No Known Problems Daughter Arthritis Father Reginald High Cholesterol Father Reginald Macular Degeneration Father [...] = 0.6 oz pur e alcohol) Occasionally [facility] Utilities Answer Date Recorded In the past [...] often do you attend chur ch or mu-ism services? 1 to 4 times per year 11/19/2024 Do you belong to any clubs o r organizations such as alevism groups, unions, fraternal or athletic groups, or [...] Total Score - Questions 1-9 0 11/07 [facility] [employer] of Occupat ional [facility] - Occupational Stress Questionnaire Answer Date [...] any time in the past 12 m [facility], were you homeless or living in a long term (including now)? No 11/19/2024 Education Answer Date [...] Comments Blood Pressure 138/116 12/08/2024 2:08 PM WATER PURIFIER OPERATOR Pulse 94 12/08/2024 2:30 PM WATER PURIFIER OPERATOR Temperature 36.7 C (98 F) 12/08/2024 2:30 PM WATER PURIFIER OPERATOR Respiratory Rate 16 11/16/2024 3:43 PM WATER PURIFIER OPERATOR Oxygen Saturation 100% 12/08/2024 2:30 PM WATER PURIFIER OPERATOR Inhaled Oxygen Concentration - - Weight 69.4 kg (153 lb) 11/19/2024 2:49 PM WATER PURIFIER OPERATOR Height 157.5 cm (5' 2 ) 11/19/2024 2:49 PM WATER PURIFIER OPERATOR Body Mass Index 27.98 11/19/2024 2:49 PM WATER PURIFIER OPERATOR Plan of Treatment Upcoming Encounters Date Type Department Care Team (Late st Contact Info) Description 02/17/2025 4:00 PM CDT Telemedicine [facility] Medical [facility] - Family Medicine - [place] [address] [place] [address] Derrick López MD #[address] [address] 05/24/2025 12:30 PM CDT Telemedicine [facility] - Neurology - [place] [address] [place] [address] Lilia Baxter APRN, POSTAL TRANSPORTATION CLERK [address] [place] [address] Health Maintenance Due Date Last Done Comments [...] PERIPHERAL BLOCK Routine 12/08/2024 2 :30 PM WATER PURIFIER OPERATOR Chronic migraine w/o aura 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, not intractable PC OCC BLOCK Routine 12/08/2024 2:30 PM WATER PURIFIER OPERATOR Chronic migraine w/o aura 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, not intractable POC GROUP A STREP BY MOLECULAR Routine 11/16/2024 4:02 PM WATER PURIFIER OPERATOR Sore throat POC INFLUENZA A AND B BY MOLECULAR Routine 11/16/2024 4:02 PM WATER PURIFIER OPERATOR Sore throat POC SARS-COV-2 BY MOLECULAR Routine 11/16/2024 4:01 PM WATER PURIFIER OPERATOR Sore throat RHEUMATOLOGY CONSULT 11/03/2024 12:00 AM WATER PURIFIER OPERATOR HEPATITIS PANEL ACUTE (AHP) STAT 08/18/2023 4:38 AM WATER PURIFIER OPERATOR from Last 3 Months or Most [...] dated: 11/11/2023, 03/07/2023 [facility], and 03/09/2016 [facility]. BREAST TISSUE:The breasts are heterogeneously dense, which [...] exam. Electronically signed by: Fortunato rockwell/merrill:12/24/2024 22:37:47 Kennel Supervisor(s): RT Jeff(R)(M), [facility] letter sent: Normal [...] dated: 11/11/2023, 03/07/2023 [facility], and 03/09/2016 [facility]. BREAST TISSUE:The breasts are heterogeneously dense, which [...] signed by: Fortunato Lambert M.D. ll/penrad:12/24/2024 22:37:47 Kennel Supervisor(s): RT Jeff(R)(M), [facility] letter sent: Normal Exam Reading location: [place] Mammogram BI-RADS: Category 1: Negative Derrick López MD IMG MAMMO ORDERABLES Final Result * PC PERIPHERAL BLOCK (12/08/2024 2:30 PM WATER PURIFIER OPERATOR) Anatomical Region Laterality Modality BODY N/A Radio Fluoroscop y 12/08/2024 3:04 PM WATER PURIFIER OPERATOR Impressions 12/08/2024 3:07 PM WATER PURIFIER OPERATOR IMPRESSION: Successful bilateral greater and lesser occipital nerve block. Narrative 12/08/2024 3:07 PM WATER PURIFIER OPERATOR EXAM DESCRIPTION: PC OCC BLOCK; PC PERIPHERAL [...] by Sanjiv Chow M.D., JR: Report ID: [id number] Reading Location: [id number] Procedure Note Sanjiv Chow MD - 12/08/2024 [...] by Sanjiv Chow M.D., JR: Report ID: [id number] Reading Location: [id number] IMPRESSION: Successful bilateral greater and lesser occipital nerve block. us Lilia Baxter APRN, POSTAL TRANSPORTATION CLERK IMG DIAGNOSTIC ORDER SEA Final Result * PC OCC BLOCK (12/08/2024 2:30 PM WATER PURIFIER OPERATOR) Anatomical Region Laterality Modality BODY N/A Radio Fluoroscop y 12/08/2024 3:04 PM WATER PURIFIER OPERATOR Impressions 12/08/2024 3:07 PM WATER PURIFIER OPERATOR IMPRESSION: Successful bilateral greater and lesser occipital nerve block. Narrative 12/08/2024 3:07 PM WATER PURIFIER OPERATOR EXAM DESCRIPTION: PC OCC BLOCK; PC PERIPHERAL [...] by Sanjiv Chow M.D. JR: Report ID: [id number] Reading Location: [id number] Procedure Note Sanjiv Chow MD - 12/08/2024 [...] by Sanjiv Chow M.D. JR: Report ID: [id number] Reading Location: [id number] IMPRESSION: Successful bilateral greater and lesser occipital nerve block. Lilia Baxter PRODUCTION LAPPING MACHINE OPERATOR, POSTAL TRANSPORTATION CLERK IMG DIAGNOSTIC ORDER SEA Final Result * POC INFLUENZA A AND B BY MOLECULAR (11/16/2024 4:02 PM WATER PURIFIER OPERATOR) INFLUENZA A RNA Negative Negative, Invalid INFLUENZA B RNA Negative Negative, Invalid PROCEDURE CONTROL Valid 11/16/2024 4:02 PM WATER PURIFIER OPERATOR Nighat Lopez PRODUCTION LAPPING MACHINE OPERATOR, TRAVEL REGISTERED NURSE NICU POINT OF CARE TESTIN G (MANUAL) Final Result * POC GROUP A STREP BY MOLECULAR (11/16/2024 4:02 PM WATER PURIFIER OPERATOR) STREP A DNA Negative Negative, Invalid PROCEDURE CONTROL Valid 11/16/2024 4:02 PM WATER PURIFIER OPERATOR Nighat Lopez PRODUCTION LAPPING MACHINE OPERATOR, TRAVEL REGISTERED NURSE NICU POINT OF CARE TESTIN G (MANUAL) Final Result * POC SARS-COV-2 BY MOLECULAR (11/16/2024 4:01 PM WATER PURIFIER OPERATOR) SARSCOV2 Negative Negative, INVALID PROCEDURE CONTROL Valid 11/16/2024 4:01 PM WATER PURIFIER OPERATOR Nighat Rebecaeck PRODUCTION LAPPING MACHINE OPERATOR, TRAVEL REGISTERED NURSE NICU POINT OF CARE TESTIN G (MANUAL) Final Result * RHEUMATOLOGY CONSULT (11/03/2024 12:00 AM WATER PURIFIER OPERATOR) 11/03/2024 us Provider Scan GENERIC SCAN ORDERS CONSULT Sandra l Result SCAN * Hepatitis Panel Acute (AHP) (08/18/2023 4:38 AM WATER PURIFIER OPERATOR) HEPATITIS A IGM ANTIBODY NON DETECTED NON DETECTED [place] [id number] B 08/18/2023 5:17 PM WATER PURIFIER OPERATOR [facility] Comment: IGM Antibodies to HAV not detected. Does not exclude early acute or recovered HAV infection. HEP B CORE AB (IGM) NON DETECTED NON DETECTED [place] [id number] B 08/18/2023 5:17 PM WATER PURIFIER OPERATOR [facility] Comment:IGM anti-HBC not det ected. Does not exclude the possibility of exposure to or infection with HBV. HEPATITIS B SURFACE ANTIGEN NON DETECTED NON DETECTED [address] 08/18/2023 5:17 PM WATER PURIFIER OPERATOR [facility] Comment:A nonreactive test r esult does not exclude the possibility of exposure to or infection with Hepatitis B virus. A nonreactive test result in individuals with prior exposure to hepatitis B may be due to antigen levels below the detection limit of this assay or lack of antigen reactivity to the antibodies in this assay. hepatitis C antibody 0.10 <1 S/CO [address] 08/18/2023 5:17 PM WATER PURIFIER OPERATOR [facility] Comment: Signal/Cutoff ratio < 0.79 is Nondetected Signal/Cutoff ratio 0.80-0.99 is Grayzone Signal/Cutoff ratio > 0.99 is Detected Supplemental assays are recommended if signal/cutoff ratio is >/=1.00. Signal/cutoff ratio result >/= 5.00 is 97% predictive of positivity for recombinant immunoblot assay (RIBA) and will be reported to the [place] Department of Public Health as required. Blood Venipuncture / Unknown 08/18/2023 4:38 AM WATER PURIFIER OPERATOR 08/18/2023 4:43 AM WATER PURIFIER OPERATOR Felipe Schaefer MD HEMATOLOGY ORDERABLES Fin al Result [facility] [address] [address], [place] from Last 3 Months or Most Recently Relevant to Health Maintenance Insurance [facility] CLAIMS Care Teams Chummer Relationship Specialty Start Date End Date Derrick López MD [address]2 [facility] [address] [place] [address] PCP - General Family Medicine 03/24/18 eBrnice Andres MD [address] [address] Consulting Physician Obstetrics & Gynecology 03/24/18 Lilia Baxter, PRODUCTION LAPPING MACHINE OPERATOR, POSTAL TRANSPORTATION CLERK [address] [place] [address] Nurse Practitioner Advanced Practice Nurse 12/29/21 Kamron Guillory MD #[address] [address] Consulting Physician Colon and Rectal Surgery 01/29/23 Josephine Mansfield MD #[address] [address] Consulting Physician Endocrinology 07/05/23 Jaylon Villeda MD [address] [place] [address] Consulting Physician Neurology 12/07/22
--- NOTE | 2025-01-09 08:31 | ED_ITS ---
HPI - Back Pain/Injury General Chief Complaint: Back Pain/Injury Stated Complaint: R flank pain Time Seen by Provider: 01/09/25 07:00 Source: patient Mode of arrival: ambulatory Limitations: no limitations History of Present Illness HPI Narrative: 44-year-old with a history of hypothyroidism, migraine headaches here with the complaints of of will right sided back pain mostly in the thoracic area radiating into her upper abdomen which is been ongoing for past few days she was told that she has costochondritis. She is also of on treatment for rheumatoid arthritis she states her liver enzymes were elevated and she was started to be checked. She denies any fever or chills no history of recent trauma . MD elicited complaint: back pain Pertinent past history: prior back pain Onset (ago): day(s) (4) Timing: constant Severity: moderate Similar Symptoms Previously: Yes Quality: aching Location: thoracic spine Radiation: abdomen Exacerbating factors: none Relieving factors: none Context: unknown Associated symptoms: denies other symptoms Related Data Home Medications ?Medication ?Instructions ?Recorded ?Confirmed ?Last Taken ?Type bupropion HCl 150 mg 24 hr tablet, 150 mg PO QAM 08/11/21 08/11/21 Unknown History extended release levothyroxine 175 mcg tablet 175 mcg PO DAILY 08/11/21 08/11/21 Unknown History (Synthroid) methylprednisolone 4 mg tablets in 4 mg PO DAILY 08/11/21 08/11/21 Unknown History a dose pack ondansetron 4 mg disintegrating 4 mg PO PRN PRN Migraine Headache 08/11/21 08/11/21 Unknown History tablet plecanatide 3 mg tablet (Trulance) 3 mg PO DAILY 08/11/21 08/11/21 Unknown History sumatriptan succinate 6 mg/0.5 mL 6 mg subcut PRN PRN Migraine 08/11/21 08/11/21 Unknown History subcutaneous pen injector Headache Allergies Allergy/AdvReac Type Severity Reaction Status Date / Time morphine Allergy Unknown Vomiting Verified 01/09/25 07:31 meloxicam Allergy Swelling Verified 01/09/25 07:31 diclofenac AdvReac Unknown Verified 01/09/25 07:31 methotrexate AdvReac Unknown Verified 01/09/25 07:31 nitrofurantoin AdvReac Unknown Verified 01/09/25 07:31 Review of Systems 2 Review of Systems: All systems reviewed & are unremarkable except as noted in HPI and below Constitutional: Constitutional: Reports no additional constitutional complaints Eyes: Eyes: Reports no additional eye complaints ENT: Reports system reviewed and no additional complaints, except as documented Cardiovascular: Cardiovascular: Reports no additional cardiovascular complaints Respiratory: Respiratory: Reports no additional respiratory complaints Gastrointestinal: Gastrointestinal: Reports no additional gastrointestinal complaints Musculoskeletal: Musculoskeletal: Reports as per HPI Integumentary/Breasts: Skin/Breast: Reports system reviewed and no additional complaints, except as docu Neurologic: Reports system reviewed and no additional complaints, except as documented Hematologic/Lymphatic: Hematologic/Lymphatic: Reports no additional hematologic/lymphatic complaints [facility] [place] Past Medical History Medical History Anxiety and depression Migraines Surgical History Surgical History History of laparoscopic cholecystectomy Social History Social History Smoking status: Never smoker Substance use: never Living arrangements: with family Gender identity (if verbalized by the patient): Female Exam 2 Narrative: GENERAL: Well-appearing, well-nourished, and in no acute distress. HEAD: Normocephalic, atraumatic. EYES: PERRLA and EOMI. ENT: Nares clear, no rhinorrhea or epistaxis. Mucous membranes moist. NECK: Supple. CHEST: Clear to auscultation. No respiratory distress. T-spine nontender on palpation HEART: Regular rate and rhythm. No murmur heard. Normal peripheral pulses. ABDOMEN: Soft, nontender, nondistended, normal active bowel sounds. EXTREMITIES: Normal range of motion. No edema. SKIN: Warm, dry, no rash. NEURO: No focal deficits. Alert and oriented x3. PSYCH: Normal mood and affect. Course Course Emergency Course: Pain has mentions with IV fentanyl and inform her about the lab work, chest x- ray findings. Cause of her pain appears to be more musculoskeletal. Advised to continue home pain medications, follow-up with pain management doctor. Vital Signs Vital signs: Vital Signs Temperature 36.1 C L 01/09/25 05:29 Pulse Rate 110 H 01/09/25 05:29 Respiratory Rate 18 01/09/25 05:29 Blood Pressure 124/73 01/09/25 05:29 Pulse Oximetry 100 04/05/25 05:29 Oxygen Delivery Room Air 01/09/25 05:29 Temperature 36.1 C L 01/09/25 05:29 Pulse Rate 110 H 01/09/25 05:29 Respiratory Rate 18 01/09/25 05:29 Blood Pressure 124/73 01/09/25 05:29 Pulse Oximetry 100 01/09/25 05:29 Oxygen Delivery Room Air 01/09/25 05:29 MDM - Back Pain/Injury Lab Data 01/09/25 06:17 01/09/25 06:17 Labs: Lab Results 01/09/25 01/09/25 01/09/25 Range/Units 06:17 07:18 07:31 WBC 6.0 (4.5-10.0) K/mm3 RBC 5.16 (4.2-5.4) M/mm3 Hgb 14.8 (12.0-15.0) g/dL Hct 44.9 (37.0-47.0) % MCV 87.0 (80-100) fl MCH 28.7 (26-34) pg MCHC 33.0 (32-36) g/dl RDW 12.6 (11.5-14.5) % Plt Count 348 (150-375) k/mm3 MPV 8.9 (7.4-10.4) fl Immature Gran % (Auto) 0.2 (0-0.5) % Neut % (Auto) 36.2 L (45.5-73.1) % Lymph % (Auto) 54.1 H (18.3-44.2) % Harrison % (Auto) 7.5 (2.6-8.5) % Eos % (Auto) 1.3 (0-4.4) % Baso % (Auto) 0.7 (0.2-1.2) % Lymph # (Auto) 3.25 H (0.9-3.2) K/mm3 Harrison # (Auto) 0.5 (0.1-0.6) K/mm3 Eos # (Auto) 0.1 (0-0.3) K/mm3 Baso # (Auto) 0.0 (0.0-0.1) K/mm3 Abs Immat Gran (auto) 0.01 (0.00-0.031) K/mm3 Absolute Neuts (auto) 2.2 (1.3-6.7) K/mm3 Absolute Nucleated RBC 0.000 (0.0-0.012) K/mm3 Nucleated RBC % 0.0 (0.0-0.2) % Sodium 139 (137-145) mmol/L Potassium 4.2 (3.4-5.0) mmol/L Chloride 104 (98-107) mmol/L Carbon Dioxide 22 (22-30) mmol/L Anion Gap 13 H (4-12) mmol/L BUN 10 (7-17) mg/dL Creatinine 0.88 (0.7-1.0) mg/dL Estim Creat Clear Calc 57 ml/min Estimated GFR > 60 (59 - ) Glucose 106 (65-110) mg/dL Calcium 9.0 (8.4-10.2) mg/dL Total Bilirubin 1.6 H (0.2-1.3) mg/dL AST 25 (14-36) U/L ALT 18 (6-35) U/L Alkaline Phosphatase 51 (38-126) U/L Total Protein 8.0 (6.3-8.2) g/dL Albumin 4.9 (3.5-5.1) g/dL Lipase 58 (23-300) U/L Urine Color Dark yellow (Yellow) Urine Appearance Cloudy H (Clear) Urine pH 6.0 (5.0-9.0) Ur Specific [place] 1.028 (1.001-1.035) Urine Protein 1+ H (Negative) mg/dL Urine Glucose (UA) Negative (Negative) mg/dL Urine Ketones Trace H (Negative) mg/dL Ur Blood (Man) 2+ H (Negative) Urine Nitrate Negative (Negative) Urine Bilirubin Negative (Negative) Urine Urobilinogen 1.0 (<2.0) mg/dL Add Ur Microanalysis Reviewed Leukocyte Esterase Rfl Negative (Negative) PATRICK/UL Urine RBC 11-20 H (0-2) /hpf Urine WBC 6-10 H (0-3) /hpf Ur Squamous Epith Cells Moderate (Few) /hpf Urine Bacteria 1+ H /hpf Urine Casts 0-2 Urine Mucus Present /lpf POC Urine HCG, Qual Negative (Negative) Imaging Data Radiologist's impression: ITS Impressions Chest X-Ray 01/09/25 08:00 IMPRESSION: 1. No acute cardiopulmonary disease. Discharge Plan Discharge Clinical Impression: Acute right-sided thoracic back pain Patient Disposition: Home, Self-Care Condition: Stable Instructions: Back Pain (ED) Additional Instructions: continue home medications. follow with your doctor Patient Language: Beninese Prescriptions: No Action levothyroxine [Synthroid] 175 mcg Tablet 175 mcg PO DAILY methylprednisolone 4 mg tablets,dose pack 4 mg PO DAILY ondansetron [Zofran ODT] 4 mg Tablet,Disintegrating 4 mg PO PRN PRN (Reason: Migraine Headache) sumatriptan succinate 6 mg/0.5 mL pen injector 6 mg SUBCUT PRN PRN (Reason: Migraine Headache) bupropion HCl 150 mg Tablet Extended Release 24 Hr 150 mg PO QAM Trulance 3 mg tablet 3 mg PO DAILY cyclobenzaprine 5 mg tablet 5 mg PO TID PRN (Reason: muscle spasm) Qty: 20 0RF gabapentin 100 mg capsule 100 mg PO TID Qty: 90 0RF hydrocodone-acetaminophen 5-325 mg tablet 1 tablet PO Q6H Qty: 20 0RF ciprofloxacin HCl [Cipro] 500 mg tablet 500 mg PO Q12H Qty: 10 0RF metronidazole 250 mg tablet 250 mg PO Q8H Qty: 15 0RF Follow-up/Referrals: Rene,Derrick Johnson MD [Primary Care Provider] - Time of Disposition: 08:32
[2025-01-09 09:15] VITALS: BP 136/84; PULSE 78; RESP 14; O2SAT 98
== END 2025-01-09 09:15 | disposition home or self-care (01) ==
PROVIDERS: Student in an Organized Health Care Education/Training Program; Emergency Provider Family Medicine; PCP Family Medicine
DX: M54.6 Pain in thoracic spine (principal); E03.9 Hypothyroidism, unspecified; F41.9 Anxiety disorder, unspecified; F32.A Depression, unspecified; Z90.49 Acquired absence of other specified parts of digestive tract; Z79.899 Other long term (current) drug therapy
CPT/HCPCS: 36415; 71046; 80053; 81001; 81025; 83690; 85025; 96374; 96375; 99284; J2405; J3010